=== PATIENT | female | born 1980 | race Caucasian/White ===

== ENCOUNTER 2019-07-14 19:46 | Emergency (ER) | payer OTHER, SELFPAY ==
--- NOTE | ~2019-07-14 | XR_ITS ---
EXAMINATION: XR forearm RT 2V EXAM DATE: 07/14/2019 20:36 INDICATION: Right arm swelling after working outside, poison lucero exposure. TECHNIQUE: Right forearm frontal and lateral projections obtained and reviewed. Comparison is made to prior examination from 03/25/2013. FINDINGS: There are no acute right forearm fractures or dislocations identified. There is no subcuta neous gas. There is soft tissue swelling over the posterior mid aspect of the forearm. There are no radiopaque foreign bodies. No elbow joint effusion. IMPRESSION: 1. XR forearm RT 2V exam without acute osseous findings. 2. Soft tissue swelling. Reviewed, dictated and finalized at location A.
[2019-07-14 19:52] VITALS: BP 153/74; PULSE 77; RESP 15; TEMP 36.8; O2SAT 100
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
[2019-07-14] MEDS: methylPREDNISolone SOD SUCC 125 MG VIAL IM (20:27)
--- NOTE | 2019-07-14 20:39 | PC.NURSE ---
At patient request-assistance give with application of Calamine lotion to right arm for rash
[2019-07-14] MEDS: KETOROLAC (*BKC) 60 MG/2 ML VIAL IM (21:28)
[2019-07-14 22:20] VITALS: BP 135/71; PULSE 71; RESP 18; TEMP 36.7; O2SAT 99
== END 2019-07-14 22:22 | disposition home or self-care (01) ==
PROVIDERS: Emergency Provider General Practice; PCP Obstetrics & Gynecology
DX: R21 Rash and other nonspecific skin eruption (principal); M79.631 Pain in right forearm; M79.89 Other specified soft tissue disorders; F41.9 Anxiety disorder, unspecified; I10 Essential (primary) hypertension
CPT/HCPCS: 73090; 96372; 99284; J1885; J2930

== ENCOUNTER 2019-07-17 17:32 | Emergency (ER) | payer OTHER, SELFPAY ==
[2019-07-17 17:44] VITALS: BP 152/88; PULSE 92; RESP 16; TEMP 37; O2SAT 99
--- NOTE | 2019-07-17 18:20 | ED.SKABFB ---
HPI - Skin/Abscess/Foreign Bdy General Chief complaint: Skin/Abscess/Foreign Body Stated complaint: rash Time Seen by Provider: 07/17/19 18:10 Source: patient and RN notes reviewed Mode of arrival: ambulatory Limitations: no limitations History of Present Illness HPI narrative: Patient presents today with a one-week history of severely pruritic rash to the right forearm and right axilla. Patient was seen in the ER in 07/14/2019 for unrelated swelling of her right forearm, as well as this rash. She was given topical hydrocortisone, which is not working. She is also been taking Benadryl without much relief. Reports the rash is continuing to spread down her forearm. Patient works in [employer] and believes that she came into contact with poison [place] prior to onset of symptoms. MD complaint: rash Related Data Home Medications Medication Instructions Recorded Confirmed alprazolam 07/17/19 buspirone mg 07/17/19 buspirone mg 07/17/19 citalopram mg 07/17/19 escitalopram oxalate mg 07/17/19 fluoxetine mg 07/17/19 gabapentin 07/17/19 Allergies Allergy/AdvReac Type Severity Reaction Status Date / Time latex Allergy Intermediate Itching Verified 07/14/19 19:55 morphine Allergy Intermediate Swelling Verified 07/14/19 19:55 amoxicillin [From Augmentin] AdvReac Mild Nausea and Verified 07/14/19 20:29 Vomiting clavulanic acid AdvReac Mild Nausea and Verified 07/14/19 20:29 [From Augmentin] Vomiting naproxen AdvReac Mild Other Verified 07/14/19 19:55 Review of Systems Review of Systems: Narrative: CONSTITUTIONAL: Denies body aches, fever, chills, or sweats. EYES: Denies visual changes, redness, or discharge. ENT: Denies rhinorrhea, congestion, sore throat, or otalgia. CARDIOVASCULAR: Denies chest pain, palpitations, or edema. RESPIRATORY: Denies cough or dyspnea. GASTROINTESTINAL: Denies abdominal pain, nausea, vomiting, or diarrhea. GENITOURINARY: Denies dysuria or hematuria. SKIN: Denies wounds.+ Pruritic rash to right forearm and right axilla. MUSCULOSKELETAL: Denies back pain, joint pain, or myalgia. NEUROLOGIC: Denies headache, numbness, tingling, or weakness. PSYCH: Denies depression or anxiety. PMFSH Past Medical History Medical History (Updated 07/17/19 @ 18:27 by Lamar Alicea, BIN FILLER, ) Anxiety Hypertension Surgical History Surgical History (Updated 07/14/19 @ 20:24 by Ksenia Estrada MD) History of facial surgery Comments At time of signature, I have reviewed and agree with nursing past medical, surgical, social and family history unless otherwise noted. Please see nursing chart for further information. There is no relevant family history pertinent to the presenting complaint Exam Narrative: Exam Narrative: GENERAL: Well-appearing, well-nourished, and in no acute distress. HEAD: Normocephalic, atraumatic. EYES: EOMI. No redness or drainage. Conjunctivae normal. ENT: Mucous membranes pink and moist. NECK: Normal AROM. Supple. No lymphadenopathy. CHEST: No respiratory distress. EXTREMITIES: Normal range of motion. No edema. SKIN: Warm, dry. Capillary refill normal. Normal skin turgor. Large patch of erythematous papules to the inner right upper arm. No vesicles, induration, fluctuance of signs of infection. Similar large patch to right axilla. NEURO: No focal deficits. Alert and oriented x3. Gait steady. PSYCH: Normal affect. No signs of depression or anxiety. Course Vital Signs Vital signs: Vital Signs Temperature 98.6 F 07/17/19 17:44 Pulse Rate 92 07/17/19 17:44 Respiratory Rate 16 07/17/19 17:44 Blood Pressure 152/88 H 07/17/19 17:44 Pulse Oximetry 99 07/17/19 17:44 Temperature 98.6 F 07/17/19 17:44 Pulse Rate 92 07/17/19 17:44 Respiratory Rate 16 07/17/19 17:44 Blood Pressure 152/88 H 07/17/19 17:44 Pulse Oximetry 99 07/17/19 17:44 Reviewed. Pt has been instructed to follow up with her PCP regarding her elevated blood pr
== END 2019-07-17 18:35 | disposition home or self-care (01) ==
PROVIDERS: Emergency Provider Nurse Practitioner; PCP Family Medicine
DX: L25.9 Unspecified contact dermatitis, unspecified cause (principal); F41.9 Anxiety disorder, unspecified; I10 Essential (primary) hypertension
CPT/HCPCS: 99213; G0463

== ENCOUNTER 2019-11-19 16:50 | Emergency (ER) | payer OTHER, SELFPAY ==
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
[2019-11-19 17:03] VITALS: BP 135/80; PULSE 92; RESP 16; TEMP 37.1; O2SAT 97
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
== END 2019-11-19 18:31 | disposition home or self-care (01) ==
PROVIDERS: Emergency Provider Registered Nurse; PCP Family Medicine
DX: M54.2 Cervicalgia (principal); M54.6 Pain in thoracic spine; V49.40XA Driver injured in collision with unspecified motor vehicles in traffic accident, initial encounter; F17.210 Nicotine dependence, cigarettes, uncomplicated; F41.9 Anxiety disorder, unspecified; F32.9 Major depressive disorder, single episode, unspecified; J45.909 Unspecified asthma, uncomplicated; K21.9 Gastro-esophageal reflux disease without esophagitis; I10 Essential (primary) hypertension; F43.10 Post-traumatic stress disorder, unspecified
CPT/HCPCS: 72050; 99213; G0463

== ENCOUNTER 2020-06-07 15:59 | Emergency (ER) | payer OTHER, SELFPAY ==
--- NOTE | 2020-06-07 16:30 | ED.GENADULT ---
HPI - General Adult General Chief complaint: Upper Respiratory Infection Stated complaint: cough/no taste /smell Time Seen by Provider: 06/07/20 16:30 Source: patient Mode of arrival: ambulatory Limitations: no limitations History of Present Illness HPI narrative: 39-year-old female patient presents to the [facility] with complaints of cold symptoms for the past 2 to 3 days. Patient states she has had a lot of fatigue, sneezing, bilateral ear pain, congestion cough. Patient also reports no smell no taste in a sore throat. Patient states she is been taking Tylenol and ibuprofen for symptoms. Patient states she did get a flu vaccine this season. Patient states she has been around somebody that has been positive for Covid within the last week. Patient denies any chest pain or shortness of breath. Related Data Home Medications Medication Instructions Recorded Confirmed gabapentin 07/17/19 alprazolam 11/19/19 cyclobenzaprine mg 11/19/19 metoprolol succinate PO 11/19/19 sertraline mg 11/19/19 pantoprazole 40 mg PO DAILY 06/07/20 06/07/20 Allergies Allergy/AdvReac Type Severity Reaction Status Date / Time latex Allergy Intermediate Itching Verified 07/14/19 19:55 morphine Allergy Intermediate Swelling Verified 07/14/19 19:55 amoxicillin [From Augmentin] AdvReac Mild Nausea and Verified 07/14/19 20:29 Vomiting clavulanic acid AdvReac Mild Nausea and Verified 07/14/19 20:29 [From Augmentin] Vomiting naproxen AdvReac Mild Other Verified 07/14/19 19:55 Review of Systems Review of Systems: Narrative: CONSTITUTIONAL: Denies fever, chills, or sweats. Positive fatigue EYES: Denies visual changes, redness, or discharge. ENT: Positive rhinorrhea, congestion, sore throat, and bilateral otalgia. Positive sneezing CARDIOVASCULAR: Denies chest pain, palpitations, or edema. RESPIRATORY: Positive cough denies dyspnea. GASTROINTESTINAL: Denies abdominal pain, nausea, vomiting, or diarrhea. GENITOURINARY: Denies dysuria or hematuria. SKIN: Denies rash or itching. MUSCULOSKELETAL: Denies back pain, joint pain, or myalgia. NEUROLOGIC: Positive denies headache, numbness, or weakness. PSYCHIATRIC: Denies anxiety or depression. [facility] Past Medical History Medical History Anxiety Asthma Depression GERD (gastroesophageal reflux disease) Gestational diabetes Headache History of dental problems Hypertension Pinched cervical nerve root PTSD (post-traumatic stress disorder) Sciatica Surgical History Surgical History History of facial surgery Previous section Family History Family History Mother Hypertension Father Hypertension Other Diabetes mellitus Social History Social History Smoking packs per day: 0.5 Smoking cigarettes per day: 10.0 Years smoked: 20 Smoking pack-years: 10.00 Smoking status: Current every day smoker Tobacco type: cigarettes Gender identity (if verbalized by the patient): Female Comments At the time of my signature I agree with nursing past medical history, surgical, social, and family history. There is no relevant family history pertinent to the presenting complaint. Exam Narrative: Exam Narrative: GENERAL: Well-appearing, well-nourished, and in no acute distress. HEAD: Normocephalic, atraumatic. EYES: PERRLA and EOMI. ENT: Nares with erythema and edema noted bilaterally, no rhinorrhea or epistaxis. Mucous membranes moist. Posterior pharynx with slight erythema but no tonsil enlargement, no exudates or lesions present. NECK: Supple. No lymphadenopathy CHEST: Clear to auscultation. No respiratory distress. Patient able talk in clear complete sentences. No tripoding noted. HEART: Regular rate and rhythm. No murmur heard. Normal peripheral pulses.
[2020-06-07 17:01] VITALS: BP 136/86; PULSE 76; RESP 18; TEMP 36.4; O2SAT 96
--- NOTE | 2020-06-08 11:05 | PC.NURSE ---
06/07/20 Juan Bryant from [facility] notified of pickup of COVID PCR swab.
[2020-06-08 17:33] LABS: SARS-CoV-2 RNA PCR Negative
== END 2020-06-07 18:15 | disposition home or self-care (01) ==
PROVIDERS: Emergency Provider Nurse Practitioner Family; PCP Family Medicine
DX: J06.9 Acute upper respiratory infection, unspecified (principal); Z20.822 Contact with and (suspected) exposure to COVID-19; F41.9 Anxiety disorder, unspecified; F32.9 Major depressive disorder, single episode, unspecified; J45.909 Unspecified asthma, uncomplicated; K21.9 Gastro-esophageal reflux disease without esophagitis; I10 Essential (primary) hypertension; F17.210 Nicotine dependence, cigarettes, uncomplicated
CPT/HCPCS: 87081; 87426; 87880; 99213; C9803; G0463; U0003; U0005

== ENCOUNTER 2020-08-14 08:55 | Outpatient (CLI) | payer OTHER, SELFPAY ==
--- NOTE | ~2020-08-14 | XR_ITS ---
XR knee LT min 4V 08/14/2020 09:29 Indication: Left knee pain Procedure: 4 views left knee Comparison: No prior studies for comparison. Findings: There is mild osteoarthritis of the left knee. There is a small bone island in the proximal tibia. No fracture or traumatic malalignment. No significant joint effusion. No foreign bodies. Impression: 1: Mild osteoarthritis of the left knee. Reviewed, dictated and finalized at location B. Impression: 1: Mild osteoarthritis of the left knee.
--- NOTE | ~2020-08-14 | XR_ITS ---
XR lumbar spine 2-3V 08/14/2020 09:29 Indication: Low back pain Procedure: 2 views lumbar spine Comparison: 10/19/2015 Findings: Vertebral body heights are maintained. There is a Schmorl's node superior endplate of T12. No fracture, subluxation or dislocation. Pedicles intact. Sacral foramen are symmetric. No evidence f or spondylolisthesis. No significant disc narrowing. Impression: 1: No significant abnormality of the lumbar spine. Reviewed, dictated and finalized at location B. Impression: 1: No significant abnormality of the lumbar spine.
--- NOTE | ~2020-08-14 | XR_ITS ---
XR knee RT min 4V 08/14/2020 09:29 Indication: Right knee pain Procedure: 4 views right knee Comparison: No prior studies for comparison. Findings: No fracture, subluxation or dislocation. No significant joint effusion. No radiopaque forei gn bodies. Impression: 1: No significant bone or joint abnormality. Reviewed, dictated and finalized at location B. Impression: 1: No significant bone or joint abnormality.
== END 2020-08-14 08:56 | disposition home or self-care (01) ==
LOC: ANHIMG 08:59
PROVIDERS: PCP Family Medicine; Visit Provider Family Medicine
DX: M23.8X1 Other internal derangements of right knee (principal); M79.89 Other specified soft tissue disorders; M54.5 Low back pain; M23.8X2 Other internal derangements of left knee; M17.12 Unilateral primary osteoarthritis, left knee
CPT/HCPCS: 72100; 73564

== ENCOUNTER 2020-11-08 15:43 | Emergency (ER) | payer OTHER, SELFPAY ==
[2020-11-08 16:18] VITALS: BP 143/84; PULSE 104; RESP 16; TEMP 36.4; O2SAT 99
--- NOTE | 2020-11-08 16:18 | ED.GENADULT ---
HPI - General Adult General Chief complaint: Unspecified Stated complaint: fever Time Seen by Provider: 11/08/20 16:18 Source: patient, family and RN notes reviewed Mode of arrival: ambulatory Limitations: no limitations History of Present Illness HPI narrative: 39-year-old female presents to the [facility] with no specific complaint. States that she has been feeling very rundown for the last 4 weeks. States that her primary care will not be returning until Nov. No chest pain or abdominal pain. Related Data Home Medications Medication Instructions Recorded Confirmed gabapentin 100 mg PO TID 07/17/19 11/08/20 alprazolam 1 mg PO TID 11/19/19 11/08/20 cyclobenzaprine 10 mg PO TID PRN 11/19/19 11/08/20 metoprolol succinate 50 mg PO DAILY 11/19/19 11/08/20 sertraline 150 mg PO DAILY 11/19/19 11/08/20 Allergies Allergy/AdvReac Type Severity Reaction Status Date / Time latex Allergy Intermediate Itching Verified 11/08/20 16:37 morphine Allergy Intermediate Swelling Verified 11/08/20 16:37 amoxicillin [From Augmentin] AdvReac Mild Nausea and Verified 11/08/20 16:37 Vomiting clavulanic acid AdvReac Mild Nausea and Verified 11/08/20 16:37 [From Augmentin] Vomiting naproxen AdvReac Mild Other Verified 11/08/20 16:37 Review of Systems Review of Systems: All systems reviewed & are unremarkable except as noted in HPI and below Constitutional: Constitutional: Reports no additional constitutional complaints, Denies body ache(s) and Denies chills Eyes: Eyes: Reports no additional eye complaints ENT: Reports system reviewed and no additional complaints, except as documented Cardiovascular: Cardiovascular: Reports no additional cardiovascular complaints and Denies chest pain Respiratory: Respiratory: Reports no additional respiratory complaints, Denies chest congestion and Denies cough Gastrointestinal: Gastrointestinal: Reports no additional gastrointestinal complaints and Denies abdominal pain Musculoskeletal: Musculoskeletal: Reports no additional musculoskeletal complaints Integumentary/Breasts: Skin/Breast: Reports system reviewed and no additional complaints, except as docu Neurologic: Reports system reviewed and no additional complaints, except as documented Psychiatric: Psychiatric: Reports no additional psychiatric complaints Allergic/Immunologic: Allergic/Immunologic: Reports no additional allergic/immunologic complaints PMFSH Past Medical History Medical History Anxiety Asthma Depression GERD (gastroesophageal reflux disease) Gestational diabetes Headache History of dental problems Hypertension Pinched cervical nerve root PTSD (post-traumatic stress disorder) Sciatica Surgical History Surgical History History of facial surgery Previous section Family History Family History Mother Hypertension Father Hypertension Other Diabetes mellitus Social History Social History Smoking packs per day: 0.5 Smoking cigarettes per day: 10.0 Years smoked: 20 Smoking pack-years: 10.00 Smoking status: Current every day smoker Tobacco type: cigarettes Gender identity (if verbalized by the patient): Female Comments At the time of my signature, I reviewed and agree with the nursing past medical, surgical, social, and family history. There is no relevant family history pertinent to the patient complaint. Exam Const: General: cooperative, comfortable, no acute distress, alert and anxious Nutritional Appearance: obese Orientation/consciousness: patient oriented x3 Limitations: no limitations HENMT: Head: normal to inspection Ears: hearing grossly normal bilaterally General nose exam: Normal external nose present Throat: posterior oropharynx normal Eyes: General: appearance normal,
== END 2020-11-08 16:53 | disposition home or self-care (01) ==
PROVIDERS: Emergency Provider Nurse Practitioner; PCP Family Medicine
DX: R53.83 Other fatigue (principal); F17.210 Nicotine dependence, cigarettes, uncomplicated; J45.909 Unspecified asthma, uncomplicated; K21.9 Gastro-esophageal reflux disease without esophagitis; I10 Essential (primary) hypertension; F41.9 Anxiety disorder, unspecified; F32.9 Major depressive disorder, single episode, unspecified; F43.10 Post-traumatic stress disorder, unspecified; X58.XXXA Exposure to other specified factors, initial encounter
CPT/HCPCS: 99211; G0463

== ENCOUNTER 2021-07-18 06:45 | Outpatient (RCR) | payer SELFPAY | END 2021-10-01 10:30 | disposition home or self-care (01) | LOC: ANHDMC 06:45 | PROVIDERS: PCP Nurse Practitioner; Visit Provider Clinical Nurse Specialist | DX: E11.9 Type 2 diabetes mellitus without complications (principal) | CPT/HCPCS: 99199 ==

== ENCOUNTER 2021-11-27 09:42 | Emergency (ER) | payer OTHER, SELFPAY ==
[2021-11-27 09:56] VITALS: BP 132/85; PULSE 101; RESP 16; TEMP 36.9; O2SAT 100
--- NOTE | 2021-11-27 10:32 | ED.URI ---
HPI - URI/Sore Throat General Chief Complaint: Upper Respiratory Infection Stated Complaint: sore throat Time Seen by Provider: 11/27/21 10:32 Source: patient, RN notes reviewed and old records reviewed Mode of arrival: ambulatory Limitations: no limitations History of Present Illness HPI Narrative: 40-year-old female presents to the [facility] with multiple complaints. Patient states she has had a sore throat, ear pain, lump under her left arm. Patient states she has had sinus pressure for 2-1/2 weeks. Has tried a couple [id number] products but states she needs to watch what she takes because she has a history of high blood pressure. Related Data Home Medications Medication Instructions Recorded Confirmed alprazolam 1 mg tablet 1 mg PO TID 11/19/19 11/27/21 duloxetine 20 mg capsule,delayed 80 mg PO DAILY 09/26/21 11/27/21 release gabapentin 300 mg capsule 300 mg PO TID 09/26/21 11/27/21 Allergies Allergy/AdvReac Type Severity Reaction Status Date / Time latex Allergy Intermediate Itching Verified 11/27/21 10:28 morphine Allergy Intermediate Swelling Verified 11/27/21 10:28 amoxicillin [From Augmentin] AdvReac Mild Nausea and Verified 11/27/21 10:28 Vomiting clavulanic acid AdvReac Mild Nausea and Verified 11/27/21 10:28 [From Augmentin] Vomiting naproxen AdvReac Mild Other Verified 11/27/21 10:28 Review of Systems Review of Systems: All systems reviewed & are unremarkable except as noted in HPI and below Constitutional: Constitutional: Reports no additional constitutional complaints, Denies chills and Denies fever(s) Eyes: Eyes: Reports no additional eye complaints ENT: Reports as per HPI Cardiovascular: Cardiovascular: Reports no additional cardiovascular complaints Respiratory: Respiratory: Reports no additional respiratory complaints Gastrointestinal: Gastrointestinal: Reports no additional gastrointestinal complaints Musculoskeletal: Musculoskeletal: Reports no additional musculoskeletal complaints Integumentary/Breasts: Skin/Breast: Reports as per HPI Neurologic: Reports system reviewed and no additional complaints, except as documented Psychiatric: Psychiatric: Reports no additional psychiatric complaints Allergic/Immunologic: Allergic/Immunologic: Reports no additional allergic/immunologic complaints PMFSH Past Medical History Medical History Allergies Anxiety Asthma Cervical radiculopathy due to degenerative joint disease of spine Degenerated intervertebral disc Depression GERD (gastroesophageal reflux disease) Gestational diabetes History of dental problems Hypertension Pinched cervical nerve root PTSD (post-traumatic stress disorder) Sciatica Surgical History Surgical History History of facial surgery Previous section Family History Family History Mother Hypertension Alcoholism Asthma Diabetes mellitus Depression Anxiety Heart problem Father Hypertension Alcoholism Thyroid disorder Sibling Alcoholism Asthma Anxiety Depression Thyroid disorder Grandparent Asthma Cancer Diabetes mellitus Hypertension Depression Anxiety Heart problem Cerebrovascular accident Social History Social History Social History: Caffeine-Coffee, daily and energy drinks Smoking packs per day: 0.5 Smoking cigarettes per day: 10.0 Years smoked: 20 Smoking pack-years: 10.00 Smoking status: Current every day smoker Tobacco type: cigarettes Second hand tobacco smoke exposure: Yes Alcohol intake: never Substance use: never Substance use type: does not use Additional living arrangements comments: Lives alone with 2 children Gender identity (if verbalized by the patient): Female Comments At the time o
== END 2021-11-27 11:23 | disposition home or self-care (01) ==
PROVIDERS: Emergency Provider Nurse Practitioner
DX: L73.2 Hidradenitis suppurativa (principal); J06.9 Acute upper respiratory infection, unspecified; F17.210 Nicotine dependence, cigarettes, uncomplicated; J45.909 Unspecified asthma, uncomplicated; K21.9 Gastro-esophageal reflux disease without esophagitis; I10 Essential (primary) hypertension; F41.9 Anxiety disorder, unspecified; M47.812 Spondylosis without myelopathy or radiculopathy, cervical region
CPT/HCPCS: 87081; 87880; 99213; G0463

== ENCOUNTER 2021-12-25 12:30 | Outpatient (RCR) | payer OTHER, SELFPAY ==
--- NOTE | 2021-12-05 13:22 | PTOPEVAL1 ---
Assessment and note entered by Misty Bates, PT Evaluation Information Assessment Status Evaluation Reported Pain Level Pain Score 8,8: Self Report Additional Pain Score Comments low back/sciatica also Significant back pain with bending forward. Only able to maintain bent for bathing her children 3 min at a time Assessment PT Clinical Summary Pt presents w/ c/o cervical pain and radiculopathy but also w/ c/o low back pain and sciatic issues. She reports when she modifies her activities for one, the other will increase in pain. Also reports is never a 0/10 for pain with lowest ratings for neck and back being 5/10 and 6/10. Verbalizes discouragement and frustration with the multiple aspects and co-morbidities she is dealing with as well as psychosocial issues effecting her health. Evaluation today shows decreased ROM of lumbar, thoracic, and cervical spine as well as poor core activation pattern and strength, soft tissue extensibility issues, abnormal postures, and likely pelvic alignment issue effecting spinal alignment up kinematic chain all effecting pt's pain. Pt was educated on findings, and encouraged in multiple aspects of improving daily function with dietary and habit changes, as well as stress reduction. Will benefit from therapy to address alignment, strength and stabilization of lumbopelvic area, address cervical ROM and postures, and reduce pain to improve daily function. Plan of Care Interventions Electrical Stimulation,Hot Pack/Cold Pack,Manual Therapy,Mechanical Traction,Neuro Re-education, Patient/Caregiver Educati,Therapeutic Activities, Therapeutic Exercise,Self-Care/Home Management Other Interventions Bracing/Taping (latex allergy) PT Services Indicated Yes Treatment Frequency and 2x per week x 4 weeks Duration These treatments will address the objective and functional deficits as defined above. The patient will be advanced safely and appropriately in order for the patient to progress towards his/her prior level of function. Additional exercises will be introduced and as well as a comprehensive home exercise program upon discharge, if needed, ?to ensure carryover of functional gains achieved in the clinic. This treatment plan has been reviewed and agreement upon by the patient.
--- NOTE | 2021-12-05 13:25 | PTOPEVAL1 ---
Assessment and note entered by Misty Bates, PT Evaluation Information Assessment Status Evaluation Reported Pain Level Pain Score 8,8: Self Report Additional Pain Score Comments cervicalgia w/ radiculopathy low back/sciatica Assessment PT Clinical Summary Pt presents w/ c/o cervical pain and radiculopathy but also w/ c/o low back pain and sciatic issues. She reports when she modifies her activities for one, the other will increase in pain. Also reports is never a 0/10 for pain with lowest ratings for neck and back being 5/10 and 6/10. Verbalizes discouragement and frustration with the multiple aspects and co-morbidities she is dealing with as well as psychosocial issues effecting her health. Evaluation today shows decreased ROM of lumbar, thoracic, and cervical spine as well as poor core activation pattern and strength, soft tissue extensibility issues, abnormal postures, and likely pelvic alignment issue effecting spinal alignment up kinematic chain all effecting pt's pain. Pt was educated on findings, and encouraged in multiple aspects of improving daily function with dietary and habit changes, as well as stress reduction. Will benefit from therapy to address alignment, strength and stabilization of lumbopelvic area, address cervical ROM and postures, and reduce pain to improve daily function. Plan of Care Interventions Electrical Stimulation,Hot Pack/Cold Pack,Manual Therapy,Mechanical Traction,Neuro Re-education, Patient/Caregiver Educati,Therapeutic Activities, Therapeutic Exercise,Self-Care/Home Management Other Interventions Bracing/Taping (latex allergy) PT Services Indicated Yes Treatment Frequency and 2x per week x 4 weeks Duration These treatments will address the objective and functional deficits as defined above. The patient will be advanced safely and appropriately in order for the patient to progress towards his/her prior level of function. Additional exercises will be introduced and as well as a comprehensive home exercise program upon discharge, if needed, ?to ensure carryover of functional gains achieved in the clinic. This treatment plan has been reviewed and agreement upon by the patient.
--- NOTE | 2021-12-26 11:42 | PCPTNOTE ---
Patient did not show up for scheduled appointment this date.
--- NOTE | 2021-12-27 13:07 | PCPTNOTE ---
Patient did not show up for scheduled appointment this date. Called and spoke with Pt, Pt had spoken with secretary to the vice president and was going to call back later when she can reschedule.
--- NOTE | 2021-12-28 11:31 | PCPTNOTE ---
Patient did not show up for scheduled appointment this date. Called and left a voicemail.
--- NOTE | 2022-01-02 13:19 | PTOPDC ---
Assessment and note entered by Misty Bates, PT Discharge Information Assessment Status Discharge - Pt Not Present Assessment PT Clinical Summary Pt attended evaluation and two therapy sessions. She has since ceased her therapy sessions without calling to cancel her last four sessions. Thus she is being discharged from her therapy POC at this time due to nonattendance.
== END 2022-01-03 10:03 | disposition home or self-care (01) ==
LOC: ANHPT 12:30
PROVIDERS: PCP Nurse Practitioner Family; Visit Provider Nurse Practitioner Family
DX: M54.2 Cervicalgia (principal); M54.12 Radiculopathy, cervical region
CPT/HCPCS: 97014; 97110; 97162; 97530; 99199; G0283

== ENCOUNTER 2021-12-26 12:11 | Outpatient (CLI) | payer OTHER, SELFPAY ==
[2021-12-26 18:35] LABS: Hemoglobin A1C 9.2 % (<5.7)
[2021-12-26 18:39] LABS: Alanine Aminotransferase 43 U/L (6-35); Albumin Level 4.1 g/dL (3.5-5.1); Alkaline Phosphatase 113 U/L (38-126); Anion Gap 14 mmol/L (8-16); Aspartate Amino Transferase 27 U/L (14-36); Bilirubin,Total 0.2 mg/dL (0.2-1.3); Blood Urea Nitrogen 11 mg/dL (7-17); Calcium 9.6 mg/dL (8.4-10.2); Carbon Dioxide 28 mmol/L (22-30); Chloride 96 mmol/L (98-107); Estimated Glomerular Filt Rate > 60; Glucose 336 mg/dL (65-110); Potassium 4.3 mmol/L (3.4-5.0); Sodium 138 mmol/L (137-145)
[2021-12-26 18:41] LABS: Basophils Absolute Auto 0.1 K/mm3 (0.0-0.1); Basophils Percent Auto 0.5 % (0.2-1.2); Eosinophils Absolute Auto 0.3 K/mm3 (0-0.3); Eosinophils Percent Auto 3.1 % (0-4.4); Hematocrit 36.6 % (37.0-47.0); Hemoglobin 11.6 g/dL (12.0-15.0); Immature Granulocyte Absolute 0.06 K/mm3 (0.00-0.031); Immature Granulocyte Percent A 0.6 % (0-0.5); Lymphocytes Absolute Auto 3.33 K/mm3 (0.9-3.2); Lymphocytes Percent Auto 30.8 % (18.3-44.2); Mean Corpuscular HGB Conc 31.7 g/dl (32-36); Mean Corpuscular Hemoglobin 27.5 pg (26-34); Mean Corpuscular Volume 86.7 fl (80-100); Mean Platelet Volume 9.6 fl (7.4-10.4); Monocytes Absolute Auto 0.9 K/mm3 (0.1-0.6); Neutrophils Absolute Auto 6.2 K/mm3 (1.3-6.7); Platelet Count Result 484 k/mm3 (150-375); Red Blood Count 4.22 M/mm3 (4.2-5.4); Red Cell Distribution Width 14.6 % (11.5-14.5); White Blood Count 10.8 K/mm3 (4.5-10.0)
[2021-12-26 18:49] LABS: Creatinine Urine 44.9 mg/dL
[2021-12-26 18:59] LABS: MALB Creatinine Ratio 211.4 mg/g (0-30); Microalbumin Urine Random 94.9 mg/L (0-16.7)
== END 2021-12-26 12:12 | disposition home or self-care (01) ==
LOC: ANHGOSHLAB 12:13
PROVIDERS: PCP Internal Medicine; Visit Provider Clinical Nurse Specialist
DX: E11.69 Type 2 diabetes mellitus with other specified complication (principal)
CPT/HCPCS: 36415; 80053; 82043; 83036; 85025

== ENCOUNTER 2022-03-12 13:23 | Emergency (ER) | payer OTHER, SELFPAY ==
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
--- NOTE | ~2022-03-12 | XR_ITS ---
[id number] DATE: 03/12/2022 15:07 INDICATION: Left anterior rib pain TECHNIQUE: PA chest. 3 views of the left ribs. COMPARISON: None FINDINGS: Normal heart size. No hilar or mediastinal enlargement. No pulmonary infiltrate or consolid ation, pleural effusion or pulmonary vascular congestion or pneumothorax. No left rib fracture or bone destruction is detected. IMPRESSION: No left rib fracture is detected No active cardiopulmonary disease Reviewed, dictated and finalized at [facility] Reviewed, dictated and finalized at [facility]. [employer] REPA[employer]
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
[2022-03-12 13:58] VITALS: BP 126/80; PULSE 110; RESP 20; TEMP 36.5; O2SAT 98
== END 2022-03-12 15:36 | disposition home or self-care (01) ==
PROVIDERS: Emergency Provider Nurse Practitioner Family; PCP Internal Medicine
DX: R07.81 Pleurodynia (principal); S16.1XXA Strain of muscle, fascia and tendon at neck level, initial encounter; V48.5XXA Car driver injured in noncollision transport accident in traffic accident, initial encounter; J45.909 Unspecified asthma, uncomplicated; K21.9 Gastro-esophageal reflux disease without esophagitis; I10 Essential (primary) hypertension; F41.9 Anxiety disorder, unspecified; F17.210 Nicotine dependence, cigarettes, uncomplicated
CPT/HCPCS: 71101; 72040; 99214; G0463

== ENCOUNTER 2022-03-25 08:00 | Outpatient (RCR) | payer OTHER, SELFPAY | END 2022-06-10 11:06 | disposition home or self-care (01) | LOC: ANHPT 08:00 | PROVIDERS: PCP Internal Medicine; Visit Provider Anesthesiology Pain Medicine | DX: M25.561 Pain in right knee (principal); M25.562 Pain in left knee | CPT/HCPCS: 99199 ==

== ENCOUNTER 2022-03-27 11:09 | Outpatient (CLI) | payer OTHER, SELFPAY ==
[2022-03-27 19:36] LABS: Add Urine Microscopic? YES; Appearance Urine Cloudy (Clear); Bilirubin Urine Negative (Negative); Blood Urine 3+ (Negative); Color Urine Red (Yellow); Glucose Urine UA Negative (Negative); Ketones Urine Negative (Negative); Leukocyte Esterase Ur Trace LEU/UL (NEGATIVE); Nitrate Urine Negative (Negative); Protein Urine 3+ mg/dL (Negative); Urobilinogen Urine 0.2 mg/dL (<2.0)
[2022-03-27 19:43] LABS: RBC Urine >75 /hpf (0-2)
[2022-03-27 19:45] LABS: Bacteria Urine Trace /hpf; Squamous Epithelial Cell Urine Few /hpf (Few)
[2022-03-27 19:54] LABS: Basophils Absolute Auto 0.1 K/mm3 (0.0-0.1); Basophils Percent Auto 0.9 % (0.2-1.2); Eosinophils Absolute Auto 0.4 K/mm3 (0-0.3); Hematocrit 39.1 % (37.0-47.0); Immature Granulocyte Absolute 0.03 K/mm3 (0.00-0.031); Immature Granulocyte Percent A 0.3 % (0-0.5); Lymphocytes Absolute Auto 3.09 K/mm3 (0.9-3.2); Lymphocytes Percent Auto 35.4 % (18.3-44.2); Mean Corpuscular HGB Conc 30.7 g/dl (32-36); Mean Corpuscular Hemoglobin 25.4 pg (26-34); Mean Corpuscular Volume 82.8 fl (80-100); Mean Platelet Volume 9.3 fl (7.4-10.4); Monocytes Absolute Auto 0.5 K/mm3 (0.1-0.6); Monocytes Percent Auto 5.7 % (2.6-8.5); Neutrophils Absolute Auto 4.7 K/mm3 (1.3-6.7); Neutrophils Percent Auto 53.7 % (45.5-73.1); Platelet Count Result 519 k/mm3 (150-375); Red Blood Count 4.72 M/mm3 (4.2-5.4); Red Cell Distribution Width 15.8 % (11.5-14.5); White Blood Count 8.7 K/mm3 (4.5-10.0)
[2022-03-27 20:28] LABS: Alanine Aminotransferase 44 U/L (6-35); Albumin Level 4.3 g/dL (3.5-5.1); Alkaline Phosphatase 112 U/L (38-126); Anion Gap 6 mmol/L (8-16); Aspartate Amino Transferase 32 U/L (14-36); Bilirubin,Total 0.3 mg/dL (0.2-1.3); Blood Urea Nitrogen 7 mg/dL (7-17); Calcium 9.1 mg/dL (8.4-10.2); Carbon Dioxide 30 mmol/L (22-30); Chloride 101 mmol/L (98-107); Cholesterol 304 mg/dL (0-200); Estimated Glomerular Filt Rate > 60; Glucose 160 mg/dL (65-110); HDL Direct 34 mg/dL; Potassium 4.4 mmol/L (3.4-5.0); Sodium 137 mmol/L (137-145); Triglycerides 510 mg/dL (<150)
[2022-03-27 20:42] LABS: Iron 63 ug/dL (37-170)
[2022-03-27 20:43] LABS: LDL Cholesterol Direct 161 mg/dL
[2022-03-27 20:53] LABS: Percent Iron Saturation 12 % (20-50)
[2022-03-27 21:25] LABS: Vitamin D 25 Hydroxy < 12.8 ng/mL
[2022-03-27 21:42] LABS: Creatinine Urine 21.2 mg/dL
[2022-03-27 22:10] LABS: Microalbumin Urine Random 263.5 mg/L (0-16.7)
[2022-03-28 12:03] LABS: Hemoglobin A1C 9.2 % (<5.7)
== END 2022-03-27 11:10 | disposition home or self-care (01) ==
LOC: ANHGOSHLAB 11:11
PROVIDERS: PCP Internal Medicine; Visit Provider Clinical Nurse Specialist
DX: E11.69 Type 2 diabetes mellitus with other specified complication (principal); F50.89 Other specified eating disorder; F41.9 Anxiety disorder, unspecified; I10 Essential (primary) hypertension; R74.8 Abnormal levels of other serum enzymes; E55.9 Vitamin D deficiency, unspecified; R35.0 Frequency of micturition
CPT/HCPCS: 36415; 80053; 80061; 81001; 82043; 82306; 82728; 83036; 83540; 83550; 84443; 85025; 87086

== ENCOUNTER 2022-06-18 09:20 | Emergency (ER) | payer OTHER, SELFPAY ==
[2022-06-18 09:33] VITALS: BP 126/64; PULSE 93; RESP 16; TEMP 36.6; O2SAT 98
--- NOTE | 2022-06-18 10:23 | ED.GENADULT ---
HPI - General Adult General Chief complaint: Upper Respiratory Infection Stated complaint: Sore Throat/ Ears/Headache Source: patient Mode of arrival: ambulatory Limitations: no limitations History of Present Illness HPI narrative: Patient presents for evaluation of sick symptoms for the past three days, worse in the past two days. She reports sore throat, sinus congestion, hot flashes, headache, nausea and fatigue. No vomiting, diarrhea, shortness of breath. One of her children has similar symptoms. She has been taking tylenol and ibuprofen for her symptoms. She does smoke about 1/4 ppd. She states she is diabetic. BS were previously not well controlled on trulicity. She changed to lantus a few month ago and states BS have been controlled in 120's since that time. Related Data Home Medications Medication Instructions Recorded Confirmed alprazolam 1 mg tablet 1 mg PO TID 11/19/19 01/09/22 duloxetine 20 mg capsule,delayed 80 mg PO DAILY 09/26/21 01/09/22 release gabapentin 300 mg capsule 300 mg PO TID 09/26/21 01/09/22 lamotrigine 25 mg tablet mg 03/12/22 cyclobenzaprine 10 mg tablet 10 mg PO Q8H 06/18/22 Allergies Allergy/AdvReac Type Severity Reaction Status Date / Time latex Allergy Intermediate Itching Verified 06/18/22 09:39 morphine Allergy Intermediate Swelling Verified 06/18/22 09:39 amoxicillin [From Augmentin] AdvReac Mild Nausea and Verified 06/18/22 09:39 Vomiting clavulanic acid AdvReac Mild Nausea and Verified 06/18/22 09:39 [From Augmentin] Vomiting naproxen AdvReac Mild Other Verified 06/18/22 09:39 Review of Systems Review of Systems: CONSTITUTIONAL: Reports hot flashes and fatigue. Denies objective fever, chills, or sweats. EYES: Denies visual changes, redness, or discharge. ENT: Reports sinus congestion, sore throat and bilateral ear pain. CARDIOVASCULAR: Denies chest pain, palpitations, or edema. RESPIRATORY: Denies cough or dyspnea. GASTROINTESTINAL: Reports nausea. Denies abdominal pain, vomiting, or diarrhea. GENITOURINARY: Denies dysuria or hematuria. SKIN: Denies rash or itching. MUSCULOSKELETAL: Denies back pain, joint pain, or myalgia. NEUROLOGIC: Reports headache. Denies numbness, dizziness, or weakness. PSYCHIATRIC: Denies anxiety or depression. [facility] Past Medical History Medical History Allergies Anxiety Asthma Cervical radiculopathy due to degenerative joint disease of spine Degenerated intervertebral disc Depression Elevated glucose level GERD (gastroesophageal reflux disease) Gestational diabetes Hidradenitis suppurativa History of dental problems Hypertension Otalgia of left ear Pain, dental Pinched cervical nerve root PTSD (post-traumatic stress disorder) Sciatica Suspected COVID-19 virus infection Urinary frequency Weight loss, unintentional Surgical History Surgical History History of facial surgery Previous section Family History Family History Mother Hypertension Alcoholism Asthma Diabetes mellitus Depression Anxiety Heart problem Father Hypertension Alcoholism Thyroid disorder Sibling Alcoholism Asthma Anxiety Depression Thyroid disorder Grandparent Asthma Cancer brain Diabetes mellitus Hypertension Depression Anxiety Heart problem Cerebrovascular accident Social History Social History (Updated 06/18/22 @ 11:02 by PEG Tavera, GIOVANNY) Social History: Caffeine-Coffee, daily Smoking packs per day: 0.25 Smoking cigarettes per day: 5.0 Years smoked: 20 Smoking pack-years: 5.00 Smoking status: Current every day smoker Tobacco type: cigarettes Second hand tobacco smoke exposure: Yes Alcohol intake: never Substance use: never Substance use type: does not use Lack of Transportat
== END 2022-06-18 10:44 | disposition home or self-care (01) ==
PROVIDERS: Emergency Provider Nurse Practitioner; PCP Clinical Nurse Specialist
DX: J02.0 Streptococcal pharyngitis (principal); Z20.822 Contact with and (suspected) exposure to COVID-19; F17.210 Nicotine dependence, cigarettes, uncomplicated; J44.9 Chronic obstructive pulmonary disease, unspecified; F41.9 Anxiety disorder, unspecified; F32.A Depression, unspecified; K21.9 Gastro-esophageal reflux disease without esophagitis; I10 Essential (primary) hypertension; E11.9 Type 2 diabetes mellitus without complications
CPT/HCPCS: 87426; 87804; 87880; 99213; C9803; G0463; J1100

== ENCOUNTER 2022-06-28 15:04 | Emergency (ER) | payer OTHER, SELFPAY ==
[2022-06-28 15:16] VITALS: BP 152/64; PULSE 100; RESP 16; TEMP 36.8; O2SAT 98
--- NOTE | 2022-06-28 15:25 | ED.URI ---
HPI - URI/Sore Throat General Chief Complaint: Upper Respiratory Infection Stated Complaint: Cough/Sinus Source: patient Mode of arrival: ambulatory Limitations: no limitations History of Present Illness HPI Narrative: Patient is a 41-year-old female who presents with sore throat and cough. Patient was seen 10 days ago and diagnosed with strep. Did not finish antibiotic course. Brought son and today he was strep positive. States symptoms have not improved at all. Has not taking any thing else for symptoms. Denies fever, chills, shortness of breath, congestion, fever and ear pain. Also reports menstrual cycle Is late and unsure if she is Related Data Home Medications Medication Instructions Recorded Confirmed alprazolam 1 mg tablet 1 mg PO TID 11/19/19 01/09/22 gabapentin 300 mg capsule 300 mg PO TID 09/26/21 01/09/22 lamotrigine 25 mg tablet mg 03/12/22 cyclobenzaprine 10 mg tablet 10 mg PO Q8H 06/18/22 Allergies Allergy/AdvReac Type Severity Reaction Status Date / Time latex Allergy Intermediate Itching Verified 06/28/22 15:46 morphine Allergy Intermediate Swelling Verified 06/28/22 15:46 amoxicillin [From Augmentin] AdvReac Mild Nausea and Verified 06/28/22 15:46 Vomiting clavulanic acid AdvReac Mild Nausea and Verified 06/28/22 15:46 [From Augmentin] Vomiting naproxen AdvReac Mild Other Verified 06/28/22 15:46 Review of Systems Review of Systems: All systems reviewed & are unremarkable except as noted in HPI and below Constitutional: Constitutional: Denies body ache(s), Denies fever(s), Denies headache(s), Denies malaise and Denies weakness Eyes: Eyes: Denies loss of vision ENT: Denies otalgia, Denies headache(s), Denies nasal congestion, Denies sinus pain and Reports sore throat Cardiovascular: Cardiovascular: Denies chest pain, Denies irregular heart rhythm and Denies dyspnea Respiratory: Respiratory: Reports cough and Denies dyspnea Gastrointestinal: Gastrointestinal: Denies abdominal pain, Denies melena, Denies hematochezia, Denies diarrhea, Denies nausea and Denies vomiting Musculoskeletal: Musculoskeletal: Denies back pain, Denies myalgias and Denies arthralgias Integumentary/Breasts: Skin/Breast: Denies pruritus and Denies rash Neurologic: Denies headache(s), Denies loss of vision and Denies weakness Psychiatric: Psychiatric: Reports no additional psychiatric complaints PMFSH Past Medical History Medical History Allergies Anxiety Asthma Cervical radiculopathy due to degenerative joint disease of spine Degenerated intervertebral disc Depression Elevated glucose level GERD (gastroesophageal reflux disease) Gestational diabetes Hidradenitis suppurativa History of dental problems Hypertension Otalgia of left ear Pain, dental Pinched cervical nerve root PTSD (post-traumatic stress disorder) Sciatica Suspected COVID-19 virus infection Urinary frequency Weight loss, unintentional Surgical History Surgical History History of facial surgery Previous section Family History Family History Mother Hypertension Alcoholism Asthma Diabetes mellitus Depression Anxiety Heart problem Father Hypertension Alcoholism Thyroid disorder Sibling Alcoholism Asthma Anxiety Depression Thyroid disorder Grandparent Asthma Cancer brain Diabetes mellitus Hypertension Depression Anxiety Heart problem Cerebrovascular accident Social History Social History (Updated 06/18/22 @ 11:02 by PEG Tavera, GIOVANNY) Social History: Caffeine-Coffee, daily Smoking packs per day: 0.25 Smoking cigarettes per day: 5.0 Years smoked: 20 Smoking pack-years: 5.00 Smoking status: Current every day smoker Tobacco type: cigarettes Second hand tobacco smoke
== END 2022-06-28 15:52 | disposition home or self-care (01) ==
PROVIDERS: Emergency Provider Nurse Practitioner Family; PCP Internal Medicine
DX: J02.0 Streptococcal pharyngitis (principal); F17.210 Nicotine dependence, cigarettes, uncomplicated; J45.909 Unspecified asthma, uncomplicated; M47.812 Spondylosis without myelopathy or radiculopathy, cervical region; K21.9 Gastro-esophageal reflux disease without esophagitis; I10 Essential (primary) hypertension; F41.9 Anxiety disorder, unspecified; F32.A Depression, unspecified
CPT/HCPCS: 81025; 99213; G0463

== ENCOUNTER 2022-09-03 14:37 | Emergency (ER) | payer OTHER, SELFPAY ==
[2022-09-03 14:54] VITALS: BP 137/79; PULSE 98; RESP 16; TEMP 36.8; O2SAT 98
--- NOTE | 2022-09-03 15:43 | ED.SKABFB ---
HPI - Skin/Abscess/Foreign Bdy General Chief complaint: Skin/Abscess/Foreign Body Stated complaint: Cat Scratch Both Legs Time Seen by Provider: 09/03/22 15:44 Source: patient, RN notes reviewed and old records reviewed Mode of arrival: ambulatory Limitations: no limitations History of Present Illness HPI narrative: 41 year old female who presents to [facility] care with complaints of being scratched by her mother's cat last week and also yesterday with several ayon noted to her left lower leg and one scratch area to right leg.Scabbing of several areas noted to left lower leg with some new scratches to left lower leg and right leg one scratch area. Patient reports that she has put some 'spray stuff' on areas and bandages. Reports that her tetanus shot is not up to date. MD complaint: other (Cat scratch ) Onset (ago): week(s) (last week and again yesterday) Tetanus up to date: no Location: LLE and RLE Severity scale (1-10): 5 Treatments prior to arrival: bandages and other ('some spray stuff') Related Data Home Medications Medication Instructions Recorded Confirmed alprazolam 1 mg tablet 1 mg PO TID 11/19/19 07/10/22 gabapentin 300 mg capsule 300 mg PO TID 09/26/21 07/10/22 lamotrigine 25 mg tablet mg 03/12/22 07/10/22 cyclobenzaprine 10 mg tablet 10 mg PO Q8H 06/18/22 07/10/22 quetiapine 25 mg tablet (Seroquel) 25 mg PO BID 07/10/22 07/10/22 Allergies Allergy/AdvReac Type Severity Reaction Status Date / Time latex Allergy Intermediate Itching Verified 09/03/22 15:04 morphine Allergy Intermediate Swelling Verified 09/03/22 15:04 amoxicillin [From Augmentin] AdvReac Mild Nausea and Verified 09/03/22 15:04 Vomiting clavulanic acid AdvReac Mild Nausea and Verified 09/03/22 15:04 [From Augmentin] Vomiting naproxen AdvReac Mild Other Verified 09/03/22 15:04 Review of Systems Review of Systems: CONSTITUTIONAL: Denies fever, chills, or sweats. EYES: Denies visual changes, redness, or discharge. ENT: Denies rhinorrhea, congestion, sore throat, or otalgia. CARDIOVASCULAR: Denies chest pain, palpitations, or edema. RESPIRATORY: Denies cough or dyspnea. GASTROINTESTINAL: Denies abdominal pain, nausea, vomiting, or diarrhea. GENITOURINARY: Denies dysuria or hematuria. SKIN: Denies rash or itching, positive for multiple cat scratch ayon to her left lower leg and one area on right lower leg MUSCULOSKELETAL: chronic back pain, joint pain, or myalgia. NEUROLOGIC: Denies headache, numbness, or weakness. PSYCHIATRIC: Positive history anxiety or depression. All systems reviewed & are unremarkable except as noted in HPI and below PMFSH Past Medical History Medical History Allergies Anxiety Asthma Cervical radiculopathy due to degenerative joint disease of spine Degenerated intervertebral disc Depression Elevated glucose level GERD (gastroesophageal reflux disease) Gestational diabetes Hidradenitis suppurativa History of dental problems Hypertension Otalgia of left ear Pain, dental Pinched cervical nerve root PTSD (post-traumatic stress disorder) Sciatica Suspected COVID-19 virus infection Urinary frequency Weight loss, unintentional Surgical History Surgical History History of facial surgery Previous section Family History Family History Mother Hypertension Alcoholism Asthma Diabetes mellitus Depression Anxiety Heart problem Father Hypertension Alcoholism Thyroid disorder Sibling Alcoholism Asthma Anxiety Depression Thyroid disorder Grandparent Asthma Cancer brain Diabetes mellitus Hypertension Depression Anxiety Heart problem Cerebrovascular accident Other Breast cancer Heart disease Malignant neoplasm of prostate Social History Social History (Reviewed 09/05/22 @ 08:29 by Yessy Flores Rid
[2022-09-03] MEDS: TETANUS,DIPHTHERIA,AC PERTUSSIS ADULT (0.5 ML) BOOSTRIX IM (16:13)
== END 2022-09-03 16:16 | disposition home or self-care (01) ==
PROVIDERS: Emergency Provider Registered Nurse; PCP Internal Medicine
DX: S80.812A Abrasion, left lower leg, initial encounter (principal); S80.811A Abrasion, right lower leg, initial encounter; W55.03XA Scratched by cat, initial encounter; Z23 Encounter for immunization; F17.210 Nicotine dependence, cigarettes, uncomplicated; J45.909 Unspecified asthma, uncomplicated; K21.9 Gastro-esophageal reflux disease without esophagitis; I10 Essential (primary) hypertension; F41.9 Anxiety disorder, unspecified; F32.A Depression, unspecified; M47.22 Other spondylosis with radiculopathy, cervical region
CPT/HCPCS: 90471; 90715; 99213; G0463

== ENCOUNTER 2022-11-08 15:55 | Emergency (ER) | payer OTHER, SELFPAY ==
[2022-11-08 16:09] VITALS: BP 147/89; PULSE 83; RESP 18; TEMP 36.6; O2SAT 99
[2022-11-08 16:11] VITALS: BP 147/89; PULSE 83; RESP 18; TEMP 36.6; O2SAT 99
--- NOTE | 2022-11-08 16:49 | ED.NAVMDI ---
HPI - Nausea/Vomiting/Diarrhea General Chief complaint: Nausea/Vomiting/Diarrhea Stated complaint: Nausea/Chills Time Seen by Provider: 11/08/22 16:36 Source: patient and RN notes reviewed Mode of arrival: ambulatory Limitations: no limitations History of Present Illness HPI Narrative: Patient presents today complaining of 4 day history of nausea, vomiting, subjective fever, sweats and chills. Her last vomiting episode was yesterday. She has been vomiting 3-4 times per day. She has been able to drink small amounts, but is afraid to drink larger amounts for fear of vomiting. Denies abdominal pain or diarrhea. She has tried Pepto, meclizine, and Dramamine without relief. Denies known sick contacts. Patient is diabetic and has been without her insulin and Jardiance all week. She also has not checked her blood sugar as the battery is malfunctioning in her glucometer. Related Data Home Medications Medication Instructions Recorded Confirmed alprazolam 1 mg tablet 1 mg PO TID 11/19/19 07/10/22 lamotrigine 25 mg tablet mg 03/12/22 07/10/22 quetiapine 25 mg tablet (Seroquel) 25 mg PO BID 07/10/22 07/10/22 Allergies Allergy/AdvReac Type Severity Reaction Status Date / Time latex Allergy Intermediate Itching Verified 11/08/22 16:09 morphine Allergy Intermediate Swelling Verified 11/08/22 16:09 amoxicillin [From Augmentin] AdvReac Mild Nausea and Verified 11/08/22 16:09 Vomiting clavulanic acid AdvReac Mild Nausea and Verified 11/08/22 16:09 [From Augmentin] Vomiting naproxen AdvReac Mild Other Verified 11/08/22 16:09 Review of Systems Review of Systems: CONSTITUTIONAL: Denies body aches. + subjective fever, chills, sweats EYES: Denies visual changes, redness, or discharge. ENT: Denies rhinorrhea, congestion, sore throat, or otalgia. CARDIOVASCULAR: Denies chest pain, palpitations, or edema. RESPIRATORY: Denies cough or dyspnea. GASTROINTESTINAL: Denies abdominal pain, or diarrhea.+ nausea, GENITOURINARY: Denies dysuria or hematuria. SKIN: Denies rash, itching, or wounds. MUSCULOSKELETAL: Denies back pain, joint pain, or myalgia. NEUROLOGIC: Denies headache, numbness, tingling, or weakness. PSYCH: Denies depression or anxiety. [facility] Past Medical History Medical History Allergies Anxiety Asthma Cervical radiculopathy due to degenerative joint disease of spine Degenerated intervertebral disc Depression Elevated glucose level GERD (gastroesophageal reflux disease) Gestational diabetes Hidradenitis suppurativa History of dental problems Hypertension Otalgia of left ear Pain, dental Pinched cervical nerve root PTSD (post-traumatic stress disorder) Sciatica Suspected COVID-19 virus infection Urinary frequency Weight loss, unintentional Surgical History Surgical History History of facial surgery Previous section Family History Family History Mother Hypertension Alcoholism Asthma Diabetes mellitus Depression Anxiety Heart problem Father Hypertension Alcoholism Thyroid disorder Sibling Alcoholism Asthma Anxiety Depression Thyroid disorder Grandparent Asthma Cancer brain Diabetes mellitus Hypertension Depression Anxiety Heart problem Cerebrovascular accident Other Breast cancer Heart disease Malignant neoplasm of prostate Social History Social History Social History: Caffeine-Coffee, daily Smoking packs per day: 0.25 Smoking cigarettes per day: 5.0 Years smoked: 20 Smoking pack-years: 5.00 Smoking status: Current every day smoker Tobacco type: cigarettes Second hand tobacco smoke exposure: Yes Alcohol intake: never Substance use: never Substance use type: does not use Lack of Tr
[2022-11-08 16:57] LABS: Glucose Point of Care 112 mg/dl (65-105)
== END 2022-11-08 17:01 | disposition home or self-care (01) ==
PROVIDERS: Emergency Provider Nurse Practitioner; PCP Internal Medicine
DX: R11.2 Nausea with vomiting, unspecified (principal); F41.8 Other specified anxiety disorders; K21.9 Gastro-esophageal reflux disease without esophagitis; I10 Essential (primary) hypertension; F17.210 Nicotine dependence, cigarettes, uncomplicated; Z20.822 Contact with and (suspected) exposure to COVID-19; E11.9 Type 2 diabetes mellitus without complications
CPT/HCPCS: 82948; 87426; 87804; 99213; C9803; G0463

== ENCOUNTER 2022-12-06 09:09 | Outpatient (CLI) | payer OTHER, SELFPAY ==
--- NOTE | ~2022-12-06 | US_ITS ---
US right upper quadrant INDICATION: Elevated liver enzymes PROCEDURE: Realtime right upper abdominal ultrasound. COMPARISON: No prior studies for comparison. FINDINGS: The pancreas is normal without focal mass or pancreatic ductal dilation. Liver echotexture is increased, consistent with fatty infiltration. There is normal directional flow in the portal ve in. The gallbladder is normal without stones, gallbladder wall thickening or pericholecystic fluid. Comm on bile duct measures 3 mm. No sonographic Diaz's sign. IMPRESSION: 1: Hepatic steatosis. Reviewed, dictated and finalized at location B. IMPRESSION: 1: Hepatic steatosis.
[2022-12-06 11:15] LABS: Alanine Aminotransferase 22 U/L (6-35); Albumin Level 4.3 g/dL (3.5-5.1); Alkaline Phosphatase 65 U/L (38-126); Anion Gap 5 mmol/L (8-16); Aspartate Amino Transferase 24 U/L (14-36); Bilirubin,Total 0.4 mg/dL (0.2-1.3); Blood Urea Nitrogen 12 mg/dL (7-17); Calcium 8.9 mg/dL (8.4-10.2); Carbon Dioxide 27 mmol/L (22-30); Chloride 104 mmol/L (98-107); Estimated Glomerular Filt Rate > 60; Glucose 101 mg/dL (65-110); Potassium 3.8 mmol/L (3.4-5.0); Sodium 136 mmol/L (137-145)
[2022-12-06 11:41] LABS: Thyroid Stimulating Hormone 0.985 uIU/mL (0.465-4.680)
[2022-12-06 11:51] LABS: HIV 1/2 Ab P24 Ag Result Negative (Negative)
[2022-12-06 12:07] LABS: Hepatitis C Virus Antibody Negative (Negative)
[2022-12-10 03:48] LABS: Hepatitis B Core Ab Total Nonreactive (Nonreactive)
== END 2022-12-06 09:10 | disposition home or self-care (01) ==
PROVIDERS: PCP Internal Medicine; Visit Provider Clinical Nurse Specialist
DX: R74.01 Elevation of levels of liver transaminase levels (principal); K76.0 Fatty (change of) liver, not elsewhere classified
CPT/HCPCS: 36415; 76705; 80053; 84443; 86703; 86704; 86803; G0432

== ENCOUNTER 2022-12-11 11:45 | Outpatient (CLI) | payer OTHER, SELFPAY ==
[2022-12-11 19:00] LABS: Appearance Urine Clear (Clear); Bilirubin Urine Negative (Negative); Blood Urine Negative (Negative); Color Urine Yellow (Yellow); Glucose Urine UA 2+ mg/dL (Negative); Ketones Urine Negative (Negative); Leukocyte Esterase Ur Negative LEU/UL (Negative); Nitrate Urine Negative (Negative); Protein Urine Negative (Negative); Specific Grav Ur 1.007 (1.001-1.035); Urobilinogen Urine 0.2 mg/dL (<2.0); pH Urine 6.5 (5.0-9.0)
[2022-12-11 19:35] LABS: Add Urine Microscopic? NO
[2022-12-11 20:11] LABS: Trichomonas Vag PCR NOT DETECTED (NOT DETECTE)
[2022-12-12 10:47] LABS: Chlamydia trachomatis NOT DETECTED (NOT DETECTE); Neisseria gonorrhoeae PCR NOT DETECTED (NOT DETECTE)
== END 2022-12-11 11:46 | disposition home or self-care (01) ==
LOC: ANHGOSHLAB 11:47
PROVIDERS: PCP Internal Medicine; Visit Provider Clinical Nurse Specialist
DX: R39.9 Unspecified symptoms and signs involving the genitourinary system (principal); E55.9 Vitamin D deficiency, unspecified; Z20.2 Contact with and (suspected) exposure to infections with a predominantly sexual mode of transmission
CPT/HCPCS: 81003; 87491; 87591; 87661

== ENCOUNTER 2023-03-27 10:13 | Emergency (ER) | payer OTHER, SELFPAY ==
--- NOTE | 2023-03-27 10:32 | ED.URI ---
HPI - URI/Sore Throat General Chief Complaint: Upper Respiratory Infection Stated Complaint: cough, fever,sore throat Time Seen by Provider: 03/27/23 10:34 Source: patient Mode of arrival: ambulatory Limitations: no limitations History of Present Illness HPI Narrative: Xiomara is a 42-year-old female patient presenting to clinic today to complaints of cough, fever, sore throat, nasal congestion, headache, sinus pain times 2 weeks. She reports no chest pain or shortness of breath. MD elicited complaint: cough, sore throat, nasal congestion and sinus pain Related Data Home Medications Medication Instructions Recorded Confirmed alprazolam 1 mg tablet 1 mg PO TID 11/19/19 03/27/23 quetiapine 25 mg tablet (Seroquel) 25 mg PO BID 07/10/22 03/27/23 azelastine 137 mcg (0.1 %) nasal 137 mcg intranasal Q12H PRN 11/14/22 03/27/23 spray aerosol Allergy Symptoms fluoxetine 20 mg capsule mg 03/27/23 Allergies Allergy/AdvReac Type Severity Reaction Status Date / Time latex Allergy Intermediate Itching Verified 12/11/22 11:01 morphine Allergy Intermediate Swelling Verified 12/11/22 11:01 amoxicillin [From Augmentin] AdvReac Mild Nausea and Verified 12/11/22 11:01 Vomiting clavulanic acid AdvReac Mild Nausea and Verified 12/11/22 11:01 [From Augmentin] Vomiting naproxen AdvReac Mild Other Verified 12/11/22 11:01 Review of Systems Review of Systems: Pertinent positives per HPI. Patient denies any rash, headache, visual changes, dizziness, shortness of breath, chest pain, palpitations, nausea, vomiting, diarrhea, constipation, abdominal pain, or any urinary issues. [facility] Past Medical History Medical History Allergies Anxiety Asthma Cervical radiculopathy due to degenerative joint disease of spine Degenerated intervertebral disc Depression Elevated glucose level GERD (gastroesophageal reflux disease) Gestational diabetes Hidradenitis suppurativa History of dental problems Hypertension Otalgia of left ear Pain, dental Pinched cervical nerve root PTSD (post-traumatic stress disorder) Sciatica Suspected COVID-19 virus infection Urinary frequency Weight loss, unintentional Surgical History Surgical History History of facial surgery Previous section Family History Family History Mother Hypertension Alcoholism Asthma Diabetes mellitus Depression Anxiety Heart problem Father Hypertension Alcoholism Thyroid disorder Sibling Alcoholism Asthma Anxiety Depression Thyroid disorder Grandparent Asthma Cancer brain Diabetes mellitus Hypertension Depression Anxiety Heart problem Cerebrovascular accident Other Breast cancer Heart disease Malignant neoplasm of prostate Social History Social History Social History: Caffeine-Coffee, daily Smoking packs per day: 0.25 Smoking cigarettes per day: 5.0 Years smoked: 20 Smoking pack-years: 5.00 Smoking status: Current every day smoker Tobacco type: cigarettes Second hand tobacco smoke exposure: Yes Alcohol intake: never Substance use: never Substance use type: does not use Lack of Transportation: YES Lack of Food: Never True Current Housing: I Have Housing Concerned About Future Housing: No Difficulty Paying Gas/Electric Bills: No Difficulty Paying for Meds: No Currently Unemployed: No Education: High School Diploma/GED Difficulty w/ Childcare or Family Care: No Living arrangements: with family Additional living arrangements comments: Lives alone with 2 children Occupation/Education: unemployed Gender identity (if verbalized by the patient): Female Comments At the time of my signature, I reviewed and agree with the nursing past medical
[2023-03-27 10:38] VITALS: BP 113/61; PULSE 87; RESP 16; TEMP 36.3; O2SAT 98
== END 2023-03-27 11:11 | disposition home or self-care (01) ==
PROVIDERS: Emergency Provider Nurse Practitioner Family; PCP Internal Medicine
DX: J01.90 Acute sinusitis, unspecified (principal); F17.210 Nicotine dependence, cigarettes, uncomplicated; K21.9 Gastro-esophageal reflux disease without esophagitis; I10 Essential (primary) hypertension; J45.909 Unspecified asthma, uncomplicated; F41.9 Anxiety disorder, unspecified
CPT/HCPCS: 99213; G0463

== ENCOUNTER 2023-07-25 06:40 | Inpatient (IN) | payer OTHER, SELFPAY ==
[2023-07-25] VITALS (63 sets, daily range): BP systolic 91–135; BP diastolic 66–101; PULSE 74–118; RESP 15–32; TEMP 36.5–38.5; O2SAT 96–100; BMI 27.9
--- NOTE | ~2023-07-25 | CT_ITS ---
Non-contrast Head CT History: Altered mental status Technique: Axial non-contrast imaging of the brain was performed. Dose reduction technique was used on this scan by utilizing automated exposure control and iterative reconstruction technique. The dose -length product (DLP) was 605.33 mGy-cm. Findings: There is no evidence of intracranial hemorrhage, mass lesion, or acute infarct. Brain par enchyma appears normal. The ventricles and subarachnoid spaces are normal in size. The calvarium ap pears normal. The visualized paranasal sinuses and mastoid air cells are clear. Impression: No significant abnormality seen. Reviewed, dictated and finalized at location . Impression: No significant abnormality seen.
--- NOTE | ~2023-07-25 | CT_ITS ---
EXAMINATION: CTA chest PE protocol DATE: 07/25/2023 09:51 INDICATION: Altered mental status and apnea TECHNIQUE: Computed tomography (CT) pulmonary angiogram of the chest was performed with 100 mL Omnipa que-350 intravenous contrast. Additional 3D reconstructions utilizing coronal maximum intensity proje ction (MIP) were performed. Automated exposure control and iterative reconstruction technique were em ployed. The dose-length product was 767.51 mGy-cm. COMPARISON: None FINDINGS: Endotracheal tube tip 2.5 cm above the jennifer. Nasogastric tube tip in proximal side port in the body of the stomach. No pulmonary embolism. There is consolidation without significant associated volume loss in the dependent aspect of the bilateral upper and lower lobes along with some additional scatte red patchy groundglass opacities consistent with multifocal pneumonia.No pleural effusion. Heart size is normal. No pericardial effusion. Thoracic aorta is normal in caliber with no dissection. Likely p hysiologic minimal anterior wedging at T12. IMPRESSION: 1. No pulmonary embolism. 2. Bilateral patchy groundglass opacities and more dense dependent consolidation in both lungs consis tent with pneumonia. Reviewed, dictated and finalized at location A. IMPRESSION: 1. No pulmonary embolism. 2. Bilateral patchy groundglass opacities and more dense dependent consolidatio n in both lungs consistent with pneumonia.
--- NOTE | ~2023-07-25 | XR_ITS ---
Portable chest x-ray Comparison: 07/27/2023 Clinical History: Pneumonia Findings: There is hazy bibasilar airspace disease lateral to central distribution. No pleural effus ion. Cardiomediastinal silhouette is stable. Bones and soft tissues are unremarkable. Impression: Central hazy airspace disease bilaterally suggests central pulmonary edema pattern, however pneumonia would be an alternative consideration. Correlate clinically. Reviewed, dictated and finalized at location . Impression: Central hazy airspace disease bilaterally suggests central pulmonary edema elma shahrzad, however pneumonia would be an alternative consideration. Correlate clinica lly.
--- NOTE | ~2023-07-25 | CT_ITS ---
Noncontrast CT scan of the cervical spine Technique: Multiple contiguous axial [address] images of the cervical spine were obtained and rec onstructed in 2D sagittal and coronal planes on the acquisition scanner. Dose reduction technique was used on this scan by utilizing automated exposure control, adjustment of the mA and/or kV according to patient size. The dose-length product (DLP) was 450.58 mGy-cm. Clinical History: Trauma Findings: No fractures or dislocations. There is mild reversal of the normal cervical lordosis. Ther e is moderate to advanced degenerative disc narrowing C4-C5 and C5-C6. There is mild disc ossify comp abelino at C4 and C5 with probable mild canal stenosis and mild possible cord compression. There is focal ossification the posterior longitudinal ligament at the C5 level with probable mild canal stenosis a nd possible mild cord compression. There is disc ossify complex at C5-C6, probable mild canal stenosi s and possible cord compression. No prevertebral soft tissue swelling. Probable partially imaged airs pace disease at the lung apices. Impression: No fracture or subluxation of the cervical spine. 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 Partially imaged airspace disease the lung apices, nonspecific on this limited evaluation. Reviewed, dictated and finalized at [facility]. Impression: No fracture or subluxation of the cervical spine. Probable mild canal stenosis and possible cord compression at C4-C6 levels rela maxi to disc osteophyte complexes and probable focal ossification the posterior longitudinal ligament. Partially imaged airspace disease the lung apices, nonspecific on this limited evaluation.
--- NOTE | ~2023-07-25 | XR_ITS ---
Portable chest x-ray Comparison: 07/28/2023 Clinical History: Pneumonia Findings: Possible minimal groundglass opacity bilaterally with central distribution. No pleural eff usion or pneumothorax. Cardiomediastinal silhouette is stable. Bones and soft tissues are unremarkab le. Impression: Possible minimal residual pulmonary edema. Reviewed, dictated and finalized at [facility]. Impression: Possible minimal residual pulmonary edema.
--- NOTE | ~2023-07-25 | XR_ITS ---
EXAMINATION: XR chest 1V portable DATE: 07/26/2023 05:44 INDICATION: Intubation. TECHNIQUE: A single frontal view of the chest was obtained. COMPARISON: Chest single view 07/25/2023, chest CT 07/25/2023 FINDINGS: There is mild atelectasis at right lung base. No pleural effusion or pneumothorax. The hear t size is normal. The endotracheal tube tip is 2.5 cm above the jennifer. The nasogastric tube tip is i n the stomach. IMPRESSION: 1. Mild atelectasis at right lung base. Reviewed, dictated and finalized at location A.
--- NOTE | ~2023-07-25 | XR_ITS ---
EXAMINATION: XR chest 1V portable DATE: 07/27/2023 05:54 INDICATION: Intubated on mechanical ventilation. Pneumonia TECHNIQUE: A single frontal view of the chest was obtained. COMPARISON: Chest single view 07/26/23, chest CT 07/25/23 FINDINGS: There are airspace opacities in right mid and lower lung zones and left lower lung zone. No pleural effusion or pneumothorax. The heart size is normal. The endotracheal tube tip is 1.2 cm abov e the jennifer. The nasogastric tube tip is in the stomach. IMPRESSION: 1. Worsening airspace opacities in right mid and lower lung zones and left lower lung zone, consisten t with atelectasis versus pneumonia. Reviewed, dictated and finalized at location A. IMPRESSION: 1. Worsening airspace opacities in right mid and lower lung zones and left lowe r lung zone, consistent with atelectasis versus pneumonia.
--- NOTE | ~2023-07-25 | XR_ITS ---
Portable chest x-ray Comparison: None Clinical History: Tube placement Findings: Endotracheal tube and NG tube are in satisfactory positions. There is hazy bibasilar airsp herminio disease, suggestive of mild pulmonary edema. Cardiomediastinal silhouette is stable. Bones and s oft tissues are unremarkable. Impression: Suspected mild pulmonary edema pattern. Correlate clinically for atypical infection. Support tubes in place, as above. Reviewed, dictated and finalized at location . Impression: Suspected mild pulmonary edema pattern. Correlate clinically for atypical infec tion. Support tubes in place, as above.
--- NOTE | ~2023-07-25 | XR_ITS ---
Portable chest x-ray Comparison: 07/29/2023 Clinical History: Pneumonia Findings: Lungs are clear, without focal consolidation or pleural effusion. Cardiomediastinal silho uette is stable. Bones and soft tissues are unremarkable. Impression: Clear lungs. Reviewed, dictated and finalized at location . Impression: Clear lungs.
--- NOTE | 2023-07-25 06:45 | ECG_ITS ---
SEE SCANNED COPY FOR CONFIRMED REPORT MTDD
--- NOTE | 2023-07-25 06:48 | ED_ITS ---
HPI - General Adult General Chief complaint: Shortness of Breath/Dyspnea <James Driscoll MD - Last Filed: 07/25/23 07:01> Stated complaint: Resp arrest, unresponsive <James Driscoll MD - Last Filed: 07/25/23 07:01> Time Seen by Provider: 07/25/23 06:44 <James Driscoll MD - Last Filed: 07/25/23 07:01> History of Present Illness HPI narrative: Patient 40-year-old female who presents emergency department with chief complaint of altered mental status. The patient was last seen around 1:00 a.m. and family found her lying on the bed unresponsive. Per EMS report the patient has history of diabetes. Per report the patient has not been feeling the last several days the patient was intubated pre-hospital by EMS and is unable to provide history at this time and patient's family has not arrived to the emergency department <James Driscoll MD - Last Filed: 07/25/23 07:01> Related Data Home medications: Home Medications Medication Instructions Recorded Confirmed alprazolam 1 mg tablet 1 mg PO TID 11/19/19 07/23/23 azelastine 137 mcg (0.1 %) nasal 137 mcg intranasal Q12H PRN 11/14/22 07/23/23 spray aerosol Allergy Symptoms aripiprazole 5 mg tablet mg PO 07/23/23 07/23/23 fluoxetine 20 mg capsule 40 mg PO 07/23/23 07/23/23 trazodone 100 mg tablet mg PO 07/23/23 07/23/23 <James Driscoll MD - Last Filed: 07/25/23 07:01> Allergies/adverse reactions: Allergies Allergy/AdvReac Type Severity Reaction Status Date / Time latex Allergy Intermediate Itching Verified 07/23/23 11:28 morphine Allergy Intermediate Swelling Verified 07/23/23 11:28 amoxicillin [From Augmentin] AdvReac Mild Nausea and Verified 07/23/23 11:28 Vomiting clavulanic acid AdvReac Mild Nausea and Verified 07/23/23 11:28 [From Augmentin] Vomiting naproxen AdvReac Mild Other Verified 07/23/23 11:28 <James Driscoll MD - Last Filed: 07/25/23 07:01> Review of Systems Review of Systems: ROS unobtainable: Yes unobtainable due to endotracheal tube <James Driscoll MD - Last Filed: 07/25/23 07:01> [facility] Past Medical History Medical History: Medical History Allergies Anxiety Asthma Cervical radiculopathy due to degenerative joint disease of spine Degenerated intervertebral disc Depression Elevated glucose level Fever GERD (gastroesophageal reflux disease) Gestational diabetes Hidradenitis suppurativa History of dental problems Hypertension Otalgia of left ear Pain, dental Pelvic cramping Pica in adults Pinched cervical nerve root PTSD (post-traumatic stress disorder) Sciatica STD exposure Suspected COVID-19 virus infection Tobacco abuse Urinary frequency UTI symptoms Weight loss, unintentional <James Driscoll MD - Last Filed: 07/25/23 07:01> Surgical History Surgical History: Surgical History History of facial surgery Previous section <James Driscoll MD - Last Filed: 07/25/23 07:01> Family History Family History: Family History Mother Hypertension Alcoholism Asthma Diabetes mellitus Depression Anxiety Heart problem Father Hypertension Alcoholism Thyroid disorder Sibling Alcoholism Asthma Anxiety Depression Thyroid disorder Grandparent Asthma Cancer brain Diabetes mellitus Hypertension Depression Anxiety Heart problem Cerebrovascular accident Other Breast cancer Heart disease Malignant neoplasm of prostate <James Driscoll MD - Last Filed: 07/25/23 07:01> Social History Social History: Social History Social History: Caffeine-Coffee, daily Smoking packs per day: 0.25 Smoking cigarettes per day: 5.0 Years smoked: 20 Smoking pack-years: 5.00 Smoking status: Current every day smoker Tobacco type: cigarettes Second hand tobacco smoke exposure: Yes Alcohol intake: never Substance use: never Substance use type: unknown Lack of Transportation: YES Lack of Food: Never True Current Housing: I Have Housing Concerned About Future Housing: No Difficulty Paying Gas/Electric Bills: No Difficulty Paying for Meds: No Currently Unemployed: No Education: High School Diploma/GED Difficulty w/ Childcare or Family Care: No Living arrangements: with family Additional living arrangements comments: Lives alone with 2 children Occupation/Education: unemployed Gender identity (if verbalized by the patient): Female <James Driscoll MD - Last Filed: 07/25/23 07:01> Exam Narrative: GENERAL: Unresponsive intubated HEAD: Normocephalic, atraumatic. EYES: PERRLA. ENT: Nares clear, no rhinorrhea or epistaxis. Mucous membranes moist. NECK: Supple. CHEST: Clear to auscultation. No respiratory distress. HEART: Regular rate and rhythm. No murmur heard. Normal peripheral pulses. ABDOMEN: Soft, nontender, nondistended, normal active bowel sounds. EXTREMITIES: No signs of trauma. No edema. SKIN: Warm, dry, no rash. NEURO: Intubated sedated PSYCH: Unable to obtain <James Driscoll MD - Last Filed: 07/25/23 07:01> Course Reevaluation(s) Reevaluation #1: Patient presents with AMS; family arrived at bedside now, I did speak with her mom who reports she had not been feeling very well with some GI symptoms recently, then her young daughter this morning tried to wake her up to go to school and the patient wouldn't wake up. She called her grandmother to help who also tried waking patient up but she wouldn't wake up and also wasn't breathing well on her own; so EMS called, intubated pt, presented here. Per pt's mom, h/o psych issues but has never attempted OD in the past; h/o DM only uses insulin PRN. ABG with pH 7.19, pCO2 62; c/w retention likely from apnea. I did ask RT to increase RR on vent. Trop minimally elevated and initial EKG showing sinus tachycardia at rate of 114, OH interval 200, QRS 154, QTC 427, left axis, right bundle-branch block, my own independent interpretation. Significant for slightly prolonged QRS. Thankfully after supportive treatment / IVF, her QRS did narrow on telemetry. Chest x-ray confirms tube placement, does show bilateral patchy opacities on my independent interpretation consistent with possible pulmonary edema. 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 Fruit Receiver would like to have a CT PE which is ordered. Plan discussed with patient's family member. Given my concern for possible overdose I did and suicide precautions. Patient admitted to ICU. <Snow Fuentes MD - Last Filed: 07/25/23 10:40> Vital Signs Vital signs: Vital Signs Pulse Rate 118 H 07/25/23 06:41 Respiratory Rate 25 H 07/25/23 06:41 Blood Pressure 127/77 07/25/23 06:41 Pulse Oximetry 99 07/25/23 06:41 Oxygen Delivery Mechanical Ventilation 07/25/23 06:41 Temperature 99.6 F 07/25/23 10:17 Pulse Rate 82 07/25/23 10:27 Respiratory Rate 22 H 07/25/23 10:27 Blood Pressure 112/81 07/25/23 10:17 Pulse Oximetry 98 07/25/23 10:17 Oxygen Delivery Mechanical Ventilation 07/25/23 10:15 Fraction of Inspired Oxygen 50 07/25/23 10:15 <James Driscoll MD - Last Filed: 07/25/23 07:01> Vital Signs Pulse Rate 118 H 07/25/23 06:41 Respiratory Rate 25 H 07/25/23 06:41 Blood Pressure 127/77 07/25/23 06:41 Pulse Oximetry 99 07/25/23 06:41 Oxygen Delivery Mechanical Ventilation 07/25/23 06:41 Temperature 99.6 F 07/25/23 10:17 Pulse Rate 82 07/25/23 10:27 Respiratory Rate 22 H 07/25/23 10:27 Blood Pressure 112/81 07/25/23 10:17 Pulse Oximetry 98 07/25/23 10:17 Oxygen Delivery Mechanical Ventilation 07/25/23 10:15 Fraction of Inspired Oxygen 50 07/25/23 10:15 <Snow Fuentes MD - Last Filed: 07/25/23 10:40> Medical Decision Making MDM Narrative Medical decision making narrative: Differential diagnosis includes accidental overdose, intentional overdose, metabolic disorder, Laboratory test and imaging has been ordered on the patient and the patient will be signed out to the day provider <James Driscoll MD - Last Filed: 07/25/23 07:01> Vital Signs Vital Signs: Vital Signs Pulse Rate 118 H 07/25/23 06:41 Respiratory Rate 25 H 07/25/23 06:41 Blood Pressure 127/77 07/25/23 06:41 Pulse Oximetry 99 07/25/23 06:41 Oxygen Delivery Mechanical Ventilation 07/25/23 06:41 Temperature 99.6 F 07/25/23 10:17 Pulse Rate 82 07/25/23 10:27 Respiratory Rate 22 H 07/25/23 10:27 Blood Pressure 112/81 07/25/23 10:17 Pulse Oximetry 98 07/25/23 10:17 Oxygen Delivery Mechanical Ventilation 07/25/23 10:15 Fraction of Inspired Oxygen 50 07/25/23 10:15 <James Driscoll MD - Last Filed: 07/25/23 07:01> Vital Signs Pulse Rate 118 H 07/25/23 06:41 Respiratory Rate 25 H 07/25/23 06:41 Blood Pressure 127/77 07/25/23 06:41 Pulse Oximetry 99 07/25/23 06:41 Oxygen Delivery Mechanical Ventilation 07/25/23 06:41 Temperature 99.6 F 07/25/23 10:17 Pulse Rate 82 07/25/23 10:27 Respiratory Rate 22 H 07/25/23 10:27 Blood Pressure 112/81 07/25/23 10:17 Pulse Oximetry 98 07/25/23 10:17 Oxygen Delivery Mechanical Ventilation 07/25/23 10:15 Fraction of Inspired Oxygen 50 07/25/23 10:15 <Snow Fuentes MD - Last Filed: 07/25/23 10:40> Lab Data Result diagrams: 07/25/23 06:50 07/25/23 06:50 <James Driscoll MD - Last Filed: 07/25/23 07:01> Labs: Lab Results 07/25/23 07/25/23 07/25/23 Range/Units 06:50 06:54 07:10 WBC 11.9 H (4.5-10.0) K/mm3 RBC 4.11 L (4.2-5.4) M/mm3 Hgb 11.0 L (12.0-15.0) g/dL Hct 37.1 (37.0-47.0) % MCV 90.3 (80-100) fl MCH 26.8 (26-34) pg MCHC 29.6 L (32-36) g/dl RDW 15.8 H (11.5-14.5) % Plt Count 503 H (150-375) k/mm3 MPV 9.2 (7.4-10.4) fl Immature Gran % (Auto) 0.7 H (0-0.5) % Neut % (Auto) 48.9 (45.5-73.1) % Lymph % (Auto) 44.3 H (18.3-44.2) % [place] % (Auto) 3.9 (2.6-8.5) % Eos % (Auto) 1.8 (0-4.4) % Baso % (Auto) 0.4 (0.2-1.2) % Lymph # (Auto) 5.27 H (0.9-3.2) K/mm3 [place] # (Auto) 0.5 (0.1-0.6) K/mm3 Eos # (Auto) 0.2 (0-0.3) K/mm3 Baso # (Auto) 0.1 (0.0-0.1) K/mm3 Abs Immat Gran (auto) 0.08 H (0.00-0.031) K/mm3 Absolute Neuts (auto) 5.8 (1.3-6.7) K/mm3 Absolute Nucleated RBC 0.000 (0.0-0.012) K/mm3 Nucleated RBC % 0.0 (0.0-0.2) % Platelet Estimate Increased (Adequate) Hypochromasia 1+ Schistocytes None seen PT 13.7 (11.1-14.7) Seconds INR 1.0 APTT 27.2 (22.3-36.8) Seconds Minute Volume Not Reportable Vent Mode Cmv Tidal Volume 400 ml PEEP 5 cmH2O Peak Inspir Pressure Not Reportable Pressure Support Not Reportable Sodium 134 L (137-145) mmol/L Potassium 4.1 (3.4-5.0) mmol/L Chloride 103 (98-107) mmol/L Carbon Dioxide 23 (22-30) mmol/L Anion Gap 8 (4-12) mmol/L BUN 8 (7-17) mg/dL Creatinine 0.70 (0.7-1.0) mg/dL Estim Creat Clear Calc 99 ml/min Estimated GFR > 60 (59 - ) Glucose 419 H (65-110) mg/dL Lactic Acid 3.6 H (0.7-2.0) mmol/L Calcium 7.8 L (8.4-10.2) mg/dL Magnesium 1.9 (1.6-2.3) mg/dL Total Bilirubin 0.2 (0.2-1.3) mg/dL AST 19 (14-36) U/L ALT 16 (6-35) U/L Alkaline Phosphatase 71 (38-126) U/L Troponin I 0.047 H* (0.000-0.034) ng/mL Total Protein 7.0 (6.3-8.2) g/dL Albumin 3.6 (3.5-5.1) g/dL Triglycerides 885 H (<150) mg/dL Beta-Hydroxybutyrate/Acetoacetate 0.13 (0.02-0.27) mmol/L TSH 1.370 (0.465-4.680) uIU/mL Urine Color Yellow (Yellow) Urine Appearance Clear (Clear) Urine pH 6.0 (5.0-9.0) Ur Specific [place] 1.012 (1.001-1.035) Urine Protein Negative (Negative) mg/dL Urine Glucose (UA) 3+ H (Negative) mg/dL Urine Ketones Negative (Negative) mg/dL Ur Blood (Man) Negative (Negative) Urine Nitrate Negative (Negative) Urine Bilirubin Negative (Negative) Urine Urobilinogen 0.2 (<2.0) mg/dL Leukocyte Esterase Rfl Negative (Negative) ANILA/UL Salicylates < 1.0 L (2-20) mg/dL Urine Opiates Screen Negative (Negative) Urine Methadone Screen Negative (Negative) Acetaminophen < 10 L (10-30) ug/mL Ur Barbiturates Screen Negative (Negative) Ur Phencyclidine Scrn Negative (Negative) Ur Amphetamine Screen Negative (Negative) U Benzodiazepines Scrn Positive A (Negative) Urine Cocaine Screen Negative (Negative) U Cannabinoids Screen Negative (Negative) Ethyl Alcohol < 10 (<10) mg/dL Influenza A (RT-PCR) (Negative) Influenza B (RT-PCR) (Negative) RSV (RT-PCR) (Negative) SARS-CoV-2 RNA (RT-PCR) (Negative) 07/25/23 Range/Units 07:25 WBC (4.5-10.0) K/mm3 RBC (4.2-5.4) M/mm3 Hgb (12.0-15.0) g/dL Hct (37.0-47.0) % MCV (80-100) fl MCH (26-34) pg MCHC (32-36) g/dl RDW (11.5-14.5) % Plt Count (150-375) k/mm3 MPV (7.4-10.4) fl Immature Gran % (Auto) (0-0.5) % Neut % (Auto) (45.5-73.1) % Lymph % (Auto) (18.3-44.2) % [place] % (Auto) (2.6-8.5) % Eos % (Auto) (0-4.4) % Baso % (Auto) (0.2-1.2) % Lymph # (Auto) (0.9-3.2) K/mm3 [place] # (Auto) (0.1-0.6) K/mm3 Eos # (Auto) (0-0.3) K/mm3 Baso # (Auto) (0.0-0.1) K/mm3 Abs Immat Gran (auto) (0.00-0.031) K/mm3 Absolute Neuts (auto) (1.3-6.7) K/mm3 Absolute Nucleated RBC (0.0-0.012) K/mm3 Nucleated RBC % (0.0-0.2) % Platelet Estimate (Adequate) Hypochromasia Schistocytes PT (11.1-14.7) Seconds INR APTT (22.3-36.8) Seconds Minute Volume Vent Mode Tidal Volume ml PEEP cmH2O Peak Inspir Pressure Pressure Support Sodium (137-145) mmol/L Potassium (3.4-5.0) mmol/L Chloride (98-107) mmol/L Carbon Dioxide (22-30) mmol/L Anion Gap (4-12) mmol/L BUN (7-17) mg/dL Creatinine (0.7-1.0) mg/dL Estim Creat Clear Calc ml/min Estimated GFR (59 - ) Glucose (65-110) mg/dL Lactic Acid (0.7-2.0) mmol/L Calcium (8.4-10.2) mg/dL Magnesium (1.6-2.3) mg/dL Total Bilirubin (0.2-1.3) mg/dL AST (14-36) U/L ALT (6-35) U/L Alkaline Phosphatase (38-126) U/L Troponin I (0.000-0.034) ng/mL Total Protein (6.3-8.2) g/dL Albumin (3.5-5.1) g/dL Triglycerides (<150) mg/dL Beta-Hydroxybutyrate/Acetoacetate (0.02-0.27) mmol/L TSH (0.465-4.680) uIU/mL Urine Color (Yellow) Urine Appearance (Clear) Urine pH (5.0-9.0) Ur Specific [place] (1.001-1.035) Urine Protein (Negative) mg/dL Urine Glucose (UA) (Negative) mg/dL Urine Ketones (Negative) mg/dL Ur Blood (Man) (Negative) Urine Nitrate (Negative) Urine Bilirubin (Negative) Urine Urobilinogen (<2.0) mg/dL Leukocyte Esterase Rfl (Negative) ANILA/UL Salicylates (2-20) mg/dL Urine Opiates Screen (Negative) Urine Methadone Screen (Negative) Acetaminophen (10-30) ug/mL Ur Barbiturates Screen (Negative) Ur Phencyclidine Scrn (Negative) Ur Amphetamine Screen (Negative) U Benzodiazepines Scrn (Negative) Urine Cocaine Screen (Negative) U Cannabinoids Screen (Negative) Ethyl Alcohol (<10) mg/dL Influenza A (RT-PCR) Negative (Negative) Influenza B (RT-PCR) Negative (Negative) RSV (RT-PCR) Negative (Negative) SARS-CoV-2 RNA (RT-PCR) Negative (Negative) UCG Bedside Result Negative Reference Range: Negative Urine Characteristics Clear <James Driscoll MD - Last Filed: 07/25/23 07:01> Lab Results 07/25/23 07/25/23 07/25/23 Range/Units 06:50 06:54 07:10 WBC 11.9 H (4.5-10.0) K/mm3 RBC 4.11 L (4.2-5.4) M/mm3 Hgb 11.0 L (12.0-15.0) g/dL Hct 37.1 (37.0-47.0) % MCV 90.3 (80-100) fl MCH 26.8 (26-34) pg MCHC 29.6 L (32-36) g/dl RDW 15.8 H (11.5-14.5) % Plt Count 503 H (150-375) k/mm3 MPV 9.2 (7.4-10.4) fl Immature Gran % (Auto) 0.7 H (0-0.5) % Neut % (Auto) 48.9 (45.5-73.1) % Lymph % (Auto) 44.3 H (18.3-44.2) % [place] % (Auto) 3.9 (2.6-8.5) % Eos % (Auto) 1.8 (0-4.4) % Baso % (Auto) 0.4 (0.2-1.2) % Lymph # (Auto) 5.27 H (0.9-3.2) K/mm3 [place] # (Auto) 0.5 (0.1-0.6) K/mm3 Eos # (Auto) 0.2 (0-0.3) K/mm3 Baso # (Auto) 0.1 (0.0-0.1) K/mm3 Abs Immat Gran (auto) 0.08 H (0.00-0.031) K/mm3 Absolute Neuts (auto) 5.8 (1.3-6.7) K/mm3 Absolute Nucleated RBC 0.000 (0.0-0.012) K/mm3 Nucleated RBC % 0.0 (0.0-0.2) % Platelet Estimate Increased (Adequate) Hypochromasia 1+ Schistocytes None seen PT 13.7 (11.1-14.7) Seconds INR 1.0 APTT 27.2 (22.3-36.8) Seconds Minute Volume Not Reportable Vent Mode Cmv Tidal Volume 400 ml PEEP 5 cmH2O Peak Inspir Pressure Not Reportable Pressure Support Not Reportable Sodium 134 L (137-145) mmol/L Potassium 4.1 (3.4-5.0) mmol/L Chloride 103 (98-107) mmol/L Carbon Dioxide 23 (22-30) mmol/L Anion Gap 8 (4-12) mmol/L BUN 8 (7-17) mg/dL Creatinine 0.70 (0.7-1.0) mg/dL Estim Creat Clear Calc 99 ml/min Estimated GFR > 60 (59 - ) Glucose 419 H (65-110) mg/dL Lactic Acid 3.6 H (0.7-2.0) mmol/L Calcium 7.8 L (8.4-10.2) mg/dL Magnesium 1.9 (1.6-2.3) mg/dL Total Bilirubin 0.2 (0.2-1.3) mg/dL AST 19 (14-36) U/L ALT 16 (6-35) U/L Alkaline Phosphatase 71 (38-126) U/L Troponin I 0.047 H* (0.000-0.034) ng/mL Total Protein 7.0 (6.3-8.2) g/dL Albumin 3.6 (3.5-5.1) g/dL Triglycerides 885 H (<150) mg/dL Beta-Hydroxybutyrate/Acetoacetate 0.13 (0.02-0.27) mmol/L TSH 1.370 (0.465-4.680) uIU/mL Urine Color Yellow (Yellow) Urine Appearance Clear (Clear) Urine pH 6.0 (5.0-9.0) Ur Specific [place] 1.012 (1.001-1.035) Urine Protein Negative (Negative) mg/dL Urine Glucose (UA) 3+ H (Negative) mg/dL Urine Ketones Negative (Negative) mg/dL Ur Blood (Man) Negative (Negative) Urine Nitrate Negative (Negative) Urine Bilirubin Negative (Negative) Urine Urobilinogen 0.2 (<2.0) mg/dL Leukocyte Esterase Rfl Negative (Negative) ANILA/UL Salicylates < 1.0 L (2-20) mg/dL Urine Opiates Screen Negative (Negative) Urine Methadone Screen Negative (Negative) Acetaminophen < 10 L (10-30) ug/mL Ur Barbiturates Screen Negative (Negative) Ur Phencyclidine Scrn Negative (Negative) Ur Amphetamine Screen Negative (Negative) U Benzodiazepines Scrn Positive A (Negative) Urine Cocaine Screen Negative (Negative) U Cannabinoids Screen Negative (Negative) Ethyl Alcohol < 10 (<10) mg/dL Influenza A (RT-PCR) (Negative) Influenza B (RT-PCR) (Negative) RSV (RT-PCR) (Negative) SARS-CoV-2 RNA (RT-PCR) (Negative) 07/25/23 Range/Units 07:25 WBC (4.5-10.0) K/mm3 RBC (4.2-5.4) M/mm3 Hgb (12.0-15.0) g/dL Hct (37.0-47.0) % MCV (80-100) fl MCH (26-34) pg MCHC (32-36) g/dl RDW (11.5-14.5) % Plt Count (150-375) k/mm3 MPV (7.4-10.4) fl Immature Gran % (Auto) (0-0.5) % Neut % (Auto) (45.5-73.1) % Lymph % (Auto) (18.3-44.2) % [place] % (Auto) (2.6-8.5) % Eos % (Auto) (0-4.4) % Baso % (Auto) (0.2-1.2) % Lymph # (Auto) (0.9-3.2) K/mm3 [place] # (Auto) (0.1-0.6) K/mm3 Eos # (Auto) (0-0.3) K/mm3 Baso # (Auto) (0.0-0.1) K/mm3 Abs Immat Gran (auto) (0.00-0.031) K/mm3 Absolute Neuts (auto) (1.3-6.7) K/mm3 Absolute Nucleated RBC (0.0-0.012) K/mm3 Nucleated RBC % (0.0-0.2) % Platelet Estimate (Adequate) Hypochromasia Schistocytes PT (11.1-14.7) Seconds INR APTT (22.3-36.8) Seconds Minute Volume Vent Mode Tidal Volume ml PEEP cmH2O Peak Inspir Pressure Pressure Support Sodium (137-145) mmol/L Potassium (3.4-5.0) mmol/L Chloride (98-107) mmol/L Carbon Dioxide (22-30) mmol/L Anion Gap (4-12) mmol/L BUN (7-17) mg/dL Creatinine (0.7-1.0) mg/dL Estim Creat Clear Calc ml/min Estimated GFR (59 - ) Glucose (65-110) mg/dL Lactic Acid (0.7-2.0) mmol/L Calcium (8.4-10.2) mg/dL Magnesium (1.6-2.3) mg/dL Total Bilirubin (0.2-1.3) mg/dL AST (14-36) U/L ALT (6-35) U/L Alkaline Phosphatase (38-126) U/L Troponin I (0.000-0.034) ng/mL Total Protein (6.3-8.2) g/dL Albumin (3.5-5.1) g/dL Triglycerides (<150) mg/dL Beta-Hydroxybutyrate/Acetoacetate (0.02-0.27) mmol/L TSH (0.465-4.680) uIU/mL Urine Color (Yellow) Urine Appearance (Clear) Urine pH (5.0-9.0) Ur Specific [place] (1.001-1.035) Urine Protein (Negative) mg/dL Urine Glucose (UA) (Negative) mg/dL Urine Ketones (Negative) mg/dL Ur Blood (Man) (Negative) Urine Nitrate (Negative) Urine Bilirubin (Negative) Urine Urobilinogen (<2.0) mg/dL Leukocyte Esterase Rfl (Negative) ANILA/UL Salicylates (2-20) mg/dL Urine Opiates Screen (Negative) Urine Methadone Screen (Negative) Acetaminophen (10-30) ug/mL Ur Barbiturates Screen (Negative) Ur Phencyclidine Scrn (Negative) Ur Amphetamine Screen (Negative) U Benzodiazepines Scrn (Negative) Urine Cocaine Screen (Negative) U Cannabinoids Screen (Negative) Ethyl Alcohol (<10) mg/dL Influenza A (RT-PCR) Negative (Negative) Influenza B (RT-PCR) Negative (Negative) RSV (RT-PCR) Negative (Negative) SARS-CoV-2 RNA (RT-PCR) Negative (Negative) UCG Bedside Result Negative Reference Range: Negative Urine Characteristics Clear <Snow Fuentes MD - Last Filed: 07/25/23 10:40> ABG Data ABG results: 07/25/23 07:10 Puncture Site Right radial ABG pH 7.189 L* ABG pCO2 61.9 H* ABG pO2 249.5 H ABG PO2/FiO2 Ratio 2.49 ABG HCO3 23.1 ABG O2 Saturation 99.4 ABG O2 Content 16.5 ABG Base Excess -5.8 A-a Gradient 401.6 Oxyhemoglobin 95.0 Total Hemoglobin 11.9 L O2 Delivery Device Ventilator O2 Liters/Min Not Reportable Vent Rate 20 FiO2 100 <James Drisclol MD - Last Filed: 07/25/23 07:01> 07/25/23 07:10 Puncture Site Right radial ABG pH 7.189 L* ABG pCO2 61.9 H* ABG pO2 249.5 H ABG PO2/FiO2 Ratio 2.49 ABG HCO3 23.1 ABG O2 Saturation 99.4 ABG O2 Content 16.5 ABG Base Excess -5.8 A-a Gradient 401.6 Oxyhemoglobin 95.0 Total Hemoglobin 11.9 L O2 Delivery Device Ventilator O2 Liters/Min Not Reportable Vent Rate 20 FiO2 100 <Snow Fuentes MD - Last Filed: 07/25/23 10:40> Critical Care Time Critical Care Time Critical Care Time: Yes <Snow Fuentes MD - Last Filed: 07/25/23 10:40> Total Critical Care Time: 61 <Snow Fuentes MD - Last Filed: 07/25/23 10:40> Discharge Plan Discharge Clinical Impression: Acute respiratory failure with hypercapnia <James Driscoll MD - Last Filed: 07/25/23 07:01> Patient Disposition: Still a Patient <James Driscoll MD - Last Filed: 07/25/23 07:01> Condition: Critical <James Driscoll MD - Last Filed: 07/25/23 07:01>
[2023-07-25] MEDS: PROPOFOL IV EMULSION 100 ML 2.43 MG IV CONT (06:51)
[2023-07-25] MEDS: SODIUM CHLORIDE 0.9% IV 1,000 ML 999 ML IV CONT ×2 (06:51→10:31)
[2023-07-25 07:10] LABS: Appearance Urine Clear (Clear); Bilirubin Urine Negative (Negative); Blood Urine Negative (Negative); Color Urine Yellow (Yellow); Glucose Urine UA 3+ mg/dL (Negative); Ketones Urine Negative (Negative); Leukocyte Esterase Ur Negative LEU/UL (Negative); Nitrate Urine Negative (Negative); Protein Urine Negative (Negative); Specific Grav Ur 1.012 (1.001-1.035); Urobilinogen Urine 0.2 mg/dL (<2.0)
[2023-07-25 07:13] LABS: Alveolar/Arterial O2 Gradient 401.6 mmHg; Base Excess ABG -5.8 mEq/l (+/-2.0); Fractional Inspired Oxygen 100 %; HCO3 ABG 23.1 mEq/l (22.0-26.0); Oxygen Content ABG 16.5 %vol (16.0-22.0); Oxygen Saturation ABG 99.4 % (95.0-100.0); PO2 ABG 249.5 mmHg (80.0-100.0); PO2 FiO2 Ratio Arterial Blood 2.49 %; Total Hemoglobin 11.9 g/dL (12.0-18.0)
[2023-07-25 07:13] LABS: Basophils Absolute Auto 0.1 K/mm3 (0.0-0.1); Basophils Percent Auto 0.4 % (0.2-1.2); Eosinophils Absolute Auto 0.2 K/mm3 (0-0.3); Eosinophils Percent Auto 1.8 % (0-4.4); Hematocrit 37.1 % (37.0-47.0); Immature Granulocyte Absolute 0.08 K/mm3 (0.00-0.031); Immature Granulocyte Percent A 0.7 % (0-0.5); Lymphocytes Absolute Auto 5.27 K/mm3 (0.9-3.2); Lymphocytes Percent Auto 44.3 % (18.3-44.2); Mean Corpuscular HGB Conc 29.6 g/dl (32-36); Mean Corpuscular Hemoglobin 26.8 pg (26-34); Mean Corpuscular Volume 90.3 fl (80-100); Mean Platelet Volume 9.2 fl (7.4-10.4); Monocytes Absolute Auto 0.5 K/mm3 (0.1-0.6); Monocytes Percent Auto 3.9 % (2.6-8.5); Neutrophils Absolute Auto 5.8 K/mm3 (1.3-6.7); Neutrophils Percent Auto 48.9 % (45.5-73.1); Platelet Count Result 503 k/mm3 (150-375); Red Blood Count 4.11 M/mm3 (4.2-5.4); Red Cell Distribution Width 15.8 % (11.5-14.5); White Blood Count 11.9 K/mm3 (4.5-10.0)
[2023-07-25] MEDS: MIDAZOLAM HCL (*CRX) 2 MG/2 ML VIAL IV PUSH (07:16)
[2023-07-25 07:17] LABS: Ethanol < 10 mg/dL (<10); Lactic Acid Reflex 3.6 mmol/L (0.7-2.0)
[2023-07-25 07:17] LABS: pH ABG 7.189 (7.350-7.450)
[2023-07-25 07:18] LABS: Device VENTILATOR; PCO2 ABG 61.9 mmHg (35.0-45.0); Site Drawn RIGHT RADIAL
[2023-07-25 07:20] LABS: Arterial Blood Gas PEEP 5 cmH2O; Arterial Blood Gas Tidal Volume 400 ml; Arterial Blood Gas Vent Mode CMV; Arterial Blood Gas Ventilator rate 20 /MIN
[2023-07-25 07:23] LABS: Acetaminophen < 10 ug/mL (10-30); Prothrombin Time 13.7 Seconds (11.1-14.7); Salicylate < 1.0 mg/dL (2-20)
[2023-07-25 07:24] LABS: Partial Thromboplastin Time 27.2 Seconds (22.3-36.8)
[2023-07-25 07:24] LABS: Amphetamine Screen Urine Negative (Negative); Barbiturate Screen Urine Negative (Negative); Benzodiazepines Screen Urine Positive (Negative); Cannabinoid Screen Urine Negative (Negative); Cocaine Screen Urine Negative (Negative); Methadone Screen Urine Negative (Negative); Opiate Screen Urine Negative (Negative); Phencyclidine Screen Urine Negative (Negative)
[2023-07-25 07:26] LABS: Alanine Aminotransferase 16 U/L (6-35); Albumin Level 3.6 g/dL (3.5-5.1); Alkaline Phosphatase 71 U/L (38-126); Anion Gap 8 mmol/L (4-12); Aspartate Amino Transferase 19 U/L (14-36); Bilirubin,Total 0.2 mg/dL (0.2-1.3); Blood Urea Nitrogen 8 mg/dL (7-17); Calcium 7.8 mg/dL (8.4-10.2); Carbon Dioxide 23 mmol/L (22-30); Chloride 103 mmol/L (98-107); Estimated CRCL calculation 99 ml/min; Estimated Glomerular Filt Rate > 60; Glucose 419 mg/dL (65-110); Magnesium 1.9 mg/dL (1.6-2.3); Potassium 4.1 mmol/L (3.4-5.0); Sodium 134 mmol/L (137-145)
[2023-07-25 07:29] LABS: Beta-Hydroxybutyrate/Acetoacetate 0.13 mmol/L (0.02-0.27)
[2023-07-25 07:34] LABS: Troponin I 0.047 ng/mL (0.000-0.034)
[2023-07-25] MEDS: MIDAZOLAM 100MG/NS 100ML(*CRX) 100 MG/100 ML BAG IV CONT (07:34)
[2023-07-25 07:35] LABS: Add Urine Microscopic? NO
[2023-07-25 07:40] LABS: Hypochromasia 1+; Platelet Estimate Increased (Adequate)
[2023-07-25 07:41] LABS: Schistocytes None Seen
[2023-07-25 07:42] LABS: Triglycerides 885 mg/dL (<150)
[2023-07-25 08:05] LABS: Influenza A QL RT-PCR Negative (Negative); Influenza B QL RT-PCR Negative (Negative); RSV RNA, RT-PCR Negative (Negative); SARS-CoV-2 RNA PCR Negative (Negative)
[2023-07-25 10:05] LABS: Reflex Lactic Acid Yes or No Add Lactic
[2023-07-25] MEDS: PROPOFOL IV EMULSION 100 ML 24.27 MG IV CONT (10:27)
--- NOTE | 2023-07-25 11:26 | ADMGEN ---
This patient, Xiomara Olson, was admitted to Intensive Care Unit-7. Patient/family oriented to hospital policies and general routines including ID bracelet, bed and alarms, visiting hours, pain management, procedures, bathroom and other care routines, personal items, smoking policy, room service/diet, and visiting hours. Information on how to activate the Rapid Response Team has been discussed. Patient/Family are encouraged to report perceived risks to care and to ask questions if they do not understand what they are told or what they should do.
[2023-07-25] MEDS: SODIUM CHLORIDE 0.9% IV 1,000 ML 75 ML IV CONT ×2 (11:29→20:16)
[2023-07-25] MEDS: cefTRIAXone 2 GM/NS 100 ML 2 GM/100 ML BAG IVPB ×2 (11:30→20:20)
[2023-07-25 11:35] LABS: Glucose Point of Care 149 mg/dl (65-105)
[2023-07-25] MEDS: FENTANYL 2,500MCG/NS250ML(*CRX 2,500 MCG/250 ML BAG IV CONT (11:49)
[2023-07-25 12:02] LABS: Alveolar/Arterial O2 Gradient 142.6 mmHg; Base Excess ABG -1.1 mEq/l (+/-2.0); Fractional Inspired Oxygen 50 %; HCO3 ABG 24.7 mEq/l (22.0-26.0); Oxygen Content ABG 15.9 %vol (16.0-22.0); Oxyhemoglobin 97.7 % THb (90.0-100.0); PCO2 ABG 45.8 mmHg (35.0-45.0); PO2 ABG 162.4 mmHg (80.0-100.0); PO2 FiO2 Ratio Arterial Blood 3.25 %; Total Hemoglobin 11.3 g/dL (12.0-18.0)
[2023-07-25 12:04] LABS: Arterial Blood Gas Vent Mode CMV; Arterial Blood Gas Ventilator rate 24 /MIN; Device VENTILATOR; Modified Allen's Test Pass; Site Drawn RIGHT RADIAL
[2023-07-25 12:05] LABS: Arterial Blood Gas PEEP 5 cmH2O; Arterial Blood Gas Tidal Volume 400 ml
[2023-07-25] MEDS: DOXYCYCLINE 100 MG/NS 100 ML 100 MG/100 ML BAG IVPB ×2 (12:11→21:58)
[2023-07-25] MEDS: VANCOMYCIN 2,000 MG/NS 500 ML 2,000 MG/500 ML BAG 250 MG IVPB (13:07)
[2023-07-25 13:13] LABS: Glucose Point of Care 88 mg/dl (65-105)
--- NOTE | 2023-07-25 13:22 | PCDIET ---
Tube feeding recommendations: Glucerna 1.2 goal rate at 65 ml/hr. Tube feedings at goal rate providing 1716 kcals/82 gm protein/1240 ml water. Flush 30 ml q 4hours. Recommend adding 1 additional Prosource for an additional 80 kcals and 20 gm protein. Will continue to follow.
--- NOTE | 2023-07-25 13:37 | P.CONIN_ITS ---
Assessment and Plan Assessment and plan (1) Acute respiratory failure with hypercapnia: Code(s): J96.02 - Acute respiratory failure with hypercapnia Status: Acute Assessment and Plan: Patient was found unresponsive at home, intubated upon EMS arrival to the house. Unknown etiology -currently on CMV mode of ventilation, peep of 5, 50% FiO2 -patient has pneumonia on CT chest -started patient on vancomycin, ceftriaxone and doxycycline (07/24) -will start bronchodilators -sedated with fentanyl and Versed, will maintain RASS of 0 to -2. Daily sedation vacation and SBT -07/24: CTA chest - 1. No pulmonary embolism. 2. Bilateral patchy groundglass opacities and more dense dependent consolidation in both lungs consistent with pneumonia (2) Pneumonia: Code(s): J18.9 - Pneumonia, unspecified organism Status: Acute Assessment and Plan: Chest CTA as above showing bilateral consolidation likely consistent with pneumonia -07/24: Blood, urine, sputum cultures have been ordered -antibiotics as above (3) Altered mental status: Qualifiers: Altered mental status type: unspecified Qualified Code(s): R41.82 - Altered mental status, unspecified Code(s): R41.82 - Altered mental status, unspecified Status: Acute Assessment and Plan: Unknown etiology for her altered mental status/unresponsiveness at home. -patient has been recently stressed out as per the mother and a friend, has some difficulties with the rent payment and other financial issues -the could be a drug overdose issue with benzodiazepines being positive in her urine tox screen. (caveats that patient does take Xanax at home for anxiety) -will monitor mental status (4) Elevated troponin: Code(s): R79.89 - Other specified abnormal findings of blood chemistry Status: Acute Assessment and Plan: Elevated troponins -will obtain 6 hour troponin level -patient has a history of hyperglycemia/diabetes, hyperlipidemia/hypertriglyceridemia, tobacco abuse, obesity -patient does have risk factors for CAD -have consulted Cardiology -will start therapeutic Lovenox for NSTEMI (5) Anxiety: Code(s): F41.9 - Anxiety disorder, unspecified Status: Acute Assessment and Plan: History of anxiety, patient currently on Versed and fentanyl infusion (6) GERD (gastroesophageal reflux disease): Qualifiers: Esophagitis presence: esophagitis presence not specified Qualified Code(s): K21.9 - Gastro-esophageal reflux disease without esophagitis Code(s): K21.9 - Gastro-esophageal reflux disease without esophagitis Status: Acute Assessment and Plan: Protonix (7) Hypertension: Qualifiers: Hypertension type: primary hypertension Qualified Code(s): I10 - Essential (primary) hypertension Code(s): I10 - Essential (primary) hypertension Status: Acute Assessment and Plan: Currently blood pressures are stable, as patient is intubated and on sedation. Will continue to monitor (8) Non compliance with medical treatment: Code(s): Z91.199 - Patient's noncompliance with other medical treatment and regimen due to unspecified reason Status: Acute Assessment and Plan: According the mother patient is noncompliant with her medical treatment (9) Tobacco abuse: Code(s): Z72.0 - Tobacco use Status: Acute Assessment and Plan: Tobacco use, patient smokes 1/2 packet per day for over 25 years -will consult patient once she is extubated (10) Hyperglycemia: Code(s): R73.9 - Hyperglycemia, unspecified Status: Acute Assessment and Plan: Patient initially had a blood sugar level of 419 on admission, it has improved since then -continue Accu-Cheks and sliding scale insulin -patient's mother does state that she has elevated blood sugars but she has been following with any doctors -will obtain hemoglobin A1c Plan DVT prophylaxis: Therapeutic Lovenox Stress ulcer prophylaxis: Protonix Nutrition: Will start tube feeds, Glucerna Code Status: Full code Critical Care Time Spent: 49 minutes Discussed with patient's mother at bedside updated with patient's condition and plan of care. I also got some history from the mother. She is on aware that patient to get any overdose of what caused her unresponsiveness. I did tell her that be treating her for pneumonia, I updated her with the radiology and lab results. I answered all her questions s Due to a high probability of clinically significant, life threatening deterioration, the patient required my highest level of preparedness to int ervene emergently and I personally spent this critical care time directly and personally managing the patient. This critical care time included obtaining a history; examining the patient; pulse oximetry; ordering and review of studies; arranging urgent treatment with development of a management plan; evaluation of patient's response to treatment; frequent reassessment; and discussions with other providers. It was exclusive of separately billable procedures and treating other patients and teaching time. Please see Assessment and Plan section and the rest of the note for further information on patient assessment and treatment This dictation may have been done utilizing a voice recognition system. Attempts have been made to correct errors. However, there may be uncorrected grammatical, spelling, and recognitions errors present. [employer] Dispatcher Consult Note Consult date: 07/25/23 Reason for consult: Altered mental status/unresponsive, acute respiratory failure HPI: Xiomara Olson is a 42 year old female with past medical history of anxiety, asthma, cervical radiculopathy secondary to DJD depression, hyperglycemia, GERD, essential hypertension, PTSD, tobacco abuse, UTI, history of liver dysfunction, renal dysfunction according the mother. Patient presented the ED on 07/25/2023 with chief complaints of altered mental status. She was found by family in bed unresponsive, upon EMS arrival she was intubated. Brought to the ER, was sta rted on sedation with propofol. According the mother patient has been having longstanding constipation and diarrhea, she has not seen any doctors and does not like to visit doctors. She has a significant psych history according the mother and she has been stressed out lately due to rent issues and other financial problems. In the ED CT of the brain did not show any significant abnormalities. CT of the cervical spine showed no fracture or subluxation of the cervical spine. Mild canal stenosis and possible cord compression at C4-6 E levels related to disc osteophyte complexes and probable focal ossification of the posterior longitudinal ligament. CTA chest showed no pulmonary embolism, bilateral patchy ground glass opacities and more dense dependent consolidation in both lungs consistent with pneumonia. ABGs in the ER showed a pH of 7.189, pCO2 of 62, PO2 of 249. WBC count of 11.9, hemoglobin 11, platelet counts were 503. PT/INR/PTT within normal limits. Sodium 136, potassium 3.8, CO2 27, BUN 12, creatinine 0.6, initial blood sugars 419, they have since come down to 149 and 88. Initial lactic acid was 3.6, repeat lactic acid is pending, troponins are 0.047 and 0.103. Triglycerides were 885. LFTs within normal limits with TSH with normal limits. Beta hydroxybutyrate was normal, anion gap was normal. UA was negative. Urine tox screen was positive for benzodiazepine. Influenza, RSV and COVID were negative. Patient was started on propofol and transfer the ICU for further management Patient seen and examined the ICU, remains intubated, sedated on propofol, given her hypertriglyceridemia, height the bedside RN to discontinue propofol and started patient on fentanyl and Versed infusion. Patient remains intubated on CMV mode of ventilation, peep of 5, 50% FiO2. Patient does not open her eyes or follow simple commands. Patient is mother at bedside and tried history as above. Review of Systems Review of Systems: ROS unobtainable: Yes unobtainable due to endotracheal tube, unobtainable due to medical condition and unobtainable due to mental status PMFSH Past Medical History Medical History Allergies Anxiety Asthma Cervical radiculopathy due to degenerative joint disease of spine Degenerated intervertebral disc Depression Elevated glucose level Fever GERD (gastroesophageal reflux disease) Gestational diabetes Hidradenitis suppurativa History of dental problems Hypertension Otalgia of left ear Pain, dental Pelvic cramping Pica in adults Pinched cervical nerve root PTSD (post-traumatic stress disorder) Sciatica STD exposure Suspected COVID-19 virus infection Tobacco abuse Urinary frequency UTI symptoms Weight loss, unintentional Surgical History Surgical History History of facial surgery Previous section Family History Family History Mother Hypertension Alcoholism Asthma Diabetes mellitus Depression Anxiety Heart problem Father Hypertension Alcoholism Thyroid disorder Sibling Alcoholism Asthma Anxiety Depression Thyroid disorder Grandparent Asthma Cancer brain Diabetes mellitus Hypertension Depression Anxiety Heart problem Cerebrovascular accident Other Breast cancer Heart disease Malignant neoplasm of prostate Social History Social History Social History: Caffeine-Coffee, daily Smoking packs per day: 0.25 Smoking cigarettes per day: 5.0 Years smoked: 20 Smoking pack-years: 5.00 Smoking status: Unknown if ever smoked Tobacco type: cigarettes Second hand tobacco smoke exposure: Yes Alcohol intake: unknown Substance use: unknown Substance use type: unknown Lack of Transportation: YES Lack of Food: Never True Current Housing: I Have Housing Concerned About Future Housing: No Difficulty Paying Gas/Electric Bills: No Difficulty Paying for Meds: No Currently Unemployed: No Education: High School Diploma/GED Difficulty w/ Childcare or Family Care: No Living arrangements: with family Additional living arrangements comments: Lives alone with 2 children Occupation/Education: unemployed Gender identity (if verbalized by the patient): Female Spiritual care concerns: No Meds Home Medications and Allergies Home Medications Medication Instructions Recorded Confirmed Type alprazolam 1 mg tablet 1 mg PO TID 11/19/19 07/25/23 History albuterol sulfate 90 mcg/actuation 1 puff inhalation Q4H PRN 01/09/22 07/25/23 Rx aerosol inhaler shortness of breath or wheezing #8.5 grams pen needle, diabetic 31 gauge x #1,200 ea 05/31/22 07/25/23 Rx 5/16 (True Comfort Pen Needle) fluticasone propionate 50 2 spray intranasal DAILY #16 grams 07/10/22 07/25/23 Rx mcg/actuation nasal spray,suspension (Flonase Allergy Relief) azelastine 137 mcg (0.1 %) nasal 137 mcg intranasal Q12H PRN 11/14/22 07/25/23 History spray aerosol Allergy Symptoms atorvastatin 20 mg tablet 20 mg PO QHS #90 tabs 11/26/22 07/25/23 Rx ondansetron HCl 4 mg tablet 8 mg PO Q6H PRN nausea and 02/04/23 07/25/23 Rx vomiting #60 tabs aripiprazole 5 mg tablet 5 mg PO DAILY 07/23/23 07/25/23 History blood-glucose meter (OneTouch #1 ea 07/23/23 07/25/23 Rx Verio Flex Meter) cyclobenzaprine 5 mg tablet 5 mg PO TID PRN muscle spasm #30 07/23/23 07/25/23 Rx tabs fluoxetine 20 mg capsule 40 mg PO BID 07/23/23 07/25/23 History gabapentin 300 mg capsule 300 mg PO TID #90 caps 07/23/23 07/25/23 Rx insulin glargine 100 unit/mL (3 15 unit (0.15 mL) subcut QPM #15 mL 07/23/23 07/25/23 Rx mL) subcutaneous pen (Lantus Solostar U-100 Insulin) lancets 31 gauge #100 ea 07/23/23 07/25/23 Rx lisinopril 10 mg tablet 10 mg PO DAILY #30 tabs 07/23/23 07/25/23 Rx trazodone 100 mg tablet 100 mg PO DAILY 07/23/23 07/25/23 History Allergies Allergy/AdvReac Type Severity Reaction Status Date / Time latex Allergy Intermediate Itching Verified 07/23/23 11:28 morphine Allergy Intermediate Swelling Verified 07/23/23 11:28 amoxicillin [From Augmentin] AdvReac Mild Nausea and Verified 07/23/23 11:28 Vomiting clavulanic acid AdvReac Mild Nausea and Verified 07/23/23 11:28 [From Augmentin] Vomiting naproxen AdvReac Mild Other Verified 07/23/23 11:28 Vital Signs Vital Signs - 24 hr 07/25/23 06:41 07/25/23 06:45 07/25/23 06:46 Temperature Pulse Rate 118 H 115 H Respiratory Rate 25 H Blood Pressure 127/77 Pulse Oximetry 99 100 Oxygen Delivery Mechanical Ventilation Mechanical Ventilation Fraction of Inspired Oxygen 07/25/23 06:51 07/25/23 06:58 07/25/23 07:05 Temperature Pulse Rate 108 H 112 H Respiratory Rate 20 19 Blood Pressure Pulse Oximetry 100 Oxygen Delivery Mechanical Ventilation Fraction of Inspired Oxygen 07/25/23 07:07 07/25/23 07:09 07/25/23 07:14 Temperature Pulse Rate 107 H 118 H 112 H Respiratory Rate 20 26 H 20 Blood Pressure 131/78 Pulse Oximetry 100 Oxygen Delivery Fraction of Inspired Oxygen 07/25/23 07:24 07/25/23 07:34 07/25/23 07:36 Temperature Pulse Rate 111 H 111 H 109 H Respiratory Rate 22 H 32 H 32 H Blood Pressure Pulse Oximetry Oxygen Delivery Fraction of Inspired Oxygen 07/25/23 07:26 07/25/23 06:44 07/25/23 07:42 Temperature Pulse Rate 109 H 113 H 111 H Respiratory Rate 22 H Blood Pressure Pulse Oximetry 100 99 Oxygen Delivery Mechanical Ventilation Mechanical Ventilation Fraction of Inspired Oxygen 60 100 07/25/23 08:16 07/25/23 07:50 07/25/23 08:30 Temperature Pulse Rate 109 H 110 H 99 Respiratory Rate 22 H 22 H 22 H Blood Pressure Pulse Oximetry Oxygen Delivery Fraction of Inspired Oxygen 07/25/23 08:38 07/25/23 08:20 07/25/23 08:42 Temperature 97.7 F Pulse Rate 99 93 90 Respiratory Rate 22 H 22 H 22 H Blood Pressure 135/95 H Pulse Oximetry 100 Oxygen Delivery Fraction of Inspired Oxygen 07/25/23 08:31 07/25/23 08:33 07/25/23 08:46 Temperature 97.9 F 97.9 F 98.1 F Pulse Rate 91 92 90 Respiratory Rate 22 H 22 H 22 H Blood Pressure 131/101 H 122/99 H 133/83 Pulse Oximetry 100 100 100 Oxygen Delivery Fraction of Inspired Oxygen 07/25/23 09:01 07/25/23 09:03 07/25/23 09:16 Temperature 98.3 F 98.3 F 98.5 F Pulse Rate 87 87 87 Respiratory Rate 22 H 18 15 Blood Pressure 129/83 123/85 123/85 Pulse Oximetry 100 100 100 Oxygen Delivery Fraction of Inspired Oxygen 07/25/23 09:30 07/25/23 10:17 07/25/23 10:15 Temperature 98.7 F 99.6 F Pulse Rate 85 83 84 Respiratory Rate 22 H 22 H Blood Pressure 116/91 H 112/81 Pulse Oximetry 100 98 99 Oxygen Delivery Mechanical Ventilation Fraction of Inspired Oxygen 50 07/25/23 10:27 07/25/23 10:40 07/25/23 11:49 Temperature Pulse Rate 82 78 Respiratory Rate 22 H 24 H Blood Pressure Pulse Oximetry Oxygen Delivery Mechanical Ventilation Fraction of Inspired Oxygen 50 07/25/23 12:28 07/25/23 12:35 07/25/23 12:05 Temperature 99.9 F H Pulse Rate 78 78 Respiratory Rate 22 H Blood Pressure 111/76 Pulse Oximetry 100 Oxygen Delivery Mechanical Ventilation Fraction of Inspired Oxygen 40 07/25/23 11:15 07/25/23 11:20 07/25/23 11:45 Temperature Pulse Rate 78 78 78 Respiratory Rate 24 H 22 H 22 H Blood Pressure Pulse Oximetry Oxygen Delivery Fraction of Inspired Oxygen 07/25/23 11:50 07/25/23 12:20 07/25/23 12:30 Temperature Pulse Rate 77 78 78 Respiratory Rate 24 H 22 H 22 H Blood Pressure Pulse Oximetry Oxygen Delivery Fraction of Inspired Oxygen 07/25/23 12:35 07/25/23 10:00 07/25/23 12:00 Temperature Pulse Rate 78 78 78 Respiratory Rate 22 H 22 H 22 H Blood Pressure Pulse Oximetry Oxygen Delivery Fraction of Inspired Oxygen 07/25/23 12:00 07/25/23 12:15 07/25/23 12:30 Temperature Pulse Rate 78 78 78 Respiratory Rate 22 H 22 H 22 H Blood Pressure Pulse Oximetry Oxygen Delivery Fraction of Inspired Oxygen 07/25/23 13:32 07/25/23 13:00 07/25/23 13:15 Temperature Pulse Rate 78 78 85 Respiratory Rate 22 H 22 H 22 H Blood Pressure Pulse Oximetry Oxygen Delivery Fraction of Inspired Oxygen 07/25/23 13:22 Temperature Pulse Rate 85 Respiratory Rate Blood Pressure Pulse Oximetry 100 Oxygen Delivery Mechanical Ventilation Fraction of Inspired Oxygen 40 Exam Narrative: General: Intubated and sedated in no acute distress HEENT:? Pupils equal and reactive sclera is clear, ETT in place Neck:? Supple Respiratory:? Bilateral coarse breath sounds and rhonchi, adequate air entry, no wheezing Cardiac:? S1-S2 is normal, regular rate and rhythm Abdomen:? Soft, nontender, nondistended, obese, hypoactive bowel sounds Extremities:? Trace edema, palpable pedal pulses Neuro:? Patient is intubated sedated, does not open eyes to name of follows simple commands, withdraws to pain in all extremities Skin:? Warm and dry Psych:? Unable to assess Results Labs 07/25/23 06:50 07/25/23 06:50 Labs: Short CBC 07/25/23 Range/Units 06:50 WBC 11.9 H (4.5-10.0) K/mm3 Hgb 11.0 L (12.0-15.0) g/dL Hct 37.1 (37.0-47.0) % Plt Count 503 H (150-375) k/mm3 BMP 07/25/23 06:50 Sodium 134 L Potassium 4.1 Chloride 103 Carbon Dioxide 23 BUN 8 Creatinine 0.70 Glucose 419 H Calcium 7.8 L Cardiac Enzymes 07/25/23 Range/Units 06:50 Troponin I 0.047 H* (0.000-0.034) ng/mL Liver Function 07/25/23 Range/Units 06:50 Total Bilirubin 0.2 (0.2-1.3) mg/dL AST 19 (14-36) U/L ALT 16 (6-35) U/L Alkaline Phosphatase 71 (38-126) U/L Albumin 3.6 (3.5-5.1) g/dL Urine 07/25/23 Range/Units 06:54 Urine Color Yellow (Yellow) Urine Appearance Clear (Clear) Urine pH 6.0 (5.0-9.0) Ur Specific [place] 1.012 (1.001-1.035) Urine Protein Negative (Negative) mg/dL Urine Glucose (UA) 3+ H (Negative) mg/dL
[2023-07-25 13:47] LABS: Troponin I 0.103 ng/mL (0.000-0.034)
[2023-07-25] MEDS: IPRATROPIUM 0.5 MG/ALBUTEROL SULFATE 2.5 MG AMPUL.NEB 3 ML INHALATION ×2 (14:24→19:56)
[2023-07-25 14:31] LABS: MRSA (PCR) DETECTED (NOT DETECTE)
--- NOTE | 2023-07-25 14:31 | PM.IMHP ---
H&P: HPI History of Present Illness Date/Time: 07/25/23 14:31 Chief Complaint: Altered mental status Narrative: This is a 40-year-old female presents to the ER with altered mental status. Patient was last seen well at 1:00 a.m. and earlier this morning patient was found to be lying on the bed unresponsive. Patient has history of diabetes. She has not been feeling well for the past few days. EMS was called and was intubated in route. Upon arrival to the ER patient was noted to have mild tachycardia blood pressure adequate. Oxygen saturation was adequate. Suspected accidental or intentional overdose. Laboratory evaluation showed WBC of 11.9 hemoglobin of 11 no metabolic abnormality noted hyperglycemia 419. Lactate was mildly elevated at 3.6. Troponin was mildly elevated at 0.047 UDS positive for benzodiazepines otherwise negative. Alcohol was less than 10 acetaminophen less than 10 salicylate less than 1 influenza RSV COVID was negative. UA was negative. ABG with 7.18/61/249/23. She is admitted to the ICU in the setting. Review of Systems Review of Systems: ROS unobtainable: Yes unobtainable due to endotracheal tube and unobtainable due to mental status PMFSH Past Medical History Medical History Allergies Anxiety Asthma Cervical radiculopathy due to degenerative joint disease of spine Degenerated intervertebral disc Depression Elevated glucose level Fever GERD (gastroesophageal reflux disease) Gestational diabetes Hidradenitis suppurativa History of dental problems Hypertension Otalgia of left ear Pain, dental Pelvic cramping Pica in adults Pinched cervical nerve root PTSD (post-traumatic stress disorder) Sciatica STD exposure Suspected COVID-19 virus infection Tobacco abuse Urinary frequency UTI symptoms Weight loss, unintentional Surgical History Surgical History History of facial surgery Previous section Family History Family History Mother Hypertension Alcoholism Asthma Diabetes mellitus Depression Anxiety Heart problem Father Hypertension Alcoholism Thyroid disorder Sibling Alcoholism Asthma Anxiety Depression Thyroid disorder Grandparent Asthma Cancer brain Diabetes mellitus Hypertension Depression Anxiety Heart problem Cerebrovascular accident Other Breast cancer Heart disease Malignant neoplasm of prostate Social History Social History Social History: Caffeine-Coffee, daily Smoking packs per day: 0.25 Smoking cigarettes per day: 5.0 Years smoked: 20 Smoking pack-years: 5.00 Smoking status: Unknown if ever smoked Tobacco type: cigarettes Second hand tobacco smoke exposure: Yes Alcohol intake: unknown Substance use: unknown Substance use type: unknown Lack of Transportation: YES Lack of Food: Never True Current Housing: I Have Housing Concerned About Future Housing: No Difficulty Paying Gas/Electric Bills: No Difficulty Paying for Meds: No Currently Unemployed: No Education: High School Diploma/GED Difficulty w/ Childcare or Family Care: No Living arrangements: with family Additional living arrangements comments: Lives alone with 2 children Occupation/Education: unemployed Gender identity (if verbalized by the patient): Female Spiritual care concerns: No Meds Home Medications and Allergies Home Medications Medication Instructions Recorded Confirmed Type alprazolam 1 mg tablet 1 mg PO TID 11/19/19 07/25/23 History albuterol sulfate 90 mcg/actuation 1 puff inhalation Q4H PRN 01/09/22 07/25/23 Rx aerosol inhaler shortness of breath or wheezing #8.5 grams pen needle, diabetic 31 gauge x #1,200 ea 05/31/22 07/25/23 Rx 5/16 (True Comfort Pen Needle) fluticasone propionate 50 2 spray intranasal DAILY #16 grams 07/10/22 07/25/23 Rx mcg/actuation nasal spray,suspension (Flonase Allergy Relief) azelastine 137 mcg (0.1 %) nasal 137 mcg intranasal Q12H PRN 11/14/22 07/25/23 History spray aerosol Allergy Symptoms atorvastatin 20 mg tablet 20 mg PO QHS #90 tabs 11/26/22 07/25/23 Rx ondansetron HCl 4 mg tablet 8 mg PO Q6H PRN nausea and 02/04/23 07/25/23 Rx vomiting #60 tabs aripiprazole 5 mg tablet 5 mg PO DAILY 07/23/23 07/25/23 History blood-glucose meter (OneTouch #1 ea 07/23/23 07/25/23 Rx Verio Flex Meter) cyclobenzaprine 5 mg tablet 5 mg PO TID PRN muscle spasm #30 07/23/23 07/25/23 Rx tabs fluoxetine 20 mg capsule 40 mg PO BID 07/23/23 07/25/23 History gabapentin 300 mg capsule 300 mg PO TID #90 caps 07/23/23 07/25/23 Rx insulin glargine 100 unit/mL (3 15 unit (0.15 mL) subcut QPM #15 mL 07/23/23 07/25/23 Rx mL) subcutaneous pen (Lantus Solostar U-100 Insulin) lancets 31 gauge #100 ea 07/23/23 07/25/23 Rx lisinopril 10 mg tablet 10 mg PO DAILY #30 tabs 07/23/23 07/25/23 Rx trazodone 100 mg tablet 100 mg PO DAILY 07/23/23 07/25/23 History Allergies Allergy/AdvReac Type Severity Reaction Status Date / Time latex Allergy Intermediate Itching Verified 07/23/23 11:28 morphine Allergy Intermediate Swelling Verified 07/23/23 11:28 amoxicillin [From Augmentin] AdvReac Mild Nausea and Verified 07/23/23 11:28 Vomiting clavulanic acid AdvReac Mild Nausea and Verified 07/23/23 11:28 [From Augmentin] Vomiting naproxen AdvReac Mild Other Verified 07/23/23 11:28 Vital Signs Vital Signs - 24 hr 07/25/23 06:41 07/25/23 06:45 07/25/23 06:46 Temperature Pulse Rate 118 H 115 H Respiratory Rate 25 H Blood Pressure 127/77 Pulse Oximetry 99 100 Oxygen Delivery Mechanical Ventilation Mechanical Ventilation Fraction of Inspired Oxygen 07/25/23 06:51 07/25/23 06:58 07/25/23 07:05 Temperature Pulse Rate 108 H 112 H Respiratory Rate 20 19 Blood Pressure Pulse Oximetry 100 Oxygen Delivery Mechanical Ventilation Fraction of Inspired Oxygen 07/25/23 07:07 07/25/23 07:09 07/25/23 07:14 Temperature Pulse Rate 107 H 118 H 112 H Respiratory Rate 20 26 H 20 Blood Pressure 131/78 Pulse Oximetry 100 Oxygen Delivery Fraction of Inspired Oxygen 07/25/23 07:24 07/25/23 07:34 07/25/23 07:36 Temperature Pulse Rate 111 H 111 H 109 H Respiratory Rate 22 H 32 H 32 H Blood Pressure Pulse Oximetry Oxygen Delivery Fraction of Inspired Oxygen 07/25/23 07:26 07/25/23 06:44 07/25/23 07:42 Temperature Pulse Rate 109 H 113 H 111 H Respiratory Rate 22 H Blood Pressure Pulse Oximetry 100 99 Oxygen Delivery Mechanical Ventilation Mechanical Ventilation Fraction of Inspired Oxygen 60 100 07/25/23 08:16 07/25/23 07:50 07/25/23 08:30 Temperature Pulse Rate 109 H 110 H 99 Respiratory Rate 22 H 22 H 22 H Blood Pressure Pulse Oximetry Oxygen Delivery Fraction of Inspired Oxygen 07/25/23 08:38 07/25/23 08:20 07/25/23 08:42 Temperature 97.7 F Pulse Rate 99 93 90 Respiratory Rate 22 H 22 H 22 H Blood Pressure 135/95 H Pulse Oximetry 100 Oxygen Delivery Fraction of Inspired Oxygen 07/25/23 08:31 07/25/23 08:33 07/25/23 08:46 Temperature 97.9 F 97.9 F 98.1 F Pulse Rate 91 92 90 Respiratory Rate 22 H 22 H 22 H Blood Pressure 131/101 H 122/99 H 133/83 Pulse Oximetry 100 100 100 Oxygen Delivery Fraction of Inspired Oxygen 07/25/23 09:01 07/25/23 09:03 07/25/23 09:16 Temperature 98.3 F 98.3 F 98.5 F Pulse Rate 87 87 87 Respiratory Rate 22 H 18 15 Blood Pressure 129/83 123/85 123/85 Pulse Oximetry 100 100 100 Oxygen Delivery Fraction of Inspired Oxygen 07/25/23 09:30 07/25/23 10:17 07/25/23 10:15 Temperature 98.7 F 99.6 F Pulse Rate 85 83 84 Respiratory Rate 22 H 22 H Blood Pressure 116/91 H 112/81 Pulse Oximetry 100 98 99 Oxygen Delivery Mechanical Ventilation Fraction of Inspired Oxygen 50 07/25/23 10:27 07/25/23 10:40 07/25/23 11:49 Temperature Pulse Rate 82 78 Respiratory Rate 22 H 24 H Blood Pressure Pulse Oximetry Oxygen Delivery Mechanical Ventilation Fraction of Inspired Oxygen 50 07/25/23 12:28 07/25/23 12:35 07/25/23 12:05 Temperature 99.9 F H Pulse Rate 78 78 Respiratory Rate 22 H Blood Pressure 111/76 Pulse Oximetry 100 Oxygen Delivery Mechanical Ventilation Fraction of Inspired Oxygen 40 07/25/23 11:15 07/25/23 11:20 07/25/23 11:45 Temperature Pulse Rate 78 78 78 Respiratory Rate 24 H 22 H 22 H Blood Pressure Pulse Oximetry Oxygen Delivery Fraction of Inspired Oxygen 07/25/23 11:50 07/25/23 12:20 07/25/23 12:30 Temperature Pulse Rate 77 78 78 Respiratory Rate 24 H 22 H 22 H Blood Pressure Pulse Oximetry Oxygen Delivery Fraction of Inspired Oxygen 07/25/23 12:35 07/25/23 10:00 07/25/23 12:00 Temperature Pulse Rate 78 78 78 Respiratory Rate 22 H 22 H 22 H Blood Pressure Pulse Oximetry Oxygen Delivery Fraction of Inspired Oxygen 07/25/23 12:00 07/25/23 12:15 07/25/23 12:30 Temperature Pulse Rate 78 78 78 Respiratory Rate 22 H 22 H 22 H Blood Pressure Pulse Oximetry Oxygen Delivery Fraction of Inspired Oxygen 07/25/23 13:32 07/25/23 13:00 07/25/23 13:15 Temperature Pulse Rate 78 78 85 Respiratory Rate 22 H 22 H 22 H Blood Pressure Pulse Oximetry Oxygen Delivery Fraction of Inspired Oxygen 07/25/23 13:22 07/25/23 14:00 07/25/23 14:00 Temperature Pulse Rate 85 84 84 Respiratory Rate 22 H Blood Pressure 130/89 Pulse Oximetry 100 100 Oxygen Delivery Mechanical Ventilation Fraction of Inspired Oxygen 40 Exam Narrative: General: Intubated and sedated in no acute distress HEENT:? Pupils equal and reactive sclera is clear, ETT in place Neck:? Supple Respiratory:? Bilateral coarse breath sounds and rhonchi, adequate air entry, no wheezing Cardiac:? S1-S2 is normal, regular rate and rhythm Abdomen:? Soft, nontender, nondistended, obese, hypoactive bowel sounds Extremities:? Trace edema, palpable pedal pulses Neuro:? Patient is intubated sedated, does not open eyes to name of follows simple commands, withdraws to pain in all extremities Skin:? Warm and dry Psych:? Unable to assess H&P: Results Labs Labs: Short CBC 07/25/23 Range/Units 06:50 WBC 11.9 H (4.5-10.0) K/mm3 Hgb 11.0 L (12.0-15.0) g/dL Hct 37.1 (37.0-47.0) % Plt Count 503 H (150-375) k/mm3 BMP 07/25/23 06:50 Sodium 134 L Potassium 4.1 Chloride 103 Carbon Dioxide 23 BUN 8 Creatinine 0.70 Glucose 419 H Calcium 7.8 L Cardiac Enzymes 07/25/23 07/25/23 Range/Units 06:50 12:50 Troponin I 0.047 H* 0.103 H* D (0.000-0.034) ng/mL Liver Function 07/25/23 Range/Units 06:50 Total Bilirubin 0.2 (0.2-1.3) mg/dL AST 19 (14-36) U/L ALT 16 (6-35) U/L Alkaline Phosphatase 71 (38-126) U/L Albumin 3.6 (3.5-5.1) g/dL Urine 07/25/23 Range/Units 06:54 Urine Color Yellow (Yellow) Urine Appearance Clear (Clear) Urine pH 6.0 (5.0-9.0) Ur Specific [place] 1.012 (1.001-1.035) Urine Protein Negative (Negative) mg/dL Urine Glucose (UA) 3+ H (Negative) mg/dL Assessment and Plan Assessment and plan (1) Acute respiratory failure with hypercapnia: Code(s): J96.02 - Acute respiratory failure with hypercapnia Status: Acute (2) Pneumonia: Code(s): J18.9 - Pneumonia, unspecified organism Status: Acute (3) Altered mental status: Qualifiers: Altered mental status type: unspecified Qualified Code(s): R41.82 - Altered mental status, unspecified Code(s): R41.82 - Altered mental status, unspecified Status: Acute (4) Elevated troponin: Code(s): R79.89 - Other specified abnormal findings of blood chemistry Status: Acute (5) Anxiety: Code(s): F41.9 - Anxiety disorder, unspecified Status: Acute (6) GERD (gastroesophageal reflux disease): Qualifiers: Esophagitis presence: esophagitis presence not specified Qualified Code(s): K21.9 - Gastro-esophageal reflux disease without esophagitis Code(s): K21.9 - Gastro-esophageal reflux disease without esophagitis Status: Acute (7) Hypertension: Qualifiers: Hypertension type: primary hypertension Qualified Code(s): I10 - Essential (primary) hypertension Code(s): I10 - Essential (primary) hypertension Status: Acute (8) Non compliance with medical treatment: Code(s): Z91.199 - Patient's noncompliance with other medical treatment and regimen due to unspecified reason Status: Acute (9) Tobacco abuse: Code(s): Z72.0 - Tobacco use Status: Acute (10) Hyperglycemia: Code(s): R73.9 - Hyperglycemia, unspecified Status: Acute Plan This is a 40-year-old female presents to the ER with altered mental status. Patient was last seen well at 1:00 a.m. and earlier this morning patient was found to be lying on the bed unresponsive. Patient has history of diabetes. She has not been feeling well for the past few days. EMS was called and was intubated in route. Upon arrival to the ER patient was noted to have mild tachycardia blood pressure adequate. Oxygen saturation was adequate. Suspected accidental or intentional overdose. Laboratory evaluation showed WBC of 11.9 hemoglobin of 11 no metabolic abnormality noted hyperglycemia 419. Lactate was mildly elevated at 3.6. Troponin was mildly elevated at 0.047 UDS positive for benzodiazepines otherwise negative. Alcohol was less than 10 acetaminophen less than 10 salicylate less than 1 influenza RSV COVID was negative. UA was negative. ABG with 7.18/61/249/23. Chest x-ray negative. CT brain was negative. CT cervical spine negative for any fracture. CT chest was done which showed bilateral ground are patchy ground-glass opacities and more dense dependent consultation both lungs consistent with pneumonia. Started with IV antibiotics for treatment for pneumonia panculture Possible drug overdose does take Xanax at home. Unclear/on proven Mild troponin elevation Type 2 diabetes Anxiety disorder GERD Hypertension DVT prophylaxis Lovenox Code status full code
[2023-07-25] MEDS: ENOXAPARIN 80 MG/0.8 ML SYRINGE SUB-Q (14:49)
--- NOTE | 2023-07-25 15:21 | P.CONCA_ITS ---
Assessment and Plan Assessment and plan (1) Acute respiratory failure with hypercapnia: Code(s): J96.02 - Acute respiratory failure with hypercapnia Status: Acute Assessment and Plan: Intubated. Management as per ICU team. (2) Altered mental status: Qualifiers: Altered mental status type: unspecified Qualified Code(s): R41.82 - Altered mental status, unspecified Code(s): R41.82 - Altered mental status, unspecified Status: Acute Assessment and Plan: Unknown etiology, but suspected to be drug overdose (3) Elevated troponin: Code(s): R79.89 - Other specified abnormal findings of blood chemistry Status: Acute Assessment and Plan: Mildly elevated. Suspect due to demand ischemia due to acute respiratory failure, altered mental status, pneumonia, however, cannot rule out underlying acute coronary syndrome at this point. Does have multiple risk factors for coronary disease. Recommend to trend troponins until peak. Agree with therapeutic Lovenox for now. Will start ASA 81mg once daily. On Atorvastatin 20mg at home -- will increase to high intensity dose. Echocardiogram ordered and pending. Further recommendations pending results of echo and trend of troponins. (4) Pneumonia: Code(s): J18.9 - Pneumonia, unspecified organism Status: Acute Assessment and Plan: On antibiotics as per ICU team. (5) Hypertension: Qualifiers: Hypertension type: primary hypertension Qualified Code(s): I10 - Essential (primary) hypertension Code(s): I10 - Essential (primary) hypertension Status: Acute Assessment and Plan: Stable, currently normotensive. If blood pressures become elevated, would resume home Lisinopril. (6) Type 2 diabetes mellitus: Qualifiers: Diabetes mellitus ad terminal makeup operator insulin use: without senior living use Diabetes mellitus complication status: with hyperglycemia Qualified Code(s): E11.65 - Type 2 diabetes mellitus with hyperglycemia Code(s): E11.9 - Type 2 diabetes mellitus without complications Status: Acute Assessment and Plan: Management as per primary team. (7) Hyperlipidemia: Code(s): E78.5 - Hyperlipidemia, unspecified Status: Acute Assessment and Plan: On Atorvastatin 20mg at home -- will increase to high intensity dose. Plan Recommendations and plan discussed with Associate Agent [employer]. History of Present Illness History of Present Illness Consult date/time: 07/25/23 15:21 Requesting physician: Bradley Grover MD Consult reason: Other (Elevated troponins) Reason For Visit: AMS/Apneic Narrative: We are consulted for elevated troponins. This is a 42 year old female with hypertension, tobacco abuse, anxiety, asthma, cervical radiculopathy secondary to DJD, GERD who presented to [facility] 07/24 with altered mental status. Patient is currently intubated, therefore, unable to obtain any history from the patient. History obtained from the chart and her medical team. Patient was found by her family unresponsive in bed. Intubated by EMS. Patient has been stressed out recently per the mother. Workup shows: Lactate of 3.6. Troponins are 0.047, 0.103. UDS positive for benzos. CXR with possible mild pulmonary edema. Head CT negative. Cervical Spine CT negative for acute findings. Chest CTA negative for PE, bilateral patchy groundglass opacities and more dense dependent consolidation in both lungs consistent with pneumonia. EKGs with sinus tachycardia, RBBB. No prior EKGs available for comparison. Review of Systems Review of Systems: ROS unobtainable: Yes unobtainable due to endotracheal tube PMFSH Past Medical History Medical History Allergies Anxiety Asthma Cervical radiculopathy due to degenerative joint disease of spine Degenerated intervertebral disc Depression Elevated glucose level Fever GERD (gastroesophageal reflux disease) Gestational diabetes Hidradenitis suppurativa History of dental problems Hypertension Otalgia of left ear Pain, dental Pelvic cramping Pica in adults Pinched cervical nerve root PTSD (post-traumatic stress disorder) Sciatica STD exposure Suspected COVID-19 virus infection Tobacco abuse Urinary frequency UTI symptoms Weight loss, unintentional Surgical History Surgical History History of facial surgery Previous section Family History Family History Mother Hypertension Alcoholism Asthma Diabetes mellitus Depression Anxiety Heart problem Father Hypertension Alcoholism Thyroid disorder Sibling Alcoholism Asthma Anxiety Depression Thyroid disorder Grandparent Asthma Cancer brain Diabetes mellitus Hypertension Depression Anxiety Heart problem Cerebrovascular accident Other Breast cancer Heart disease Malignant neoplasm of prostate Social History Social History Social History: Caffeine-Coffee, daily Smoking packs per day: 0.25 Smoking cigarettes per day: 5.0 Years smoked: 20 Smoking pack-years: 5.00 Smoking status: Unknown if ever smoked Tobacco type: cigarettes Second hand tobacco smoke exposure: Yes Alcohol intake: unknown Substance use: unknown Substance use type: unknown Lack of Transportation: YES Lack of Food: Never True Current Housing: I Have Housing Concerned About Future Housing: No Difficulty Paying Gas/Electric Bills: No Difficulty Paying for Meds: No Currently Unemployed: No Education: High School Diploma/GED Difficulty w/ Childcare or Family Care: No Living arrangements: with family Additional living arrangements comments: Lives alone with 2 children Occupation/Education: unemployed Gender identity (if verbalized by the patient): Female Spiritual care concerns: No Meds Home Medications and Allergies Home Medications Medication Instructions Recorded Confirmed Type alprazolam 1 mg tablet 1 mg PO TID 11/19/19 07/25/23 History albuterol sulfate 90 mcg/actuation 1 puff inhalation Q4H PRN 01/09/22 07/25/23 Rx aerosol inhaler shortness of breath or wheezing #8.5 grams pen needle, diabetic 31 gauge x #1,200 05/31/22 07/25/23 Rx 5/16 (True Comfort Pen Needle) fluticasone propionate 50 2 spray intranasal DAILY #16 grams 07/10/22 07/25/23 Rx mcg/actuation nasal spray,suspension (Flonase Allergy Relief) azelastine 137 mcg (0.1 %) nasal 137 mcg intranasal Q12H PRN 11/14/22 07/25/23 History spray aerosol Allergy Symptoms atorvastatin 20 mg tablet 20 mg PO QHS #90 tabs 11/26/22 07/25/23 Rx ondansetron HCl 4 mg tablet 8 mg PO Q6H PRN nausea and 02/04/23 07/25/23 Rx vomiting #60 tabs aripiprazole 5 mg tablet 5 mg PO DAILY 07/23/23 07/25/23 History blood-glucose meter (OneTouch #1 ea 07/23/23 07/25/23 Rx Verio Flex Meter) cyclobenzaprine 5 mg tablet 5 mg PO TID PRN muscle spasm #30 07/23/23 07/25/23 Rx tabs fluoxetine 20 mg capsule 40 mg PO BID 07/23/23 07/25/23 History gabapentin 300 mg capsule 300 mg PO TID #90 caps 07/23/23 07/25/23 Rx insulin glargine 100 unit/mL (3 15 unit (0.15 mL) subcut QPM #15 mL 07/23/23 07/25/23 Rx mL) subcutaneous pen (Lantus Solostar U-100 Insulin) lancets 31 gauge #100 ea 07/23/23 07/25/23 Rx lisinopril 10 mg tablet 10 mg PO DAILY #30 tabs 07/23/23 07/25/23 Rx trazodone 100 mg tablet 100 mg PO DAILY 07/23/23 07/25/23 History Allergies Allergy/AdvReac Type Severity Reaction Status Date / Time latex Allergy Intermediate Itching Verified 07/23/23 11:28 morphine Allergy Intermediate Swelling Verified 07/23/23 11:28 amoxicillin [From Augmentin] AdvReac Mild Nausea and Verified 07/23/23 11:28 Vomiting clavulanic acid AdvReac Mild Nausea and Verified 07/23/23 11:28 [From Augmentin] Vomiting naproxen AdvReac Mild Other Verified 07/23/23 11:28 Vital Signs Vital Signs - 24 hr 07/25/23 06:41 07/25/23 06:45 07/25/23 06:46 Temperature Pulse Rate 118 H 115 H Respiratory Rate 25 H Blood Pressure 127/77 Pulse Oximetry 99 100 Oxygen Delivery Mechanical Ventilation Mechanical Ventilation Fraction of Inspired Oxygen 07/25/23 06:51 07/25/23 06:58 07/25/23 07:05 Temperature Pulse Rate 108 H 112 H Respiratory Rate 20 19 Blood Pressure Pulse Oximetry 100 Oxygen Delivery Mechanical Ventilation Fraction of Inspired Oxygen 07/25/23 07:07 07/25/23 07:09 07/25/23 07:14 Temperature Pulse Rate 107 H 118 H 112 H Respiratory Rate 20 26 H 20 Blood Pressure 131/78 Pulse Oximetry 100 Oxygen Delivery Fraction of Inspired Oxygen 07/25/23 07:24 07/25/23 07:34 07/25/23 07:36 Temperature Pulse Rate 111 H 111 H 109 H Respiratory Rate 22 H 32 H 32 H Blood Pressure Pulse Oximetry Oxygen Delivery Fraction of Inspired Oxygen 07/25/23 07:26 07/25/23 06:44 07/25/23 07:42 Temperature Pulse Rate 109 H 113 H 111 H Respiratory Rate 22 H Blood Pressure Pulse Oximetry 100 99 Oxygen Delivery Mechanical Ventilation Mechanical Ventilation Fraction of Inspired Oxygen 60 100 07/25/23 08:16 07/25/23 07:50 07/25/23 08:30 Temperature Pulse Rate 109 H 110 H 99 Respiratory Rate 22 H 22 H 22 H Blood Pressure Pulse Oximetry Oxygen Delivery Fraction of Inspired Oxygen 07/25/23 08:38 07/25/23 08:20 07/25/23 08:42 Temperature 36.5 C Pulse Rate 99 93 90 Respiratory Rate 22 H 22 H 22 H Blood Pressure 135/95 H Pulse Oximetry 100 Oxygen Delivery Fraction of Inspired Oxygen 07/25/23 08:31 07/25/23 08:33 07/25/23 08:46 Temperature 36.6 C 36.6 C 36.7 C Pulse Rate 91 92 90 Respiratory Rate 22 H 22 H 22 H Blood Pressure 131/101 H 122/99 H 133/83 Pulse Oximetry 100 100 100 Oxygen Delivery Fraction of Inspired Oxygen 07/25/23 09:01 07/25/23 09:03 07/25/23 09:16 Temperature 36.8 C 36.8 C 36.9 C Pulse Rate 87 87 87 Respiratory Rate 22 H 18 15 Blood Pressure 129/83 123/85 123/85 Pulse Oximetry 100 100 100 Oxygen Delivery Fraction of Inspired Oxygen 07/25/23 09:30 07/25/23 10:17 07/25/23 10:15 Temperature 37.1 C 37.6 C Pulse Rate 85 83 84 Respiratory Rate 22 H 22 H Blood Pressure 116/91 H 112/81 Pulse Oximetry 100 98 99 Oxygen Delivery Mechanical Ventilation Fraction of Inspired Oxygen 50 07/25/23 10:27 07/25/23 10:40 07/25/23 11:49 Temperature Pulse Rate 82 78 Respiratory Rate 22 H 24 H Blood Pressure Pulse Oximetry Oxygen Delivery Mechanical Ventilation Fraction of Inspired Oxygen 50 07/25/23 12:28 07/25/23 12:35 07/25/23 12:05 Temperature 37.7 C H Pulse Rate 78 78 Respiratory Rate 22 H Blood Pressure 111/76 Pulse Oximetry 100 Oxygen Delivery Mechanical Ventilation Fraction of Inspired Oxygen 40 07/25/23 11:15 07/25/23 11:20 07/25/23 11:45 Temperature Pulse Rate 78 78 78 Respiratory Rate 24 H 22 H 22 H Blood Pressure Pulse Oximetry Oxygen Delivery Fraction of Inspired Oxygen 07/25/23 11:50 07/25/23 12:20 07/25/23 12:30 Temperature Pulse Rate 77 78 78 Respiratory Rate 24 H 22 H 22 H Blood Pressure Pulse Oximetry Oxygen Delivery Fraction of Inspired Oxygen 07/25/23 12:35 07/25/23 10:00 07/25/23 12:00 Temperature Pulse Rate 78 78 78 Respiratory Rate 22 H 22 H 22 H Blood Pressure Pulse Oximetry Oxygen Delivery Fraction of Inspired Oxygen 07/25/23 12:00 07/25/23 12:15 07/25/23 12:30 Temperature Pulse Rate 78 78 78 Respiratory Rate 22 H 22 H 22 H Blood Pressure Pulse Oximetry Oxygen Delivery Fraction of Inspired Oxygen 07/25/23 13:32 07/25/23 13:00 07/25/23 13:15 Temperature Pulse Rate 78 78 85 Respiratory Rate 22 H 22 H 22 H Blood Pressure Pulse Oximetry Oxygen Delivery Fraction of Inspired Oxygen 07/25/23 13:22 07/25/23 14:00 07/25/23 14:00 Temperature Pulse Rate 85 84 84 Respiratory Rate 22 H Blood Pressure 130/89 Pulse Oximetry 100 100 Oxygen Delivery Mechanical Ventilation Fraction of Inspired Oxygen 40 07/25/23 13:30 07/25/23 13:45 07/25/23 14:00 Temperature Pulse Rate 84 84 84 Respiratory Rate 22 H 22 H 22 H Blood Pressure Pulse Oximetry Oxygen Delivery Fraction of Inspired Oxygen 07/25/23 14:00 07/25/23 14:00 Temperature Pulse Rate 84 84 Respiratory Rate 22 H 22 H Blood Pressure Pulse Oximetry Oxygen Delivery Fraction of Inspired Oxygen Exam Const: General: no acute distress Other: Intubated, on mechanical ventilation HENMT: Other: OETT in place Resp: Other: Intubated, on mechanical ventilation Cardio: Rate: regular rate Rhythm: regular rhythm Heart sounds: no murmurs Skin: General skin exam: normal color Neuro: Other: Sedated Psych: Other: Sedated Results Labs and Meds 07/25/23 06:50 07/25/23 06:50 Lab results: Cardiac Enzymes 07/25/23 07/25/23 Range/Units 06:50 12:50 AST 19 (14-36) U/L Troponin I 0.047 H* 0.103 H* D (0.000-0.034) ng/mL Coagulation 07/25/23 Range/Units 06:50 PT 13.7 (11.1-14.7) Seconds APTT 27.2 (22.3-36.8) Seconds Lipids 07/25/23 Range/Units 06:50 Triglycerides 885 H (<150) mg/dL CBC 07/25/23 Range/Units 06:50 WBC 11.9 H (4.5-10.0) K/mm3 RBC 4.11 L (4.2-5.4) M/mm3 Hgb 11.0 L (12.0-15.0) g/dL Hct 37.1 (37.0-47.0) % Plt Count 503 H (150-375) k/mm3 Lymph # (Auto) 5.27 H (0.9-3.2) K/mm3 [place] # (Auto) 0.5 (0.1-0.6) K/mm3 Eos # (Auto) 0.2 (0-0.3) K/mm3 Baso # (Auto) 0.1 (0.0-0.1) K/mm3 Comprehensive Metabolic Panel 07/25/23 Range/Units 06:50 Sodium 134 L (137-145) mmol/L Potassium 4.1 (3.4-5.0) mmol/L Chloride 103 (98-107) mmol/L Carbon Dioxide 23 (22-30) mmol/L BUN 8 (7-17) mg/dL Creatinine 0.70 (0.7-1.0) mg/dL Glucose 419 H (65-110) mg/dL Calcium 7.8 L (8.4-10.2) mg/dL AST 19 (14-36) U/L ALT 16 (6-35) U/L Alkaline Phosphatase 71 (38-126) U/L Total Protein 7.0 (6.3-8.2) g/dL Albumin 3.6 (3.5-5.1) g/dL Intake and Output 07/24/23 07/25/23 07/25/23 23:59 07:59 15:59 Intake Total 1009.6 98.7 Output Total 1200 Balance 1009.6 -1101.3 Intake: IV 1009.6 98.7 Fentanyl 2,500Mcg/Ma731ev(*Crx 20.6 2,500 mcg In 250 ml @ 25 MCG/HR 2.5 mls/hr IV CONT .Q72H [facility] Rx#:[id number] Midazolam 100Mg/Ns 100Ml(*Crx) 18.0 100 mg In 100 ml @ 3 MG/HR 3 mls/hr IV CONT .D39H19O [facility] Rx# :[id number] Propofol IV Emulsion 100 ml @ 9.6 60.1 50 MCG/KG/MIN 24.27 mls/hr IV CONT .Q4H8M [facility] Rx#:[id number] Sodium Chloride 0.9% IV 1,000 1000 ml @ 999 mls/hr IV CONT .Q1H1M [facility] Rx#:[id number] Output: Catheter Urine 1200 Urethral Catheter 1200 Patient Weight 07/25/23 23:59 Weight 80.9 kg
[2023-07-25 16:40] LABS: Glucose Point of Care 99 mg/dl (65-105)
[2023-07-25 20:02] LABS: Hemoglobin A1C 6.4 % (<5.7)
[2023-07-25 20:16] LABS: Lactic Acid 2.8 mmol/L (0.7-2.0)
[2023-07-25] MEDS: MINERAL OIL/WHITE PETROLATUM OINTMENT 1 APPLIC EACH EYE (20:23)
[2023-07-25 20:30] LABS: Troponin I 0.043 ng/mL (0.000-0.034)
[2023-07-25 20:48] LABS: LDL Cholesterol Direct 104 mg/dL
[2023-07-25 21:03] LABS: Cholesterol 231 mg/dL (0-200)
[2023-07-25 21:04] LABS: Triglycerides 654 mg/dL (<150)
[2023-07-25 22:13] LABS: Glucose Point of Care 112 mg/dl (65-105)
[2023-07-25] MEDS: VANCOMYCIN 1,500 MG/NS 500 ML 1,500 MG/500 ML BAG 250 MG IVPB (23:06)
[2023-07-25 23:35] LABS: Glucose Point of Care 127 mg/dl (65-105)
[2023-07-26] VITALS (47 sets, daily range): BP systolic 87–122; BP diastolic 48–61; PULSE 69–119; RESP 17–29; TEMP 37.2–38.4; O2SAT 95–100
--- NOTE | 2023-07-26 | ECHO_ITS ---
Patient Info Name: Xiomara Olson Age: 42 years : 1980 Gender: Female Ht: 67 in Wt: 178 lbs BSA: 1.97 m2 HR: 73 bpm BP: 99 / 53 mmHg Technical Quality: Good Exam Date: 07/26/2023 8:16 AM Exam Location: Echo Lab Patient Status: Inpatient Admit Date: 07/25/2023 Staff Ordering Physician: Braldey Grover MD Auto Tech: Evans Donato RDCS Attending Provider: Higinio Murdock MD Referring Physician: Reilly MCQUEEN; Exam Type: CA echo doppler color flow Study Info Indications - Elevated Troponin Complete two-dimensional, color flow and Doppler transthoracic echocardiogram is performed. Summary 1. Complete two-dimensional, color flow and Doppler transthoracic echocardiogram is performed. 2. Left ventricular chamber dimension is normal. 3. Left ventricular systolic function is normal, estimated at 65-70%. 4. Right ventricular chamber dimension is normal. 5. Right ventricular systolic function is normal. 6. No significant valvular abnormalities. Left Ventricle Left ventricular chamber dimension is normal. Left ventricular systolic function is normal, estimated at 65-70%. There is no increased left ventricular wall thickness. Left ventricular septal wall motion is normal. The left ventricular diastolic function is normal. Right Ventricle Right ventricular chamber dimension is normal. Right ventricular systolic function is normal. Left Atria Left atrial chamber dimension is normal. Right Atria Right atrial chamber dimension is normal. Aortic Valve The aortic valve is trileaflet. There is no aortic valve sclerosis. There is no aortic valve stenosis. There is no aortic valve regurgitation. Pulmonic Valve The pulmonic valve is normal. There is no pulmonic valve stenosis. There is no pulmonic regurgitation. Mitral Valve The mitral valve has normal leaflets. There is no mitral valve stenosis. There is trace mitral valve regurgitation. Tricuspid Valve The tricuspid valve leaflets are normal. There is no significant tricuspid valve stenosis. There is trace tricuspid valve regurgitation. Pericardium/Pleural The pericardium appears normal. There is no pericardial effusion. Inferior Vena Cava Dilated inferior vena cava with <50% collapse upon inspiration consistent with elevated right atrial pressure, Empty. Aorta The aortic root size at the sinus of Valsalva is normal. The prox ascending aorta size is normal. Left Ventricular Outflow Tract Name Value Normal LVOT 2D LVOT Diameter 2.1 cm LVOT Doppler LVOT Peak Gradient 8 mmHg LVOT Mean Gradient 4 mmHg LVOT VTI 28 cm LVOT VTI/AV VTI Ratio 0.7 LVOT Stroke Volume 97 ml LVOT CO 7.5 l/min LVOT CI 3.8 l/min/m2 Pulmonic Valve Name Value Normal PV Doppler PV Peak Gradient 8 mmHg Mitral Valve Name Value Normal MV Doppler MV Peak Gradient 9 mmHg MV Mean Gradient 4 mmHg MV Decel Winkler 686 cm/s2 MV PHT 47 ms MV Area (PHT) 4.7 cm2 4.0-5.0 MV Area (Cont Eq VTI) 3.1 cm2 MV Diastolic Function MV E Peak Velocity 112 cm/s MV A Peak Velocity 90 cm/s MV E/A 1.2 MV Decel Time 163 ms MV Annular TDI MV E/e' (Septal) 9.6 <=8.0 MV E/e' (Lateral) 6.4 <=8.0 MV E/e' (Average) 8.0 Tricuspid Valve Name Value Normal TV Regurgitation Doppler TR Peak Velocity 269 cm/s TR Peak Gradient 29 mmHg Estimated PAP/RSVP PA Systolic Pressure 35 mmHg <36 Pulmonary Vessels Name Value Normal Pulmonary Veins Pulm Vein Peak Systolic Velocity 62 cm/s Pulm Vein Peak Diastolic Velocity 59 cm/s Pulm Vein S/D Velocity Ratio 1.04 Pulm Vein Ar Velocity 36 cm/s Aortic Valve Name Value Normal AV Doppler AV Peak Velocity 206 cm/s AV Peak Gradient 17 mmHg AV Mean Gradient 10 mmHg AV VTI 39 cm AV Area (Cont Eq VTI) 2.5 cm2 >=3.0 AV Area (Cont Eq Valeriano) 2.3 cm2 AV Regurgitation 2D LVOT Area 3.4 cm2 Ventricles Name Value Normal LV Dimensions 2D/MM IVS Diastolic Thickness (2D) 1.0 cm 0.6-1.0 LVID Diastole (2D) 4.0 cm 3.8-5.2 LVIW Diastolic Thickness (2D) 1.3 cm 0.6-0.9 LVID Systole (2D) 2.7 cm 2.2-3.5 LVOT Diameter 2.1 cm LV Mass (2D Cubed) 154.91 g 67.00-162.00 LV Mass Index (2D Cubed) 79 g/m2 43-95 Relative Wall Thickness (2D) 0.63 LV Fractional Shortening/Ejection Fraction 2D/MM LV Fractional Shortening (2D) 32 % 27-45 LV EF (2D Teicholz) 60 % 54-74 LV Diastolic Volume (4C MOD) 103 ml LV EF (4C MOD) 68 % LV Diastolic Volume (2C MOD) 93 ml LV EF (2C MOD) 55 % LV Diastolic Volume (BP MOD) 98 ml 46-106 LV Diastolic Volume Index (BP MOD) 50 ml/m2 29-61 LV Systolic Volume (BP MOD) 37 ml 14-42 LV Systolic Volume Index (BP MOD) 19 ml/m2 8-24 LV EF (BP MOD) 62 % 54-74 LV Diastolic Length (4C) 8.3 cm LV Systolic Length (4C) 6.5 cm LV Stroke Volume (4C MOD) 70 ml Atria Name Value Normal LA Dimensions LA Volume (4C A-L) 51 ml LA Volume (BP A-L) 58 ml RA Dimensions RA Area (4C) 12.6 cm2 <=18.0 Report Signatures
[2023-07-26] MEDS: ACETAMINOPHEN ELIXIR 325 MG/10.15 ML UDC 650 MG PO ×2 (00:14→14:01)
[2023-07-26] MEDS: MIDAZOLAM 100MG/NS 100ML(*CRX) 100 MG/100 ML BAG IV CONT (00:52)
[2023-07-26] MEDS: ENOXAPARIN 80 MG/0.8 ML SYRINGE SUB-Q ×2 (01:35→14:01)
[2023-07-26] MEDS: IPRATROPIUM 0.5 MG/ALBUTEROL SULFATE 2.5 MG AMPUL.NEB 3 ML INHALATION ×4 (02:18→20:41)
[2023-07-26 03:50] LABS: Glucose Point of Care 156 mg/dl (65-105)
[2023-07-26 04:20] LABS: Basophils Percent Auto 0.2 % (0.2-1.2); Eosinophils Absolute Auto 0.1 K/mm3 (0-0.3); Eosinophils Percent Auto 0.7 % (0-4.4); Hematocrit 30.5 % (37.0-47.0); Hemoglobin 9.3 g/dL (12.0-15.0); Immature Granulocyte Absolute 0.04 K/mm3 (0.00-0.031); Immature Granulocyte Percent A 0.3 % (0-0.5); Lymphocytes Absolute Auto 2.76 K/mm3 (0.9-3.2); Lymphocytes Percent Auto 20.3 % (18.3-44.2); Mean Corpuscular HGB Conc 30.5 g/dl (32-36); Mean Corpuscular Volume 88.7 fl (80-100); Mean Platelet Volume 9.6 fl (7.4-10.4); Monocytes Absolute Auto 1.2 K/mm3 (0.1-0.6); Monocytes Percent Auto 8.5 % (2.6-8.5); Neutrophils Absolute Auto 9.5 K/mm3 (1.3-6.7); Platelet Count Result 325 k/mm3 (150-375); Red Blood Count 3.44 M/mm3 (4.2-5.4); Red Cell Distribution Width 16.2 % (11.5-14.5); White Blood Count 13.6 K/mm3 (4.5-10.0)
[2023-07-26] MEDS: FENTANYL 2,500MCG/NS250ML(*CRX 2,500 MCG/250 ML BAG 15 MCG IV CONT (04:25)
[2023-07-26 04:29] LABS: Hemoglobin A1C 6.4 % (<5.7)
[2023-07-26 04:36] LABS: Alanine Aminotransferase 14 U/L (6-35); Albumin Level 3.1 g/dL (3.5-5.1); Alkaline Phosphatase 73 U/L (38-126); Anion Gap 4 mmol/L (4-12); Aspartate Amino Transferase 21 U/L (14-36); Bilirubin,Total 0.3 mg/dL (0.2-1.3); Blood Urea Nitrogen 9 mg/dL (7-17); CRP 3.4 mg/dL (<1.0); Calcium 7.7 mg/dL (8.4-10.2); Carbon Dioxide 20 mmol/L (22-30); Chloride 109 mmol/L (98-107); Creatine Kinase 206 U/L (30-135); Estimated CRCL calculation 134 ml/min; Estimated Glomerular Filt Rate > 60; Glucose 141 mg/dL (65-110); Lipase 83 U/L (23-300); Magnesium 1.8 mg/dL (1.6-2.3); Phosphorus 2.6 mg/dL (2.5-4.5); Potassium 3.8 mmol/L (3.4-5.0); Sodium 133 mmol/L (137-145)
[2023-07-26 04:39] LABS: Lactic Acid Reflex 1.7 mmol/L (0.7-2.0)
[2023-07-26 05:24] LABS: Alveolar/Arterial O2 Gradient 121.5 mmHg; Base Excess ABG -2.8 mEq/l (+/-2.0); Carboxyhemoglobin 0.7 % THb (0-2.0); Fractional Inspired Oxygen 40 %; HCO3 ABG 22.8 mEq/l (22.0-26.0); Methemoglobin ABG 0.3 %THb (0-1.5); Oxygen Content ABG 13.9 %vol (16.0-22.0); Oxyhemoglobin 97.4 % THb (90.0-100.0); PO2 ABG 114.3 mmHg (80.0-100.0); PO2 FiO2 Ratio Arterial Blood 2.86 %; Reduced Hemoglobin 1.6 %THb (0-5.0); pH ABG 7.343 (7.350-7.450)
[2023-07-26 05:25] LABS: Arterial Blood Gas PEEP 5 cmH2O; Arterial Blood Gas Tidal Volume 400 ml; Arterial Blood Gas Vent Mode CMV; Arterial Blood Gas Ventilator rate 22 /MIN; Device VENTILATOR; Modified Allen's Test Pass; Site Drawn RIGHT RADIAL
[2023-07-26 08:52] LABS: Glucose Point of Care 116 mg/dl (65-105)
[2023-07-26] MEDS: FENOFIBRATE 160 MG TABLET PO (08:52)
[2023-07-26] MEDS: MINERAL OIL/WHITE PETROLATUM OINTMENT 1 APPLIC EACH EYE ×2 (08:52→21:07)
[2023-07-26] MEDS: cefTRIAXone 2 GM/NS 100 ML 2 GM/100 ML BAG IVPB ×2 (08:52→20:17)
[2023-07-26] MEDS: ASPIRIN 81 MG ENTERIC TABLET PO (08:52)
[2023-07-26] MEDS: ATORVASTATIN 40 MG TABLET 80 MG PO (08:52)
[2023-07-26] MEDS: PANTOPRAZOLE SODIUM IV 40 MG VIAL IV PUSH (08:52)
[2023-07-26] MEDS: DOXYCYCLINE 100 MG/NS 100 ML 100 MG/100 ML BAG IVPB ×2 (09:26→20:48)
--- NOTE | 2023-07-26 09:31 | P.PNINT_ITS ---
Progress Note: A&P Assessment and Plan (1) Acute respiratory failure with hypercapnia: Code(s): J96.02 - Acute respiratory failure with hypercapnia Status: Acute Assessment and Plan: Patient was found unresponsive at home, intubated upon EMS arrival to the house. Unknown etiology -currently on CMV mode of ventilation, peep of 5, 50% FiO2 -patient has pneumonia on CT chest -continue vancomycin, ceftriaxone and doxycycline (07/24) -continue bronchodilators -chest x-ray and ABGs reviewed 07/25: Will add Flagyl for anaerobic coverage, since the could be a possibility for aspiration pneumonia -sedated with fentanyl and Versed, will maintain RASS of 0 to -2. Daily sedation vacation and SBT -07/24: CTA chest - 1. No pulmonary embolism. 2. Bilateral patchy groundglass opacities and more dense dependent consolidation in both lungs consistent with pneumonia (2) Pneumonia: Qualifiers: Pneumonia type: due to unspecified organism Laterality: bilateral Lung location: unspecified part of lung Qualified Code(s): J18.9 - Pneumonia, unspecified organism Code(s): J18.9 - Pneumonia, unspecified organism Status: Acute Assessment and Plan: Chest CTA as above showing bilateral consolidation likely consistent with pneumonia -likely community acquired versus aspiration since she was found unresponsive -07/24: Blood, urine, sputum cultures are pending -antibiotics as above (3) Altered mental status: Qualifiers: Altered mental status type: unspecified Qualified Code(s): R41.82 - Altered mental status, unspecified Code(s): R41.82 - Altered mental status, unspecified Status: Acute Assessment and Plan: Unknown etiology for her altered mental status/unresponsiveness at home. -patient has been recently stressed out as per the mother and a friend, has some difficulties with the rent payment and other financial issues -the could be a drug overdose issue with benzodiazepines being positive in her urine tox screen. (caveats that patient does take Xanax at home for anxiety) -07/25: patient intubated and sedated, opens her eyes, follows simple commands in all extremities and nods to questions (4) Elevated troponin: Code(s): R79.89 - Other specified abnormal findings of blood chemistry Status: Acute Assessment and Plan: Elevated troponins -will obtain 6 hour troponin level -patient has a history of hyperglycemia/diabetes, hyperlipidemia/hypertriglyceridemia, tobacco abuse, obesity -patient does have risk factors for CAD -appreciate cardiology evaluation and recommendations, -continue therapeutic Lovenox for NSTEMI -continue aspirin and atorvastatin (5) Anxiety: Code(s): F41.9 - Anxiety disorder, unspecified Status: Acute Assessment and Plan: History of anxiety, patient currently on Versed and fentanyl infusion (6) GERD (gastroesophageal reflux disease): Qualifiers: Esophagitis presence: esophagitis presence not specified Qualified Code(s): K21.9 - Gastro-esophageal reflux disease without esophagitis Code(s): K21.9 - Gastro-esophageal reflux disease without esophagitis Status: Acute Assessment and Plan: Protonix (7) Hypertension: Qualifiers: Hypertension type: primary hypertension Qualified Code(s): I10 - Essential (primary) hypertension Code(s): I10 - Essential (primary) hypertension Status: Acute Assessment and Plan: Currently blood pressures are stable, as patient is intubated and on sedation. Will continue to monitor (8) Non compliance with medical treatment: Code(s): Z91.199 - Patient's noncompliance with other medical treatment and regimen due to unspecified reason Status: Acute Assessment and Plan: According the mother patient is noncompliant with her medical treatment (9) Tobacco abuse: Code(s): Z72.0 - Tobacco use Status: Acute Assessment and Plan: Tobacco use, patient smokes 1/2 packet per day for over 25 years -will drug and alcohol counselor patient on tobacco cessation when she is extubated (10) Hyperglycemia: Code(s): R73.9 - Hyperglycemia, unspecified Status: Acute Assessment and Plan: Patient initially had a blood sugar level of 419 on admission, it has improved since then -continue Accu-Cheks and sliding scale insulin -patient's mother does state that she has elevated blood sugars but she has been following with any doctors -hemoglobin A1c is 6.4 -blood sugars have been stable, not requiring any sliding scale Plan DVT prophylaxis: Therapeutic Lovenox Stress ulcer prophylaxis: Protonix Nutrition: Continue Glucerna Code Status: Full code Critical Care Time Spent: 34 minutes Discussed with patient's mother at bedside updated with patient's condition and plan of care. I answered all questions Due to a high probability of clinically significant, life threatening deterioration, the patient required my highest level of preparedness to intervene emergently and I personally spent this critical care time directly and personally managing the patient. This critical care time included obtaining a history; examining the patient; pulse oximetry; ordering and review of studies; arranging urgent treatment with development of a management plan; evaluation of patient's response to treatment; frequent reassessment; and discussions with other providers. It was exclusive of separately billable procedures and treating other patients and teaching time. Please see Assessment and Plan section and the rest of the note for further information on patient assessment and treatment This dictation may have been done utilizing a voice recognition system. Attempts have been made to correct errors. However, there may be uncorrected grammatical, spelling, and recognitions errors present. Subjective Date/time seen: 07/26/23 09:31 Interval history: Reason for consult: Altered mental status/unresponsive that is acute respiratory failure, pneumonia, possible overdose 07/26/2023: Patient seen examined this morning, remains intubated on CMV mode of ventilation, peep of 5, 40% FiO2. Sedated with fentanyl and Versed infusion, patient is awake, nods to questions, follows simple commands. T-max of 101.3?, hemodynamically stable, urine output has been good. Review of Systems Review of Systems: ROS unobtainable: Yes unobtainable due to endotracheal tube, unobtainable due to medical condition and unobtainable due to mental status Exam Narrative: General: Intubated and sedated in no acute distress HEENT:? Pupils equal and reactive sclera is clear, ETT in place Neck:? Supple Respiratory:? Bilateral coarse breath sounds and rhonchi, adequate air entry, no wheezing Cardiac:? S1-S2 is normal, regular rate and rhythm Abdomen:? Soft, nontender, nondistended, obese, hypoactive bowel sounds Extremities:? Trace edema, palpable pedal pulses Neuro:? Patient is intubated sedated, opens her eyes, follows simple commands in all extremity, nods to questions Skin:? Warm and dry Psych:? Unable to assess Objective Data Vital Signs Vital Signs: Vital Signs - 24 hr 07/25/23 10:17 07/25/23 10:15 07/25/23 10:27 Temperature 99.6 F Pulse Rate 83 84 82 Respiratory Rate 22 H 22 H Blood Pressure 112/81 Pulse Oximetry 98 99 Oxygen Delivery Mechanical Ventilation Fraction of Inspired Oxygen 50 07/25/23 10:40 07/25/23 11:49 07/25/23 12:28 Temperature Pulse Rate 78 78 Respiratory Rate 24 H Blood Pressure Pulse Oximetry Oxygen Delivery Mechanical Ventilation Fraction of Inspired Oxygen 50 07/25/23 12:35 07/25/23 12:05 07/25/23 11:15 Temperature 99.9 F H Pulse Rate 78 78 Respiratory Rate 22 H 24 H Blood Pressure 111/76 Pulse Oximetry 100 Oxygen Delivery Mechanical Ventilation Fraction of Inspired Oxygen 40 07/25/23 11:20 07/25/23 11:45 07/25/23 11:50 Temperature Pulse Rate 78 78 77 Respiratory Rate 22 H 22 H 24 H Blood Pressure Pulse Oximetry Oxygen Delivery Fraction of Inspired Oxygen 07/25/23 12:20 07/25/23 12:30 07/25/23 12:35 Temperature Pulse Rate 78 78 78 Respiratory Rate 22 H 22 H 22 H Blood Pressure Pulse Oximetry Oxygen Delivery Fraction of Inspired Oxygen 07/25/23 10:00 07/25/23 12:00 07/25/23 12:00 Temperature Pulse Rate 78 78 78 Respiratory Rate 22 H 22 H 22 H Blood Pressure Pulse Oximetry Oxygen Delivery Fraction of Inspired Oxygen 07/25/23 12:15 07/25/23 12:30 07/25/23 13:32 Temperature Pulse Rate 78 78 78 Respiratory Rate 22 H 22 H 22 H Blood Pressure Pulse Oximetry Oxygen Delivery Fraction of Inspired Oxygen 07/25/23 13:00 07/25/23 13:15 07/25/23 13:22 Temperature Pulse Rate 78 85 85 Respiratory Rate 22 H 22 H Blood Pressure Pulse Oximetry 100 Oxygen Delivery Mechanical Ventilation Fraction of Inspired Oxygen 40 07/25/23 14:00 07/25/23 14:00 07/25/23 13:30 Temperature Pulse Rate 84 84 84 Respiratory Rate 22 H 22 H Blood Pressure 130/89 Pulse Oximetry 100 Oxygen Delivery Fraction of Inspired Oxygen 07/25/23 13:45 07/25/23 14:00 07/25/23 14:00 Temperature Pulse Rate 84 84 84 Respiratory Rate 22 H 22 H 22 H Blood Pressure Pulse Oximetry Oxygen Delivery Fraction of Inspired Oxygen 07/25/23 14:00 07/25/23 16:05 07/25/23 16:00 Temperature Pulse Rate 84 80 82 Respiratory Rate 22 H Blood Pressure Pulse Oximetry 100 Oxygen Delivery Mechanical Ventilation Fraction of Inspired Oxygen 40 07/25/23 16:00 07/25/23 16:00 07/25/23 16:00 Temperature 101.3 F H Pulse Rate 82 80 80 Respiratory Rate 22 H 22 H 22 H Blood Pressure 108/73 Pulse Oximetry 100 100 Oxygen Delivery Mechanical Ventilation Fraction of Inspired Oxygen 40 07/25/23 17:59 07/25/23 16:00 07/25/23 18:00 Temperature Pulse Rate 80 80 80 Respiratory Rate 22 H 22 H 22 H Blood Pressure Pulse Oximetry Oxygen Delivery Fraction of Inspired Oxygen 07/25/23 16:00 07/25/23 18:01 07/25/23 18:00 Temperature Pulse Rate 80 80 82 Respiratory Rate 22 H 22 H Blood Pressure Pulse Oximetry Oxygen Delivery Fraction of Inspired Oxygen 07/25/23 18:00 07/25/23 19:57 07/25/23 19:57 Temperature Pulse Rate 82 81 81 Respiratory Rate 22 H 22 H Blood Pressure 117/80 Pulse Oximetry 100 100 Oxygen Delivery Mechanical Ventilation Fraction of Inspired Oxygen 40 07/25/23 20:06 07/25/23 20:00 07/25/23 20:22 Temperature 101.2 F H Pulse Rate 82 81 79 Respiratory Rate 21 H 22 H 22 H Blood Pressure 102/70 Pulse Oximetry 100 Oxygen Delivery Fraction of Inspired Oxygen 07/25/23 20:22 07/25/23 20:00 07/25/23 20:00 Temperature Pulse Rate 79 Respiratory Rate 22 H Blood Pressure Pulse Oximetry Oxygen Delivery Mechanical Ventilation Fraction of Inspired Oxygen 40 40 07/25/23 21:57 07/25/23 20:00 07/25/23 22:00 Temperature Pulse Rate 76 82 74 Respiratory Rate 22 H Blood Pressure Pulse Oximetry Oxygen Delivery Fraction of Inspired Oxygen 07/25/23 22:00 07/25/23 20:00 07/25/23 22:00 Temperature Pulse Rate 74 81 74 Respiratory Rate 22 H 22 H 22 H Blood Pressure Pulse Oximetry Oxygen Delivery Fraction of Inspired Oxygen 07/25/23 22:00 07/25/23 23:22 07/26/23 00:14 Temperature 101.0 F H 101.2 F H Pulse Rate 74 79 Respiratory Rate 22 H Blood Pressure 91/66 L Pulse Oximetry 100 96 Oxygen Delivery Mechanical Ventilation Fraction of Inspired Oxygen 40 07/26/23 00:52 07/26/23 00:00 07/26/23 00:00 Temperature 101.1 F H Pulse Rate 75 79 79 Respiratory Rate 22 H 22 H Blood Pressure 97/58 L Pulse Oximetry 95 Oxygen Delivery Fraction of Inspired Oxygen 07/26/23 00:00 07/26/23 00:00 07/26/23 00:00 Temperature Pulse Rate 79 Respiratory Rate 22 H Blood Pressure Pulse Oximetry Oxygen Delivery Mechanical Ventilation Fraction of Inspired Oxygen 40 40 07/26/23 02:24 07/26/23 02:24 07/26/23 02:29 Temperature Pulse Rate 111 H 111 H 102 H Respiratory Rate 28 H 24 H Blood Pressure Pulse Oximetry 100 Oxygen Delivery Mechanical Ventilation Fraction of Inspired Oxygen 40 07/26/23 01:14 07/26/23 04:25 07/26/23 04:25 Temperature 100.7 F H Pulse Rate 75 75 Respiratory Rate 22 H 22 H Blood Pressure Pulse Oximetry Oxygen Delivery Fraction of Inspired Oxygen 07/26/23 02:00 07/26/23 02:00 07/26/23 02:00 Temperature 100.3 F H Pulse Rate 78 69 69 Respiratory Rate 22 H 22 H Blood Pressure 122/61 Pulse Oximetry 98 Oxygen Delivery Fraction of Inspired Oxygen 07/26/23 04:00 07/26/23 04:00 07/26/23 04:00 Temperature 99.4 F Pulse Rate 72 74 Respiratory Rate 22 H Blood Pressure 98/50 L Pulse Oximetry 99 Oxygen Delivery Mechanical Ventilation Fraction of Inspired Oxygen 40 07/26/23 04:00 07/26/23 05:14 07/26/23 06:00 Temperature Pulse Rate 93 73 Respiratory Rate Blood Pressure Pulse Oximetry 100 Oxygen Delivery Mechanical Ventilation Fraction of Inspired Oxygen 40 40 07/26/23 06:00 07/26/23 06:00 07/26/23 06:00 Temperature 98.9 F Pulse Rate 93 73 73 Respiratory Rate 22 H 22 H 22 H Blood Pressure 99/53 L Pulse Oximetry 100 Oxygen Delivery Fraction of Inspired Oxygen 07/26/23 08:16 07/26/23 08:16 07/26/23 08:00 Temperature Pulse Rate 77 77 71 Respiratory Rate 26 H Blood Pressure Pulse Oximetry 100 Oxygen Delivery Mechanical Ventilation Fraction of Inspired Oxygen 40 07/26/23 08:00 07/26/23 08:00 07/26/23 08:00 Temperature Pulse Rate 77 77 Respiratory Rate 26 H 26 H Blood Pressure Pulse Oximetry Oxygen Delivery Fraction of Inspired Oxygen 40 07/26/23 08:00 07/26/23 08:00 Temperature 98.9 F Pulse Rate 71 77 Respiratory Rate 22 H 26 H Blood Pressure 104/48 L Pulse Oximetry 100 100 Oxygen Delivery Mechanical Ventilation Fraction of Inspired Oxygen 40 Intake/Output Intake/Output: Intake & Output 07/23/23 07/24/23 07/25/23 07/26/23 23:59 23:59 23:59 23:59 Intake Total 2436.1 1784.2 Output Total 3300 525 Balance -863.9 1259.2 Meds/Results Medications: Active Medications Generic Name Dose Route Start Last Admin Trade Name Freq PRN Reason Stop Dose Admin Acetaminophen 650 mg 07/25/23 22:02 07/26/23 00:14 Acetaminophen Elixir 325 Mg/10.15 Ml Udc PO 650 mg Q4H PRN Administration Mild Pain (1-3) or Fever Albuterol/Ipratropium 3 ml 07/25/23 14:20 07/26/23 08:12 Ipratropium 0.5 Mg/Albuterol Sulfate 2.5 Mg Ampul.Neb 3 Ml INHALATION 3 ml Q6HRT BRENDEN Administration Aspirin 81 mg 07/26/23 09:00 07/26/23 08:52 Aspirin 81 Mg Enteric Tablet PO 81 mg QAM BRENDEN Administration Atorvastatin Calcium 80 mg 07/26/23 09:00 07/26/23 08:52 Atorvastatin 40 Mg Tablet PO 80 mg DAILY BRENDEN Administration Dextrose 12.5 gm 07/25/23 10:19 Dextrose 50% 25 Gm/50 Ml Syringe IV PUSH PRN PRN Hypoglycemia Protocol Enoxaparin Sodium 80 mg 07/25/23 14:00 07/26/23 01:35 Enoxaparin 80 Mg/0.8 Ml Syringe SUB-Q 80 mg Q12H BRENDEN Administration Fenofibrate 160 mg 07/25/23 10:30 07/26/23 08:52 Fenofibrate 160 Mg Tablet PO 160 mg DAILY BRENDEN Administration Glucagon 1 mg 07/25/23 10:19 Glucagon For Inj 1 Mg Vial IM PRN PRN Hypoglycemia Protocol Glucose 15 gm 07/25/23 10:19 Glucose Oral Gel 15 Gm Of Glucse In 37.5 Gm Tube PO PRN PRN Hypoglycemia Protocol Sodium Chloride 1,000 mls @ 75 mls/hr 07/25/23 10:20 07/26/23 06:08 Normal Saline Iv IV CONT 75 mls/hr .[id number] BRENDEN Infusion Ceftriaxone Sodium 2 gm in 100 mls @ 200 mls/hr 07/25/23 10:30 07/26/23 08:52 Rocephin 2 Gm/Ns 100 Ml IVPB 200 mls/hr Q12HR BRENDEN Administration Doxycycline Hyclate 100 mg in 100 mls @ 100 mls/hr 07/25/23 11:00 07/26/23 09:26 Vibramycin 100 Mg/Ns 100 Ml IVPB 100 mls/hr Q12HR BRENDEN Administration Dextrose 1,000 mls @ 100 mls/hr 07/25/23 10:19 Dextrose 5% 1,000 Ml IVPB PRN PRN Hypoglycemia Protocol Fentanyl Citrate 2,500 mcg in 250 mls @ 15 mls/hr 07/25/23 10:45 07/26/23 08:00 Fentanyl 2,500 Mcg/Ns 250 Ml IV CONT 150 mcg/hr .[id number] BRENDEN 15 mls/hr Titration Protocol 150 MCG/HR Vancomycin HCl 1,500 mg in 500 mls @ 250 mls/hr 07/26/23 00:00 07/26/23 01:06 Vancomycin 1,500 Mg/Ns 500 Ml IVPB Infused Q12H BRENDEN Infusion Midazolam HCl 100 mg in 100 mls @ 1 mls/hr 07/26/23 00:30 07/26/23 08:00 Versed 100 Mg/Ns 100 Ml IV CONT 5 mg/hr .Q72H BRENDEN 5 mls/hr Titration Protocol 1 MG/HR Insulin Aspart 4 - 8 units 07/25/23 10:25 07/26/23 08:56 Insulin Aspart (*Bkc) 100 Units/Ml SUB-Q Not Given Q4HR BRENDEN Protocol Multi-Ingred Cream/Lotion/Oil/Oint 1 applic 07/25/23 21:00 07/26/23 08:52 Mineral Oil/White Petrolatum Ointment EACH EYE 1 applic Q12HR BRENDEN Administration Pantoprazole Sodium 40 mg 07/26/23 09:00 07/26/23 08:52 Pantoprazole Sodium Iv 40 Mg Vial IV PUSH 40 mg QAM BRENDEN Administration Perflutren Lipid Microsphere 0 ml 07/25/23 13:57 Perflutren Lipid Microspheres 1.5 Ml Vial Diluted To 10 Ml Total Volume IV PUSH 07/28/23 13:58 ONCE PRN adequate visualization Protocol Radiology Results: ITS Impressions Head CT 07/25/23 09:12 Impression: No significant abnormality seen. Cervical Spine CT 07/25/23 09:13 Impression: No fracture or subluxation of the cervical spine. 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 Partially imaged airspace disease the lung apices, nonspecific on this limited evaluation. Chest CTA 07/25/23 10:03 IMPRESSION: 1. No pulmonary embolism. 2. Bilateral patchy groundglass opacities and more dense dependent consolidation in both lungs consistent with pneumonia. Chest X-Ray 07/26/23 06:04 IMPRESSION: 1. Mild atelectasis at right lung base. Labs Labs: Laboratory Results - last 24 hr 07/25/23 07/25/23 07/25/23 06:50 10:37 11:55 WBC RBC Hgb Hct MCV MCH MCHC RDW Plt Count MPV Immature Gran % (Auto) Neut % (Auto) Lymph % (Auto) [place] % (Auto) Eos % (Auto) Baso % (Auto) Lymph # (Auto) [place] # (Auto) Eos # (Auto) Baso # (Auto) Abs Immat Gran (auto) Absolute Neuts (auto) Absolute Nucleated RBC Nucleated RBC % Puncture Site Right radial ABG pH 7.350 ABG pCO2 45.8 H ABG pO2 162.4 H ABG PO2/FiO2 Ratio 3.25 ABG HCO3 24.7 ABG O2 Saturation 99.0 ABG O2 Content 15.9 L ABG Base Excess -1.1 A-a Gradient 142.6 Oxyhemoglobin 97.7 Carboxyhemoglobin Methemoglobin Reduced Hemoglobin Total Hemoglobin 11.3 L O2 Delivery Device Ventilator O2 Liters/Min Not Reportable Minute Volume Not Reportable Vent Rate 24 Vent Mode Cmv FiO2 50 Tidal Volume 400 PEEP 5 Peak Inspir Pressure Not Reportable Pressure Support Not Reportable Sodium Potassium Chloride Carbon Dioxide Anion Gap BUN Creatinine Estim Creat Clear Calc Estimated GFR Glucose POC Capillary Glucose 149 H Hemoglobin A1c 6.4 H Lactic Acid Calcium Phosphorus Magnesium Total Bilirubin AST ALT Alkaline Phosphatase Total Creatine Kinase Troponin I C-Reactive Protein Total Protein Albumin Triglycerides Cholesterol LDL Cholesterol Direct HDL Direct Lipase Nasal MRSA (PCR) 07/25/23 07/25/23 07/25/23 12:50 13:00 13:10 WBC RBC Hgb Hct MCV MCH MCHC RDW Plt Count MPV Immature Gran % (Auto) Neut % (Auto) Lymph % (Auto) [place] % (Auto) Eos % (Auto) Baso % (Auto) Lymph # (Auto) [place] # (Auto) Eos # (Auto) Baso # (Auto) Abs Immat Gran (auto) Absolute Neuts (auto) Absolute Nucleated RBC Nucleated RBC % Puncture Site ABG pH ABG pCO2 ABG pO2 ABG PO2/FiO2 Ratio ABG HCO3 ABG O2 Saturation ABG O2 Content ABG Base Excess A-a Gradient Oxyhemoglobin Carboxyhemoglobin Methemoglobin Reduced Hemoglobin Total Hemoglobin O2 Delivery Device O2 Liters/Min Minute Volume Vent Rate Vent Mode FiO2 Tidal Volume PEEP Peak Inspir Pressure Pressure Support Sodium Potassium Chloride Carbon Dioxide Anion Gap BUN Creatinine Estim Creat Clear Calc Estimated GFR Glucose POC Capillary Glucose 88 Hemoglobin A1c Lactic Acid Calcium Phosphorus Magnesium Total Bilirubin AST ALT Alkaline Phosphatase Total Creatine Kinase Troponin I 0.103 H* D C-Reactive Protein Total Protein Albumin Triglycerides Cholesterol LDL Cholesterol Direct HDL Direct Lipase Nasal MRSA (PCR) Detected A* 07/25/23 07/25/23 07/25/23 16:36 20:00 20:00 WBC RBC Hgb Hct MCV MCH MCHC RDW Plt Count MPV Immature Gran % (Auto) Neut % (Auto) Lymph % (Auto) [place] % (Auto) Eos % (Auto) Baso % (Auto) Lymph # (Auto) [place] # (Auto) Eos # (Auto) Baso # (Auto) Abs Immat Gran (auto) Absolute Neuts (auto) Absolute Nucleated RBC Nucleated RBC % Puncture Site ABG pH ABG pCO2 ABG pO2 ABG PO2/FiO2 Ratio ABG HCO3 ABG O2 Saturation ABG O2 Content ABG Base Excess A-a Gradient Oxyhemoglobin Carboxyhemoglobin Methemoglobin Reduced Hemoglobin Total Hemoglobin O2 Delivery Device O2 Liters/Min Minute Volume Vent Rate Vent Mode FiO2 Tidal Volume PEEP Peak Inspir Pressure Pressure Support Sodium Potassium Chloride Carbon Dioxide Anion Gap BUN Creatinine Estim Creat Clear Calc Estimated GFR Glucose POC Capillary Glucose 99 Hemoglobin A1c Lactic Acid Calcium Phosphorus Magnesium Total Bilirubin AST ALT Alkaline Phosphatase Total Creatine Kinase Troponin I 0.043 H* D C-Reactive Protein Total Protein Albumin Triglycerides Cancelled 654 H Cholesterol 231 H LDL Cholesterol Direct 104 HDL Direct TNP Lipase Nasal MRSA (PCR) 07/25/23 07/25/23 07/25/23 20:01 20:44 23:11 WBC RBC Hgb Hct MCV MCH MCHC RDW Plt Count MPV Immature Gran % (Auto) Neut % (Auto) Lymph % (Auto) [place] % (Auto) Eos % (Auto) Baso % (Auto) Lymph # (Auto) [place] # (Auto) Eos # (Auto) Baso # (Auto) Abs Immat Gran (auto) Absolute Neuts (auto) Absolute Nucleated RBC Nucleated RBC % Puncture Site ABG pH ABG pCO2 ABG pO2 ABG PO2/FiO2 Ratio ABG HCO3 ABG O2 Saturation ABG O2 Content ABG Base Excess A-a Gradient Oxyhemoglobin Carboxyhemoglobin Methemoglobin Reduced Hemoglobin Total Hemoglobin O2 Delivery Device O2 Liters/Min Minute Volume Vent Rate Vent Mode FiO2 Tidal Volume PEEP Peak Inspir Pressure Pressure Support Sodium Potassium Chloride Carbon Dioxide Anion Gap BUN Creatinine Estim Creat Clear Calc Estimated GFR Glucose POC Capillary Glucose 112 H 127 H Hemoglobin A1c Lactic Acid 2.8 H Calcium Phosphorus Magnesium Total Bilirubin AST ALT Alkaline Phosphatase Total Creatine Kinase Troponin I C-Reactive Protein Total Protein Albumin Triglycerides Cholesterol LDL Cholesterol Direct HDL Direct Lipase Nasal MRSA (PCR) 07/26/23 07/26/23 07/26/23 03:46 03:52 05:12 WBC 13.6 H RBC 3.44 L Hgb 9.3 L Hct 30.5 L MCV 88.7 MCH 27.0 MCHC 30.5 L RDW 16.2 H Plt Count 325 MPV 9.6 Immature Gran % (Auto) 0.3 Neut % (Auto) 70.0 Lymph % (Auto) 20.3 [place] % (Auto) 8.5 Eos % (Auto) 0.7 Baso % (Auto) 0.2 Lymph # (Auto) 2.76 [place] # (Auto) 1.2 H Eos # (Auto) 0.1 Baso # (Auto) 0.0 Abs Immat Gran (auto) 0.04 H Absolute Neuts (auto) 9.5 H Absolute Nucleated RBC 0.000 Nucleated RBC % 0.0 Puncture Site Right radial ABG pH 7.343 L ABG pCO2 43.0 ABG pO2 114.3 H ABG PO2/FiO2 Ratio 2.86 ABG HCO3 22.8 ABG O2 Saturation 98.0 ABG O2 Content 13.9 L ABG Base Excess -2.8 A-a Gradient 121.5 Oxyhemoglobin 97.4 Carboxyhemoglobin 0.7 Methemoglobin 0.3 Reduced Hemoglobin 1.6 Total Hemoglobin 10.0 L O2 Delivery Device Ventilator O2 Liters/Min Not Reportable Minute Volume Not Reportable Vent Rate 22 Vent Mode Cmv FiO2 40 Tidal Volume 400 PEEP 5 Peak Inspir Pressure Not Reportable Pressure Support Not Reportable Sodium 133 L Potassium 3.8 Chloride 109 H Carbon Dioxide 20 L Anion Gap 4 BUN 9 Creatinine 0.50 L Estim Creat Clear Calc 134 Estimated GFR > 60 Glucose 141 H POC Capillary Glucose 156 H Hemoglobin A1c 6.4 H Lactic Acid 1.7 Calcium 7.7 L Phosphorus 2.6 Magnesium 1.8 Total Bilirubin 0.3 AST 21 ALT 14 Alkaline Phosphatase 73 Total Creatine Kinase 206 H Troponin I C-Reactive Protein 3.4 H Total Protein 6.0 L Albumin 3.1 L Triglycerides Cholesterol LDL Cholesterol Direct HDL Direct Lipase 83 Nasal MRSA (PCR) 07/26/23 08:50 WBC RBC Hgb Hct MCV MCH MCHC RDW Plt Count MPV Immature Gran % (Auto) Neut % (Auto) Lymph % (Auto) [place] % (Auto) Eos % (Auto) Baso % (Auto) Lymph # (Auto) [place] # (Auto) Eos # (Auto) Baso # (Auto) Abs Immat Gran (auto) Absolute Neuts (auto) Absolute Nucleated RBC Nucleated RBC % Puncture Site ABG pH ABG pCO2 ABG pO2 ABG PO2/FiO2 Ratio ABG HCO3 ABG O2 Saturation ABG O2 Content ABG Base Excess A-a Gradient Oxyhemoglobin Carboxyhemoglobin Methemoglobin Reduced Hemoglobin Total Hemoglobin O2 Delivery Device O2 Liters/Min Minute Volume Vent Rate Vent Mode FiO2 Tidal Volume PEEP Peak Inspir Pressure Pressure Support Sodium Potassium Chloride Carbon Dioxide Anion Gap BUN Creatinine Estim Creat Clear Calc Estimated GFR Glucose POC Capillary Glucose 116 H Hemoglobin A1c Lactic Acid Calcium Phosphorus Magnesium Total Bilirubin AST ALT Alkaline Phosphatase Total Creatine Kinase Troponin I C-Reactive Protein Total Protein Albumin Triglycerides Cholesterol LDL Cholesterol Direct HDL Direct Lipase Nasal MRSA (PCR)
[2023-07-26] MEDS: metroNIDAZOLE 500 MG/ISO 100ML 500 MG/100 ML BAG 100 MG IVPB ×2 (10:34→17:03)
[2023-07-26 11:57] LABS: Glucose Point of Care 135 mg/dl (65-105)
--- NOTE | 2023-07-26 11:59 | PM.IMPN ---
Progress Note: A&P Assessment and Plan (1) Acute respiratory failure with hypercapnia: Code(s): J96.02 - Acute respiratory failure with hypercapnia Status: Acute (2) Pneumonia: Qualifiers: Pneumonia type: due to unspecified organism Laterality: bilateral Lung location: unspecified part of lung Qualified Code(s): J18.9 - Pneumonia, unspecified organism Code(s): J18.9 - Pneumonia, unspecified organism Status: Acute (3) Altered mental status: Qualifiers: Altered mental status type: unspecified Qualified Code(s): R41.82 - Altered mental status, unspecified Code(s): R41.82 - Altered mental status, unspecified Status: Acute (4) Elevated troponin: Code(s): R79.89 - Other specified abnormal findings of blood chemistry Status: Acute (5) Anxiety: Code(s): F41.9 - Anxiety disorder, unspecified Status: Acute (6) GERD (gastroesophageal reflux disease): Qualifiers: Esophagitis presence: esophagitis presence not specified Qualified Code(s): K21.9 - Gastro-esophageal reflux disease without esophagitis Code(s): K21.9 - Gastro-esophageal reflux disease without esophagitis Status: Acute (7) Hypertension: Qualifiers: Hypertension type: primary hypertension Qualified Code(s): I10 - Essential (primary) hypertension Code(s): I10 - Essential (primary) hypertension Status: Acute (8) Non compliance with medical treatment: Code(s): Z91.199 - Patient's noncompliance with other medical treatment and regimen due to unspecified reason Status: Acute (9) Tobacco abuse: Code(s): Z72.0 - Tobacco use Status: Acute (10) Hyperglycemia: Code(s): R73.9 - Hyperglycemia, unspecified Status: Acute Plan This is a 40-year-old female presents to the ER with altered mental status. Patient was last seen well at 1:00 a.m. and earlier this morning patient was found to be lying on the bed unresponsive. Patient has history of diabetes. She has not been feeling well for the past few days. EMS was called and was intubated in route. Upon arrival to the ER patient was noted to have mild tachycardia blood pressure adequate. Oxygen saturation was adequate. Suspected accidental or intentional overdose. Laboratory evaluation showed WBC of 11.9 hemoglobin of 11 no metabolic abnormality noted hyperglycemia 419. Lactate was mildly elevated at 3.6. Troponin was mildly elevated at 0.047 UDS positive for benzodiazepines otherwise negative. Alcohol was less than 10 acetaminophen less than 10 salicylate less than 1 influenza RSV COVID was negative. UA was negative. ABG with 7.18/61/249/23. Chest x-ray negative. CT brain was negative. CT cervical spine negative for any fracture. CT chest was done which showed bilateral ground are patchy ground-glass opacities and more dense dependent consultation both lungs consistent with pneumonia. Started with IV antibiotics for treatment for pneumonia panculture Possible drug overdose does take Xanax at home. Unclear/unproven Hypoxic respiratory failure ventilator. Vent management per ICU team Mild troponin elevation Type 2 diabetes Anxiety disorder GERD Hypertension DVT prophylaxis Lovenox Code status full code Subjective Date/time seen: 07/26/23 11:59 Interval history: Remains intubated. Awake on vent. Follows commands. Mild fever this a.m.. Labs reviewed. Review of Systems Review of Systems: ROS unobtainable: Yes unobtainable due to endotracheal tube Exam Narrative: General: Intubated and sedated in no acute distress HEENT:? Pupils equal and reactive sclera is clear, ETT in place Neck:? Supple Respiratory:? Bilateral coarse breath sounds and rhonchi, adequate air entry, no wheezing Cardiac:? S1-S2 is normal, regular rate and rhythm Abdomen:? Soft, nontender, nondistended, obese, hypoactive bowel sounds Extremities:? Trace edema, palpable pedal pulses Neuro:? Patient is intubated sedated, opens her eyes, follows simple commands in all extremity, nods to questions Skin:? Warm and dry Psych:? Unable to assess Objective Data Vital Signs Vital Signs: Vital Signs - 24 hr 07/25/23 12:28 07/25/23 12:35 07/25/23 12:05 Temperature 99.9 F H Pulse Rate 78 78 Respiratory Rate 22 H Blood Pressure 111/76 Pulse Oximetry 100 Oxygen Delivery Mechanical Ventilation Fraction of Inspired Oxygen 40 07/25/23 12:20 07/25/23 12:30 07/25/23 12:35 Temperature Pulse Rate 78 78 78 Respiratory Rate 22 H 22 H 22 H Blood Pressure Pulse Oximetry Oxygen Delivery Fraction of Inspired Oxygen 07/25/23 12:00 07/25/23 12:00 07/25/23 12:15 Temperature Pulse Rate 78 78 78 Respiratory Rate 22 H 22 H 22 H Blood Pressure Pulse Oximetry Oxygen Delivery Fraction of Inspired Oxygen 07/25/23 12:30 07/25/23 13:32 07/25/23 13:00 Temperature Pulse Rate 78 78 78 Respiratory Rate 22 H 22 H 22 H Blood Pressure Pulse Oximetry Oxygen Delivery Fraction of Inspired Oxygen 07/25/23 13:15 07/25/23 13:22 07/25/23 14:00 Temperature Pulse Rate 85 85 84 Respiratory Rate 22 H Blood Pressure Pulse Oximetry 100 Oxygen Delivery Mechanical Ventilation Fraction of Inspired Oxygen 40 07/25/23 14:00 07/25/23 13:30 07/25/23 13:45 Temperature Pulse Rate 84 84 84 Respiratory Rate 22 H 22 H 22 H Blood Pressure 130/89 Pulse Oximetry 100 Oxygen Delivery Fraction of Inspired Oxygen 07/25/23 14:00 07/25/23 14:00 07/25/23 14:00 Temperature Pulse Rate 84 84 84 Respiratory Rate 22 H 22 H 22 H Blood Pressure Pulse Oximetry Oxygen Delivery Fraction of Inspired Oxygen 07/25/23 16:05 07/25/23 16:00 07/25/23 16:00 Temperature 101.3 F H Pulse Rate 80 82 82 Respiratory Rate 22 H Blood Pressure 108/73 Pulse Oximetry 100 100 Oxygen Delivery Mechanical Ventilation Fraction of Inspired Oxygen 40 07/25/23 16:00 07/25/23 16:00 07/25/23 17:59 Temperature Pulse Rate 80 80 80 Respiratory Rate 22 H 22 H 22 H Blood Pressure Pulse Oximetry 100 Oxygen Delivery Mechanical Ventilation Fraction of Inspired Oxygen 40 07/25/23 16:00 07/25/23 18:00 07/25/23 16:00 Temperature Pulse Rate 80 80 80 Respiratory Rate 22 H 22 H 22 H Blood Pressure Pulse Oximetry Oxygen Delivery Fraction of Inspired Oxygen 07/25/23 18:01 07/25/23 18:00 07/25/23 18:00 Temperature Pulse Rate 80 82 82 Respiratory Rate 22 H 22 H Blood Pressure 117/80 Pulse Oximetry 100 Oxygen Delivery Fraction of Inspired Oxygen 07/25/23 19:57 07/25/23 19:57 07/25/23 20:06 Temperature Pulse Rate 81 81 82 Respiratory Rate 22 H 21 H Blood Pressure Pulse Oximetry 100 Oxygen Delivery Mechanical Ventilation Fraction of Inspired Oxygen 40 07/25/23 20:00 07/25/23 20:22 07/25/23 20:22 Temperature 101.2 F H Pulse Rate 81 79 79 Respiratory Rate 22 H 22 H 22 H Blood Pressure 102/70 Pulse Oximetry 100 Oxygen Delivery Fraction of Inspired Oxygen 07/25/23 20:00 07/25/23 20:00 07/25/23 21:57 Temperature Pulse Rate 76 Respiratory Rate 22 H Blood Pressure Pulse Oximetry Oxygen Delivery Mechanical Ventilation Fraction of Inspired Oxygen 40 40 07/25/23 20:00 07/25/23 22:00 07/25/23 22:00 Temperature Pulse Rate 82 74 74 Respiratory Rate 22 H Blood Pressure Pulse Oximetry Oxygen Delivery Fraction of Inspired Oxygen 07/25/23 20:00 07/25/23 22:00 07/25/23 22:00 Temperature 101.0 F H Pulse Rate 81 74 74 Respiratory Rate 22 H 22 H 22 H Blood Pressure 91/66 L Pulse Oximetry 100 Oxygen Delivery Fraction of Inspired Oxygen 07/25/23 23:22 07/26/23 00:14 07/26/23 00:52 Temperature 101.2 F H Pulse Rate 79 75 Respiratory Rate 22 H Blood Pressure Pulse Oximetry 96 Oxygen Delivery Mechanical Ventilation Fraction of Inspired Oxygen 40 07/26/23 00:00 07/26/23 00:00 07/26/23 00:00 Temperature 101.1 F H Pulse Rate 79 79 79 Respiratory Rate 22 H 22 H Blood Pressure 97/58 L Pulse Oximetry 95 Oxygen Delivery Fraction of Inspired Oxygen 07/26/23 00:00 07/26/23 00:00 07/26/23 02:24 Temperature Pulse Rate 111 H Respiratory Rate Blood Pressure Pulse Oximetry 100 Oxygen Delivery Mechanical Ventilation Mechanical Ventilation Fraction of Inspired Oxygen 40 40 40 07/26/23 02:24 07/26/23 02:29 07/26/23 01:14 Temperature 100.7 F H Pulse Rate 111 H 102 H Respiratory Rate 28 H 24 H Blood Pressure Pulse Oximetry Oxygen Delivery Fraction of Inspired Oxygen 07/26/23 04:25 07/26/23 04:25 07/26/23 02:00 Temperature Pulse Rate 75 75 78 Respiratory Rate 22 H 22 H 22 H Blood Pressure Pulse Oximetry Oxygen Delivery Fraction of Inspired Oxygen 07/26/23 02:00 07/26/23 02:00 07/26/23 04:00 Temperature 100.3 F H Pulse Rate 69 69 72 Respiratory Rate 22 H Blood Pressure 122/61 Pulse Oximetry 98 Oxygen Delivery Fraction of Inspired Oxygen 07/26/23 04:00 07/26/23 04:00 07/26/23 04:00 Temperature 99.4 F Pulse Rate 74 Respiratory Rate 22 H Blood Pressure 98/50 L Pulse Oximetry 99 Oxygen Delivery Mechanical Ventilation Fraction of Inspired Oxygen 40 40 07/26/23 05:14 07/26/23 06:00 07/26/23 06:00 Temperature 98.9 F Pulse Rate 93 73 93 Respiratory Rate 22 H Blood Pressure 99/53 L Pulse Oximetry 100 100 Oxygen Delivery Mechanical Ventilation Fraction of Inspired Oxygen 40 07/26/23 06:00 07/26/23 06:00 07/26/23 08:16 Temperature Pulse Rate 73 73 77 Respiratory Rate 22 H 22 H Blood Pressure Pulse Oximetry 100 Oxygen Delivery Mechanical Ventilation Fraction of Inspired Oxygen 40 07/26/23 08:16 07/26/23 08:00 07/26/23 08:00 Temperature Pulse Rate 77 71 77 Respiratory Rate 26 H 26 H Blood Pressure Pulse Oximetry Oxygen Delivery Fraction of Inspired Oxygen 07/26/23 08:00 07/26/23 08:00 07/26/23 08:00 Temperature 98.9 F Pulse Rate 77 71 Respiratory Rate 26 H 22 H Blood Pressure 104/48 L Pulse Oximetry 100 Oxygen Delivery Fraction of Inspired Oxygen 40 07/26/23 08:00 07/26/23 10:00 07/26/23 10:00 Temperature Pulse Rate 77 85 89 Respiratory Rate 26 H 18 Blood Pressure 96/53 L Pulse Oximetry 100 100 Oxygen Delivery Mechanical Ventilation Fraction of Inspired Oxygen 40 07/26/23 10:20 07/26/23 11:56 07/26/23 11:58 Temperature Pulse Rate 95 96 93 Respiratory Rate 22 H Blood Pressure Pulse Oximetry 99 98 Oxygen Delivery Mechanical Ventilation Mechanical Ventilation Fraction of Inspired Oxygen 30 30 07/26/23 11:58 Temperature 99.7 F H Pulse Rate 102 H Respiratory Rate 17 Blood Pressure 115/60 Pulse Oximetry 99 Oxygen Delivery Fraction of Inspired Oxygen Intake/Output Intake/Output: Intake & Output 07/23/23 07/24/23 07/25/23 07/26/23 23:59 23:59 23:59 23:59 Intake Total 2436.1 1784.2 Output Total 3300 525 Balance -863.9 1259.2 Meds/Results Medications: Active Medications Generic Name Dose Route Start Last Admin Trade Name Freq PRN Reason Stop Dose Admin Acetaminophen 650 mg 07/25/23 22:02 07/26/23 00:14 Acetaminophen Elixir 325 Mg/10.15 Ml Udc PO 650 mg Q4H PRN Administration Mild Pain (1-3) or Fever Albuterol/Ipratropium 3 ml 07/25/23 14:20 07/26/23 11:55 Ipratropium 0.5 Mg/Albuterol Sulfate 2.5 Mg Ampul.Neb 3 Ml INHALATION 3 ml Q6HRT BRENDEN Administration Aripiprazole 5 mg 07/26/23 12:00 Aripiprazole 5 Mg Tablet PO DAILY BRENDEN Aspirin 81 mg 07/26/23 09:00 07/26/23 08:52 Aspirin 81 Mg Enteric Tablet PO 81 mg QAM BRENDEN Administration Atorvastatin Calcium 80 mg 07/26/23 09:00 07/26/23 08:52 Atorvastatin 40 Mg Tablet PO 80 mg DAILY BRENDEN Administration Atorvastatin Calcium 20 mg 07/26/23 21:00 Atorvastatin 20 Mg Tablet PO QHS BRENDEN Dextrose 12.5 gm 07/25/23 10:19 Dextrose 50% 25 Gm/50 Ml Syringe IV PUSH PRN PRN Hypoglycemia Protocol Enoxaparin Sodium 80 mg 07/25/23 14:00 07/26/23 01:35 Enoxaparin 80 Mg/0.8 Ml Syringe SUB-Q 80 mg Q12H BRENDEN Administration Fenofibrate 160 mg 07/25/23 10:30 07/26/23 08:52 Fenofibrate 160 Mg Tablet PO 160 mg DAILY BRENDEN Administration Fluoxetine HCl 40 mg 07/26/23 17:00 Fluoxetine Hcl 20 Mg Capsule PO BID BRENDEN Glucagon 1 mg 07/25/23 10:19 Glucagon For Inj 1 Mg Vial IM PRN PRN Hypoglycemia Protocol Glucose 15 gm 07/25/23 10:19 Glucose Oral Gel 15 Gm Of Glucse In 37.5 Gm Tube PO PRN PRN Hypoglycemia Protocol Sodium Chloride 1,000 mls @ 75 mls/hr 07/25/23 10:20 07/26/23 06:08 Normal Saline Iv IV CONT 75 mls/hr .[id number] BRENDEN Infusion Ceftriaxone Sodium 2 gm in 100 mls @ 200 mls/hr 07/25/23 10:30 07/26/23 08:52 Rocephin 2 Gm/Ns 100 Ml IVPB 200 mls/hr Q12HR BRENDEN Administration Doxycycline Hyclate 100 mg in 100 mls @ 100 mls/hr 07/25/23 11:00 07/26/23 09:26 Vibramycin 100 Mg/Ns 100 Ml IVPB 100 mls/hr Q12HR BRENDEN Administration Dextrose 1,000 mls @ 100 mls/hr 07/25/23 10:19 Dextrose 5% 1,000 Ml IVPB PRN PRN Hypoglycemia Protocol Fentanyl Citrate 2,500 mcg in 250 mls @ 15 mls/hr 07/25/23 10:45 07/26/23 08:00 Fentanyl 2,500 Mcg/Ns 250 Ml IV CONT 150 mcg/hr .[id number] BRENDEN 15 mls/hr Titration Protocol 150 MCG/HR Vancomycin HCl 1,500 mg in 500 mls @ 250 mls/hr 07/26/23 00:00 07/26/23 01:06 Vancomycin 1,500 Mg/Ns 500 Ml IVPB Infused Q12H BRENDEN Infusion Midazolam HCl 100 mg in 100 mls @ 1 mls/hr 07/26/23 00:30 07/26/23 08:00 Versed 100 Mg/Ns 100 Ml IV CONT 5 mg/hr .Q72H BRENDEN 5 mls/hr Titration Protocol 1 MG/HR Metronidazole 500 mg in 100 mls @ 100 mls/hr 07/26/23 10:00 07/26/23 10:34 Flagyl 500 Mg/Iso Soln 100 Ml IVPB 100 mls/hr Q8H BRENDEN Administration Insulin Aspart 4 - 8 units 07/25/23 10:25 07/26/23 08:56 Insulin Aspart (*Bkc) 100 Units/Ml SUB-Q Not Given Q4HR BRENDEN Protocol Multi-Ingred Cream/Lotion/Oil/Oint 1 applic 07/25/23 21:00 07/26/23 08:52 Mineral Oil/White Petrolatum Ointment EACH EYE 1 applic Q12HR BRENDEN Administration Pantoprazole Sodium 40 mg 07/26/23 09:00 07/26/23 08:52 Pantoprazole Sodium Iv 40 Mg Vial IV PUSH 40 mg QAM BRENDEN Administration Perflutren Lipid Microsphere 0 ml 07/25/23 13:57 Perflutren Lipid Microspheres 1.5 Ml Vial Diluted To 10 Ml Total Volume IV PUSH 07/28/23 13:58 ONCE PRN adequate visualization Protocol Radiology Results: ITS Impressions Head CT 07/25/23 09:12 Impression: No significant abnormality seen. Cervical Spine CT 07/25/23 09:13 Impression: No fracture or subluxation of the cervical spine. 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 Partially imaged airspace disease the lung apices, nonspecific on this limited evaluation. Chest CTA 07/25/23 10:03 IMPRESSION: 1. No pulmonary embolism. 2. Bilateral patchy groundglass opacities and more dense dependent consolidation in both lungs consistent with pneumonia. Chest X-Ray 07/26/23 06:04 IMPRESSION: 1. Mild atelectasis at right lung base. Labs Labs: Laboratory Results - last 24 hr 07/25/23 07/25/23 07/25/23 06:50 11:55 12:50 WBC RBC Hgb Hct MCV MCH MCHC RDW Plt Count MPV Immature Gran % (Auto) Neut % (Auto) Lymph % (Auto) [place] % (Auto) Eos % (Auto) Baso % (Auto) Lymph # (Auto) [place] # (Auto) Eos # (Auto) Baso # (Auto) Abs Immat Gran (auto) Absolute Neuts (auto) Absolute Nucleated RBC Nucleated RBC % Puncture Site Right radial ABG pH 7.350 ABG pCO2 45.8 H ABG pO2 162.4 H ABG PO2/FiO2 Ratio 3.25 ABG HCO3 24.7 ABG O2 Saturation 99.0 ABG O2 Content 15.9 L ABG Base Excess -1.1 A-a Gradient 142.6 Oxyhemoglobin 97.7 Carboxyhemoglobin Methemoglobin Reduced Hemoglobin Total Hemoglobin 11.3 L O2 Delivery Device Ventilator O2 Liters/Min Not Reportable Minute Volume Not Reportable Vent Rate 24 Vent Mode Cmv FiO2 50 Tidal Volume 400 PEEP 5 Peak Inspir Pressure Not Reportable Pressure Support Not Reportable Sodium Potassium Chloride Carbon Dioxide Anion Gap BUN Creatinine Estim Creat Clear Calc Estimated GFR Glucose POC Capillary Glucose Hemoglobin A1c 6.4 H Lactic Acid Calcium Phosphorus Magnesium Total Bilirubin AST ALT Alkaline Phosphatase Total Creatine Kinase Troponin I 0.103 H* D C-Reactive Protein Total Protein Albumin Triglycerides Cholesterol LDL Cholesterol Direct HDL Direct Lipase Nasal MRSA (PCR) 07/25/23 07/25/23 07/25/23 13:00 13:10 16:36 WBC RBC Hgb Hct MCV MCH MCHC RDW Plt Count MPV Immature Gran % (Auto) Neut % (Auto) Lymph % (Auto) [place] % (Auto) Eos % (Auto) Baso % (Auto) Lymph # (Auto) [place] # (Auto) Eos # (Auto) Baso # (Auto) Abs Immat Gran (auto) Absolute Neuts (auto) Absolute Nucleated RBC Nucleated RBC % Puncture Site ABG pH ABG pCO2 ABG pO2 ABG PO2/FiO2 Ratio ABG HCO3 ABG O2 Saturation ABG O2 Content ABG Base Excess A-a Gradient Oxyhemoglobin Carboxyhemoglobin Methemoglobin Reduced Hemoglobin Total Hemoglobin O2 Delivery Device O2 Liters/Min Minute Volume Vent Rate Vent Mode FiO2 Tidal Volume PEEP Peak Inspir Pressure Pressure Support Sodium Potassium Chloride Carbon Dioxide Anion Gap BUN Creatinine Estim Creat Clear Calc Estimated GFR Glucose POC Capillary Glucose 88 99 Hemoglobin A1c Lactic Acid Calcium Phosphorus Magnesium Total Bilirubin AST ALT Alkaline Phosphatase Total Creatine Kinase Troponin I C-Reactive Protein Total Protein Albumin Triglycerides Cholesterol LDL Cholesterol Direct HDL Direct Lipase Nasal MRSA (PCR) Detected A* 07/25/23 07/25/23 07/25/23 20:00 20:00 20:01 WBC RBC Hgb Hct MCV MCH MCHC RDW Plt Count MPV Immature Gran % (Auto) Neut % (Auto) Lymph % (Auto) [place] % (Auto) Eos % (Auto) Baso % (Auto) Lymph # (Auto) [place] # (Auto) Eos # (Auto) Baso # (Auto) Abs Immat Gran (auto) Absolute Neuts (auto) Absolute Nucleated RBC Nucleated RBC % Puncture Site ABG pH ABG pCO2 ABG pO2 ABG PO2/FiO2 Ratio ABG HCO3 ABG O2 Saturation ABG O2 Content ABG Base Excess A-a Gradient Oxyhemoglobin Carboxyhemoglobin Methemoglobin Reduced Hemoglobin Total Hemoglobin O2 Delivery Device O2 Liters/Min Minute Volume Vent Rate Vent Mode FiO2 Tidal Volume PEEP Peak Inspir Pressure Pressure Support Sodium Potassium Chloride Carbon Dioxide Anion Gap BUN Creatinine Estim Creat Clear Calc Estimated GFR Glucose POC Capillary Glucose Hemoglobin A1c Lactic Acid 2.8 H Calcium Phosphorus Magnesium Total Bilirubin AST ALT Alkaline Phosphatase Total Creatine Kinase Troponin I 0.043 H* D C-Reactive Protein Total Protein Albumin Triglycerides Cancelled 654 H Cholesterol 231 H LDL Cholesterol Direct 104 HDL Direct TNP Lipase Nasal MRSA (PCR) 05/17/24 05/17/24 05/18/24 20:44 23:11 03:46 WBC RBC Hgb Hct MCV MCH MCHC RDW Plt Count MPV Immature Gran % (Auto) Neut % (Auto) Lymph % (Auto) [place] % (Auto) Eos % (Auto) Baso % (Auto) Lymph # (Auto) [place] # (Auto) Eos # (Auto) Baso # (Auto) Abs Immat Gran (auto) Absolute Neuts (auto) Absolute Nucleated RBC Nucleated RBC % Puncture Site ABG pH ABG pCO2 ABG pO2 ABG PO2/FiO2 Ratio ABG HCO3 ABG O2 Saturation ABG O2 Content ABG Base Excess A-a Gradient Oxyhemoglobin Carboxyhemoglobin Methemoglobin Reduced Hemoglobin Total Hemoglobin O2 Delivery Device O2 Liters/Min Minute Volume Vent Rate Vent Mode FiO2 Tidal Volume PEEP Peak Inspir Pressure Pressure Support Sodium Potassium Chloride Carbon Dioxide Anion Gap BUN Creatinine Estim Creat Clear Calc Estimated GFR Glucose POC Capillary Glucose 112 H 127 H 156 H Hemoglobin A1c Lactic Acid Calcium Phosphorus Magnesium Total Bilirubin AST ALT Alkaline Phosphatase Total Creatine Kinase Troponin I C-Reactive Protein Total Protein Albumin Triglycerides Cholesterol LDL Cholesterol Direct HDL Direct Lipase Nasal MRSA (PCR) 07/26/23 07/26/23 07/26/23 03:52 05:12 08:50 WBC 13.6 H RBC 3.44 L Hgb 9.3 L Hct 30.5 L MCV 88.7 MCH 27.0 MCHC 30.5 L RDW 16.2 H Plt Count 325 MPV 9.6 Immature Gran % (Auto) 0.3 Neut % (Auto) 70.0 Lymph % (Auto) 20.3 [place] % (Auto) 8.5 Eos % (Auto) 0.7 Baso % (Auto) 0.2 Lymph # (Auto) 2.76 [place] # (Auto) 1.2 H Eos # (Auto) 0.1 Baso # (Auto) 0.0 Abs Immat Gran (auto) 0.04 H Absolute Neuts (auto) 9.5 H Absolute Nucleated RBC 0.000 Nucleated RBC % 0.0 Puncture Site Right radial ABG pH 7.343 L ABG pCO2 43.0 ABG pO2 114.3 H ABG PO2/FiO2 Ratio 2.86 ABG HCO3 22.8 ABG O2 Saturation 98.0 ABG O2 Content 13.9 L ABG Base Excess -2.8 A-a Gradient 121.5 Oxyhemoglobin 97.4 Carboxyhemoglobin 0.7 Methemoglobin 0.3 Reduced Hemoglobin 1.6 Total Hemoglobin 10.0 L O2 Delivery Device Ventilator O2 Liters/Min Not Reportable Minute Volume Not Reportable Vent Rate 22 Vent Mode Cmv FiO2 40 Tidal Volume 400 PEEP 5 Peak Inspir Pressure Not Reportable Pressure Support Not Reportable Sodium 133 L Potassium 3.8 Chloride 109 H Carbon Dioxide 20 L Anion Gap 4 BUN 9 Creatinine 0.50 L Estim Creat Clear Calc 134 Estimated GFR > 60 Glucose 141 H POC Capillary Glucose 116 H Hemoglobin A1c 6.4 H Lactic Acid 1.7 Calcium 7.7 L Phosphorus 2.6 Magnesium 1.8 Total Bilirubin 0.3 AST 21 ALT 14 Alkaline Phosphatase 73 Total Creatine Kinase 206 H Troponin I C-Reactive Protein 3.4 H Total Protein 6.0 L Albumin 3.1 L Triglycerides Cholesterol LDL Cholesterol Direct HDL Direct Lipase 83 Nasal MRSA (PCR) 07/26/23 11:50 WBC RBC Hgb Hct MCV MCH MCHC RDW Plt Count MPV Immature Gran % (Auto) Neut % (Auto) Lymph % (Auto) [place] % (Auto) Eos % (Auto) Baso % (Auto) Lymph # (Auto) [place] # (Auto) Eos # (Auto) Baso # (Auto) Abs Immat Gran (auto) Absolute Neuts (auto) Absolute Nucleated RBC Nucleated RBC % Puncture Site ABG pH ABG pCO2 ABG pO2 ABG PO2/FiO2 Ratio ABG HCO3 ABG O2 Saturation ABG O2 Content ABG Base Excess A-a Gradient Oxyhemoglobin Carboxyhemoglobin Methemoglobin Reduced Hemoglobin Total Hemoglobin O2 Delivery Device O2 Liters/Min Minute Volume Vent Rate Vent Mode FiO2 Tidal Volume PEEP Peak Inspir Pressure Pressure Support Sodium Potassium Chloride Carbon Dioxide Anion Gap BUN Creatinine Estim Creat Clear Calc Estimated GFR Glucose POC Capillary Glucose 135 H Hemoglobin A1c Lactic Acid Calcium Phosphorus Magnesium Total Bilirubin AST ALT Alkaline Phosphatase Total Creatine Kinase Troponin I C-Reactive Protein Total Protein Albumin Triglycerides Cholesterol LDL Cholesterol Direct HDL Direct Lipase Nasal MRSA (PCR)
[2023-07-26] MEDS: ARIPiprazole 5 MG TABLET PO (12:22)
[2023-07-26] MEDS: VANCOMYCIN 1,500 MG/NS 500 ML 1,500 MG/500 ML BAG 250 MG IVPB (12:22)
[2023-07-26] MEDS: LORazepam INJ (*CRX) 2 MG/ML VIAL (14:15)
[2023-07-26] MEDS: LORazepam INJ (*CRX) 2 MG/ML VIAL IV PUSH (14:26)
--- NOTE | 2023-07-26 14:32 | P.PNCA_ITS ---
Progress Note: A&P Assessment and Plan (1) Elevated troponin: Code(s): R79.89 - Other specified abnormal findings of blood chemistry Status: Acute Plan Mildly elevated troponin in a setting of pneumonia acute respiratory failure likely demand ischemia with no evidence of ACS Mixed dyslipidemia Diabetes mellitus type 2 Acute respiratory failure on ventilator Hypertension control plan Consider evaluation for underlying coronary artery disease the patient recover for acute respiratory failure and current pneumonia Change Lovenox to prophylactic dose since there is no clear evidence of ACS Lisinopril 10 mg daily Aspirin 81 mg daily Statin Subjective Date/time seen: 07/26/23 14:32 Interval history: No acute events Review of Systems Review of Systems: ROS unobtainable: Yes unobtainable due to endotracheal tube Exam Narrative: Intubated and sedated Resp: Auscultation: clear to auscultation bilaterally and lung sounds not diminished Other: No chest wall tenderness Cardio: Rate: regular rate Rhythm: regular rhythm Heart sounds: no gallops, no murmurs and no rubs GI: GI Palp: Yes Soft to palpation and No Tenderness to palpation present (GI) Auscultation: normal bowel sounds Skin: General skin exam: normal color, rashes and/or lesions noted and no erythema Other: Warm Objective Data Vital Signs Vital Signs: Vital Signs - 24 hr 07/25/23 16:05 07/25/23 16:00 07/25/23 16:00 Temperature 38.5 C H Pulse Rate 80 82 82 Respiratory Rate 22 H Blood Pressure 108/73 Pulse Oximetry 100 100 Oxygen Delivery Mechanical Ventilation Fraction of Inspired Oxygen 40 07/25/23 16:00 07/25/23 16:00 07/25/23 17:59 Temperature Pulse Rate 80 80 80 Respiratory Rate 22 H 22 H 22 H Blood Pressure Pulse Oximetry 100 Oxygen Delivery Mechanical Ventilation Fraction of Inspired Oxygen 40 07/25/23 16:00 07/25/23 18:00 07/25/23 16:00 Temperature Pulse Rate 80 80 80 Respiratory Rate 22 H 22 H 22 H Blood Pressure Pulse Oximetry Oxygen Delivery Fraction of Inspired Oxygen 07/25/23 18:01 07/25/23 18:00 07/25/23 18:00 Temperature Pulse Rate 80 82 82 Respiratory Rate 22 H 22 H Blood Pressure 117/80 Pulse Oximetry 100 Oxygen Delivery Fraction of Inspired Oxygen 07/25/23 19:57 07/25/23 19:57 07/25/23 20:06 Temperature Pulse Rate 81 81 82 Respiratory Rate 22 H 21 H Blood Pressure Pulse Oximetry 100 Oxygen Delivery Mechanical Ventilation Fraction of Inspired Oxygen 40 07/25/23 20:00 07/25/23 20:22 07/25/23 20:22 Temperature 38.4 C H Pulse Rate 81 79 79 Respiratory Rate 22 H 22 H 22 H Blood Pressure 102/70 Pulse Oximetry 100 Oxygen Delivery Fraction of Inspired Oxygen 07/25/23 20:00 07/25/23 20:00 07/25/23 21:57 Temperature Pulse Rate 76 Respiratory Rate 22 H Blood Pressure Pulse Oximetry Oxygen Delivery Mechanical Ventilation Fraction of Inspired Oxygen 40 40 07/25/23 20:00 07/25/23 22:00 07/25/23 22:00 Temperature Pulse Rate 82 74 74 Respiratory Rate 22 H Blood Pressure Pulse Oximetry Oxygen Delivery Fraction of Inspired Oxygen 07/25/23 20:00 07/25/23 22:00 07/25/23 22:00 Temperature 38.3 C H Pulse Rate 81 74 74 Respiratory Rate 22 H 22 H 22 H Blood Pressure 91/66 L Pulse Oximetry 100 Oxygen Delivery Fraction of Inspired Oxygen 07/25/23 23:22 07/26/23 00:14 07/26/23 00:52 Temperature 38.4 C H Pulse Rate 79 75 Respiratory Rate 22 H Blood Pressure Pulse Oximetry 96 Oxygen Delivery Mechanical Ventilation Fraction of Inspired Oxygen 40 07/26/23 00:00 07/26/23 00:00 07/26/23 00:00 Temperature 38.4 C H Pulse Rate 79 79 79 Respiratory Rate 22 H 22 H Blood Pressure 97/58 L Pulse Oximetry 95 Oxygen Delivery Fraction of Inspired Oxygen 07/26/23 00:00 07/26/23 00:00 07/26/23 02:24 Temperature Pulse Rate 111 H Respiratory Rate Blood Pressure Pulse Oximetry 100 Oxygen Delivery Mechanical Ventilation Mechanical Ventilation Fraction of Inspired Oxygen 40 40 40 07/26/23 02:24 07/26/23 02:29 07/26/23 01:14 Temperature 38.2 C H Pulse Rate 111 H 102 H Respiratory Rate 28 H 24 H Blood Pressure Pulse Oximetry Oxygen Delivery Fraction of Inspired Oxygen 07/26/23 04:25 07/26/23 04:25 07/26/23 02:00 Temperature Pulse Rate 75 75 78 Respiratory Rate 22 H 22 H 22 H Blood Pressure Pulse Oximetry Oxygen Delivery Fraction of Inspired Oxygen 07/26/23 02:00 07/26/23 02:00 07/26/23 04:00 Temperature 37.9 C H Pulse Rate 69 69 72 Respiratory Rate 22 H Blood Pressure 122/61 Pulse Oximetry 98 Oxygen Delivery Fraction of Inspired Oxygen 07/26/23 04:00 07/26/23 04:00 07/26/23 04:00 Temperature 37.4 C Pulse Rate 74 Respiratory Rate 22 H Blood Pressure 98/50 L Pulse Oximetry 99 Oxygen Delivery Mechanical Ventilation Fraction of Inspired Oxygen 40 40 07/26/23 05:14 07/26/23 06:00 07/26/23 06:00 Temperature 37.2 C Pulse Rate 93 73 93 Respiratory Rate 22 H Blood Pressure 99/53 L Pulse Oximetry 100 100 Oxygen Delivery Mechanical Ventilation Fraction of Inspired Oxygen 40 07/26/23 06:00 07/26/23 06:00 07/26/23 08:16 Temperature Pulse Rate 73 73 77 Respiratory Rate 22 H 22 H Blood Pressure Pulse Oximetry 100 Oxygen Delivery Mechanical Ventilation Fraction of Inspired Oxygen 40 07/26/23 08:16 07/26/23 08:00 07/26/23 08:00 Temperature Pulse Rate 77 71 77 Respiratory Rate 26 H 26 H Blood Pressure Pulse Oximetry Oxygen Delivery Fraction of Inspired Oxygen 07/26/23 08:00 07/26/23 08:00 07/26/23 08:00 Temperature 37.2 C Pulse Rate 77 71 Respiratory Rate 26 H 22 H Blood Pressure 104/48 L Pulse Oximetry 100 Oxygen Delivery Fraction of Inspired Oxygen 40 07/26/23 08:00 07/26/23 10:00 07/26/23 10:00 Temperature Pulse Rate 77 85 89 Respiratory Rate 26 H 18 Blood Pressure 96/53 L Pulse Oximetry 100 100 Oxygen Delivery Mechanical Ventilation Fraction of Inspired Oxygen 40 07/26/23 10:20 07/26/23 11:56 07/26/23 11:58 Temperature Pulse Rate 95 96 93 Respiratory Rate 22 H Blood Pressure Pulse Oximetry 99 98 Oxygen Delivery Mechanical Ventilation Mechanical Ventilation Fraction of Inspired Oxygen 30 30 07/26/23 11:58 07/26/23 12:00 07/26/23 12:17 Temperature 37.6 C H Pulse Rate 102 H 90 90 Respiratory Rate 17 17 Blood Pressure 115/60 Pulse Oximetry 99 Oxygen Delivery Fraction of Inspired Oxygen 07/26/23 12:18 07/26/23 12:00 07/26/23 12:00 Temperature Pulse Rate 90 90 Respiratory Rate 17 17 Blood Pressure Pulse Oximetry 99 Oxygen Delivery Mechanical Ventilation Fraction of Inspired Oxygen 30 30 07/26/23 14:01 07/26/23 14:00 07/26/23 14:00 Temperature 38.3 C H 38.3 C H Pulse Rate 81 100 Respiratory Rate 23 H Blood Pressure 87/52 L Pulse Oximetry 100 Oxygen Delivery Fraction of Inspired Oxygen Intake/Output Intake/Output: Intake & Output 07/23/23 07/24/23 07/25/23 07/26/23 23:59 23:59 23:59 23:59 Intake Total 2436.1 1869.9 Output Total 3300 525 Balance -863.9 1344.9 Meds/Results Medications: Active Medications Generic Name Dose Route Start Last Admin Trade Name Freq PRN Reason Stop Dose Admin Acetaminophen 650 mg 07/25/23 22:02 07/26/23 14:01 Acetaminophen Elixir 325 Mg/10.15 Ml Udc PO 650 mg Q4H PRN Administration Mild Pain (1-3) or Fever Albuterol/Ipratropium 3 ml 07/25/23 14:20 07/26/23 11:55 Ipratropium 0.5 Mg/Albuterol Sulfate 2.5 Mg Ampul.Neb 3 Ml INHALATION 3 ml Q6HRT BRENDEN Administration Aripiprazole 5 mg 07/26/23 12:00 07/26/23 12:22 Aripiprazole 5 Mg Tablet PO 5 mg DAILY BRENDEN Administration Aspirin 81 mg 07/26/23 09:00 07/26/23 08:52 Aspirin 81 Mg Enteric Tablet PO 81 mg QAM BRENDEN Administration Atorvastatin Calcium 80 mg 07/26/23 09:00 07/26/23 08:52 Atorvastatin 40 Mg Tablet PO 80 mg DAILY BRENDEN Administration Atorvastatin Calcium 20 mg 07/26/23 21:00 Atorvastatin 20 Mg Tablet PO QHS BRENDEN Dextrose 12.5 gm 07/25/23 10:19 Dextrose 50% 25 Gm/50 Ml Syringe IV PUSH PRN PRN Hypoglycemia Protocol Enoxaparin Sodium 80 mg 07/25/23 14:00 07/26/23 14:01 Enoxaparin 80 Mg/0.8 Ml Syringe SUB-Q 80 mg Q12H BRENDEN Administration Fenofibrate 160 mg 07/25/23 10:30 07/26/23 08:52 Fenofibrate 160 Mg Tablet PO 160 mg DAILY BRENDEN Administration Fluoxetine HCl 40 mg 07/26/23 17:00 Fluoxetine Hcl 20 Mg Capsule PO BID BRENDEN Glucagon 1 mg 07/25/23 10:19 Glucagon For Inj 1 Mg Vial IM PRN PRN Hypoglycemia Protocol Glucose 15 gm 07/25/23 10:19 Glucose Oral Gel 15 Gm Of Glucse In 37.5 Gm Tube PO PRN PRN Hypoglycemia Protocol Sodium Chloride 1,000 mls @ 75 mls/hr 07/25/23 10:20 07/26/23 06:08 Normal Saline Iv IV CONT 75 mls/hr .[id number] BRENDEN Infusion Ceftriaxone Sodium 2 gm in 100 mls @ 200 mls/hr 07/25/23 10:30 07/26/23 08:52 Rocephin 2 Gm/Ns 100 Ml IVPB 200 mls/hr Q12HR BRENDEN Administration Doxycycline Hyclate 100 mg in 100 mls @ 100 mls/hr 07/25/23 11:00 07/26/23 09:26 Vibramycin 100 Mg/Ns 100 Ml IVPB 100 mls/hr Q12HR BRENDEN Administration Dextrose 1,000 mls @ 100 mls/hr 07/25/23 10:19 Dextrose 5% 1,000 Ml IVPB PRN PRN Hypoglycemia Protocol Fentanyl Citrate 2,500 mcg in 250 mls @ 15 mls/hr 07/25/23 10:45 07/26/23 12:17 Fentanyl 2,500 Mcg/Ns 250 Ml IV CONT 150 mcg/hr .[id number] BRENDEN 15 mls/hr Titration Protocol 150 MCG/HR Vancomycin HCl 1,500 mg in 500 mls @ 250 mls/hr 07/26/23 00:00 07/26/23 12:22 Vancomycin 1,500 Mg/Ns 500 Ml IVPB 250 mls/hr Q12H BRENDEN Administration Midazolam HCl 100 mg in 100 mls @ 1 mls/hr 07/26/23 00:30 07/26/23 12:18 Versed 100 Mg/Ns 100 Ml IV CONT 5 mg/hr .Q72H BRENDEN 5 mls/hr Titration Protocol 1 MG/HR Metronidazole 500 mg in 100 mls @ 100 mls/hr 07/26/23 10:00 07/26/23 10:34 Flagyl 500 Mg/Iso Soln 100 Ml IVPB 100 mls/hr Q8H BRENDEN Administration Insulin Aspart 4 - 8 units 07/25/23 10:25 07/26/23 12:21 Insulin Aspart (*Bkc) 100 Units/Ml SUB-Q Not Given Q4HR BRENDEN Protocol Multi-Ingred Cream/Lotion/Oil/Oint 1 applic 07/25/23 21:00 07/26/23 08:52 Mineral Oil/White Petrolatum Ointment EACH EYE 1 applic Q12HR BRENDEN Administration Pantoprazole Sodium 40 mg 07/26/23 09:00 07/26/23 08:52 Pantoprazole Sodium Iv 40 Mg Vial IV PUSH 40 mg QAM BRENDEN Administration Perflutren Lipid Microsphere 0 ml 07/25/23 13:57 Perflutren Lipid Microspheres 1.5 Ml Vial Diluted To 10 Ml Total Volume IV PUSH 07/28/23 13:58 ONCE PRN adequate visualization Protocol Radiology Results: ITS Impressions Head CT 07/25/23 09:12 Impression: No significant abnormality seen. Cervical Spine CT 07/25/23 09:13 Impression: No fracture or subluxation of the cervical spine. 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 Partially imaged airspace disease the lung apices, nonspecific on this limited evaluation. Chest CTA 07/25/23 10:03 IMPRESSION: 1. No pulmonary embolism. 2. Bilateral patchy groundglass opacities and more dense dependent consolidation in both lungs consistent with pneumonia. Chest X-Ray 07/26/23 06:04 IMPRESSION: 1. Mild atelectasis at right lung base. Labs Labs: Laboratory Results - last 24 hr 07/25/23 07/25/23 07/25/23 06:50 16:36 20:00 WBC RBC Hgb Hct MCV MCH MCHC RDW Plt Count MPV Immature Gran % (Auto) Neut % (Auto) Lymph % (Auto) [place] % (Auto) Eos % (Auto) Baso % (Auto) Lymph # (Auto) [place] # (Auto) Eos # (Auto) Baso # (Auto) Abs Immat Gran (auto) Absolute Neuts (auto) Absolute Nucleated RBC Nucleated RBC % Puncture Site ABG pH ABG pCO2 ABG pO2 ABG PO2/FiO2 Ratio ABG HCO3 ABG O2 Saturation ABG O2 Content ABG Base Excess A-a Gradient Oxyhemoglobin Carboxyhemoglobin Methemoglobin Reduced Hemoglobin Total Hemoglobin O2 Delivery Device O2 Liters/Min Minute Volume Vent Rate Vent Mode FiO2 Tidal Volume PEEP Peak Inspir Pressure Pressure Support Sodium Potassium Chloride Carbon Dioxide Anion Gap BUN Creatinine Estim Creat Clear Calc Estimated GFR Glucose POC Capillary Glucose 99 Hemoglobin A1c 6.4 H Lactic Acid Calcium Phosphorus Magnesium Total Bilirubin AST ALT Alkaline Phosphatase Total Creatine Kinase Troponin I 0.043 H* D C-Reactive Protein Total Protein Albumin Triglycerides Cancelled Cholesterol LDL Cholesterol Direct HDL Direct Lipase 07/25/23 07/25/23 07/25/23 20:00 20:01 20:44 WBC RBC Hgb Hct MCV MCH MCHC RDW Plt Count MPV Immature Gran % (Auto) Neut % (Auto) Lymph % (Auto) [place] % (Auto) Eos % (Auto) Baso % (Auto) Lymph # (Auto) [place] # (Auto) Eos # (Auto) Baso # (Auto) Abs Immat Gran (auto) Absolute Neuts (auto) Absolute Nucleated RBC Nucleated RBC % Puncture Site ABG pH ABG pCO2 ABG pO2 ABG PO2/FiO2 Ratio ABG HCO3 ABG O2 Saturation ABG O2 Content ABG Base Excess A-a Gradient Oxyhemoglobin Carboxyhemoglobin Methemoglobin Reduced Hemoglobin Total Hemoglobin O2 Delivery Device O2 Liters/Min Minute Volume Vent Rate Vent Mode FiO2 Tidal Volume PEEP Peak Inspir Pressure Pressure Support Sodium Potassium Chloride Carbon Dioxide Anion Gap BUN Creatinine Estim Creat Clear Calc Estimated GFR Glucose POC Capillary Glucose 112 H Hemoglobin A1c Lactic Acid 2.8 H Calcium Phosphorus Magnesium Total Bilirubin AST ALT Alkaline Phosphatase Total Creatine Kinase Troponin I C-Reactive Protein Total Protein Albumin Triglycerides 654 H Cholesterol 231 H LDL Cholesterol Direct 104 HDL Direct TNP Lipase 07/25/23 07/26/23 07/26/23 23:11 03:46 03:52 WBC 13.6 H RBC 3.44 L Hgb 9.3 L Hct 30.5 L MCV 88.7 MCH 27.0 MCHC 30.5 L RDW 16.2 H Plt Count 325 MPV 9.6 Immature Gran % (Auto) 0.3 Neut % (Auto) 70.0 Lymph % (Auto) 20.3 [place] % (Auto) 8.5 Eos % (Auto) 0.7 Baso % (Auto) 0.2 Lymph # (Auto) 2.76 [place] # (Auto) 1.2 H Eos # (Auto) 0.1 Baso # (Auto) 0.0 Abs Immat Gran (auto) 0.04 H Absolute Neuts (auto) 9.5 H Absolute Nucleated RBC 0.000 Nucleated RBC % 0.0 Puncture Site ABG pH ABG pCO2 ABG pO2 ABG PO2/FiO2 Ratio ABG HCO3 ABG O2 Saturation ABG O2 Content ABG Base Excess A-a Gradient Oxyhemoglobin Carboxyhemoglobin Methemoglobin Reduced Hemoglobin Total Hemoglobin O2 Delivery Device O2 Liters/Min Minute Volume Vent Rate Vent Mode FiO2 Tidal Volume PEEP Peak Inspir Pressure Pressure Support Sodium 133 L Potassium 3.8 Chloride 109 H Carbon Dioxide 20 L Anion Gap 4 BUN 9 Creatinine 0.50 L Estim Creat Clear Calc 134 Estimated GFR > 60 Glucose 141 H POC Capillary Glucose 127 H 156 H Hemoglobin A1c 6.4 H Lactic Acid 1.7 Calcium 7.7 L Phosphorus 2.6 Magnesium 1.8 Total Bilirubin 0.3 AST 21 ALT 14 Alkaline Phosphatase 73 Total Creatine Kinase 206 H Troponin I C-Reactive Protein 3.4 H Total Protein 6.0 L Albumin 3.1 L Triglycerides Cholesterol LDL Cholesterol Direct HDL Direct Lipase 83 07/26/23 07/26/23 07/26/23 05:12 08:50 11:50 WBC RBC Hgb Hct MCV MCH MCHC RDW Plt Count MPV Immature Gran % (Auto) Neut % (Auto) Lymph % (Auto) [place] % (Auto) Eos % (Auto) Baso % (Auto) Lymph # (Auto) [place] # (Auto) Eos # (Auto) Baso # (Auto) Abs Immat Gran (auto) Absolute Neuts (auto) Absolute Nucleated RBC Nucleated RBC % Puncture Site Right radial ABG pH 7.343 L ABG pCO2 43.0 ABG pO2 114.3 H ABG PO2/FiO2 Ratio 2.86 ABG HCO3 22.8 ABG O2 Saturation 98.0 ABG O2 Content 13.9 L ABG Base Excess -2.8 A-a Gradient 121.5 Oxyhemoglobin 97.4 Carboxyhemoglobin 0.7 Methemoglobin 0.3 Reduced Hemoglobin 1.6 Total Hemoglobin 10.0 L O2 Delivery Device Ventilator O2 Liters/Min Not Reportable Minute Volume Not Reportable Vent Rate 22 Vent Mode Cmv FiO2 40 Tidal Volume 400 PEEP 5 Peak Inspir Pressure Not Reportable Pressure Support Not Reportable Sodium Potassium Chloride Carbon Dioxide Anion Gap BUN Creatinine Estim Creat Clear Calc Estimated GFR Glucose POC Capillary Glucose 116 H 135 H Hemoglobin A1c Lactic Acid Calcium Phosphorus Magnesium Total Bilirubin AST ALT Alkaline Phosphatase Total Creatine Kinase Troponin I C-Reactive Protein Total Protein Albumin Triglycerides Cholesterol LDL Cholesterol Direct HDL Direct Lipase
[2023-07-26] MEDS: SODIUM CHLORIDE 0.9% IV 1,000 ML 75 ML IV CONT (14:48)
[2023-07-26] MEDS: FLUoxetine HCL 20 MG CAPSULE 40 MG PO (17:03)
[2023-07-26] MEDS: MIDAZOLAM 100MG/NS 100ML(*CRX) 100 MG/100 ML BAG 9 MG IV CONT (17:11)
[2023-07-26 17:19] LABS: Glucose Point of Care 136 mg/dl (65-105)
[2023-07-26] MEDS: FENTANYL 2,500MCG/NS250ML(*CRX 2,500 MCG/250 ML BAG 17.5 MCG IV CONT (19:34)
[2023-07-26] MEDS: ATORVASTATIN 20 MG TABLET PO (20:16)
[2023-07-26 21:02] LABS: Glucose Point of Care 131 mg/dl (65-105)
[2023-07-26 23:17] LABS: Vancomycin Trough 6.7 ug/mL (10.0-20.0)
[2023-07-27] VITALS (37 sets, daily range): BP systolic 94–134; BP diastolic 48–78; PULSE 69–128; RESP 12–29; TEMP 37.4–38.6; O2SAT 94–100
[2023-07-27] MEDS: ACETAMINOPHEN ELIXIR 325 MG/10.15 ML UDC 650 MG PO ×3 (00:17→18:21)
[2023-07-27] MEDS: VANCOMYCIN 2,000 MG/NS 500 ML 2,000 MG/500 ML BAG 250 MG IVPB ×3 (00:23→15:26)
[2023-07-27] MEDS: LORazepam INJ (*CRX) 2 MG/ML VIAL IV PUSH (01:06)
[2023-07-27] MEDS: IPRATROPIUM 0.5 MG/ALBUTEROL SULFATE 2.5 MG AMPUL.NEB 3 ML INHALATION ×4 (02:15→20:02)
[2023-07-27] MEDS: ENOXAPARIN 80 MG/0.8 ML SYRINGE SUB-Q (02:27)
[2023-07-27] MEDS: metroNIDAZOLE 500 MG/ISO 100ML 500 MG/100 ML BAG 100 MG IVPB ×3 (02:27→17:10)
[2023-07-27] MEDS: MIDAZOLAM 100MG/NS 100ML(*CRX) 100 MG/100 ML BAG 10 MG IV CONT (03:34)
[2023-07-27 03:36] LABS: Basophils Percent Auto 0.2 % (0.2-1.2); Eosinophils Absolute Auto 0.1 K/mm3 (0-0.3); Eosinophils Percent Auto 0.8 % (0-4.4); Hematocrit 27.9 % (37.0-47.0); Hemoglobin 8.3 g/dL (12.0-15.0); Immature Granulocyte Absolute 0.04 K/mm3 (0.00-0.031); Immature Granulocyte Percent A 0.3 % (0-0.5); Lymphocytes Absolute Auto 2.18 K/mm3 (0.9-3.2); Lymphocytes Percent Auto 18.7 % (18.3-44.2); Mean Corpuscular HGB Conc 29.7 g/dl (32-36); Mean Corpuscular Hemoglobin 26.5 pg (26-34); Mean Corpuscular Volume 89.1 fl (80-100); Mean Platelet Volume 9.5 fl (7.4-10.4); Monocytes Percent Auto 8.7 % (2.6-8.5); Neutrophils Absolute Auto 8.3 K/mm3 (1.3-6.7); Neutrophils Percent Auto 71.3 % (45.5-73.1); Platelet Count Result 304 k/mm3 (150-375); Red Blood Count 3.13 M/mm3 (4.2-5.4); Red Cell Distribution Width 16.4 % (11.5-14.5); White Blood Count 11.6 K/mm3 (4.5-10.0)
[2023-07-27 03:50] LABS: Alanine Aminotransferase 18 U/L (6-35); Albumin Level 3.2 g/dL (3.5-5.1); Alkaline Phosphatase 89 U/L (38-126); Anion Gap 3 mmol/L (4-12); Aspartate Amino Transferase 26 U/L (14-36); Bilirubin,Total 0.4 mg/dL (0.2-1.3); Blood Urea Nitrogen 6 mg/dL (7-17); Calcium 7.5 mg/dL (8.4-10.2); Carbon Dioxide 21 mmol/L (22-30); Chloride 109 mmol/L (98-107); Estimated CRCL calculation 167 ml/min; Estimated Glomerular Filt Rate > 60; Glucose 157 mg/dL (65-110); Magnesium 1.9 mg/dL (1.6-2.3); Phosphorus 3.1 mg/dL (2.5-4.5); Potassium 3.7 mmol/L (3.4-5.0); Sodium 133 mmol/L (137-145); Triglycerides 347 mg/dL (<150)
[2023-07-27 05:17] LABS: Alveolar/Arterial O2 Gradient 94.3 mmHg; Base Excess ABG -2.1 mEq/l (+/-2.0); Carboxyhemoglobin 0.8 % THb (0-2.0); Fractional Inspired Oxygen 30 %; HCO3 ABG 21.5 mEq/l (22.0-26.0); Methemoglobin ABG 0.3 %THb (0-1.5); Modified Allen's Test Unable to perform; Oxygen Content ABG 12.7 %vol (16.0-22.0); Oxygen Saturation ABG 96.5 % (95.0-100.0); Oxyhemoglobin 95.5 % THb (90.0-100.0); PCO2 ABG 32.3 mmHg (35.0-45.0); PO2 ABG 81.7 mmHg (80.0-100.0); PO2 FiO2 Ratio Arterial Blood 2.72 %; Reduced Hemoglobin 3.4 %THb (0-5.0); Site Drawn RIGHT RADIAL; Total Hemoglobin 9.4 g/dL (12.0-18.0); pH ABG 7.441 (7.350-7.450)
[2023-07-27 05:18] LABS: Arterial Blood Gas PEEP 5 cmH2O; Arterial Blood Gas Tidal Volume 400 ml; Arterial Blood Gas Vent Mode CMV; Arterial Blood Gas Ventilator rate 22 /MIN; Device VENTILATOR
[2023-07-27] MEDS: SODIUM CHLORIDE 0.9% IV 1,000 ML 75 ML IV CONT (08:20)
[2023-07-27] MEDS: CEFEPIME 2 GM/NS 50 ML 2 GM/50 ML BAG IVPB ×3 (08:22→21:38)
--- NOTE | 2023-07-27 08:22 | WPDINTPN ---
Progress Note: A&P Assessment and Plan (1) Acute respiratory failure with hypercapnia: Code(s): J96.02 - Acute respiratory failure with hypercapnia Status: Acute Assessment and Plan: Patient was found unresponsive at home, intubated upon EMS arrival to the house. Unknown etiology -currently on CMV mode of ventilation, peep of 5, 50% FiO2 -patient has pneumonia on CT chest -continue vancomycin, ceftriaxone and doxycycline (07/24), Flagyl (07/25) -continue bronchodilators -chest x-ray and ABGs reviewed -have asked the bedside RN to wean off fentanyl and Versed infusion, will hold tube feeds, once patient is more awake will place patient on SBT -currently placed on ASV mode of ventilation -07/24: CTA chest - 1. No pulmonary embolism. 2. Bilateral patchy groundglass opacities and more dense dependent consolidation in both lungs consistent with pneumonia (2) Pneumonia: Qualifiers: Pneumonia type: due to unspecified organism Laterality: bilateral Lung location: unspecified part of lung Qualified Code(s): J18.9 - Pneumonia, unspecified organism Code(s): J18.9 - Pneumonia, unspecified organism Status: Acute Assessment and Plan: Chest CTA as above showing bilateral consolidation likely consistent with pneumonia -likely community acquired versus aspiration since she was found unresponsive -07/24: Blood and urine cultures are negative -skin07/24: Sputum cultures could not be performed due to too in adequate specimen -antibiotics as above (3) Altered mental status: Qualifiers: Altered mental status type: unspecified Qualified Code(s): R41.82 - Altered mental status, unspecified Code(s): R41.82 - Altered mental status, unspecified Status: Acute Assessment and Plan: Unknown etiology for her altered mental status/unresponsiveness at home. -patient has been recently stressed out as per the mother and a friend, has some difficulties with the rent payment and other financial issues -the could be a drug overdose issue with benzodiazepines being positive in her urine tox screen. (caveats that patient does take Xanax at home for anxiety) -patient intubated and sedated, opens her eyes, follows simple commands in all extremities and nods to questions (4) Elevated troponin: Code(s): R79.89 - Other specified abnormal findings of blood chemistry Status: Acute Assessment and Plan: Elevated troponins -3rd set of troponin trended down down -patient has a history of hyperglycemia/diabetes, hyperlipidemia/hypertriglyceridemia, tobacco abuse, obesity -patient does have risk factors for CAD -appreciate cardiology evaluation and recommendations, -will switch therapeutic Lovenox to prophylactic Lovenox dose -continue aspirin and atorvastatin 07/25: Echocardiogram (5) Anxiety: Code(s): F41.9 - Anxiety disorder, unspecified Status: Acute Assessment and Plan: History of anxiety, patient currently on Versed and fentanyl infusion -added scheduled home Xanax and gabapentin (6) GERD (gastroesophageal reflux disease): Qualifiers: Esophagitis presence: esophagitis presence not specified Qualified Code(s): K21.9 - Gastro-esophageal reflux disease without esophagitis Code(s): K21.9 - Gastro-esophageal reflux disease without esophagitis Status: Acute Assessment and Plan: Protonix (7) Hypertension: Qualifiers: Hypertension type: primary hypertension Qualified Code(s): I10 - Essential (primary) hypertension Code(s): I10 - Essential (primary) hypertension Status: Acute Assessment and Plan: Currently blood pressures are stable, as patient is intubated and on sedation. Will continue to monitor (8) Non compliance with medical treatment: Code(s): Z91.199 - Patient's noncompliance with other medical treatment and regimen due to unspecified reason Status: Acute Assessment and Plan: According the mother patient is noncompliant with her medical treatment (9) Tobacco abuse: Code(s): Z72.0 - Tobacco use Status: Acute Assessment and Plan: Tobacco use, patient smokes 1/2 packet per day for over 25 years -will public relations counselor patient on tobacco cessation when she is extubated (10) Hyperglycemia: Code(s): R73.9 - Hyperglycemia, unspecified Status: Acute Assessment and Plan: Patient initially had a blood sugar level of 419 on admission, it has improved since then -continue Accu-Cheks and sliding scale insulin -patient's mother does state that she has elevated blood sugars but she has been following with any doctors -hemoglobin A1c is 6.4 -blood sugars have been stable, not requiring any sliding scale Plan DVT prophylaxis: Therapeutic Lovenox Stress ulcer prophylaxis: Protonix Nutrition: Continue Glucerna, currently on hold due to possibility of extubation Code Status: Full code Critical Care Time Spent: 33 minutes Discussed with patient's mother at bedside updated with patient's condition and plan of care. I answered all questions Due to a high probability of clinically significant, life threatening deterioration, the patient required my highest level of preparedness to intervene emergently and I personally spent this critical care time directly and personally managing the patient. This critical care time included obtaining a history; examining the patient; pulse oximetry; ordering and review of studies; arranging urgent treatment with development of a management plan; evaluation of patient's response to treatment; frequent reassessment; and discussions with other providers. It was exclusive of separately billable procedures and treating other patients and teaching time. Please see Assessment and Plan section and the rest of the note for further information on patient assessment and treatment This dictation may have been done utilizing a voice recognition system. Attempts have been made to correct errors. However, there may be uncorrected grammatical, spelling, and recognitions errors present. Subjective Date/time seen: 07/27/23 08:22 Interval history: Reason for consult: Altered mental status/unresponsive that is acute respiratory failure, pneumonia, possible overdose 07/27/2023: Patient seen examined this morning, remains intubated on CMV mode of ventilation, peep of 5, 30% FiO2. Sedated with fentanyl and Versed infusion, patient is awake, nods to questions, follows simple commands. T-max of 101.0?, hemodynamically stable, urine output has been good. Tolerating tube feeds Review of Systems Review of Systems: ROS unobtainable: Yes unobtainable due to endotracheal tube, unobtainable due to medical condition and unobtainable due to mental status Exam Narrative: General: Intubated and sedated in no acute distress HEENT:? Pupils equal and reactive sclera is clear, ETT in place Neck:? Supple Respiratory:? Coarse breath sounds bilaterally, adequate air entry, no wheezing Cardiac:? S1-S2 is normal, regular rate and rhythm Abdomen:? Soft, nontender, nondistended, obese, hypoactive bowel sounds Extremities:? Trace edema, palpable pedal pulses Neuro:? Patient is intubated sedated, opens her eyes, follows simple commands in all extremity, nods to questions Skin:? Warm and dry Psych:? Unable to assess Objective Data Vital Signs Vital Signs: Vital Signs - 24 hr 07/26/23 10:00 07/26/23 10:00 07/26/23 10:20 Temperature Pulse Rate 85 89 95 Respiratory Rate 18 Blood Pressure 96/53 L Pulse Oximetry 100 99 Oxygen Delivery Mechanical Ventilation Fraction of Inspired Oxygen 30 07/26/23 11:56 07/26/23 11:58 07/26/23 11:58 Temperature 99.7 F H Pulse Rate 96 93 102 H Respiratory Rate 22 H 17 Blood Pressure 115/60 Pulse Oximetry 98 99 Oxygen Delivery Mechanical Ventilation Fraction of Inspired Oxygen 30 07/26/23 12:00 07/26/23 12:17 07/26/23 12:18 Temperature Pulse Rate 90 90 90 Respiratory Rate 17 17 Blood Pressure Pulse Oximetry Oxygen Delivery Fraction of Inspired Oxygen 07/26/23 12:00 07/26/23 12:00 07/26/23 14:01 Temperature 101 F H Pulse Rate 90 Respiratory Rate 17 Blood Pressure Pulse Oximetry 99 Oxygen Delivery Mechanical Ventilation Fraction of Inspired Oxygen 30 30 07/26/23 14:00 07/26/23 14:00 07/26/23 13:35 Temperature 101 F H Pulse Rate 81 100 100 Respiratory Rate 23 H 23 H Blood Pressure 87/52 L Pulse Oximetry 100 Oxygen Delivery Fraction of Inspired Oxygen 07/26/23 14:00 07/26/23 14:31 07/26/23 13:30 Temperature Pulse Rate 100 100 100 Respiratory Rate 23 H 23 H 23 H Blood Pressure Pulse Oximetry Oxygen Delivery Fraction of Inspired Oxygen 07/26/23 14:00 07/26/23 14:33 07/26/23 14:56 Temperature Pulse Rate 100 100 96 Respiratory Rate 23 H 23 H Blood Pressure Pulse Oximetry 98 Oxygen Delivery Mechanical Ventilation Fraction of Inspired Oxygen 30 07/26/23 15:01 07/26/23 16:00 07/26/23 16:00 Temperature 100.9 F H Pulse Rate 119 H Respiratory Rate Blood Pressure Pulse Oximetry Oxygen Delivery Fraction of Inspired Oxygen 30 07/26/23 16:00 07/26/23 16:00 07/26/23 16:28 Temperature 100.7 F H Pulse Rate 119 H 119 H 119 H Respiratory Rate 29 H 29 H 29 H Blood Pressure 114/59 L Pulse Oximetry 100 Oxygen Delivery Fraction of Inspired Oxygen 07/26/23 16:00 07/26/23 17:11 07/26/23 17:11 Temperature Pulse Rate 119 H 88 119 H Respiratory Rate 29 H 22 H 29 H Blood Pressure Pulse Oximetry 100 Oxygen Delivery Mechanical Ventilation Fraction of Inspired Oxygen 30 07/26/23 17:47 07/26/23 18:00 07/26/23 18:28 Temperature Pulse Rate 95 75 75 Respiratory Rate 29 H Blood Pressure Pulse Oximetry 99 Oxygen Delivery Mechanical Ventilation Fraction of Inspired Oxygen 30 07/26/23 18:29 07/26/23 18:00 07/26/23 19:34 Temperature Pulse Rate 75 75 76 Respiratory Rate 29 H 23 H 23 H Blood Pressure 107/59 L Pulse Oximetry 100 Oxygen Delivery Fraction of Inspired Oxygen 07/26/23 19:34 07/26/23 19:49 07/26/23 19:50 Temperature Pulse Rate 76 79 79 Respiratory Rate 23 H 22 H Blood Pressure Pulse Oximetry 100 Oxygen Delivery Mechanical Ventilation Fraction of Inspired Oxygen 30 07/26/23 19:51 07/26/23 20:00 07/26/23 20:41 Temperature 100.1 F H Pulse Rate 69 78 Respiratory Rate 22 H 22 H Blood Pressure 97/49 L Pulse Oximetry 100 Oxygen Delivery Fraction of Inspired Oxygen 30 07/26/23 21:23 07/26/23 21:23 07/26/23 20:30 Temperature 100.3 F H Pulse Rate 75 74 104 H Respiratory Rate 22 H Blood Pressure 108/61 Pulse Oximetry 99 100 Oxygen Delivery Mechanical Ventilation Fraction of Inspired Oxygen 30 07/26/23 21:41 07/26/23 22:00 07/26/23 22:00 Temperature Pulse Rate 104 H 72 75 Respiratory Rate 24 H 22 H 22 H Blood Pressure Pulse Oximetry Oxygen Delivery Fraction of Inspired Oxygen 07/26/23 23:01 07/26/23 23:02 07/26/23 23:04 Temperature Pulse Rate 71 71 Respiratory Rate 22 H Blood Pressure Pulse Oximetry 99 Oxygen Delivery Mechanical Ventilation Fraction of Inspired Oxygen 30 30 07/27/23 00:00 07/27/23 00:17 07/27/23 01:06 Temperature 101 F H 101 F H 100.7 F H Pulse Rate 79 Respiratory Rate 22 H Blood Pressure 99/59 L Pulse Oximetry 100 Oxygen Delivery Fraction of Inspired Oxygen 07/26/23 23:11 07/27/23 00:00 07/27/23 00:00 Temperature Pulse Rate 78 83 83 Respiratory Rate 22 H 22 H Blood Pressure Pulse Oximetry 100 Oxygen Delivery Mechanical Ventilation Fraction of Inspired Oxygen 30 07/27/23 02:00 07/27/23 02:00 07/27/23 02:00 Temperature 99.8 F H Pulse Rate 74 72 78 Respiratory Rate 22 H 22 H Blood Pressure 98/48 L Pulse Oximetry 96 Oxygen Delivery Fraction of Inspired Oxygen 07/27/23 02:00 07/27/23 02:15 07/27/23 02:16 Temperature Pulse Rate 72 73 69 Respiratory Rate 22 H 22 H Blood Pressure Pulse Oximetry 95 Oxygen Delivery Mechanical Ventilation Fraction of Inspired Oxygen 30 07/27/23 02:21 07/27/23 03:34 07/27/23 03:34 Temperature Pulse Rate 69 82 82 Respiratory Rate 22 H 22 H 22 H Blood Pressure Pulse Oximetry Oxygen Delivery Fraction of Inspired Oxygen 07/27/23 03:41 07/27/23 03:42 07/27/23 03:45 Temperature Pulse Rate 73 73 Respiratory Rate 22 H Blood Pressure Pulse Oximetry 99 Oxygen Delivery Mechanical Ventilation Fraction of Inspired Oxygen 30 30 07/27/23 04:00 07/27/23 04:56 07/27/23 05:55 Temperature 99.6 F Pulse Rate 78 72 71 Respiratory Rate 22 H Blood Pressure 110/54 L Pulse Oximetry 100 98 Oxygen Delivery Mechanical Ventilation Fraction of Inspired Oxygen 30 07/27/23 06:00 07/27/23 07:43 07/27/23 07:43 Temperature 100.1 F H Pulse Rate 75 81 77 Respiratory Rate 22 H 16 Blood Pressure 94/48 L Pulse Oximetry 100 100 Oxygen Delivery Mechanical Ventilation Fraction of Inspired Oxygen 30 07/27/23 07:50 07/27/23 08:02 Temperature Pulse Rate 79 100 Respiratory Rate 18 Blood Pressure Pulse Oximetry 100 Oxygen Delivery Mechanical Ventilation Fraction of Inspired Oxygen 30 Intake/Output Intake/Output: Intake & Output 07/24/23 07/25/23 07/26/23 07/27/23 23:59 23:59 23:59 23:59 Intake Total 2436.1 4403.7 1516.1 Output Total 3300 1275 1000 Balance -863.9 3128.7 516.1 Meds/Results Medications: Active Medications Generic Name Dose Route Start Last Admin Trade Name Freq PRN Reason Stop Dose Admin Acetaminophen 650 mg 07/25/23 22:02 07/27/23 00:17 Acetaminophen Elixir 325 Mg/10.15 Ml Udc PO 650 mg Q4H PRN Administration Mild Pain (1-3) or Fever Albuterol/Ipratropium 3 ml 07/25/23 14:20 07/27/23 07:42 Ipratropium 0.5 Mg/Albuterol Sulfate 2.5 Mg Ampul.Neb 3 Ml INHALATION 3 ml Q6HRT BRENDEN Administration Alprazolam 1 mg 07/27/23 09:00 Alprazolam (*Crx) 0.5 Mg Tablet PO TID [facility] Aripiprazole 5 mg 07/26/23 12:00 07/26/23 12:22 Aripiprazole 5 Mg Tablet PO 5 mg DAILY BRENDEN Administration Aspirin 81 mg 07/26/23 09:00 07/26/23 08:52 Aspirin 81 Mg Enteric Tablet PO 81 mg QAM BRENDEN Administration Atorvastatin Calcium 80 mg 07/26/23 09:00 07/26/23 08:52 Atorvastatin 40 Mg Tablet PO 80 mg DAILY BRENDEN Administration Atorvastatin Calcium 20 mg 07/26/23 21:00 07/26/23 20:16 Atorvastatin 20 Mg Tablet PO 20 mg QHS BRENDEN Administration Dextrose 12.5 gm 07/25/23 10:19 Dextrose 50% 25 Gm/50 Ml Syringe IV PUSH PRN PRN Hypoglycemia Protocol Enoxaparin Sodium 80 mg 07/25/23 14:00 07/27/23 02:27 Enoxaparin 80 Mg/0.8 Ml Syringe SUB-Q 80 mg Q12H [facility] Administration Fenofibrate 160 mg 07/25/23 10:30 07/26/23 08:52 Fenofibrate 160 Mg Tablet PO 160 mg DAILY BRENDEN Administration Fluoxetine HCl 40 mg 07/26/23 17:00 07/26/23 17:03 Fluoxetine Hcl 20 Mg Capsule PO 40 mg BID [facility] Administration Gabapentin 300 mg 07/27/23 09:00 Gabapentin 300 Mg Capsule PO TID [facility] Glucagon 1 mg 07/25/23 10:19 Glucagon For Inj 1 Mg Vial IM PRN PRN Hypoglycemia Protocol Glucose 15 gm 07/25/23 10:19 Glucose Oral Gel 15 Gm Of Glucse In 37.5 Gm Tube PO PRN PRN Hypoglycemia Protocol Sodium Chloride 1,000 mls @ 75 mls/hr 07/25/23 10:20 07/26/23 14:48 Normal Saline Iv IV CONT 75 mls/hr .[id number] BRENDEN Administration Doxycycline Hyclate 100 mg in 100 mls @ 100 mls/hr 07/25/23 11:00 07/26/23 21:45 Vibramycin 100 Mg/Ns 100 Ml IVPB Infused Q12HR BRENDEN Infusion Dextrose 1,000 mls @ 100 mls/hr 07/25/23 10:19 Dextrose 5% 1,000 Ml IVPB PRN PRN Hypoglycemia Protocol Fentanyl Citrate 2,500 mcg in 250 mls @ 17.5 mls/hr 07/25/23 10:45 07/27/23 03:34 Fentanyl 2,500 Mcg/Ns 250 Ml IV CONT Not Given .[id number] BRENDEN Protocol 175 MCG/HR Midazolam HCl 100 mg in 100 mls @ 10 mls/hr 07/26/23 00:30 07/27/23 03:45 Versed 100 Mg/Ns 100 Ml IV CONT Not Given .Q10H BRENDEN Protocol 10 MG/HR Metronidazole 500 mg in 100 mls @ 100 mls/hr 07/26/23 10:00 07/27/23 03:25 Flagyl 500 Mg/Iso Soln 100 Ml IVPB Infused Q8H BRENDEN Infusion Vancomycin HCl 2,000 mg in 500 mls @ 250 mls/hr 07/27/23 00:00 07/27/23 02:30 Vancomycin 2,000 Mg/Ns 500 Ml IVPB Infused Q8H BRENDEN Infusion Cefepime HCl 2 gm in 50 mls @ 100 mls/hr 07/27/23 07:45 Maxipime 2 Gm/Ns 50 Ml IVPB Q8HR BRENDEN Insulin Aspart 4 - 8 units 07/25/23 10:25 07/27/23 05:56 Insulin Aspart (*Bkc) 100 Units/Ml SUB-Q Not Given Q4HR [facility] Protocol Lorazepam 2 mg 07/26/23 16:11 07/27/23 01:06 Lorazepam Inj (*Crx) 2 Mg/Ml Vial IV PUSH 2 mg Q2HR PRN Administration Agitation Multi-Ingred Cream/Lotion/Oil/Oint 1 applic 07/25/23 21:00 07/26/23 21:07 Mineral Oil/White Petrolatum Ointment EACH EYE 1 applic Q12HR BRENDEN Administration Pantoprazole Sodium 40 mg 07/26/23 09:00 07/26/23 08:52 Pantoprazole Sodium Iv 40 Mg Vial IV PUSH 40 mg QAM BRENDEN Administration Perflutren Lipid Microsphere 0 ml 07/25/23 13:57 Perflutren Lipid Microspheres 1.5 Ml Vial Diluted To 10 Ml Total Volume IV PUSH 07/28/23 13:58 ONCE PRN adequate visualization Protocol Radiology Results: ITS Impressions Head CT 07/25/23 09:12 Impression: No significant abnormality seen. Cervical Spine CT 07/25/23 09:13 Impression: No fracture or subluxation of the cervical spine. 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 Partially imaged airspace disease the lung apices, nonspecific on this limited evaluation. Chest CTA 07/25/23 10:03 IMPRESSION: 1. No pulmonary embolism. 2. Bilateral patchy groundglass opacities and more dense dependent consolidation in both lungs consistent with pneumonia. Chest X-Ray 07/27/23 06:14 IMPRESSION: 1. Worsening airspace opacities in right mid and lower lung zones and left lower lung zone, consistent with atelectasis versus pneumonia. Labs Labs: Laboratory Results - last 24 hr 07/26/23 07/26/23 07/26/23 08:50 11:50 17:00 WBC RBC Hgb Hct MCV MCH MCHC RDW Plt Count MPV Immature Gran % (Auto) Neut % (Auto) Lymph % (Auto) [place] % (Auto) Eos % (Auto) Baso % (Auto) Lymph # (Auto) [place] # (Auto) Eos # (Auto) Baso # (Auto) Abs Immat Gran (auto) Absolute Neuts (auto) Absolute Nucleated RBC Nucleated RBC % Puncture Site ABG pH ABG pCO2 ABG pO2 ABG PO2/FiO2 Ratio ABG HCO3 ABG O2 Saturation ABG O2 Content ABG Base Excess A-a Gradient Oxyhemoglobin Carboxyhemoglobin Methemoglobin Reduced Hemoglobin Total Hemoglobin O2 Delivery Device O2 Liters/Min Minute Volume Vent Rate Vent Mode FiO2 Tidal Volume PEEP Peak Inspir Pressure Pressure Support Sodium Potassium Chloride Carbon Dioxide Anion Gap BUN Creatinine Estim Creat Clear Calc Estimated GFR Glucose POC Capillary Glucose 116 H 135 H 136 H Calcium Phosphorus Magnesium Total Bilirubin AST ALT Alkaline Phosphatase Total Protein Albumin Triglycerides Vancomycin Trough 07/26/23 07/26/23 07/27/23 21:00 22:51 03:27 WBC 11.6 H RBC 3.13 L Hgb 8.3 L Hct 27.9 L MCV 89.1 MCH 26.5 MCHC 29.7 L RDW 16.4 H Plt Count 304 MPV 9.5 Immature Gran % (Auto) 0.3 Neut % (Auto) 71.3 Lymph % (Auto) 18.7 [place] % (Auto) 8.7 H Eos % (Auto) 0.8 Baso % (Auto) 0.2 Lymph # (Auto) 2.18 [place] # (Auto) 1.0 H Eos # (Auto) 0.1 Baso # (Auto) 0.0 Abs Immat Gran (auto) 0.04 H Absolute Neuts (auto) 8.3 H Absolute Nucleated RBC 0.000 Nucleated RBC % 0.0 Puncture Site ABG pH ABG pCO2 ABG pO2 ABG PO2/FiO2 Ratio ABG HCO3 ABG O2 Saturation ABG O2 Content ABG Base Excess A-a Gradient Oxyhemoglobin Carboxyhemoglobin Methemoglobin Reduced Hemoglobin Total Hemoglobin O2 Delivery Device O2 Liters/Min Minute Volume Vent Rate Vent Mode FiO2 Tidal Volume PEEP Peak Inspir Pressure Pressure Support Sodium 133 L Potassium 3.7 Chloride 109 H Carbon Dioxide 21 L Anion Gap 3 L BUN 6 L Creatinine 0.40 L Estim Creat Clear Calc 167 Estimated GFR > 60 Glucose 157 H POC Capillary Glucose 131 H Calcium 7.5 L Phosphorus 3.1 Magnesium 1.9 Total Bilirubin 0.4 AST 26 ALT 18 Alkaline Phosphatase 89 Total Protein 6.0 L Albumin 3.2 L Triglycerides 347 H Vancomycin Trough 6.7 L 07/27/23 05:02 WBC RBC Hgb Hct MCV MCH MCHC RDW Plt Count MPV Immature Gran % (Auto) Neut % (Auto) Lymph % (Auto) [place] % (Auto) Eos % (Auto) Baso % (Auto) Lymph # (Auto) [place] # (Auto) Eos # (Auto) Baso # (Auto) Abs Immat Gran (auto) Absolute Neuts (auto) Absolute Nucleated RBC Nucleated RBC % Puncture Site Right radial ABG pH 7.441 ABG pCO2 32.3 L ABG pO2 81.7 ABG PO2/FiO2 Ratio 2.72 ABG HCO3 21.5 L ABG O2 Saturation 96.5 ABG O2 Content 12.7 L ABG Base Excess -2.1 A-a Gradient 94.3 Oxyhemoglobin 95.5 Carboxyhemoglobin 0.8 Methemoglobin 0.3 Reduced Hemoglobin 3.4 Total Hemoglobin 9.4 L O2 Delivery Device Ventilator O2 Liters/Min Not Reportable Minute Volume Not Reportable Vent Rate 22 Vent Mode Cmv FiO2 30 Tidal Volume 400 PEEP 5 Peak Inspir Pressure Not Reportable Pressure Support Not Reportable Sodium Potassium Chloride Carbon Dioxide Anion Gap BUN Creatinine Estim Creat Clear Calc Estimated GFR Glucose POC Capillary Glucose Calcium Phosphorus Magnesium Total Bilirubin AST ALT Alkaline Phosphatase Total Protein Albumin Triglycerides Vancomycin Trough
[2023-07-27] MEDS: PANTOPRAZOLE SODIUM IV 40 MG VIAL IV PUSH (08:27)
[2023-07-27] MEDS: MINERAL OIL/WHITE PETROLATUM OINTMENT 1 APPLIC EACH EYE (08:31)
[2023-07-27] MEDS: FLUoxetine HCL 20 MG CAPSULE 40 MG PO (08:32)
[2023-07-27] MEDS: FENOFIBRATE 160 MG TABLET PO (08:32)
[2023-07-27] MEDS: GABAPENTIN 300 MG CAPSULE PO (08:32)
[2023-07-27] MEDS: ASPIRIN 81 MG ENTERIC TABLET PO (08:33)
[2023-07-27] MEDS: ARIPiprazole 5 MG TABLET PO (08:33)
[2023-07-27] MEDS: ATORVASTATIN 40 MG TABLET 80 MG PO (08:33)
[2023-07-27] MEDS: ALPRAZolam (*CRX) 0.5 MG TABLET 1 MG PO ×2 (08:33→20:34)
[2023-07-27 09:20] LABS: Glucose Point of Care 137 mg/dl (65-105)
[2023-07-27] MEDS: DOXYCYCLINE 100 MG/NS 100 ML 100 MG/100 ML BAG IVPB ×2 (10:01→20:37)
[2023-07-27] MEDS: ENOXAPARIN 40 MG/0.4 ML SYRINGE SUB-Q (10:05)
[2023-07-27 11:28] LABS: Base Excess ABG -2.4 mEq/l (+/-2.0); Fractional Inspired Oxygen 30 %; HCO3 ABG 22.7 mEq/l (22.0-26.0); Oxygen Saturation ABG 97.8 % (95.0-100.0); Oxyhemoglobin 97.1 % THb (90.0-100.0); PCO2 ABG 39.9 mmHg (35.0-45.0); Total Hemoglobin 9.4 g/dL (12.0-18.0); pH ABG 7.372 (7.350-7.450)
[2023-07-27 11:29] LABS: Device VENTILATOR; Site Drawn LEFT RADIAL
[2023-07-27 11:31] LABS: Arterial Blood Gas PEEP 5 cmH2O; Arterial Blood Gas Pressure Support 8 cmH2O; Arterial Blood Gas Vent Mode SPONTANEOUS
[2023-07-27 12:16] LABS: Glucose Point of Care 120 mg/dl (65-105)
--- NOTE | 2023-07-27 13:32 | PM.IMPN ---
Progress Note: A&P Assessment and Plan (1) Acute respiratory failure with hypercapnia: Code(s): J96.02 - Acute respiratory failure with hypercapnia Status: Acute (2) Pneumonia: Qualifiers: Pneumonia type: due to unspecified organism Laterality: bilateral Lung location: unspecified part of lung Qualified Code(s): J18.9 - Pneumonia, unspecified organism Code(s): J18.9 - Pneumonia, unspecified organism Status: Acute (3) Altered mental status: Qualifiers: Altered mental status type: unspecified Qualified Code(s): R41.82 - Altered mental status, unspecified Code(s): R41.82 - Altered mental status, unspecified Status: Acute (4) Elevated troponin: Code(s): R79.89 - Other specified abnormal findings of blood chemistry Status: Acute (5) Anxiety: Code(s): F41.9 - Anxiety disorder, unspecified Status: Acute (6) GERD (gastroesophageal reflux disease): Qualifiers: Esophagitis presence: esophagitis presence not specified Qualified Code(s): K21.9 - Gastro-esophageal reflux disease without esophagitis Code(s): K21.9 - Gastro-esophageal reflux disease without esophagitis Status: Acute (7) Hypertension: Qualifiers: Hypertension type: primary hypertension Qualified Code(s): I10 - Essential (primary) hypertension Code(s): I10 - Essential (primary) hypertension Status: Acute (8) Non compliance with medical treatment: Code(s): Z91.199 - Patient's noncompliance with other medical treatment and regimen due to unspecified reason Status: Acute (9) Tobacco abuse: Code(s): Z72.0 - Tobacco use Status: Acute (10) Hyperglycemia: Code(s): R73.9 - Hyperglycemia, unspecified Status: Acute Plan This is a 40-year-old female presents to the ER with altered mental status. Patient was last seen well at 1:00 a.m. and earlier this morning patient was found to be lying on the bed unresponsive. Patient has history of diabetes. She has not been feeling well for the past few days. EMS was called and was intubated in route. Upon arrival to the ER patient was noted to have mild tachycardia blood pressure adequate. Oxygen saturation was adequate. Suspected accidental or intentional overdose. Laboratory evaluation showed WBC of 11.9 hemoglobin of 11 no metabolic abnormality noted hyperglycemia 419. Lactate was mildly elevated at 3.6. Troponin was mildly elevated at 0.047 UDS positive for benzodiazepines otherwise negative. Alcohol was less than 10 acetaminophen less than 10 salicylate less than 1 influenza RSV COVID was negative. UA was negative. ABG with 7.18/61/249/23. Chest x-ray negative. CT brain was negative. CT cervical spine negative for any fracture. CT chest was done which showed bilateral ground are patchy ground-glass opacities and more dense dependent consultation both lungs consistent with pneumonia. Started with IV antibiotics for treatment for pneumonia panculture Possible drug overdose does take Xanax at home. Unclear/unproven Hypoxic respiratory failure ventilator. Vent management per ICU team planned extubation today. Mild troponin elevation with subsequent elevation cardiology consulted med management likely demand ischemia Type 2 diabetes Anxiety disorder GERD Hypertension DVT prophylaxis Lovenox Code status full code Subjective Date/time seen: 07/27/23 13:32 Interval history: Patient on spontaneous trial this a.m.. Plan for extubation later no other overnight events reported. Review of Systems Review of Systems: ROS unobtainable: Yes unobtainable due to mental status Exam Narrative: General: Intubated and sedated in no acute distress HEENT:? Pupils equal and reactive sclera is clear, ETT in place Neck:? Supple Respiratory:? Coarse breath sounds bilaterally, adequate air entry, no wheezing Cardiac:? S1-S2 is normal, regular rate and rhythm Abdomen:? Soft, nontender, nondistended, obese, hypoactive bowel sounds Extremities:? Trace edema, palpable pedal pulses Neuro:? Patient is intubated sedated, opens her eyes, follows simple commands in all extremity, nods to questions Skin:? Warm and dry Psych:? Unable to assess Objective Data Vital Signs Vital Signs: Vital Signs - 24 hr 07/26/23 14:01 07/26/23 14:00 07/26/23 14:00 Temperature 101 F H 101 F H Pulse Rate 81 100 Respiratory Rate 23 H Blood Pressure 87/52 L Pulse Oximetry 100 Oxygen Delivery Oxygen Flow Rate Fraction of Inspired Oxygen 07/26/23 13:35 07/26/23 14:00 07/26/23 14:31 Temperature Pulse Rate 100 100 100 Respiratory Rate 23 H 23 H 23 H Blood Pressure Pulse Oximetry Oxygen Delivery Oxygen Flow Rate Fraction of Inspired Oxygen 07/26/23 14:00 07/26/23 14:33 07/26/23 14:56 Temperature Pulse Rate 100 100 96 Respiratory Rate 23 H 23 H Blood Pressure Pulse Oximetry 98 Oxygen Delivery Mechanical Ventilation Oxygen Flow Rate Fraction of Inspired Oxygen 30 07/26/23 15:01 07/26/23 16:00 07/26/23 16:00 Temperature 100.9 F H Pulse Rate 119 H Respiratory Rate Blood Pressure Pulse Oximetry Oxygen Delivery Oxygen Flow Rate Fraction of Inspired Oxygen 30 07/26/23 16:00 07/26/23 16:00 07/26/23 16:28 Temperature 100.7 F H Pulse Rate 119 H 119 H 119 H Respiratory Rate 29 H 29 H 29 H Blood Pressure 114/59 L Pulse Oximetry 100 Oxygen Delivery Oxygen Flow Rate Fraction of Inspired Oxygen 07/26/23 16:00 07/26/23 17:11 07/26/23 17:11 Temperature Pulse Rate 119 H 88 119 H Respiratory Rate 29 H 22 H 29 H Blood Pressure Pulse Oximetry 100 Oxygen Delivery Mechanical Ventilation Oxygen Flow Rate Fraction of Inspired Oxygen 30 07/26/23 17:47 07/26/23 18:00 07/26/23 18:28 Temperature Pulse Rate 95 75 75 Respiratory Rate 29 H Blood Pressure Pulse Oximetry 99 Oxygen Delivery Mechanical Ventilation Oxygen Flow Rate Fraction of Inspired Oxygen 30 07/26/23 18:29 07/26/23 18:00 07/26/23 19:34 Temperature Pulse Rate 75 75 76 Respiratory Rate 29 H 23 H 23 H Blood Pressure 107/59 L Pulse Oximetry 100 Oxygen Delivery Oxygen Flow Rate Fraction of Inspired Oxygen 07/26/23 19:34 07/26/23 19:49 07/26/23 19:50 Temperature Pulse Rate 76 79 79 Respiratory Rate 23 H 22 H Blood Pressure Pulse Oximetry 100 Oxygen Delivery Mechanical Ventilation Oxygen Flow Rate Fraction of Inspired Oxygen 30 07/26/23 19:51 07/26/23 20:00 07/26/23 20:41 Temperature 100.1 F H Pulse Rate 69 78 Respiratory Rate 22 H 22 H Blood Pressure 97/49 L Pulse Oximetry 100 Oxygen Delivery Oxygen Flow Rate Fraction of Inspired Oxygen 30 07/26/23 21:23 07/26/23 21:23 07/26/23 20:30 Temperature 100.3 F H Pulse Rate 75 74 104 H Respiratory Rate 22 H Blood Pressure 108/61 Pulse Oximetry 99 100 Oxygen Delivery Mechanical Ventilation Oxygen Flow Rate Fraction of Inspired Oxygen 30 05/18/24 21:41 07/26/23 22:00 07/26/23 22:00 Temperature Pulse Rate 104 H 72 75 Respiratory Rate 24 H 22 H 22 H Blood Pressure Pulse Oximetry Oxygen Delivery Oxygen Flow Rate Fraction of Inspired Oxygen 07/26/23 23:01 07/26/23 23:02 07/26/23 23:04 Temperature Pulse Rate 71 71 Respiratory Rate 22 H Blood Pressure Pulse Oximetry 99 Oxygen Delivery Mechanical Ventilation Oxygen Flow Rate Fraction of Inspired Oxygen 30 30 07/27/23 00:00 07/27/23 00:17 07/27/23 01:06 Temperature 101 F H 101 F H 100.7 F H Pulse Rate 79 Respiratory Rate 22 H Blood Pressure 99/59 L Pulse Oximetry 100 Oxygen Delivery Oxygen Flow Rate Fraction of Inspired Oxygen 07/26/23 23:11 07/27/23 00:00 07/27/23 00:00 Temperature Pulse Rate 78 83 83 Respiratory Rate 22 H 22 H Blood Pressure Pulse Oximetry 100 Oxygen Delivery Mechanical Ventilation Oxygen Flow Rate Fraction of Inspired Oxygen 30 07/27/23 02:00 07/27/23 02:00 07/27/23 02:00 Temperature 99.8 F H Pulse Rate 74 72 78 Respiratory Rate 22 H 22 H Blood Pressure 98/48 L Pulse Oximetry 96 Oxygen Delivery Oxygen Flow Rate Fraction of Inspired Oxygen 07/27/23 02:00 07/27/23 02:15 07/27/23 02:16 Temperature Pulse Rate 72 73 69 Respiratory Rate 22 H 22 H Blood Pressure Pulse Oximetry 95 Oxygen Delivery Mechanical Ventilation Oxygen Flow Rate Fraction of Inspired Oxygen 30 07/27/23 02:21 07/27/23 03:34 07/27/23 03:34 Temperature Pulse Rate 69 82 82 Respiratory Rate 22 H 22 H 22 H Blood Pressure Pulse Oximetry Oxygen Delivery Oxygen Flow Rate Fraction of Inspired Oxygen 07/27/23 03:41 07/27/23 03:42 07/27/23 03:45 Temperature Pulse Rate 73 73 Respiratory Rate 22 H Blood Pressure Pulse Oximetry 99 Oxygen Delivery Mechanical Ventilation Oxygen Flow Rate Fraction of Inspired Oxygen 30 30 07/27/23 04:00 07/27/23 04:56 07/27/23 05:55 Temperature 99.6 F Pulse Rate 78 72 71 Respiratory Rate 22 H Blood Pressure 110/54 L Pulse Oximetry 100 98 Oxygen Delivery Mechanical Ventilation Oxygen Flow Rate Fraction of Inspired Oxygen 30 05/19/24 06:00 07/27/23 07:43 07/27/23 07:43 Temperature 100.1 F H Pulse Rate 75 81 77 Respiratory Rate 22 H 16 Blood Pressure 94/48 L Pulse Oximetry 100 100 Oxygen Delivery Mechanical Ventilation Oxygen Flow Rate Fraction of Inspired Oxygen 30 07/27/23 07:50 07/27/23 08:02 07/27/23 08:33 Temperature 101.4 F H Pulse Rate 79 100 Respiratory Rate 18 Blood Pressure Pulse Oximetry 100 Oxygen Delivery Mechanical Ventilation Oxygen Flow Rate Fraction of Inspired Oxygen 30 07/27/23 08:00 07/27/23 08:00 07/27/23 08:00 Temperature Pulse Rate 111 H 128 H Respiratory Rate 12 14 Blood Pressure Pulse Oximetry 100 Oxygen Delivery Mechanical Ventilation Oxygen Flow Rate Fraction of Inspired Oxygen 30 30 07/27/23 08:00 07/27/23 10:00 07/27/23 10:00 Temperature Pulse Rate 128 H 77 77 Respiratory Rate 14 13 13 Blood Pressure Pulse Oximetry Oxygen Delivery Oxygen Flow Rate Fraction of Inspired Oxygen 07/27/23 10:15 07/27/23 10:15 07/27/23 09:33 Temperature 100.8 F H Pulse Rate 111 H 111 H Respiratory Rate 12 12 Blood Pressure Pulse Oximetry Oxygen Delivery Oxygen Flow Rate Fraction of Inspired Oxygen 07/27/23 08:00 07/27/23 10:00 07/27/23 10:10 Temperature 101.2 F H 100.1 F H Pulse Rate 128 H 77 82 Respiratory Rate 14 13 Blood Pressure 134/72 111/58 L Pulse Oximetry 100 100 98 Oxygen Delivery Mechanical Ventilation Oxygen Flow Rate Fraction of Inspired Oxygen 30 07/27/23 08:00 07/27/23 07:55 07/27/23 10:00 Temperature Pulse Rate 106 H 77 Respiratory Rate Blood Pressure Pulse Oximetry Oxygen Delivery Mechanical Ventilation Oxygen Flow Rate Fraction of Inspired Oxygen 30 07/27/23 11:38 07/27/23 12:00 07/27/23 12:00 Temperature Pulse Rate 85 Respiratory Rate Blood Pressure Pulse Oximetry 97 97 Oxygen Delivery Room Air Nasal Cannula Oxygen Flow Rate 2 Fraction of Inspired Oxygen 07/27/23 12:00 07/27/23 13:29 07/27/23 13:31 Temperature 99.3 F Pulse Rate 98 92 Respiratory Rate 13 14 Blood Pressure 125/78 Pulse Oximetry 100 96 Oxygen Delivery Nasal Cannula Oxygen Flow Rate 2 Fraction of Inspired Oxygen Intake/Output Intake/Output: Intake & Output 07/24/23 07/25/23 07/26/23 07/27/23 23:59 23:59 23:59 23:59 Intake Total 2436.1 4403.7 3367.8 Output Total 3300 1275 1000 Balance -863.9 3128.7 2367.8 Meds/Results Medications: Active Medications Generic Name Dose Route Start Last Admin Trade Name Freq PRN Reason Stop Dose Admin Acetaminophen 650 mg 07/25/23 22:02 07/27/23 08:33 Acetaminophen Elixir 325 Mg/10.15 Ml Udc PO 650 mg Q4H PRN Administration Mild Pain (1-3) or Fever Albuterol/Ipratropium 3 ml 07/25/23 14:20 07/27/23 13:28 Ipratropium 0.5 Mg/Albuterol Sulfate 2.5 Mg Ampul.Neb 3 Ml INHALATION 3 ml Q6HRT BRENDEN Administration Alprazolam 1 mg 07/27/23 09:00 07/27/23 12:49 Alprazolam (*Crx) 0.5 Mg Tablet PO Not Given TID BRENDEN Aripiprazole 5 mg 07/26/23 12:00 07/27/23 08:33 Aripiprazole 5 Mg Tablet PO 5 mg DAILY BRENDEN Administration Aspirin 81 mg 07/26/23 09:00 07/27/23 08:33 Aspirin 81 Mg Enteric Tablet PO 81 mg QAM BRENDEN Administration Atorvastatin Calcium 80 mg 07/26/23 09:00 07/27/23 08:33 Atorvastatin 40 Mg Tablet PO 80 mg DAILY BRENDEN Administration Atorvastatin Calcium 20 mg 07/26/23 21:00 07/26/23 20:16 Atorvastatin 20 Mg Tablet PO 20 mg QHS BRENDEN Administration Dextrose 12.5 gm 07/25/23 10:19 Dextrose 50% 25 Gm/50 Ml Syringe IV PUSH PRN PRN Hypoglycemia Protocol Enoxaparin Sodium 40 mg 07/27/23 09:00 07/27/23 10:05 Enoxaparin 40 Mg/0.4 Ml Syringe SUB-Q 40 mg DAILY BRENDEN Administration Fenofibrate 160 mg 07/25/23 10:30 07/27/23 08:32 Fenofibrate 160 Mg Tablet PO 160 mg DAILY BRENDEN Administration Fluoxetine HCl 40 mg 07/26/23 17:00 07/27/23 08:32 Fluoxetine Hcl 20 Mg Capsule PO 40 mg BID BRENDEN Administration Gabapentin 300 mg 07/27/23 09:00 07/27/23 12:50 Gabapentin 300 Mg Capsule PO Not Given TID BRENDEN Glucagon 1 mg 07/25/23 10:19 Glucagon For Inj 1 Mg Vial IM PRN PRN Hypoglycemia Protocol Glucose 15 gm 07/25/23 10:19 Glucose Oral Gel 15 Gm Of Glucse In 37.5 Gm Tube PO PRN PRN Hypoglycemia Protocol Doxycycline Hyclate 100 mg in 100 mls @ 100 mls/hr 07/25/23 11:00 07/27/23 11:10 Vibramycin 100 Mg/Ns 100 Ml IVPB Infused Q12HR BRENDEN Infusion Dextrose 1,000 mls @ 100 mls/hr 07/25/23 10:19 Dextrose 5% 1,000 Ml IVPB PRN PRN Hypoglycemia Protocol Metronidazole 500 mg in 100 mls @ 100 mls/hr 07/26/23 10:00 07/27/23 11:06 Flagyl 500 Mg/Iso Soln 100 Ml IVPB 100 mls/hr Q8H BRENDEN Administration Vancomycin HCl 2,000 mg in 500 mls @ 250 mls/hr 07/27/23 00:00 07/27/23 13:05 Vancomycin 2,000 Mg/Ns 500 Ml IVPB Infused Q8H BRENDEN Infusion Cefepime HCl 2 gm in 50 mls @ 100 mls/hr 07/27/23 07:45 07/27/23 08:55 Maxipime 2 Gm/Ns 50 Ml IVPB Infused Q8HR BRENDEN Infusion Insulin Aspart 4 - 8 units 07/27/23 12:00 07/27/23 12:22 Insulin Aspart (*Bkc) 100 Units/Ml SUB-Q Not Given Q6HR BRENDEN Protocol Lorazepam 2 mg 07/26/23 16:11 07/27/23 01:06 Lorazepam Inj (*Crx) 2 Mg/Ml Vial IV PUSH 2 mg Q2HR PRN Administration Agitation Pantoprazole Sodium 40 mg 07/26/23 09:00 07/27/23 08:27 Pantoprazole Sodium Iv 40 Mg Vial IV PUSH 40 mg QAM BRENDEN Administration Perflutren Lipid Microsphere 0 ml 07/25/23 13:57 Perflutren Lipid Microspheres 1.5 Ml Vial Diluted To 10 Ml Total Volume IV PUSH 07/28/23 13:58 ONCE PRN adequate visualization Protocol Radiology Results: ITS Impressions Head CT 07/25/23 09:12 Impression: No significant abnormality seen. Cervical Spine CT 07/25/23 09:13 Impression: No fracture or subluxation of the cervical spine. 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 Partially imaged airspace disease the lung apices, nonspecific on this limited evaluation. Chest CTA 07/25/23 10:03 IMPRESSION: 1. No pulmonary embolism. 2. Bilateral patchy groundglass opacities and more dense dependent consolidation in both lungs consistent with pneumonia. Chest X-Ray 07/27/23 06:14 IMPRESSION: 1. Worsening airspace opacities in right mid and lower lung zones and left lower lung zone, consistent with atelectasis versus pneumonia. Labs Labs: Laboratory Results - last 24 hr 07/26/23 07/26/23 07/26/23 17:00 21:00 22:51 WBC RBC Hgb Hct MCV MCH MCHC RDW Plt Count MPV Immature Gran % (Auto) Neut % (Auto) Lymph % (Auto) [place] % (Auto) Eos % (Auto) Baso % (Auto) Lymph # (Auto) [place] # (Auto) Eos # (Auto) Baso # (Auto) Abs Immat Gran (auto) Absolute Neuts (auto) Absolute Nucleated RBC Nucleated RBC % Puncture Site ABG pH ABG pCO2 ABG pO2 ABG PO2/FiO2 Ratio ABG HCO3 ABG O2 Saturation ABG O2 Content ABG Base Excess A-a Gradient Oxyhemoglobin Carboxyhemoglobin Methemoglobin Reduced Hemoglobin Total Hemoglobin O2 Delivery Device O2 Liters/Min Minute Volume Vent Rate Vent Mode FiO2 Tidal Volume PEEP Peak Inspir Pressure Pressure Support Sodium Potassium Chloride Carbon Dioxide Anion Gap BUN Creatinine Estim Creat Clear Calc Estimated GFR Glucose POC Capillary Glucose 136 H 131 H Calcium Phosphorus Magnesium Total Bilirubin AST ALT Alkaline Phosphatase Total Protein Albumin Triglycerides Vancomycin Trough 6.7 L 07/27/23 07/27/23 07/27/23 03:27 05:02 08:48 WBC 11.6 H RBC 3.13 L Hgb 8.3 L Hct 27.9 L MCV 89.1 MCH 26.5 MCHC 29.7 L RDW 16.4 H Plt Count 304 MPV 9.5 Immature Gran % (Auto) 0.3 Neut % (Auto) 71.3 Lymph % (Auto) 18.7 [place] % (Auto) 8.7 H Eos % (Auto) 0.8 Baso % (Auto) 0.2 Lymph # (Auto) 2.18 [place] # (Auto) 1.0 H Eos # (Auto) 0.1 Baso # (Auto) 0.0 Abs Immat Gran (auto) 0.04 H Absolute Neuts (auto) 8.3 H Absolute Nucleated RBC 0.000 Nucleated RBC % 0.0 Puncture Site Right radial ABG pH 7.441 ABG pCO2 32.3 L ABG pO2 81.7 ABG PO2/FiO2 Ratio 2.72 ABG HCO3 21.5 L ABG O2 Saturation 96.5 ABG O2 Content 12.7 L ABG Base Excess -2.1 A-a Gradient 94.3 Oxyhemoglobin 95.5 Carboxyhemoglobin 0.8 Methemoglobin 0.3 Reduced Hemoglobin 3.4 Total Hemoglobin 9.4 L O2 Delivery Device Ventilator O2 Liters/Min Not Reportable Minute Volume Not Reportable Vent Rate 22 Vent Mode Cmv FiO2 30 Tidal Volume 400 PEEP 5 Peak Inspir Pressure Not Reportable Pressure Support Not Reportable Sodium 133 L Potassium 3.7 Chloride 109 H Carbon Dioxide 21 L Anion Gap 3 L BUN 6 L Creatinine 0.40 L Estim Creat Clear Calc 167 Estimated GFR > 60 Glucose 157 H POC Capillary Glucose 137 H Calcium 7.5 L Phosphorus 3.1 Magnesium 1.9 Total Bilirubin 0.4 AST 26 ALT 18 Alkaline Phosphatase 89 Total Protein 6.0 L Albumin 3.2 L Triglycerides 347 H Vancomycin Trough 07/27/23 07/27/23 11:24 12:14 WBC RBC Hgb Hct MCV MCH MCHC RDW Plt Count MPV Immature Gran % (Auto) Neut % (Auto) Lymph % (Auto) [place] % (Auto) Eos % (Auto) Baso % (Auto) Lymph # (Auto) [place] # (Auto) Eos # (Auto) Baso # (Auto) Abs Immat Gran (auto) Absolute Neuts (auto) Absolute Nucleated RBC Nucleated RBC % Puncture Site Left radial ABG pH 7.372 ABG pCO2 39.9 ABG pO2 108.0 H ABG PO2/FiO2 Ratio 3.60 ABG HCO3 22.7 ABG O2 Saturation 97.8 ABG O2 Content 13.0 L ABG Base Excess -2.4 A-a Gradient 59.0 Oxyhemoglobin 97.1 Carboxyhemoglobin Methemoglobin Reduced Hemoglobin Total Hemoglobin 9.4 L O2 Delivery Device Ventilator O2 Liters/Min Not Reportable Minute Volume Not Reportable Vent Rate Not Reportable Vent Mode Spontaneous FiO2 30 Tidal Volume Not Reportable PEEP 5 Peak Inspir Pressure Not Reportable Pressure Support 8 Sodium Potassium Chloride Carbon Dioxide Anion Gap BUN Creatinine Estim Creat Clear Calc Estimated GFR Glucose POC Capillary Glucose 120 H Calcium Phosphorus Magnesium Total Bilirubin AST ALT Alkaline Phosphatase Total Protein Albumin Triglycerides Vancomycin Trough
[2023-07-27 17:18] LABS: Glucose Point of Care 118 mg/dl (65-105)
[2023-07-27] MEDS: ATORVASTATIN 20 MG TABLET PO (20:35)
[2023-07-27 23:06] LABS: Glucose Point of Care 129 mg/dl (65-105)
[2023-07-27 23:51] LABS: Vancomycin Trough 16.4 ug/mL (10.0-20.0)
[2023-07-28] VITALS (19 sets, daily range): BP systolic 99–156; BP diastolic 51–81; PULSE 80–135; RESP 13–28; TEMP 36.2–38; O2SAT 91–99
[2023-07-28] MEDS: VANCOMYCIN 2,000 MG/NS 500 ML 2,000 MG/500 ML BAG 250 MG IVPB ×4 (00:27→23:50)
[2023-07-28] MEDS: IPRATROPIUM 0.5 MG/ALBUTEROL SULFATE 2.5 MG AMPUL.NEB 3 ML INHALATION ×4 (02:15→20:59)
[2023-07-28] MEDS: metroNIDAZOLE 500 MG/ISO 100ML 500 MG/100 ML BAG 100 MG IVPB ×3 (02:28→18:21)
[2023-07-28 04:40] LABS: Basophils Absolute Auto 0.1 K/mm3 (0.0-0.1); Basophils Percent Auto 0.4 % (0.2-1.2); Eosinophils Absolute Auto 0.2 K/mm3 (0-0.3); Eosinophils Percent Auto 1.1 % (0-4.4); Hematocrit 30.1 % (37.0-47.0); Hemoglobin 8.8 g/dL (12.0-15.0); Immature Granulocyte Absolute 0.06 K/mm3 (0.00-0.031); Immature Granulocyte Percent A 0.4 % (0-0.5); Lymphocytes Absolute Auto 1.74 K/mm3 (0.9-3.2); Lymphocytes Percent Auto 11.5 % (18.3-44.2); Mean Corpuscular HGB Conc 29.2 g/dl (32-36); Mean Corpuscular Hemoglobin 26.7 pg (26-34); Mean Corpuscular Volume 91.2 fl (80-100); Mean Platelet Volume 9.4 fl (7.4-10.4); Monocytes Absolute Auto 1.1 K/mm3 (0.1-0.6); Monocytes Percent Auto 7.2 % (2.6-8.5); Neutrophils Absolute Auto 12.1 K/mm3 (1.3-6.7); Neutrophils Percent Auto 79.4 % (45.5-73.1); Platelet Count Result 340 k/mm3 (150-375); Red Cell Distribution Width 16.4 % (11.5-14.5); White Blood Count 15.2 K/mm3 (4.5-10.0)
[2023-07-28 04:59] LABS: Alanine Aminotransferase 23 U/L (6-35); Albumin Level 3.5 g/dL (3.5-5.1); Alkaline Phosphatase 111 U/L (38-126); Anion Gap 2 mmol/L (4-12); Aspartate Amino Transferase 28 U/L (14-36); Bilirubin,Total 0.5 mg/dL (0.2-1.3); Blood Urea Nitrogen 4 mg/dL (7-17); Calcium 8.5 mg/dL (8.4-10.2); Carbon Dioxide 26 mmol/L (22-30); Chloride 108 mmol/L (98-107); Estimated CRCL calculation 168 ml/min; Estimated Glomerular Filt Rate > 60; Glucose 135 mg/dL (65-110); Phosphorus 2.9 mg/dL (2.5-4.5); Sodium 136 mmol/L (137-145)
[2023-07-28] MEDS: CEFEPIME 2 GM/NS 50 ML 2 GM/50 ML BAG IVPB ×3 (05:08→21:49)
[2023-07-28 05:16] LABS: Glucose Point of Care 148 mg/dl (65-105)
[2023-07-28 05:31] LABS: Platelet Estimate Adequate (Adequate)
[2023-07-28 05:33] LABS: Anisocytosis 1+; Hypochromasia 1+; Large Platelets Present
[2023-07-28 05:34] LABS: Schistocytes None Seen
[2023-07-28] MEDS: DOXYCYCLINE 100 MG/NS 100 ML 100 MG/100 ML BAG IVPB ×2 (08:38→19:58)
[2023-07-28] MEDS: FLUoxetine HCL 20 MG CAPSULE 40 MG PO ×2 (08:39→18:21)
[2023-07-28] MEDS: ALPRAZolam (*CRX) 0.5 MG TABLET 1 MG PO ×3 (08:39→18:20)
[2023-07-28] MEDS: ASPIRIN 81 MG ENTERIC TABLET PO (08:39)
[2023-07-28] MEDS: FENOFIBRATE 160 MG TABLET PO (08:39)
[2023-07-28] MEDS: PANTOPRAZOLE SODIUM IV 40 MG VIAL IV PUSH (08:39)
[2023-07-28] MEDS: ARIPiprazole 5 MG TABLET PO (08:39)
[2023-07-28] MEDS: ATORVASTATIN 40 MG TABLET 80 MG PO (08:39)
[2023-07-28] MEDS: GABAPENTIN 300 MG CAPSULE PO ×3 (08:39→18:20)
[2023-07-28] MEDS: ENOXAPARIN 40 MG/0.4 ML SYRINGE SUB-Q (08:39)
--- NOTE | 2023-07-28 09:41 | P.PNINT_ITS ---
Progress Note: A&P Assessment and Plan (1) Acute respiratory failure with hypercapnia: Code(s): J96.02 - Acute respiratory failure with hypercapnia Status: Acute Assessment and Plan: Patient was found unresponsive at home, intubated (07/24) upon EMS arrival to the house. Unknown etiology -currently on CMV mode of ventilation, peep of 5, 50% FiO2 -patient has pneumonia on CT chest -continue vancomycin, ceftriaxone and doxycycline (07/24), Flagyl (07/25) -continue bronchodilators -07/26: S will be extubated the patient, currently on room air -will have PT/OT follow the patient -07/24: CTA chest - 1. No pulmonary embolism. 2. Bilateral patchy groundglass opacities and more dense dependent consolidation in both lungs consistent with pneumonia (2) Pneumonia: Qualifiers: Pneumonia type: due to unspecified organism Laterality: bilateral Lung location: unspecified part of lung Qualified Code(s): J18.9 - Pneumonia, unspecified organism Code(s): J18.9 - Pneumonia, unspecified organism Status: Acute Assessment and Plan: Chest CTA as above showing bilateral consolidation likely consistent with pneumonia -likely community acquired versus aspiration since she was found unresponsive -07/24: Blood and urine cultures are negative -07/24: Sputum cultures could not be performed due to too in adequate specimen -antibiotics as above 07/26: Repeat sputum cultures are pending (3) Altered mental status: Qualifiers: Altered mental status type: unspecified Qualified Code(s): R41.82 - Altered mental status, unspecified Code(s): R41.82 - Altered mental status, unspecified Status: Acute Assessment and Plan: RESOLVED Unknown etiology for her altered mental status/unresponsiveness at home. -patient has been recently stressed out as per the mother and a friend, has some difficulties with the rent payment and other financial issues -the could be a drug overdose issue with benzodiazepines being positive in her urine tox screen. (caveats that patient does take Xanax at home for anxiety) (4) Elevated troponin: Code(s): R79.89 - Other specified abnormal findings of blood chemistry Status: Acute Assessment and Plan: Elevated troponins -3rd set of troponin trended down down -patient has a history of hyperglycemia/diabetes, hyperlipidemia/hypertriglyceridemia, tobacco abuse, obesity -patient does have risk factors for CAD -appreciate cardiology evaluation and recommendations, -will switch therapeutic Lovenox to prophylactic Lovenox dose -continue aspirin and atorvastatin -started patient on lisinopril 07/25: Echocardiogram (5) Anxiety: Code(s): F41.9 - Anxiety disorder, unspecified Status: Acute Assessment and Plan: History of anxiety, -continue home Xanax, Abilify, fluoxetine and gabapentin (6) GERD (gastroesophageal reflux disease): Qualifiers: Esophagitis presence: esophagitis presence not specified Qualified Code(s): K21.9 - Gastro-esophageal reflux disease without esophagitis Code(s): K21.9 - Gastro-esophageal reflux disease without esophagitis Status: Acute Assessment and Plan: Protonix (7) Hypertension: Qualifiers: Hypertension type: primary hypertension Qualified Code(s): I10 - Essential (primary) hypertension Code(s): I10 - Essential (primary) hypertension Status: Acute Assessment and Plan: Started patient on lisinopril (8) Non compliance with medical treatment: Code(s): Z91.199 - Patient's noncompliance with other medical treatment and regimen due to unspecified reason Status: Acute Assessment and Plan: According the mother patient is noncompliant with her medical treatment (9) Tobacco abuse: Code(s): Z72.0 - Tobacco use Status: Acute Assessment and Plan: Tobacco use, patient smokes 1/2 packet per day for over 25 years -counseled patient on cessation of smoking (10) Hyperglycemia: Code(s): R73.9 - Hyperglycemia, unspecified Status: Acute Assessment and Plan: Patient initially had a blood sugar level of 419 on admission, it has improved since then -continue Accu-Cheks and sliding scale insulin -patient's mother does state that she has elevated blood sugars but she has been following with any doctors -hemoglobin A1c is 6.4 -blood sugars have been stable, not requiring any sliding scale Plan DVT prophylaxis: Prophylactic Lovenox Stress ulcer prophylaxis: Protonix Nutrition: Diabetic and heart healthy diet Code Status: Full code Critical Care Time Spent: 31 minutes Patient may move out of the ICU of hood with hospitalist Discussed with patient's mother at bedside updated with patient's condition and plan of care. I answered all questions Due to a high probability of clinically significant, life threatening deterioration, the patient required my highest level of preparedness to intervene emergently and I personally spent this critical care time directly and personally managing the patient. This critical care time included obtaining a history; examining the patient; pulse oximetry; ordering and review of studies; arranging urgent treatment with development of a management plan; evaluation of patient's response to treatment; frequent reassessment; and discussions with other providers. It was exclusive of separately billable procedures and treating other patients and teaching time. Please see Assessment and Plan section and the rest of the note for further information on patient assessment and treatment This dictation may have been done utilizing a voice recognition system. Attempts have been made to correct errors. However, there may be uncorrected grammatical, spelling, and recognitions errors present. Subjective Date/time seen: 07/28/23 09:41 Interval history: Reason for consult: Altered mental status/unresponsive that is acute respiratory failure, pneumonia, possible overdose 07/26: Extubated 07/28/2023: Patient seen examined this morning, extubated yesterday, on room air, with adequate O2 sats. Complains of cough, and pain in his throat. Denies any chest pain, shortness are with, abdominal pain, nausea, vomiting. T-max of 101.1?, significant urine output, hemodynamically stable Patient is awake, alert, able to answer questions appropriately and follows simple commands in all extremities Review of Systems Review of Systems: All systems reviewed & are unremarkable except as noted in HPI and below Exam Narrative: General: Pleasant female, talking, in no acute distress HEENT:? Pupils equal and reactive sclera is clear, Neck:? Supple Respiratory:? Coarse breath sounds bilaterally, adequate air entry, no wheezing Cardiac:? S1-S2 is normal, regular rate and rhythm Abdomen:? Soft, nontender, nondistended, obese, hypoactive bowel sounds Extremities:? Trace edema, palpable pedal pulses Neuro:? Patient was extubated on 07/26, is awake, alert, answers to questions appropriately and follows simple commands in all extremities Skin:? Warm and dry Psych:? Depressed affect normal mentation Objective Data Vital Signs Vital Signs: Vital Signs - 24 hr 07/27/23 10:00 07/27/23 10:00 07/27/23 10:15 Temperature Pulse Rate 77 77 111 H Respiratory Rate 13 13 12 Blood Pressure Pulse Oximetry Oxygen Delivery Oxygen Flow Rate Fraction of Inspired Oxygen 07/27/23 10:15 07/27/23 10:00 07/27/23 10:10 Temperature 100.1 F H Pulse Rate 111 H 77 82 Respiratory Rate 12 13 Blood Pressure 111/58 L Pulse Oximetry 100 98 Oxygen Delivery Mechanical Ventilation Oxygen Flow Rate Fraction of Inspired Oxygen 30 07/27/23 10:00 07/27/23 11:38 07/27/23 12:00 Temperature Pulse Rate 77 85 Respiratory Rate Blood Pressure Pulse Oximetry 97 Oxygen Delivery Room Air Oxygen Flow Rate Fraction of Inspired Oxygen 07/27/23 12:00 07/27/23 12:00 07/27/23 13:29 Temperature 99.3 F Pulse Rate 98 Respiratory Rate 13 Blood Pressure 125/78 Pulse Oximetry 97 100 96 Oxygen Delivery Nasal Cannula Nasal Cannula Oxygen Flow Rate 2 2 Fraction of Inspired Oxygen 07/27/23 13:31 07/27/23 13:42 07/27/23 14:00 Temperature Pulse Rate 92 107 H 93 Respiratory Rate 14 14 Blood Pressure Pulse Oximetry Oxygen Delivery Oxygen Flow Rate Fraction of Inspired Oxygen 07/27/23 14:00 07/27/23 10:15 07/27/23 16:00 Temperature 99.8 F H Pulse Rate 93 111 H Respiratory Rate 17 12 Blood Pressure 115/75 Pulse Oximetry 99 98 Oxygen Delivery Nasal Cannula Oxygen Flow Rate 2 Fraction of Inspired Oxygen 07/27/23 16:00 07/27/23 16:00 07/27/23 18:00 Temperature 100.4 F H Pulse Rate 95 118 H 105 H Respiratory Rate 17 Blood Pressure 126/72 Pulse Oximetry 99 Oxygen Delivery Oxygen Flow Rate Fraction of Inspired Oxygen 07/27/23 18:00 07/27/23 18:21 07/27/23 19:21 Temperature 101.1 F H 101.1 F H 100.8 F H Pulse Rate 105 H Respiratory Rate 22 H Blood Pressure 129/68 Pulse Oximetry 97 Oxygen Delivery Oxygen Flow Rate Fraction of Inspired Oxygen 07/27/23 20:00 07/27/23 20:00 07/27/23 20:00 Temperature 100.1 F H Pulse Rate 92 92 Respiratory Rate 16 Blood Pressure 100/50 L Pulse Oximetry 98 100 Oxygen Delivery Nasal Cannula Oxygen Flow Rate 2 Fraction of Inspired Oxygen 07/27/23 20:03 07/27/23 20:03 07/27/23 20:13 Temperature Pulse Rate 98 95 103 H Respiratory Rate 15 15 16 Blood Pressure Pulse Oximetry 98 Oxygen Delivery Nasal Cannula Oxygen Flow Rate 2 Fraction of Inspired Oxygen 07/27/23 22:00 07/27/23 22:00 07/28/23 00:00 Temperature 99.5 F 99.8 F H Pulse Rate 93 93 116 H Respiratory Rate 29 H 26 H Blood Pressure 115/61 156/61 H Pulse Oximetry 94 94 Oxygen Delivery Oxygen Flow Rate Fraction of Inspired Oxygen 07/28/23 00:00 07/28/23 00:00 07/28/23 02:15 Temperature Pulse Rate 135 H 110 H Respiratory Rate 19 Blood Pressure Pulse Oximetry 93 Oxygen Delivery Room Air Oxygen Flow Rate Fraction of Inspired Oxygen 07/28/23 02:20 07/28/23 02:00 07/28/23 02:00 Temperature 100.2 F H Pulse Rate 107 H 104 H 104 H Respiratory Rate 13 22 H Blood Pressure 149/81 H Pulse Oximetry 93 Oxygen Delivery Oxygen Flow Rate Fraction of Inspired Oxygen 07/28/23 04:00 07/28/23 04:00 07/28/23 04:00 Temperature 100.4 F H Pulse Rate 109 H 102 H Respiratory Rate 16 Blood Pressure 135/74 Pulse Oximetry 99 99 Oxygen Delivery Nasal Cannula Oxygen Flow Rate 2 Fraction of Inspired Oxygen 07/28/23 06:00 07/28/23 06:00 07/28/23 08:29 Temperature 100.1 F H Pulse Rate 105 H 105 H 105 H Respiratory Rate 15 24 H Blood Pressure 134/69 Pulse Oximetry 94 Oxygen Delivery Oxygen Flow Rate Fraction of Inspired Oxygen 07/28/23 08:29 07/28/23 08:40 07/28/23 08:00 Temperature Pulse Rate 102 H Respiratory Rate 20 Blood Pressure Pulse Oximetry 94 94 Oxygen Delivery Room Air Room Air Oxygen Flow Rate Fraction of Inspired Oxygen 07/28/23 08:00 Temperature 99.8 F H Pulse Rate 101 H Respiratory Rate 20 Blood Pressure 124/76 Pulse Oximetry 93 Oxygen Delivery Oxygen Flow Rate Fraction of Inspired Oxygen Intake/Output Intake/Output: Intake & Output 07/25/23 07/26/23 07/27/23 07/28/23 23:59 23:59 23:59 23:59 Intake Total 2436.1 4403.7 4715.5 1040 Output Total 3300 1275 4300 4050 Balance -863.9 3128.7 415.5 -3010 Meds/Results Medications: Active Medications Generic Name Dose Route Start Last Admin Trade Name Freq PRN Reason Stop Dose Admin Acetaminophen 650 mg 07/25/23 22:02 07/27/23 18:21 Acetaminophen Elixir 325 Mg/10.15 Ml Udc PO 650 mg Q4H PRN Administration Mild Pain (1-3) or Fever Albuterol/Ipratropium 3 ml 07/25/23 14:20 07/28/23 08:28 Ipratropium 0.5 Mg/Albuterol Sulfate 2.5 Mg Ampul.Neb 3 Ml INHALATION 3 ml Q6HRT BRENDEN Administration Alprazolam 1 mg 07/27/23 09:00 07/28/23 08:39 Alprazolam (*Crx) 0.5 Mg Tablet PO 1 mg TID BRENDEN Administration Aripiprazole 5 mg 07/26/23 12:00 07/28/23 08:39 Aripiprazole 5 Mg Tablet PO 5 mg DAILY BRENDEN Administration Aspirin 81 mg 07/26/23 09:00 07/28/23 08:39 Aspirin 81 Mg Enteric Tablet PO 81 mg QAM BRENDEN Administration Atorvastatin Calcium 80 mg 07/26/23 09:00 07/28/23 08:39 Atorvastatin 40 Mg Tablet PO 80 mg DAILY BRENDEN Administration Atorvastatin Calcium 20 mg 07/26/23 21:00 07/27/23 20:35 Atorvastatin 20 Mg Tablet PO 20 mg QHS BRENDEN Administration Dextrose 12.5 gm 07/25/23 10:19 Dextrose 50% 25 Gm/50 Ml Syringe IV PUSH PRN PRN Hypoglycemia Protocol Enoxaparin Sodium 40 mg 07/27/23 09:00 07/28/23 08:39 Enoxaparin 40 Mg/0.4 Ml Syringe SUB-Q 40 mg DAILY BRENDEN Administration Fenofibrate 160 mg 07/25/23 10:30 07/28/23 08:39 Fenofibrate 160 Mg Tablet PO 160 mg DAILY BRENDEN Administration Fluoxetine HCl 40 mg 07/26/23 17:00 07/28/23 08:39 Fluoxetine Hcl 20 Mg Capsule PO 40 mg BID BRENDEN Administration Gabapentin 300 mg 07/27/23 09:00 07/28/23 08:39 Gabapentin 300 Mg Capsule PO 300 mg TID BRENDEN Administration Glucagon 1 mg 07/25/23 10:19 Glucagon For Inj 1 Mg Vial IM PRN PRN Hypoglycemia Protocol Glucose 15 gm 07/25/23 10:19 Glucose Oral Gel 15 Gm Of Glucse In 37.5 Gm Tube PO PRN PRN Hypoglycemia Protocol Guaifenesin/Dextromethorphan 5 ml 07/28/23 08:32 Guaifenesin/Dextromethorphan 10 Ml Udc PO Q4H PRN Cough Doxycycline Hyclate 100 mg in 100 mls @ 100 mls/hr 07/25/23 11:00 07/28/23 09:40 Vibramycin 100 Mg/Ns 100 Ml IVPB Infused Q12HR BRENDEN Infusion Dextrose 1,000 mls @ 100 mls/hr 07/25/23 10:19 Dextrose 5% 1,000 Ml IVPB PRN PRN Hypoglycemia Protocol Metronidazole 500 mg in 100 mls @ 100 mls/hr 07/26/23 10:00 07/28/23 09:40 Flagyl 500 Mg/Iso Soln 100 Ml IVPB 100 mls/hr Q8H BRENDEN Administration Vancomycin HCl 2,000 mg in 500 mls @ 250 mls/hr 07/27/23 00:00 07/28/23 08:38 Vancomycin 2,000 Mg/Ns 500 Ml IVPB 250 mls/hr Q8H BRENDEN Administration Cefepime HCl 2 gm in 50 mls @ 100 mls/hr 07/27/23 07:45 07/28/23 05:45 Maxipime 2 Gm/Ns 50 Ml IVPB Infused Q8HR BRENDEN Infusion Insulin Aspart 4 - 8 units 07/28/23 12:00 Insulin Aspart (*Bkc) 100 Units/Ml SUB-Q TIDWM BRENDEN Protocol Lorazepam 2 mg 07/26/23 16:11 07/27/23 01:06 Lorazepam Inj (*Crx) 2 Mg/Ml Vial IV PUSH 2 mg Q2HR PRN Administration Agitation Pantoprazole Sodium 40 mg 07/26/23 09:00 07/28/23 08:39 Pantoprazole Sodium Iv 40 Mg Vial IV PUSH 40 mg QAM BRENDEN Administration Perflutren Lipid Microsphere 0 ml 07/25/23 13:57 Perflutren Lipid Microspheres 1.5 Ml Vial Diluted To 10 Ml Total Volume IV PUSH 07/28/23 13:58 ONCE PRN adequate visualization Protocol Radiology Results: ITS Impressions Head CT 07/25/23 09:12 Impression: No significant abnormality seen. Cervical Spine CT 07/25/23 09:13 Impression: No fracture or subluxation of the cervical spine. 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 Partially imaged airspace disease the lung apices, nonspecific on this limited evaluation. Chest CTA 07/25/23 10:03 IMPRESSION: 1. No pulmonary embolism. 2. Bilateral patchy groundglass opacities and more dense dependent consolidation in both lungs consistent with pneumonia. Chest X-Ray 07/28/23 06:38 Impression: Central hazy airspace disease bilaterally suggests central pulmonary edema pattern, however pneumonia would be an alternative consideration. Correlate clinically. Labs Labs: Laboratory Results - last 24 hr 07/27/23 07/27/23 07/27/23 11:24 12:14 17:09 WBC RBC Hgb Hct MCV MCH MCHC RDW Plt Count MPV Immature Gran % (Auto) Neut % (Auto) Lymph % (Auto) [place] % (Auto) Eos % (Auto) Baso % (Auto) Lymph # (Auto) [place] # (Auto) Eos # (Auto) Baso # (Auto) Abs Immat Gran (auto) Absolute Neuts (auto) Absolute Nucleated RBC Nucleated RBC % Platelet Estimate Large Platelets Hypochromasia Anisocytosis Schistocytes Puncture Site Left radial ABG pH 7.372 ABG pCO2 39.9 ABG pO2 108.0 H ABG PO2/FiO2 Ratio 3.60 ABG HCO3 22.7 ABG O2 Saturation 97.8 ABG O2 Content 13.0 L ABG Base Excess -2.4 A-a Gradient 59.0 Oxyhemoglobin 97.1 Total Hemoglobin 9.4 L O2 Delivery Device Ventilator O2 Liters/Min Not Reportable Minute Volume Not Reportable Vent Rate Not Reportable Vent Mode Spontaneous FiO2 30 Tidal Volume Not Reportable PEEP 5 Peak Inspir Pressure Not Reportable Pressure Support 8 Sodium Potassium Chloride Carbon Dioxide Anion Gap BUN Creatinine Estim Creat Clear Calc Estimated GFR Glucose POC Capillary Glucose 120 H 118 H Calcium Phosphorus Magnesium Total Bilirubin AST ALT Alkaline Phosphatase Total Protein Albumin Vancomycin Trough 07/27/23 07/27/23 07/28/23 22:57 23:01 04:09 WBC 15.2 H RBC 3.30 L Hgb 8.8 L Hct 30.1 L MCV 91.2 MCH 26.7 MCHC 29.2 L RDW 16.4 H Plt Count 340 MPV 9.4 Immature Gran % (Auto) 0.4 Neut % (Auto) 79.4 H Lymph % (Auto) 11.5 L [place] % (Auto) 7.2 Eos % (Auto) 1.1 Baso % (Auto) 0.4 Lymph # (Auto) 1.74 [place] # (Auto) 1.1 H Eos # (Auto) 0.2 Baso # (Auto) 0.1 Abs Immat Gran (auto) 0.06 H Absolute Neuts (auto) 12.1 H Absolute Nucleated RBC 0.000 Nucleated RBC % 0.0 Platelet Estimate Adequate Large Platelets Present Hypochromasia 1+ Anisocytosis 1+ Schistocytes None seen Puncture Site ABG pH ABG pCO2 ABG pO2 ABG PO2/FiO2 Ratio ABG HCO3 ABG O2 Saturation ABG O2 Content ABG Base Excess A-a Gradient Oxyhemoglobin Total Hemoglobin O2 Delivery Device O2 Liters/Min Minute Volume Vent Rate Vent Mode FiO2 Tidal Volume PEEP Peak Inspir Pressure Pressure Support Sodium 136 L Potassium 4.0 Chloride 108 H Carbon Dioxide 26 Anion Gap 2 L BUN 4 L Creatinine 0.40 L Estim Creat Clear Calc 168 Estimated GFR > 60 Glucose 135 H POC Capillary Glucose 129 H Calcium 8.5 Phosphorus 2.9 Magnesium 2.0 Total Bilirubin 0.5 AST 28 ALT 23 Alkaline Phosphatase 111 Total Protein 7.0 Albumin 3.5 Vancomycin Trough 16.4 07/28/23 05:02 WBC RBC Hgb Hct MCV MCH MCHC RDW Plt Count MPV Immature Gran % (Auto) Neut % (Auto) Lymph % (Auto) [place] % (Auto) Eos % (Auto) Baso % (Auto) Lymph # (Auto) [place] # (Auto) Eos # (Auto) Baso # (Auto) Abs Immat Gran (auto) Absolute Neuts (auto) Absolute Nucleated RBC Nucleated RBC % Platelet Estimate Large Platelets Hypochromasia Anisocytosis Schistocytes Puncture Site ABG pH ABG pCO2 ABG pO2 ABG PO2/FiO2 Ratio ABG HCO3 ABG O2 Saturation ABG O2 Content ABG Base Excess A-a Gradient Oxyhemoglobin Total Hemoglobin O2 Delivery Device O2 Liters/Min Minute Volume Vent Rate Vent Mode FiO2 Tidal Volume PEEP Peak Inspir Pressure Pressure Support Sodium Potassium Chloride Carbon Dioxide Anion Gap BUN Creatinine Estim Creat Clear Calc Estimated GFR Glucose POC Capillary Glucose 148 H Calcium Phosphorus Magnesium Total Bilirubin AST ALT Alkaline Phosphatase Total Protein Albumin Vancomycin Trough
[2023-07-28] MEDS: guaiFENesin/DEXTROMETHORPHAN 10 ML UDC 5 ML PO ×2 (10:49→18:20)
[2023-07-28] MEDS: lisinopriL 10 MG TABLET PO (10:49)
--- NOTE | 2023-07-28 11:27 | PCFNICU ---
ICU Rounding Note: Pt current nutrition is Diabetic, heart healthy diet. Just advanced, no intakes yet. Nutrition recommendation: Ensure Compact TID with meals for additional nutrition (220 kcal, 9 g protein each) Last recorded weight is 80.5 kg. Bowel Motility: BM not charted Labs Reviewed: Hgb 8.8, Hct 30.1, Na 136, BUN 4, Cre 0.4, Glu 135, TRIG 347 (down from 885) Meds Noted: Novolog, Xanax, Atican, protonix Skin: WNL Additional Notes: Extubated today, clear liquids for breakfast. Downgraded to med status. FOLLOW EVERY 5 DAYS
[2023-07-28 12:04] LABS: Glucose Point of Care 161 mg/dl (65-105)
[2023-07-28 16:03] LABS: Glucose Point of Care 147 mg/dl (65-105)
--- NOTE | 2023-07-28 16:32 | P.PNIM_ITS ---
Progress Note: A&P Assessment and Plan (1) Acute respiratory failure with hypercapnia: Code(s): J96.02 - Acute respiratory failure with hypercapnia Status: Acute (2) Pneumonia: Qualifiers: Pneumonia type: due to unspecified organism Laterality: bilateral Lung location: unspecified part of lung Qualified Code(s): J18.9 - Pneumonia, unspecified organism Code(s): J18.9 - Pneumonia, unspecified organism Status: Acute (3) Altered mental status: Qualifiers: Altered mental status type: unspecified Qualified Code(s): R41.82 - Altered mental status, unspecified Code(s): R41.82 - Altered mental status, unspecified Status: Acute (4) Elevated troponin: Code(s): R79.89 - Other specified abnormal findings of blood chemistry Status: Acute (5) Anxiety: Code(s): F41.9 - Anxiety disorder, unspecified Status: Acute (6) GERD (gastroesophageal reflux disease): Qualifiers: Esophagitis presence: esophagitis presence not specified Qualified Code(s): K21.9 - Gastro-esophageal reflux disease without esophagitis Code(s): K21.9 - Gastro-esophageal reflux disease without esophagitis Status: Acute (7) Hypertension: Qualifiers: Hypertension type: primary hypertension Qualified Code(s): I10 - Essential (primary) hypertension Code(s): I10 - Essential (primary) hypertension Status: Acute (8) Non compliance with medical treatment: Code(s): Z91.199 - Patient's noncompliance with other medical treatment and regimen due to unspecified reason Status: Acute (9) Tobacco abuse: Code(s): Z72.0 - Tobacco use Status: Acute (10) Hyperglycemia: Code(s): R73.9 - Hyperglycemia, unspecified Status: Acute Plan This is a 40-year-old female presents to the ER with altered mental status. Patient was last seen well at 1:00 a.m. and earlier this morning patient was found to be lying on the bed unresponsive. Patient has history of diabetes. She has not been feeling well for the past few days. EMS was called and was intubated in route. Upon arrival to the ER patient was noted to have mild tachycardia blood pressure adequate. Oxygen saturation was adequate. Suspected accidental or intentional overdose however patient denies so. Laboratory evaluation showed WBC of 11.9 hemoglobin of 11 no metabolic abnormality noted hyperglycemia 419. Lactate was mildly elevated at 3.6. Troponin was mildly elevated at 0.047 UDS positive for benzodiazepines otherwise negative. Alcohol was less than 10 acetaminophen less than 10 salicylate less than 1 influenza RSV COVID was negative. UA was negative. ABG with 7.18/61/249/23. Chest x-ray negative. CT brain was negative. CT cervical spine negative for any fracture. CT chest was done which showed bilateral ground are patchy ground-glass opacities and more dense dependent consultation both lungs consistent with pneumonia. Started with IV antibiotics for treatment for pneumonia panculture . Continue current antibiotics. patient is still hasintermittent fever Possible drug overdose does take Xanax at home. patient denies medication overdose Hypoxic respiratory failure ventilator. Vent management per ICU team Status post extubation on 07/27/2023. Currently on room air Mild troponin elevation with subsequent elevation cardiology consulted med management likely demand ischemia Type 2 diabetes Anxiety disorder GERD Hypertension DVT prophylaxis Lovenox Code status full code Subjective Date/time seen: 07/28/23 16:32 Interval history: patient extubated yesterday. Awake and alert on room air. Weak voice. Still has some cough. Review of Systems Review of Systems: All systems reviewed & are unremarkable except as noted in HPI and below Exam Narrative: General: Pleasant female, talking, in no acute distress HEENT:? Pupils equal and reactive sclera is clear, Neck:? Supple Respiratory:? Coarse breath sounds bilaterally, adequate air entry, no wheezing Cardiac:? S1-S2 is normal, regular rate and rhythm Abdomen:? Soft, nontender, nondistended, obese, hypoactive bowel sounds Extremities:? Trace edema, palpable pedal pulses Neuro:? awake, alert, answers to questions appropriately and follows simple commands in all extremities Skin:? Warm and dry Psych:? Flat affect normal mentation Objective Data Vital Signs Vital Signs: Vital Signs - 24 hr 07/27/23 18:00 07/27/23 18:00 07/27/23 18:21 Temperature 101.1 F H 101.1 F H Pulse Rate 105 H 105 H Respiratory Rate 22 H Blood Pressure 129/68 Pulse Oximetry 97 Oxygen Delivery Oxygen Flow Rate 07/27/23 19:21 07/27/23 20:00 07/27/23 20:00 Temperature 100.8 F H Pulse Rate 92 Respiratory Rate Blood Pressure Pulse Oximetry 98 Oxygen Delivery Nasal Cannula Oxygen Flow Rate 2 07/27/23 20:00 07/27/23 20:03 07/27/23 20:03 Temperature 100.1 F H Pulse Rate 92 98 95 Respiratory Rate 16 15 15 Blood Pressure 100/50 L Pulse Oximetry 100 98 Oxygen Delivery Nasal Cannula Oxygen Flow Rate 2 07/27/23 20:13 07/27/23 22:00 07/27/23 22:00 Temperature 99.5 F Pulse Rate 103 H 93 93 Respiratory Rate 16 29 H Blood Pressure 115/61 Pulse Oximetry 94 Oxygen Delivery Oxygen Flow Rate 07/28/23 00:00 07/28/23 00:00 07/28/23 00:00 Temperature 99.8 F H Pulse Rate 116 H 135 H Respiratory Rate 26 H Blood Pressure 156/61 H Pulse Oximetry 94 93 Oxygen Delivery Room Air Oxygen Flow Rate 07/28/23 02:15 07/28/23 02:20 07/28/23 02:00 Temperature Pulse Rate 110 H 107 H 104 H Respiratory Rate 19 13 Blood Pressure Pulse Oximetry Oxygen Delivery Oxygen Flow Rate 07/28/23 02:00 07/28/23 04:00 07/28/23 04:00 Temperature 100.2 F H 100.4 F H Pulse Rate 104 H 109 H 102 H Respiratory Rate 22 H 16 Blood Pressure 149/81 H 135/74 Pulse Oximetry 93 99 Oxygen Delivery Oxygen Flow Rate 07/28/23 04:00 07/28/23 06:00 07/28/23 06:00 Temperature 100.1 F H Pulse Rate 105 H 105 H Respiratory Rate 15 Blood Pressure 134/69 Pulse Oximetry 99 94 Oxygen Delivery Nasal Cannula Oxygen Flow Rate 2 07/28/23 08:29 07/28/23 08:29 07/28/23 08:40 Temperature Pulse Rate 105 H 102 H Respiratory Rate 24 H 20 Blood Pressure Pulse Oximetry 94 Oxygen Delivery Room Air Oxygen Flow Rate 07/28/23 08:00 07/28/23 08:00 07/28/23 08:00 Temperature 99.8 F H Pulse Rate 95 101 H Respiratory Rate 20 Blood Pressure 124/76 Pulse Oximetry 94 93 Oxygen Delivery Room Air Oxygen Flow Rate 07/28/23 10:16 07/28/23 10:00 07/28/23 11:13 Temperature 100.1 F H Pulse Rate 105 H 104 H Respiratory Rate 17 Blood Pressure 131/67 Pulse Oximetry 93 Oxygen Delivery Room Air Oxygen Flow Rate 07/28/23 11:27 07/28/23 12:00 07/28/23 13:28 Temperature Pulse Rate 97 81 Respiratory Rate 24 H Blood Pressure Pulse Oximetry Oxygen Delivery Room Air Oxygen Flow Rate 07/28/23 13:35 Temperature Pulse Rate 86 Respiratory Rate 22 H Blood Pressure Pulse Oximetry Oxygen Delivery Oxygen Flow Rate Intake/Output Intake/Output: Intake & Output 07/25/23 07/26/23 07/27/23 07/28/23 23:59 23:59 23:59 23:59 Intake Total 2436.1 4403.7 4715.5 1760 Output Total 3300 1275 4300 6300 Balance -863.9 3128.7 415.5 -4540 Meds/Results Medications: Active Medications Generic Name Dose Route Start Last Admin Trade Name Freq PRN Reason Stop Dose Admin Acetaminophen 650 mg 07/25/23 22:02 07/27/23 18:21 Acetaminophen Elixir 325 Mg/10.15 Ml Udc PO 650 mg Q4H PRN Administration Mild Pain (1-3) or Fever Albuterol/Ipratropium 3 ml 07/25/23 14:20 07/28/23 13:28 Ipratropium 0.5 Mg/Albuterol Sulfate 2.5 Mg Ampul.Neb 3 Ml INHALATION 3 ml Q6HRT BRENDEN Administration Alprazolam 1 mg 07/27/23 09:00 07/28/23 12:52 Alprazolam (*Crx) 0.5 Mg Tablet PO 1 mg TID BRENDEN Administration Aripiprazole 5 mg 07/26/23 12:00 07/28/23 08:39 Aripiprazole 5 Mg Tablet PO 5 mg DAILY [facility] Administration Aspirin 81 mg 07/26/23 09:00 07/28/23 08:39 Aspirin 81 Mg Enteric Tablet PO 81 mg QAM [facility] Administration Atorvastatin Calcium 80 mg 07/26/23 09:00 07/28/23 08:39 Atorvastatin 40 Mg Tablet PO 80 mg DAILY [facility] Administration Atorvastatin Calcium 20 mg 07/26/23 21:00 07/27/23 20:35 Atorvastatin 20 Mg Tablet PO 20 mg QHS [facility] Administration Dextrose 12.5 gm 07/25/23 10:19 Dextrose 50% 25 Gm/50 Ml Syringe IV PUSH PRN PRN Hypoglycemia Protocol Enoxaparin Sodium 40 mg 07/27/23 09:00 07/28/23 08:39 Enoxaparin 40 Mg/0.4 Ml Syringe SUB-Q 40 mg DAILY [facility] Administration Fenofibrate 160 mg 07/25/23 10:30 07/28/23 08:39 Fenofibrate 160 Mg Tablet PO 160 mg DAILY [facility] Administration Fluoxetine HCl 40 mg 07/26/23 17:00 07/28/23 08:39 Fluoxetine Hcl 20 Mg Capsule PO 40 mg BID BREND[facility] Administration Gabapentin 300 mg 07/27/23 09:00 07/28/23 12:52 Gabapentin 300 Mg Capsule PO 300 mg TID BRENDEN Administration Glucagon 1 mg 07/25/23 10:19 Glucagon For Inj 1 Mg Vial IM PRN PRN Hypoglycemia Protocol Glucose 15 gm 07/25/23 10:19 Glucose Oral Gel 15 Gm Of Glucse In 37.5 Gm Tube PO PRN PRN Hypoglycemia Protocol Guaifenesin/Dextromethorphan 5 ml 07/28/23 08:32 07/28/23 10:49 Guaifenesin/Dextromethorphan 10 Ml Udc PO 5 ml Q4H PRN Administration Cough Doxycycline Hyclate 100 mg in 100 mls @ 100 mls/hr 07/25/23 11:00 07/28/23 09:40 Vibramycin 100 Mg/Ns 100 Ml IVPB Infused Q12HR [facility]ENDEN Infusion Dextrose 1,000 mls @ 100 mls/hr 07/25/23 10:19 Dextrose 5% 1,000 Ml IVPB PRN PRN Hypoglycemia Protocol Metronidazole 500 mg in 100 mls @ 100 mls/hr 07/26/23 10:00 07/28/23 10:51 Flagyl 500 Mg/Iso Soln 100 Ml IVPB Infused Q8H [facility] Infusion Vancomycin HCl 2,000 mg in 500 mls @ 250 mls/hr 07/27/23 00:00 07/28/23 10:51 Vancomycin 2,000 Mg/Ns 500 Ml IVPB Infused Q8H [facility]END[facility] Infusion Cefepime HCl 2 gm in 50 mls @ 100 mls/hr 07/27/23 07:45 07/28/23 12:52 Maxipime 2 Gm/Ns 50 Ml IVPB 100 mls/hr Q8HR BRENDEN Administration Insulin Aspart 4 - 8 units 07/28/23 12:00 07/28/23 12:29 Insulin Aspart (*Bkc) 100 Units/Ml SUB-Q Not Given TIDWM [facility] Protocol Lisinopril 10 mg 07/28/23 09:45 07/28/23 10:49 Lisinopril 10 Mg Tablet PO 10 mg DAILY BRENDEN Administration Pantoprazole Sodium 40 mg 07/26/23 09:00 07/28/23 08:39 Pantoprazole Sodium Iv 40 Mg Vial IV PUSH 40 mg QAM BRENDEN Administration Radiology Results: ITS Impressions Head CT 07/25/23 09:12 Impression: No significant abnormality seen. Cervical Spine CT 07/25/23 09:13 Impression: No fracture or subluxation of the cervical spine. 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 Partially imaged airspace disease the lung apices, nonspecific on this limited evaluation. Chest CTA 07/25/23 10:03 IMPRESSION: 1. No pulmonary embolism. 2. Bilateral patchy groundglass opacities and more dense dependent consolidation in both lungs consistent with pneumonia. Chest X-Ray 07/28/23 06:38 Impression: Central hazy airspace disease bilaterally suggests central pulmonary edema pattern, however pneumonia would be an alternative consideration. Correlate clinically. Labs Labs: Laboratory Results - last 24 hr 07/27/23 07/27/23 07/27/23 17:09 22:57 23:01 WBC RBC Hgb Hct MCV MCH MCHC RDW Plt Count MPV Immature Gran % (Auto) Neut % (Auto) Lymph % (Auto) [place] % (Auto) Eos % (Auto) Baso % (Auto) Lymph # (Auto) [place] # (Auto) Eos # (Auto) Baso # (Auto) Abs Immat Gran (auto) Absolute Neuts (auto) Absolute Nucleated RBC Nucleated RBC % Platelet Estimate Large Platelets Hypochromasia Anisocytosis Schistocytes Sodium Potassium Chloride Carbon Dioxide Anion Gap BUN Creatinine Estim Creat Clear Calc Estimated GFR Glucose POC Capillary Glucose 118 H 129 H Calcium Phosphorus Magnesium Total Bilirubin AST ALT Alkaline Phosphatase Total Protein Albumin Vancomycin Trough 16.4 07/28/23 07/28/23 07/28/23 04:09 05:02 11:48 WBC 15.2 H RBC 3.30 L Hgb 8.8 L Hct 30.1 L MCV 91.2 MCH 26.7 MCHC 29.2 L RDW 16.4 H Plt Count 340 MPV 9.4 Immature Gran % (Auto) 0.4 Neut % (Auto) 79.4 H Lymph % (Auto) 11.5 L [place] % (Auto) 7.2 Eos % (Auto) 1.1 Baso % (Auto) 0.4 Lymph # (Auto) 1.74 [place] # (Auto) 1.1 H Eos # (Auto) 0.2 Baso # (Auto) 0.1 Abs Immat Gran (auto) 0.06 H Absolute Neuts (auto) 12.1 H Absolute Nucleated RBC 0.000 Nucleated RBC % 0.0 Platelet Estimate Adequate Large Platelets Present Hypochromasia 1+ Anisocytosis 1+ Schistocytes None seen Sodium 136 L Potassium 4.0 Chloride 108 H Carbon Dioxide 26 Anion Gap 2 L BUN 4 L Creatinine 0.40 L Estim Creat Clear Calc 168 Estimated GFR > 60 Glucose 135 H POC Capillary Glucose 148 H 161 H Calcium 8.5 Phosphorus 2.9 Magnesium 2.0 Total Bilirubin 0.5 AST 28 ALT 23 Alkaline Phosphatase 111 Total Protein 7.0 Albumin 3.5 Vancomycin Trough 07/28/23 15:59 WBC RBC Hgb Hct MCV MCH MCHC RDW Plt Count MPV Immature Gran % (Auto) Neut % (Auto) Lymph % (Auto) [place] % (Auto) Eos % (Auto) Baso % (Auto) Lymph # (Auto) [place] # (Auto) Eos # (Auto) Baso # (Auto) Abs Immat Gran (auto) Absolute Neuts (auto) Absolute Nucleated RBC Nucleated RBC % Platelet Estimate Large Platelets Hypochromasia Anisocytosis Schistocytes Sodium Potassium Chloride Carbon Dioxide Anion Gap BUN Creatinine Estim Creat Clear Calc Estimated GFR Glucose POC Capillary Glucose 147 H Calcium Phosphorus Magnesium Total Bilirubin AST ALT Alkaline Phosphatase Total Protein Albumin Vancomycin Trough
[2023-07-28] MEDS: ATORVASTATIN 20 MG TABLET PO (19:57)
[2023-07-28] MEDS: ACETAMINOPHEN ELIXIR 325 MG/10.15 ML UDC 650 MG PO (19:57)
[2023-07-28 20:32] LABS: Glucose Point of Care 151 mg/dl (65-105)
--- NOTE | 2023-07-28 23:09 | PC.NURSE ---
This patient, Xiomara Olson, was transferred to [facility] on 07/28/23 at 2255. Personal belongings sent with patient. Appropriate documentation sent with patient.
[2023-07-28] MEDS: SODIUM CHLORIDE 0.9% IV 250 ML 10 ML (23:50)
[2023-07-29] VITALS (14 sets, daily range): BP systolic 98–125; BP diastolic 44–67; PULSE 83–116; RESP 17–20; TEMP 36.5–36.6; O2SAT 92–96
[2023-07-29] MEDS: guaiFENesin/DEXTROMETHORPHAN 10 ML UDC 5 ML PO ×3 (01:36→20:26)
[2023-07-29] MEDS: IPRATROPIUM 0.5 MG/ALBUTEROL SULFATE 2.5 MG AMPUL.NEB 3 ML INHALATION ×4 (03:17→19:42)
[2023-07-29] MEDS: metroNIDAZOLE 500 MG/ISO 100ML 500 MG/100 ML BAG 100 MG IVPB ×2 (05:49→12:30)
[2023-07-29 06:43] LABS: Basophils Percent Auto 0.3 % (0.2-1.2); Eosinophils Absolute Auto 0.3 K/mm3 (0-0.3); Eosinophils Percent Auto 2.7 % (0-4.4); Hematocrit 31.4 % (37.0-47.0); Hemoglobin 9.7 g/dL (12.0-15.0); Immature Granulocyte Absolute 0.04 K/mm3 (0.00-0.031); Immature Granulocyte Percent A 0.3 % (0-0.5); Lymphocytes Absolute Auto 1.96 K/mm3 (0.9-3.2); Lymphocytes Percent Auto 16.6 % (18.3-44.2); Mean Corpuscular HGB Conc 30.9 g/dl (32-36); Mean Corpuscular Hemoglobin 26.7 pg (26-34); Mean Corpuscular Volume 86.5 fl (80-100); Mean Platelet Volume 9.6 fl (7.4-10.4); Monocytes Absolute Auto 1.1 K/mm3 (0.1-0.6); Monocytes Percent Auto 9.6 % (2.6-8.5); Neutrophils Absolute Auto 8.3 K/mm3 (1.3-6.7); Neutrophils Percent Auto 70.5 % (45.5-73.1); Platelet Count Result 387 k/mm3 (150-375); Red Blood Count 3.63 M/mm3 (4.2-5.4); Red Cell Distribution Width 16.1 % (11.5-14.5); White Blood Count 11.8 K/mm3 (4.5-10.0)
[2023-07-29 06:55] LABS: Alanine Aminotransferase 21 U/L (6-35); Alkaline Phosphatase 113 U/L (38-126); Anion Gap 5 mmol/L (4-12); Aspartate Amino Transferase 23 U/L (14-36); Bilirubin,Total 0.6 mg/dL (0.2-1.3); Blood Urea Nitrogen 8 mg/dL (7-17); Calcium 8.9 mg/dL (8.4-10.2); Carbon Dioxide 26 mmol/L (22-30); Chloride 105 mmol/L (98-107); Estimated CRCL calculation 119 ml/min; Estimated Glomerular Filt Rate > 60; Glucose 162 mg/dL (65-110); Magnesium 2.1 mg/dL (1.6-2.3); Phosphorus 3.2 mg/dL (2.5-4.5); Potassium 3.6 mmol/L (3.4-5.0); Sodium 136 mmol/L (137-145); Triglycerides 193 mg/dL (<150)
[2023-07-29] MEDS: CEFEPIME 2 GM/NS 50 ML 2 GM/50 ML BAG IVPB (07:20)
[2023-07-29 07:37] LABS: Glucose Point of Care 150 mg/dl (65-105)
[2023-07-29] MEDS: VANCOMYCIN 2,000 MG/NS 500 ML 2,000 MG/500 ML BAG 250 MG IVPB (08:30)
[2023-07-29] MEDS: ALPRAZolam (*CRX) 0.5 MG TABLET 1 MG PO ×3 (08:32→16:32)
[2023-07-29] MEDS: ARIPiprazole 5 MG TABLET PO (08:32)
[2023-07-29] MEDS: GABAPENTIN 300 MG CAPSULE PO ×3 (08:32→16:32)
[2023-07-29] MEDS: FENOFIBRATE 160 MG TABLET PO (08:33)
[2023-07-29] MEDS: ASPIRIN 81 MG ENTERIC TABLET PO (08:33)
[2023-07-29] MEDS: FLUoxetine HCL 20 MG CAPSULE 40 MG PO ×2 (08:33→16:32)
[2023-07-29] MEDS: ATORVASTATIN 40 MG TABLET 80 MG PO (08:33)
[2023-07-29] MEDS: lisinopriL 10 MG TABLET PO (08:33)
[2023-07-29] MEDS: DOXYCYCLINE 100 MG/NS 100 ML 100 MG/100 ML BAG IVPB (08:33)
[2023-07-29] MEDS: PANTOPRAZOLE SODIUM IV 40 MG VIAL IV PUSH (08:34)
[2023-07-29] MEDS: ENOXAPARIN 40 MG/0.4 ML SYRINGE SUB-Q (08:34)
[2023-07-29 11:30] LABS: Glucose Point of Care 168 mg/dl (65-105)
[2023-07-29] MEDS: CEFDINIR 300 MG CAPSULE PO ×2 (13:37→20:27)
[2023-07-29] MEDS: ACETAMINOPHEN ELIXIR 325 MG/10.15 ML UDC 650 MG PO ×2 (14:36→22:00)
--- NOTE | 2023-07-29 14:47 | PM.IMPN ---
Progress Note: A&P Assessment and Plan (1) Acute respiratory failure with hypercapnia: Code(s): J96.02 - Acute respiratory failure with hypercapnia Status: Acute (2) Pneumonia: Qualifiers: Pneumonia type: due to unspecified organism Laterality: bilateral Lung location: unspecified part of lung Qualified Code(s): J18.9 - Pneumonia, unspecified organism Code(s): J18.9 - Pneumonia, unspecified organism Status: Acute (3) Altered mental status: Qualifiers: Altered mental status type: unspecified Qualified Code(s): R41.82 - Altered mental status, unspecified Code(s): R41.82 - Altered mental status, unspecified Status: Acute (4) Elevated troponin: Code(s): R79.89 - Other specified abnormal findings of blood chemistry Status: Acute (5) Anxiety: Code(s): F41.9 - Anxiety disorder, unspecified Status: Acute (6) GERD (gastroesophageal reflux disease): Qualifiers: Esophagitis presence: esophagitis presence not specified Qualified Code(s): K21.9 - Gastro-esophageal reflux disease without esophagitis Code(s): K21.9 - Gastro-esophageal reflux disease without esophagitis Status: Acute (7) Hypertension: Qualifiers: Hypertension type: primary hypertension Qualified Code(s): I10 - Essential (primary) hypertension Code(s): I10 - Essential (primary) hypertension Status: Acute (8) Non compliance with medical treatment: Code(s): Z91.199 - Patient's noncompliance with other medical treatment and regimen due to unspecified reason Status: Acute (9) Tobacco abuse: Code(s): Z72.0 - Tobacco use Status: Acute (10) Hyperglycemia: Code(s): R73.9 - Hyperglycemia, unspecified Status: Acute Plan This is a 40-year-old female presents to the ER with altered mental status. Patient was last seen well at 1:00 a.m. and earlier this morning patient was found to be lying on the bed unresponsive. Patient has history of diabetes. She has not been feeling well for the past few days. EMS was called and was intubated in route. Upon arrival to the ER patient was noted to have mild tachycardia blood pressure adequate. Oxygen saturation was adequate. Suspected accidental or intentional overdose however patient denies so. Laboratory evaluation showed WBC of 11.9 hemoglobin of 11 no metabolic abnormality noted hyperglycemia 419. Lactate was mildly elevated at 3.6. Troponin was mildly elevated at 0.047 UDS positive for benzodiazepines otherwise negative. Alcohol was less than 10 acetaminophen less than 10 salicylate less than 1 influenza RSV COVID was negative. UA was negative. ABG with 7.18/61/249/23. Chest x-ray negative. CT brain was negative. CT cervical spine negative for any fracture. CT chest was done which showed bilateral ground are patchy ground-glass opacities and more dense dependent consultation both lungs consistent with pneumonia. Started with IV antibiotics for treatment for pneumonia panculture . Continue current antibiotics. patient is still has intermittent fever which has improved over the past 24 hours. Nasal MRSA is positive. Sputum cultures also positive with staphylococci aureus. Await identification and sensitivity. Will taper down antibiotics with discontinuation of Flagyl and cefepime along with vancomycin and switched to doxycycline and cefdinir. Possible drug overdose does take Xanax at home. patient denies medication overdose Hypoxic respiratory failure ventilator. Vent management per ICU team Status post extubation on 07/27/2023. Currently on room air Mild troponin elevation with subsequent elevation cardiology consulted med management likely demand ischemia Type 2 diabetes Anxiety disorder GERD Hypertension DVT prophylaxis Lovenox Code status full code Subjective Date/time seen: 07/29/23 14:47 Interval history: no overnight events, patient is doing better, still cough. no sob. Review of Systems Review of Systems: All systems reviewed & are unremarkable except as noted in HPI and below Exam Narrative: General: Pleasant female, talking, in no acute distress HEENT:? Pupils equal and reactive sclera is clear Neck:? Supple Respiratory:? Coarse breath sounds bilaterally, adequate air entry, no wheezing Cardiac:? S1-S2 is normal, regular rate and rhythm Abdomen:? Soft, nontender, nondistended, obese, hypoactive bowel sounds Extremities:? Trace edema, palpable pedal pulses Neuro:? awake, alert, answers to questions appropriately and follows simple commands in all extremities Skin:? Warm and dry Psych:? Flat affect normal mentation Objective Data Vital Signs Vital Signs: Vital Signs - 24 hr 07/28/23 16:00 07/28/23 16:00 07/28/23 20:00 Temperature 99.1 F Pulse Rate 90 88 91 Respiratory Rate 28 H Blood Pressure 107/57 L Pulse Oximetry Oxygen Delivery 07/28/23 20:00 07/28/23 21:00 07/28/23 21:10 Temperature Pulse Rate 93 96 Respiratory Rate 22 H 17 Blood Pressure Pulse Oximetry 95 Oxygen Delivery Room Air 07/28/23 23:04 07/29/23 03:18 07/29/23 05:27 Temperature 97.1 F L 97.8 F Pulse Rate 80 92 89 Respiratory Rate 17 20 17 Blood Pressure 99/51 L 125/67 Pulse Oximetry 91 93 Oxygen Delivery 07/29/23 07:47 07/29/23 07:47 07/29/23 07:59 Temperature Pulse Rate 94 95 Respiratory Rate 20 20 Blood Pressure Pulse Oximetry 92 Oxygen Delivery Room Air 07/29/23 08:00 07/29/23 08:00 07/29/23 10:44 Temperature Pulse Rate 91 Respiratory Rate Blood Pressure Pulse Oximetry 92 Oxygen Delivery Room Air Room Air 07/29/23 12:00 Temperature Pulse Rate 83 Respiratory Rate Blood Pressure Pulse Oximetry Oxygen Delivery Intake/Output Intake/Output: Intake & Output 07/26/23 07/27/23 07/28/23 07/29/23 23:59 23:59 23:59 23:59 Intake Total 4403.7 4715.5 3612.5 1794 Output Total 1275 4300 6800 Balance 3128.7 415.5 -3187.5 1794 Meds/Results Medications: Active Medications Generic Name Dose Route Start Last Admin Trade Name Freq PRN Reason Stop Dose Admin Acetaminophen 650 mg 07/25/23 22:02 07/29/23 14:36 Acetaminophen Elixir 325 Mg/10.15 Ml Udc PO 650 mg Q4H PRN Administration Mild Pain (1-3) or Fever Albuterol/Ipratropium 3 ml 07/25/23 14:20 07/29/23 07:47 Ipratropium 0.5 Mg/Albuterol Sulfate 2.5 Mg Ampul.Neb 3 Ml INHALATION 3 ml Q6HRT BRENDEN Administration Alprazolam 1 mg 07/27/23 09:00 07/29/23 12:31 Alprazolam (*Crx) 0.5 Mg Tablet PO 1 mg TID BRENDEN Administration Aripiprazole 5 mg 07/26/23 12:00 07/29/23 08:32 Aripiprazole 5 Mg Tablet PO 5 mg DAILY BRENDEN Administration Aspirin 81 mg 07/26/23 09:00 07/29/23 08:33 Aspirin 81 Mg Enteric Tablet PO 81 mg QAM BRENDEN Administration Atorvastatin Calcium 80 mg 07/26/23 09:00 07/29/23 08:33 Atorvastatin 40 Mg Tablet PO 80 mg DAILY BRENDEN Administration Atorvastatin Calcium 20 mg 07/26/23 21:00 07/28/23 19:57 Atorvastatin 20 Mg Tablet PO 20 mg QHS BRENDEN Administration Cefdinir 300 mg 07/29/23 14:00 07/29/23 13:37 Cefdinir 300 Mg Capsule PO 300 mg Q12HR BRENDEN Administration Dextrose 12.5 gm 07/25/23 10:19 Dextrose 50% 25 Gm/50 Ml Syringe IV PUSH PRN PRN Hypoglycemia Protocol Doxycycline Hyclate 100 mg 07/29/23 21:00 Doxycycline Hyclate 100 Mg Tablet PO Q12HR BRENDEN Enoxaparin Sodium 40 mg 07/27/23 09:00 07/29/23 08:34 Enoxaparin 40 Mg/0.4 Ml Syringe SUB-Q 40 mg DAILY BRENDEN Administration Fenofibrate 160 mg 07/25/23 10:30 07/29/23 08:33 Fenofibrate 160 Mg Tablet PO 160 mg DAILY BRENDEN Administration Fluoxetine HCl 40 mg 07/26/23 17:00 07/29/23 08:33 Fluoxetine Hcl 20 Mg Capsule PO 40 mg BID BRENDEN Administration Gabapentin 300 mg 07/27/23 09:00 07/29/23 12:31 Gabapentin 300 Mg Capsule PO 300 mg TID BRENDEN Administration Glucagon 1 mg 07/25/23 10:19 Glucagon For Inj 1 Mg Vial IM PRN PRN Hypoglycemia Protocol Glucose 15 gm 07/25/23 10:19 Glucose Oral Gel 15 Gm Of Glucse In 37.5 Gm Tube PO PRN PRN Hypoglycemia Protocol Guaifenesin/Dextromethorphan 5 ml 07/28/23 08:32 07/29/23 13:06 Guaifenesin/Dextromethorphan 10 Ml Udc PO 5 ml Q4H PRN Administration Cough Dextrose 1,000 mls @ 100 mls/hr 07/25/23 10:19 Dextrose 5% 1,000 Ml IVPB PRN PRN Hypoglycemia Protocol Insulin Aspart 4 - 8 units 07/28/23 12:00 07/29/23 12:03 Insulin Aspart (*Bkc) 100 Units/Ml SUB-Q Not Given TIDWM BREND[facility] Protocol Lisinopril 10 mg 07/28/23 09:45 07/29/23 08:33 Lisinopril 10 Mg Tablet PO 10 mg DAILY [facility] Administration Pantoprazole Sodium 40 mg 07/26/23 09:00 07/29/23 08:34 Pantoprazole Sodium Iv 40 Mg Vial IV PUSH 40 mg QAM BRENDEN Administration Radiology Results: ITS Impressions Head CT 07/25/23 09:12 Impression: No significant abnormality seen. Cervical Spine CT 07/25/23 09:13 Impression: No fracture or subluxation of the cervical spine. 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 Partially imaged airspace disease the lung apices, nonspecific on this limited evaluation. Chest CTA 07/25/23 10:03 IMPRESSION: 1. No pulmonary embolism. 2. Bilateral patchy groundglass opacities and more dense dependent consolidation in both lungs consistent with pneumonia. Chest X-Ray 07/29/23 06:05 Impression: Possible minimal residual pulmonary edema. Labs Labs: Laboratory Results - last 24 hr 07/28/23 07/28/23 07/29/23 15:59 20:29 06:02 WBC 11.8 H RBC 3.63 L Hgb 9.7 L Hct 31.4 L MCV 86.5 D MCH 26.7 MCHC 30.9 L RDW 16.1 H Plt Count 387 H MPV 9.6 Immature Gran % (Auto) 0.3 Neut % (Auto) 70.5 Lymph % (Auto) 16.6 L [place] % (Auto) 9.6 H Eos % (Auto) 2.7 Baso % (Auto) 0.3 Lymph # (Auto) 1.96 [place] # (Auto) 1.1 H Eos # (Auto) 0.3 Baso # (Auto) 0.0 Abs Immat Gran (auto) 0.04 H Absolute Neuts (auto) 8.3 H Absolute Nucleated RBC 0.000 Nucleated RBC % 0.0 Sodium 136 L Potassium 3.6 Chloride 105 Carbon Dioxide 26 Anion Gap 5 BUN 8 Creatinine 0.50 L Estim Creat Clear Calc 119 Estimated GFR > 60 Glucose 162 H POC Capillary Glucose 147 H 151 H Calcium 8.9 Phosphorus 3.2 Magnesium 2.1 Total Bilirubin 0.6 AST 23 ALT 21 Alkaline Phosphatase 113 Total Protein 7.0 Albumin 4.0 Triglycerides 193 H 05/21/24 05/21/24 07:14 11:18 WBC RBC Hgb Hct MCV MCH MCHC RDW Plt Count MPV Immature Gran % (Auto) Neut % (Auto) Lymph % (Auto) [place] % (Auto) Eos % (Auto) Baso % (Auto) Lymph # (Auto) [place] # (Auto) Eos # (Auto) Baso # (Auto) Abs Immat Gran (auto) Absolute Neuts (auto) Absolute Nucleated RBC Nucleated RBC % Sodium Potassium Chloride Carbon Dioxide Anion Gap BUN Creatinine Estim Creat Clear Calc Estimated GFR Glucose POC Capillary Glucose 150 H 168 H Calcium Phosphorus Magnesium Total Bilirubin AST ALT Alkaline Phosphatase Total Protein Albumin Triglycerides
[2023-07-29] MEDS: FUROSEMIDE INJ 40 MG/4 ML VIAL 20 MG IV PUSH (15:09)
[2023-07-29 16:34] LABS: Glucose Point of Care 157 mg/dl (65-105)
[2023-07-29] MEDS: DOXYCYCLINE HYCLATE 100 MG TABLET PO (20:27)
[2023-07-29] MEDS: ATORVASTATIN 20 MG TABLET PO (20:27)
[2023-07-29 22:05] LABS: Glucose Point of Care 162 mg/dl (65-105)
[2023-07-30] VITALS (13 sets, daily range): BP systolic 113–132; BP diastolic 57–80; PULSE 77–89; RESP 18–22; TEMP 36.2–36.4; O2SAT 94–100
[2023-07-30] MEDS: IPRATROPIUM 0.5 MG/ALBUTEROL SULFATE 2.5 MG AMPUL.NEB 3 ML INHALATION ×2 (01:02→20:10)
[2023-07-30 06:06] LABS: Basophils Percent Auto 0.5 % (0.2-1.2); Eosinophils Absolute Auto 0.4 K/mm3 (0-0.3); Eosinophils Percent Auto 4.2 % (0-4.4); Hematocrit 31.7 % (37.0-47.0); Hemoglobin 9.7 g/dL (12.0-15.0); Immature Granulocyte Absolute 0.03 K/mm3 (0.00-0.031); Immature Granulocyte Percent A 0.4 % (0-0.5); Lymphocytes Absolute Auto 2.57 K/mm3 (0.9-3.2); Lymphocytes Percent Auto 30.1 % (18.3-44.2); Mean Corpuscular HGB Conc 30.6 g/dl (32-36); Mean Corpuscular Hemoglobin 26.1 pg (26-34); Mean Corpuscular Volume 85.4 fl (80-100); Mean Platelet Volume 9.3 fl (7.4-10.4); Monocytes Absolute Auto 0.9 K/mm3 (0.1-0.6); Monocytes Percent Auto 10.5 % (2.6-8.5); Neutrophils Absolute Auto 4.6 K/mm3 (1.3-6.7); Neutrophils Percent Auto 54.3 % (45.5-73.1); Platelet Count Result 450 k/mm3 (150-375); Red Blood Count 3.71 M/mm3 (4.2-5.4); Red Cell Distribution Width 15.9 % (11.5-14.5); White Blood Count 8.5 K/mm3 (4.5-10.0)
[2023-07-30 06:16] LABS: Alanine Aminotransferase 19 U/L (6-35); Alkaline Phosphatase 99 U/L (38-126); Anion Gap 5 mmol/L (4-12); Aspartate Amino Transferase 20 U/L (14-36); Bilirubin,Total 0.6 mg/dL (0.2-1.3); Blood Urea Nitrogen 9 mg/dL (7-17); Calcium 9.3 mg/dL (8.4-10.2); Carbon Dioxide 28 mmol/L (22-30); Chloride 106 mmol/L (98-107); Estimated CRCL calculation 119 ml/min; Estimated Glomerular Filt Rate > 60; Glucose 136 mg/dL (65-110); Phosphorus 3.8 mg/dL (2.5-4.5); Potassium 3.9 mmol/L (3.4-5.0); Sodium 139 mmol/L (137-145)
[2023-07-30] MEDS: ACETAMINOPHEN ELIXIR 325 MG/10.15 ML UDC 650 MG PO ×2 (07:08→21:53)
[2023-07-30 07:52] LABS: Glucose Point of Care 183 mg/dl (65-105)
[2023-07-30] MEDS: ARIPiprazole 5 MG TABLET PO (08:07)
[2023-07-30] MEDS: GABAPENTIN 300 MG CAPSULE PO ×3 (08:07→16:37)
[2023-07-30] MEDS: FLUoxetine HCL 20 MG CAPSULE 40 MG PO ×2 (08:07→16:37)
[2023-07-30] MEDS: FENOFIBRATE 160 MG TABLET PO (08:07)
[2023-07-30] MEDS: ASPIRIN 81 MG ENTERIC TABLET PO (08:07)
[2023-07-30] MEDS: ATORVASTATIN 40 MG TABLET 80 MG PO (08:07)
[2023-07-30] MEDS: CEFDINIR 300 MG CAPSULE PO ×2 (08:07→20:17)
[2023-07-30] MEDS: ALPRAZolam (*CRX) 0.5 MG TABLET 1 MG PO ×3 (08:07→16:37)
[2023-07-30] MEDS: lisinopriL 10 MG TABLET PO (08:07)
[2023-07-30] MEDS: DOXYCYCLINE HYCLATE 100 MG TABLET PO ×2 (08:07→20:17)
[2023-07-30] MEDS: ENOXAPARIN 40 MG/0.4 ML SYRINGE SUB-Q (08:08)
[2023-07-30] MEDS: PANTOPRAZOLE SODIUM IV 40 MG VIAL IV PUSH (08:08)
[2023-07-30 11:23] LABS: Glucose Point of Care 137 mg/dl (65-105)
[2023-07-30] MEDS: guaiFENesin/DEXTROMETHORPHAN 10 ML UDC 5 ML PO ×2 (11:32→20:20)
[2023-07-30 16:36] LABS: Glucose Point of Care 174 mg/dl (65-105)
[2023-07-30] MEDS: guaiFENesin/DEXTROMETHORPHAN 10 ML UDC PO (16:38)
--- NOTE | 2023-07-30 16:38 | PM.IMPN ---
Progress Note: A&P Assessment and Plan (1) Acute respiratory failure with hypercapnia: Code(s): J96.02 - Acute respiratory failure with hypercapnia Status: Acute (2) Pneumonia: Qualifiers: Pneumonia type: due to unspecified organism Laterality: bilateral Lung location: unspecified part of lung Qualified Code(s): J18.9 - Pneumonia, unspecified organism Code(s): J18.9 - Pneumonia, unspecified organism Status: Acute (3) Altered mental status: Qualifiers: Altered mental status type: unspecified Qualified Code(s): R41.82 - Altered mental status, unspecified Code(s): R41.82 - Altered mental status, unspecified Status: Acute (4) Elevated troponin: Code(s): R79.89 - Other specified abnormal findings of blood chemistry Status: Acute (5) Anxiety: Code(s): F41.9 - Anxiety disorder, unspecified Status: Acute (6) GERD (gastroesophageal reflux disease): Qualifiers: Esophagitis presence: esophagitis presence not specified Qualified Code(s): K21.9 - Gastro-esophageal reflux disease without esophagitis Code(s): K21.9 - Gastro-esophageal reflux disease without esophagitis Status: Acute (7) Hypertension: Qualifiers: Hypertension type: primary hypertension Qualified Code(s): I10 - Essential (primary) hypertension Code(s): I10 - Essential (primary) hypertension Status: Acute (8) Non compliance with medical treatment: Code(s): Z91.199 - Patient's noncompliance with other medical treatment and regimen due to unspecified reason Status: Acute (9) Tobacco abuse: Code(s): Z72.0 - Tobacco use Status: Acute (10) Hyperglycemia: Code(s): R73.9 - Hyperglycemia, unspecified Status: Acute Plan This is a 40-year-old female presents to the ER with altered mental status. Patient was last seen well at 1:00 a.m. and earlier this morning patient was found to be lying on the bed unresponsive. Patient has history of diabetes. She has not been feeling well for the past few days. EMS was called and was intubated in route. Upon arrival to the ER patient was noted to have mild tachycardia blood pressure adequate. Oxygen saturation was adequate. Suspected accidental or intentional overdose however patient denies so. Investigations performed WBC of 11.9 hemoglobin of 11 no metabolic abnormality noted hyperglycemia 419. Lactate was mildly elevated at 3.6. Troponin was mildly elevated at 0.047 UDS positive for benzodiazepines otherwise negative. Alcohol was less than 10 Acetaminophen less than 10 salicylate less than 1 Influenza RSV COVID was negative. UA was negative. ABG with 7.18/61/249/23. Chest x-ray negative. CT brain was negative. CT cervical spine negative for any fracture. CT chest was done which showed bilateral ground are patchy ground-glass opacities and more dense dependent consultation both lungs consistent with pneumonia. Treatment rendered Started with IV antibiotics for treatment for pneumonia panculture . Nasal MRSA is positive. Sputum cultures also positive with staphylococci aureus. Await identification and sensitivity. Will taper down antibiotics with discontinuation of Flagyl and cefepime along with vancomycin and switched to doxycycline and cefdinir. Possible drug overdose does take Xanax at home. patient denies medication overdose Hypoxic respiratory failure ventilator. Vent management per ICU team Status post extubation on 07/27/2023. Currently on room air NSTEMi; Mild troponin elevation with subsequent elevation cardiology consulted med management likely demand ischemia Rx: On Omnicef, Doxycycline, Supplemental oxygen Type 2 diabetes Anxiety disorder GERD Hypertension DVT prophylaxis Lovenox Code status full code Time Spent With Patient Time with patient: 25 - 35 minutes Subjective Date/time seen: 07/30/23 16:38 Interval history: no overnight events, patient is doing better, still cough. no sob. 07/30/23: Seen and examined; flat affect with poor drive; not in painful/respiratory distress Review of Systems Review of Systems: All systems reviewed & are unremarkable except as noted in HPI and below ROS unobtainable: Yes unobtainable due to endotracheal tube, unobtainable due to medical condition and unobtainable due to mental status Exam Narrative: General: Pleasant female, talking, in no acute distress HEENT:? Pupils equal and reactive sclera is clear Neck:? Supple Respiratory:? Coarse breath sounds bilaterally, adequate air entry, no wheezing Cardiac:? S1-S2 is normal, regular rate and rhythm Abdomen:? Soft, nontender, nondistended, obese, hypoactive bowel sounds Extremities:? Trace edema, palpable pedal pulses Neuro:? awake, alert, answers to questions appropriately and follows simple commands in all extremities Skin:? Warm and dry Psych:? Flat affect normal mentation Const: General: no acute distress Objective Data Vital Signs Vital Signs: Vital Signs - 24 hr 07/29/23 19:42 07/29/23 20:55 07/29/23 20:01 Temperature 97.8 F Pulse Rate 91 88 93 Respiratory Rate 20 18 20 Blood Pressure 109/44 L Pulse Oximetry 96 Oxygen Delivery 07/30/23 01:03 07/30/23 01:11 07/29/23 20:00 Temperature Pulse Rate 85 88 96 Respiratory Rate 18 18 Blood Pressure Pulse Oximetry Oxygen Delivery 07/30/23 00:00 07/30/23 05:20 07/30/23 04:00 Temperature 97.5 F L Pulse Rate 88 88 85 Respiratory Rate 22 H Blood Pressure 113/57 L Pulse Oximetry 94 Oxygen Delivery 07/30/23 08:00 07/30/23 08:00 07/30/23 13:32 Temperature Pulse Rate 87 87 Respiratory Rate 20 22 H Blood Pressure Pulse Oximetry 94 Oxygen Delivery Room Air Room Air 07/30/23 15:52 Temperature 97.6 F Pulse Rate 89 Respiratory Rate 21 H Blood Pressure 117/60 Pulse Oximetry 98 Oxygen Delivery Intake/Output Intake/Output: Intake & Output 07/27/23 07/28/23 07/29/23 07/30/23 23:59 23:59 23:59 23:59 Intake Total 4715.5 3612.5 4 672 Output Total 4300 6800 Balance 415.5 -3187.5 4 672 Meds/Results Medications: Active Medications Generic Name Dose Route Start Last Admin Trade Name Freq PRN Reason Stop Dose Admin Acetaminophen 650 mg 07/25/23 22:02 07/30/23 07:08 Acetaminophen Elixir 325 Mg/10.15 Ml Udc PO 650 mg Q4H PRN Administration Mild Pain (1-3) or Fever Albuterol 2.5 mg 07/30/23 09:03 Albuterol Sulfate Neb 2.5 Mg/3 Ml Inh INHALATION Q4HRT PRN Shortness Of Breath Albuterol/Ipratropium 3 ml 07/25/23 14:20 07/30/23 08:17 Ipratropium 0.5 Mg/Albuterol Sulfate 2.5 Mg Ampul.Neb 3 Ml INHALATION Not Given Q6HRT BRENDEN Alprazolam 1 mg 07/27/23 09:00 07/30/23 12:05 Alprazolam (*Crx) 0.5 Mg Tablet PO 1 mg TID BRENDEN Administration Aripiprazole 5 mg 07/26/23 12:00 07/30/23 08:07 Aripiprazole 5 Mg Tablet PO 5 mg DAILY BRENDEN Administration Aspirin 81 mg 07/26/23 09:00 07/30/23 08:07 Aspirin 81 Mg Enteric Tablet PO 81 mg QAM BRENDEN Administration Atorvastatin Calcium 80 mg 07/26/23 09:00 07/30/23 08:07 Atorvastatin 40 Mg Tablet PO 80 mg DAILY BRENDEN Administration Atorvastatin Calcium 20 mg 07/26/23 21:00 07/29/23 20:27 Atorvastatin 20 Mg Tablet PO 20 mg QHS BRENDEN Administration Cefdinir 300 mg 07/29/23 14:00 07/30/23 08:07 Cefdinir 300 Mg Capsule PO 300 mg Q12HR BRENDEN Administration Dextrose 12.5 gm 07/25/23 10:19 Dextrose 50% 25 Gm/50 Ml Syringe IV PUSH PRN PRN Hypoglycemia Protocol Doxycycline Hyclate 100 mg 07/29/23 21:00 07/30/23 08:07 Doxycycline Hyclate 100 Mg Tablet PO 100 mg Q12HR BRENDEN Administration Enoxaparin Sodium 40 mg 07/27/23 09:00 07/30/23 08:08 Enoxaparin 40 Mg/0.4 Ml Syringe SUB-Q 40 mg DAILY BRENDEN Administration Fenofibrate 160 mg 07/25/23 10:30 07/30/23 08:07 Fenofibrate 160 Mg Tablet PO 160 mg DAILY BRENDEN Administration Fluoxetine HCl 40 mg 07/26/23 17:00 07/30/23 08:07 Fluoxetine Hcl 20 Mg Capsule PO 40 mg BID BRENDEN Administration Gabapentin 300 mg 07/27/23 09:00 07/30/23 12:05 Gabapentin 300 Mg Capsule PO 300 mg TID BRENDEN Administration Glucagon 1 mg 07/25/23 10:19 Glucagon For Inj 1 Mg Vial IM PRN PRN Hypoglycemia Protocol Glucose 15 gm 07/25/23 10:19 Glucose Oral Gel 15 Gm Of Glucse In 37.5 Gm Tube PO PRN PRN Hypoglycemia Protocol Guaifenesin/Dextromethorphan 5 ml 07/28/23 08:32 07/30/23 11:32 Guaifenesin/Dextromethorphan 10 Ml Udc PO 5 ml Q4H PRN Administration Cough Guaifenesin/Dextromethorphan 10 ml 07/30/23 18:00 Guaifenesin/Dextromethorphan 10 Ml Udc PO Q6HR [facility] Dextrose 1,000 mls @ 100 mls/hr 07/25/23 10:19 Dextrose 5% 1,000 Ml IVPB PRN PRN Hypoglycemia Protocol Insulin Aspart 4 - 8 units 07/28/23 12:00 07/30/23 12:06 Insulin Aspart (*Bkc) 100 Units/Ml SUB-Q Not Given TIDWM [facility] Protocol Lisinopril 10 mg 07/28/23 09:45 07/30/23 08:07 Lisinopril 10 Mg Tablet PO 10 mg DAILY BRENDEN Administration Pantoprazole Sodium 40 mg 07/26/23 09:00 07/30/23 08:08 Pantoprazole Sodium Iv 40 Mg Vial IV PUSH 40 mg QAM BRENDEN Administration Radiology Results: ITS Impressions Head CT 07/25/23 09:12 Impression: No significant abnormality seen. Cervical Spine CT 07/25/23 09:13 Impression: No fracture or subluxation of the cervical spine. 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 Partially imaged airspace disease the lung apices, nonspecific on this limited evaluation. Chest CTA 07/25/23 10:03 IMPRESSION: 1. No pulmonary embolism. 2. Bilateral patchy groundglass opacities and more dense dependent consolidation in both lungs consistent with pneumonia. Chest X-Ray 07/30/23 05:53 Impression: Clear lungs. Labs Labs: Laboratory Results - last 24 hr 07/29/23 07/30/23 07/30/23 20:57 05:31 07:49 WBC 8.5 RBC 3.71 L Hgb 9.7 L Hct 31.7 L MCV 85.4 MCH 26.1 MCHC 30.6 L RDW 15.9 H Plt Count 450 H MPV 9.3 Immature Gran % (Auto) 0.4 Neut % (Auto) 54.3 Lymph % (Auto) 30.1 [place] % (Auto) 10.5 H Eos % (Auto) 4.2 Baso % (Auto) 0.5 Lymph # (Auto) 2.57 [place] # (Auto) 0.9 H Eos # (Auto) 0.4 H Baso # (Auto) 0.0 Abs Immat Gran (auto) 0.03 Absolute Neuts (auto) 4.6 Absolute Nucleated RBC 0.000 Nucleated RBC % 0.0 Sodium 139 Potassium 3.9 Chloride 106 Carbon Dioxide 28 Anion Gap 5 BUN 9 Creatinine 0.50 L Estim Creat Clear Calc 119 Estimated GFR > 60 Glucose 136 H POC Capillary Glucose 162 H 183 H Calcium 9.3 Phosphorus 3.8 Magnesium 2.0 Total Bilirubin 0.6 AST 20 ALT 19 Alkaline Phosphatase 99 Total Protein 7.0 Albumin 4.0 07/30/23 07/30/23 11:17 16:33 WBC RBC Hgb Hct MCV MCH MCHC RDW Plt Count MPV Immature Gran % (Auto) Neut % (Auto) Lymph % (Auto) [place] % (Auto) Eos % (Auto) Baso % (Auto) Lymph # (Auto) [place] # (Auto) Eos # (Auto) Baso # (Auto) Abs Immat Gran (auto) Absolute Neuts (auto) Absolute Nucleated RBC Nucleated RBC % Sodium Potassium Chloride Carbon Dioxide Anion Gap BUN Creatinine Estim Creat Clear Calc Estimated GFR Glucose POC Capillary Glucose 137 H 174 H Calcium Phosphorus Magnesium Total Bilirubin AST ALT Alkaline Phosphatase Total Protein Albumin
[2023-07-30] MEDS: ATORVASTATIN 20 MG TABLET PO (20:17)
[2023-07-30 20:20] LABS: Glucose Point of Care 177 mg/dl (65-105)
[2023-07-31] VITALS: PULSE 74
[2023-07-31] MEDS: guaiFENesin/DEXTROMETHORPHAN 10 ML UDC PO ×3 (00:38→12:01)
[2023-07-31 03:10] VITALS: PULSE 79; RESP 19
[2023-07-31] MEDS: IPRATROPIUM 0.5 MG/ALBUTEROL SULFATE 2.5 MG AMPUL.NEB 3 ML INHALATION ×2 (03:10→07:30)
[2023-07-31 04:00] VITALS: PULSE 81
[2023-07-31] MEDS: ACETAMINOPHEN ELIXIR 325 MG/10.15 ML UDC 650 MG PO ×2 (04:31→08:11)
[2023-07-31] MEDS: guaiFENesin/DEXTROMETHORPHAN 10 ML UDC 5 ML PO (04:31)
[2023-07-31 06:00] VITALS: BP 120/53; PULSE 87; RESP 14; TEMP 36.3; O2SAT 97
[2023-07-31 06:13] LABS: Basophils Percent Auto 0.4 % (0.2-1.2); Eosinophils Absolute Auto 0.3 K/mm3 (0-0.3); Eosinophils Percent Auto 3.3 % (0-4.4); Hematocrit 29.7 % (37.0-47.0); Hemoglobin 9.3 g/dL (12.0-15.0); Immature Granulocyte Absolute 0.06 K/mm3 (0.00-0.031); Immature Granulocyte Percent A 0.6 % (0-0.5); Lymphocytes Absolute Auto 2.53 K/mm3 (0.9-3.2); Lymphocytes Percent Auto 27.2 % (18.3-44.2); Mean Corpuscular HGB Conc 31.3 g/dl (32-36); Mean Corpuscular Hemoglobin 26.8 pg (26-34); Mean Corpuscular Volume 85.6 fl (80-100); Mean Platelet Volume 9.2 fl (7.4-10.4); Monocytes Absolute Auto 0.9 K/mm3 (0.1-0.6); Monocytes Percent Auto 9.6 % (2.6-8.5); Neutrophils Absolute Auto 5.5 K/mm3 (1.3-6.7); Neutrophils Percent Auto 58.9 % (45.5-73.1); Platelet Count Result 439 k/mm3 (150-375); Red Blood Count 3.47 M/mm3 (4.2-5.4); Red Cell Distribution Width 15.8 % (11.5-14.5); White Blood Count 9.3 K/mm3 (4.5-10.0)
[2023-07-31 06:28] LABS: Alanine Aminotransferase 18 U/L (6-35); Albumin Level 3.6 g/dL (3.5-5.1); Alkaline Phosphatase 91 U/L (38-126); Anion Gap 5 mmol/L (4-12); Aspartate Amino Transferase 20 U/L (14-36); Bilirubin,Total 0.4 mg/dL (0.2-1.3); Blood Urea Nitrogen 10 mg/dL (7-17); Calcium 9.2 mg/dL (8.4-10.2); Carbon Dioxide 27 mmol/L (22-30); Chloride 105 mmol/L (98-107); Estimated CRCL calculation 119 ml/min; Estimated Glomerular Filt Rate > 60; Glucose 224 mg/dL (65-110); Potassium 3.6 mmol/L (3.4-5.0); Sodium 137 mmol/L (137-145); Triglycerides 170 mg/dL (<150)
[2023-07-31 07:30] VITALS: PULSE 98; RESP 20
[2023-07-31 07:31] LABS: Glucose Point of Care 198 mg/dl (65-105)
[2023-07-31 07:40] VITALS: PULSE 80; RESP 20
[2023-07-31] MEDS: PANTOPRAZOLE SODIUM IV 40 MG VIAL IV PUSH (08:12)
[2023-07-31] MEDS: GABAPENTIN 300 MG CAPSULE PO ×2 (08:14→12:01)
[2023-07-31] MEDS: ENOXAPARIN 40 MG/0.4 ML SYRINGE SUB-Q (08:14)
[2023-07-31] MEDS: FENOFIBRATE 160 MG TABLET PO (08:14)
[2023-07-31] MEDS: ASPIRIN 81 MG ENTERIC TABLET PO (08:15)
[2023-07-31] MEDS: DOXYCYCLINE HYCLATE 100 MG TABLET PO (08:15)
[2023-07-31] MEDS: ARIPiprazole 5 MG TABLET PO (08:15)
[2023-07-31] MEDS: FLUoxetine HCL 20 MG CAPSULE 40 MG PO (08:15)
[2023-07-31] MEDS: lisinopriL 10 MG TABLET PO (08:15)
[2023-07-31] MEDS: CEFDINIR 300 MG CAPSULE PO (08:15)
[2023-07-31] MEDS: ATORVASTATIN 40 MG TABLET 80 MG PO (08:17)
[2023-07-31 11:44] LABS: Glucose Point of Care 158 mg/dl (65-105)
[2023-07-31] MEDS: ALPRAZolam (*CRX) 0.5 MG TABLET 1 MG PO (12:02)
--- NOTE | 2023-07-31 12:34 | PM.DS ---
DS: Admitting Diagnosis Discharge Date 07/31/23 Admitting Diagnosis Possible drug overdose?does take Xanax at home. ? patient denies medication overdose Hypoxic respiratory failure?ventilator.? Vent management per ICU team? Status post extubation on 07/27/2023.? Currently on room air NSTEMi; Mild troponin elevation?with subsequent elevation cardiology consulted med management likely demand ischemia DS: Discharge Diagnosis Discharge Diagnosis (1) Acute respiratory failure with hypercapnia: Code(s): J96.02 - Acute respiratory failure with hypercapnia Status: Acute (2) Pneumonia: Qualifiers: Laterality: bilateral Lung location: unspecified part of lung Pneumonia type: due to unspecified organism Qualified Code(s): J18.9 - Pneumonia, unspecified organism Code(s): J18.9 - Pneumonia, unspecified organism Status: Acute (3) Altered mental status: Qualifiers: Altered mental status type: unspecified Qualified Code(s): R41.82 - Altered mental status, unspecified Code(s): R41.82 - Altered mental status, unspecified Status: Acute (4) Elevated troponin: Code(s): R79.89 - Other specified abnormal findings of blood chemistry Status: Acute (5) Anxiety: Code(s): F41.9 - Anxiety disorder, unspecified Status: Acute (6) GERD (gastroesophageal reflux disease): Qualifiers: Esophagitis presence: esophagitis presence not specified Qualified Code(s): K21.9 - Gastro-esophageal reflux disease without esophagitis Code(s): K21.9 - Gastro-esophageal reflux disease without esophagitis Status: Acute (7) Hypertension: Qualifiers: Hypertension type: primary hypertension Qualified Code(s): I10 - Essential (primary) hypertension Code(s): I10 - Essential (primary) hypertension Status: Acute (8) Non compliance with medical treatment: Code(s): Z91.199 - Patient's noncompliance with other medical treatment and regimen due to unspecified reason Status: Acute (9) Tobacco abuse: Code(s): Z72.0 - Tobacco use Status: Acute (10) Hyperglycemia: Code(s): R73.9 - Hyperglycemia, unspecified Status: Acute Plan This is a 40-year-old female presents to the ER with altered mental status. Patient was last seen well at 1:00 a.m. and earlier this morning patient was found to be lying on the bed unresponsive. Patient has history of diabetes. She has not been feeling well for the past few days. EMS was called and was intubated in route. Upon arrival to the ER patient was noted to have mild tachycardia blood pressure adequate. Oxygen saturation was adequate. Suspected accidental or intentional overdose however patient denies so. Investigations performed WBC of 11.9 hemoglobin of 11 no metabolic abnormality noted hyperglycemia 419. Lactate was mildly elevated at 3.6. Troponin was mildly elevated at 0.047 UDS positive for benzodiazepines otherwise negative. Alcohol was less than 10 Acetaminophen less than 10 salicylate less than 1 Influenza RSV COVID was negative. UA was negative. ABG with 7.18/61/249/23. Chest x-ray negative. CT brain was negative. CT cervical spine negative for any fracture. CT chest was done which showed bilateral ground are patchy ground-glass opacities and more dense dependent consultation both lungs consistent with pneumonia. Treatment rendered Started with IV antibiotics for treatment for pneumonia panculture . Nasal MRSA is positive. Sputum cultures also positive with staphylococci aureus. Await identification and sensitivity. Will taper down antibiotics with discontinuation of Flagyl and cefepime along with vancomycin and switched to doxycycline and cefdinir. Possible drug overdose does take Xanax at home. patient denies medication overdose Hypoxic respiratory failure ventilator. Vent management per ICU team Status post extubation on 07/27/2023. Currently on room air NSTEMi; Mild troponin elevation with subsequent elevation cardiology consulted med management likely demand ischemia Rx: On Omnicef, Doxycycline, Supplemental oxygen Type 2 diabetes Anxiety disorder GERD Hypertension DVT prophylaxis Lovenox Code status full code DS: Summary Hospital Course Reason for hospitalization: 1. Loss of consciousness 2. Acute metabolic encephalopathy 3. Probable unintentional drug overdose Hospital Course: Chief Complaint: Altered mental status Narrative: This is a 40-year-old female presents to the ER with altered mental status.? Patient was last seen well at 1:00 a.m. and earlier this morning patient was found to be lying on the bed unresponsive.? Patient has history of diabetes.? She has not been feeling well for the past few days.? EMS was called and was intubated in route.? Upon arrival to the ER patient was noted to have mild tachycardia blood pressure adequate.? Oxygen saturation was adequate.? Suspected accidental or intentional overdose.? Laboratory evaluation showed WBC of 11.9 hemoglobin of 11 no metabolic abnormality noted hyperglycemia 419.? Lactate was mildly elevated at 3.6.? Troponin was mildly elevated at 0.047 UDS positive for benzodiazepines otherwise negative.? Alcohol was less than 10 acetaminophen less than 10 salicylate less than 1 influenza RSV COVID was negative.? UA was negative.? ABG with 7..? She is admitted to the ICU in the setting. Patient was found unresponsive at home, intubated (07/24) upon EMS arrival to the house.? Unknown etiology -currently on CMV mode of ventilation, peep of 5, 50% FiO2 -patient has pneumonia on CT chest -continue vancomycin, ceftriaxone and doxycycline (07/24), Flagyl (07/25) -continue bronchodilators -07/26:? extubated the patient, currently on room air -will have PT/OT follow the patient Significant findings: WBC of 11.9 hemoglobin of 11 no metabolic abnormality noted hyperglycemia 419.? Lactate was mildly elevated at 3.6.? Troponin was mildly elevated at 0.047 UDS positive for benzodiazepines otherwise negative.? Alcohol was less than 10 acetaminophen less than 10 salicylate less than 1 influenza RSV COVID was negative.? UA was negative.? ABG with 7.. Procedure performed: Intubated, 07/24; Extubated 07/26 Treatment rendered: vancomycin, ceftriaxone and doxycycline (07/24), Flagyl (07/25); Discharged on doxycycline and cefdin Status at Discharge Functional status at discharge: independent ambulation Overall status at discharge: patient is progressing back to baseline Time Spent with Patient Time attestation: Total time spent providing and/or coordinating discharge services: Exam Narrative: General: Pleasant female, talking, in no acute distress HEENT:? Pupils equal and reactive sclera is clear Neck:? Supple Respiratory:? Coarse breath sounds bilaterally, adequate air entry, no wheezing Cardiac:? S1-S2 is normal, regular rate and rhythm Abdomen:? Soft, nontender, nondistended, obese, hypoactive bowel sounds Extremities:? Trace edema, palpable pedal pulses Neuro:? awake, alert, answers to questions appropriately and follows simple commands in all extremities Skin:? Warm and dry Psych:? Flat affect normal mentation Const: General: no acute distress DS: Data Data Completed and Pending Labs on day of discharge: Labs from last 24 hours 07/31/23 07/31/23 07/31/23 11:37 07:18 05:36 WBC 9.3 RBC 3.47 L Hgb 9.3 L Hct 29.7 L MCV 85.6 MCH 26.8 MCHC 31.3 L RDW 15.8 H Plt Count 439 H MPV 9.2 Immature Gran % (Auto) 0.6 H Neut % (Auto) 58.9 Lymph % (Auto) 27.2 [place] % (Auto) 9.6 H Eos % (Auto) 3.3 Baso % (Auto) 0.4 Lymph # (Auto) 2.53 [place] # (Auto) 0.9 H Eos # (Auto) 0.3 Baso # (Auto) 0.0 Abs Immat Gran (auto) 0.06 H Absolute Neuts (auto) 5.5 Absolute Nucleated RBC 0.000 Nucleated RBC % 0.0 Sodium 137 Potassium 3.6 Chloride 105 Carbon Dioxide 27 Anion Gap 5 BUN 10 Creatinine 0.50 L Estim Creat Clear Calc 119 Estimated GFR > 60 Glucose 224 H POC Capillary Glucose 158 H 198 H Calcium 9.2 Total Bilirubin 0.4 AST 20 ALT 18 Alkaline Phosphatase 91 Total Protein 7.0 Albumin 3.6 Triglycerides 170 H 07/30/23 07/30/23 20:15 16:33 WBC RBC Hgb Hct MCV MCH MCHC RDW Plt Count MPV Immature Gran % (Auto) Neut % (Auto) Lymph % (Auto) [place] % (Auto) Eos % (Auto) Baso % (Auto) Lymph # (Auto) [place] # (Auto) Eos # (Auto) Baso # (Auto) Abs Immat Gran (auto) Absolute Neuts (auto) Absolute Nucleated RBC Nucleated RBC % Sodium Potassium Chloride Carbon Dioxide Anion Gap BUN Creatinine Estim Creat Clear Calc Estimated GFR Glucose POC Capillary Glucose 177 H 174 H Calcium Total Bilirubin AST ALT Alkaline Phosphatase Total Protein Albumin Triglycerides Discharge Plan Discharge Attending physician on discharge: Juni Grant Consulting providers: Bradley Grover; Jay Hall Discharging Clinician: Juni Grant Anticipated Discharge Date/Time: 07/31/23 12:29 Patient Disposition: Home, Self-Care Activity: may shower Diet: heart healthy Patient Instructions: Antibiotic Form, Bacterial Pneumonia (DC) Stand Alone Forms: General Discharge Information Follow-up/Referrals: Yablonsky,Devin B., DO [Primary Care Provider] - 1 Week Discharge Medications: New atorvastatin 40 mg Tablet 80 mg PO DAILY Qty: 30 0RF aspirin 81 mg Tablet,Delayed Release (Dr/Ec) 81 mg PO QAM Qty: 30 0RF cefdinir 300 mg Capsule 300 mg PO Q12HR Qty: 10 0RF doxycycline hyclate 100 mg Tablet 100 mg PO Q12HR Qty: 10 0RF fenofibrate 160 mg Tablet 160 mg PO DAILY Qty: 30 0RF Continued alprazolam 1 mg tablet 1 mg PO TID fluoxetine 20 mg capsule 40 mg PO BID aripiprazole 5 mg tablet 5 mg PO DAILY trazodone 100 mg tablet 100 mg PO DAILY gabapentin 300 mg capsule 300 mg PO TID Qty: 90 0RF cyclobenzaprine 5 mg tablet 5 mg PO TID PRN (Reason: muscle spasm) Qty: 30 0RF Rx Instructions: May cause drowsiness. insulin glargine [Lantus Solostar U-100 Insulin] 100 unit/mL (3 mL) insulin pen 15 unit subcut QPM Qty: 15 0RF Rx Instructions: Please monitor glucose closely and keep a log. Eat a healthy snack at bedtime. lisinopril 10 mg tablet 10 mg PO DAILY Qty: 30 0RF fluticasone propionate [Flonase Allergy Relief] 50 mcg/actuation spray,suspension 2 spray intranasal DAILY Qty: 16 0RF Rx Instructions: administer into each nostril azelastine 137 mcg (0.1 %) aerosol,spray 137 mcg intranasal Q12H PRN (Reason: Allergy Symptoms) Rx Instructions: administer into each nostril (DME) pen needle, diabetic [True Comfort Pen Needle] 31 gauge x 5/16 needle See Rx Instructions .Route Qty: 1200 3RF Rx Instructions: Used to check BS TID atorvastatin 20 mg tablet 20 mg PO QHS Qty: 90 1RF ondansetron HCl 4 mg tablet 8 mg PO Q6H PRN (Reason: nausea and vomiting) Qty: 60 0RF (DME) blood-glucose meter [OneTouch Verio Flex meter] Misc See Rx Instructions .Route Qty: 1 0RF Rx Instructions: USE TO CHECK BLOOD SUGARS 3 TIMES A DAY (DME) lancets 31 gauge misc See Rx Instructions .Route Qty: 100 2RF Rx Instructions: Use to check BS TID No Action albuterol sulfate 90 mcg/actuation HFA aerosol inhaler 1 puff inhalation Q4H PRN (Reason: shortness of breath or wheezing) Qty: 8.5 0RF Date of admission: 07/25/23 08:56 Primary Care Provider: Devin Patel Admitting Provider: Higinio Murdock Attending physician on admission: Higinio Murdock Condition: Critical
== END 2023-07-31 14:05 | disposition home or self-care (01) | DRG 812 ==
LOC: ANHED 06:59 → ANHICU 09:40 → ANH3MEDSUR 07-31 12:34 → ANHICU 08-01 07:41
PROVIDERS: Emergency Medicine; Internal Medicine; Admitting Provider Internal Medicine; Emergency Provider Emergency Medicine; PCP Internal Medicine; Visit Provider Internal Medicine
DX: T42.4X1A Poisoning by benzodiazepines, accidental (unintentional), initial encounter (principal); J96.02 Acute respiratory failure with hypercapnia; J18.9 Pneumonia, unspecified organism; I24.89 Other forms of acute ischemic heart disease; I10 Essential (primary) hypertension; J45.909 Unspecified asthma, uncomplicated; E11.9 Type 2 diabetes mellitus without complications; K21.9 Gastro-esophageal reflux disease without esophagitis; M47.22 Other spondylosis with radiculopathy, cervical region; M54.30 Sciatica, unspecified side; F43.10 Post-traumatic stress disorder, unspecified; F50.89 Other specified eating disorder; F41.9 Anxiety disorder, unspecified; F32.A Depression, unspecified; F17.210 Nicotine dependence, cigarettes, uncomplicated; Z20.822 Contact with and (suspected) exposure to COVID-19; Z79.4 Long term (current) use of insulin; Z91.199 Patient's noncompliance with other medical treatment and regimen due to unspecified reason; Z22.322 Carrier or suspected carrier of Methicillin resistant Staphylococcus aureus; Y92.009 Unspecified place in unspecified non-institutional (private) residence as the place of occurrence of the external cause
CPT/HCPCS: 36415; 36600; 70450; 71045; 71275; 72125; 80053; 80061; 80202; 80307; 81003; 81025; 82010; 82375; 82550; 82805; 82948; 83036; 83050; 83605; 83690; 83735; 84100; 84443; 84478; 84484; 85025; 85610; 85730; 86140; 87040; 87070; 87077; 87086; 87181; 87205; 87637; 87641; 93005; 93306; 94002; 94003; 94640; 94667; 96361; 96365; 96375; 97110; 97116; 97161; 97165; 97530; 97535; 99285; A9270; C9113; J0692; J0696; J1650; J1836; J1940; J2060; J2250; J2704; J3010; J3370; J7030; J7050; Q9967

== ENCOUNTER 2023-08-03 23:30 | Inpatient (IN) | payer OTHER, SELFPAY ==
--- NOTE | ~2023-08-03 | CT_ITS ---
EXAMINATION: CTA chest PE protocol DATE: 08/04/2023 12:27 INDICATION: Respiratory failure. TECHNIQUE: Computed tomography angiography (CTA) of the chest was performed with 100 mL Omnipaque-350 intravenous contrast timed to evaluate the pulmonary arteries. Coronal maximum intensity projection 3D-reconstructions were created by the technologist. Automated exposure control and iterative reconst ruction technique were employed. The dose-length product was 827.71 mGy-cm. COMPARISON: Chest CT 07/25/23 FINDINGS: There is mild dependent atelectasis in the lungs. No pleural effusion. The heart size is no rmal. No pericardial effusion. The endotracheal tube tip is at the jennifer. A right upper extremity pe ripherally inserted central venous catheter (PICC) is seen with tip at the superior cavoatrial juncti on. The nasogastric tube tip is in the stomach. There is no pulmonary embolus. There is mild thoracic spondylosis. There is mild chronic anterior wedging of T11 and T12 vertebral bodies. IMPRESSION: 1. No pulmonary embolus. 2. Mild dependent atelectasis bilaterally. 3. Endotracheal tube tip at the jennifer. Retraction is recommended. Reviewed, dictated and finalized at location E.
--- NOTE | ~2023-08-03 | XR_ITS ---
EXAMINATION: XR barium swallow modified DATE: 08/05/2023 13:59 INDICATION: Recent extubation. Cough. TECHNIQUE: The patient was given barium-containing material of multiple consistencies to swallow by t dev speech pathologist while I performed fluoroscopy. Fluoroscopy exposure time was 2.8 minutes. The n umber of fluoroscopy images saved to the PACS was 1. Dose-area product was 2.161 Gy-cm^2. FINDINGS: There is reduced laryngeal elevation, reduced tongue base retraction, and laryngeal penetration. IMPRESSION: 1. Laryngeal penetration. 2. Please refer to the speech therapy report for recommendations. Reviewed, dictated and finalized at location A.
--- NOTE | ~2023-08-03 | XR_ITS ---
EXAMINATION: XR chest PICC line DATE: 08/04/2023 10:39 INDICATION: Central line placement. TECHNIQUE: A single frontal view of the chest was obtained. COMPARISON: Chest single view 08/04/2023 FINDINGS: There are airspace opacities at left lung base. No pleural effusion or pneumothorax. The he art size is normal. The endotracheal tube tip is 5 mm above the jennifer. The nasogastric tube tip is b eyond the inferior margin of the radiograph, but at least to the stomach. A right upper extremity per ipherally inserted central venous catheter (PICC) is seen with tip at the superior cavoatrial junctio n. IMPRESSION: 1. PICC tip at the superior cavoatrial junction. 2. Stable airspace opacities at left lung base, consistent with atelectasis versus pneumonia. 3. Endotracheal tube tip 5 mm above the jennifer. Reviewed, dictated and finalized at location E. IMPRESSION: 1. PICC tip at the superior cavoatrial junction. 2. Stable airspace opacities at left lung base, consistent with atelectasis anna ellen pneumonia. 3. Endotracheal tube tip 5 mm above the jennifer.
--- NOTE | ~2023-08-03 | CT_ITS ---
EXAMINATION: CT soft tissue neck wo con DATE: 08/04/2023 12:28 INDICATION: Respiratory failure. TECHNIQUE: Computed tomography (CT) of the neck was performed without intravenous contrast. Automated exposure control and iterative reconstruction technique were employed. The dose-length product was 5 26.32 mGy-cm. COMPARISON: CT cervical spine 07/25/23 FINDINGS: The endotracheal tube tip is at the jennifer. A right upper extremity peripherally inserted c entral venous catheter (PICC) is seen with tip at the superior cavoatrial junction. The nasogastric t ube tip is in the stomach. There are no pathologically enlarged lymph nodes. The pharynx and larynx a re unremarkable. No abscess. There is moderate cervical spondylosis. IMPRESSION: 1. Endotracheal tube tip at the jennifer. Retraction is recommended. Reviewed, dictated and finalized at location E.
--- NOTE | ~2023-08-03 | XR_ITS ---
Portable chest x-ray Comparison: 08/05/2023 Clinical History: Respiratory failure Findings: Right-sided PICC line in place. Lungs are clear, without focal consolidation or pleural ef fusion. Cardiomediastinal silhouette is stable. Bones and soft tissues are unremarkable. Impression: Clear lungs. Right-sided PICC line in place. Reviewed, dictated and finalized at location . Impression: Clear lungs. Right-sided PICC line in place.
--- NOTE | ~2023-08-03 | XR_ITS ---
EXAMINATION: XR chest ET placement DATE: 08/04/2023 05:45 INDICATION: Intubation. TECHNIQUE: A single frontal view of the chest was obtained. COMPARISON: Chest single view 08/03/2023 FINDINGS: There are airspace opacities at left lung base. No pleural effusion or pneumothorax. The he art size is normal. The endotracheal tube tip is 1.1 cm above the jennifer. The nasogastric tube tip is in the distal stomach. IMPRESSION: 1. New airspace opacities at left lung base, consistent with atelectasis versus pneumonia. Reviewed, dictated and finalized at location E.
--- NOTE | ~2023-08-03 | XR_ITS ---
EXAMINATION: XR abdomen gastric tube insert DATE: 08/04/2023 05:45 INDICATION: Nasogastric tube placement. TECHNIQUE: An upright view of the abdomen was obtained. COMPARISON: None. FINDINGS: The lower abdomen is excluded. The nasogastric tube tip is in the distal stomach. The endot gunjan tube tip is 2.6 cm above the jennifer. There are airspace opacities at left lung base. IMPRESSION: 1. Nasogastric tube tip in the distal stomach. 2. Airspace opacities at left lung base, consistent with atelectasis versus pneumonia. Reviewed, dictated and finalized at location E. IMPRESSION: 1. Nasogastric tube tip in the distal stomach. 2. Airspace opacities at left lung base, consistent with atelectasis versus pne umonia.
--- NOTE | ~2023-08-03 | XR_ITS ---
Portable chest x-ray Comparison: 08/04/2023 Clinical History: Respiratory failure Findings: Endotracheal tube, NG tube, and right-sided PICC line are in place. Lungs are clear, witho ut focal consolidation or pleural effusion. Cardiomediastinal silhouette is stable. Bones and soft t issues are unremarkable. Impression: Clear lungs. Support tubes, as above. Reviewed, dictated and finalized at location M. Impression: Clear lungs. Support tubes, as above.
--- NOTE | ~2023-08-03 | XR_ITS ---
EXAMINATION: XR chest 1V DATE: 08/03/2023 23:50 INDICATION: Shortness of breath. TECHNIQUE: A single frontal view of the chest was obtained. COMPARISON: Chest view 07/30/2023 FINDINGS: There is no pneumonia, pleural effusion, or pneumothorax. The heart size is normal. IMPRESSION: 1. No acute cardiopulmonary disease. Reviewed, dictated and finalized at location E.
[2023-08-03 23:29] VITALS: BP 229/164; PULSE 138; RESP 18; TEMP 36.4; O2SAT 100
--- NOTE | 2023-08-03 23:42 | ECG_ITS ---
SEE SCANNED COPY FOR CONFIRMED REPORT MTDD
[2023-08-03] MEDS: MAGNESIUM SULF 2 GM/WATER 50ML 2 GM/50 ML BAG 999 GM (23:51)
--- NOTE | 2023-08-03 23:51 | PC.NURSE ---
VERBAL ORDER PER EDP DR. WILCOX PATIENT TO RECIEVE 2G MAGNESIUM VIA IV AT A BOLUS RATE OF 999MLS/ HOUR. THIS RN USED CLOSED LOOP COMMUNICATION TO CONFIRM DOSE/ RATE/ TIME/ PATIENT/ MEDICATION. EDP DR. WILCOX CONFIRMED. VERBAL ORDER PER EDP DR. WILCOX PATIENT TO RECIEVE 1MG OF ATIVAN IV PUSH. THIS RN USED CLOSED LOOP COMMUNICATION TO CONFIRM DOSE/ RATE/ TIME/ PATIENT/ MEDICATION. EDP DR. WILCOX CONFIRMED.
[2023-08-03 23:56] LABS: Basophils Absolute Auto 0.1 K/mm3 (0.0-0.1); Basophils Percent Auto 0.5 % (0.2-1.2); Eosinophils Absolute Auto 0.7 K/mm3 (0-0.3); Eosinophils Percent Auto 3.1 % (0-4.4); Hematocrit 34.5 % (37.0-47.0); Hemoglobin 10.6 g/dL (12.0-15.0); Immature Granulocyte Absolute 0.11 K/mm3 (0.00-0.031); Immature Granulocyte Percent A 0.5 % (0-0.5); Lymphocytes Percent Auto 55.9 % (18.3-44.2); Mean Corpuscular HGB Conc 30.7 g/dl (32-36); Mean Corpuscular Hemoglobin 26.6 pg (26-34); Mean Corpuscular Volume 86.7 fl (80-100); Mean Platelet Volume 8.6 fl (7.4-10.4); Monocytes Absolute Auto 1.8 K/mm3 (0.1-0.6); Monocytes Percent Auto 7.8 % (2.6-8.5); Neutrophils Absolute Auto 7.3 K/mm3 (1.3-6.7); Neutrophils Percent Auto 32.2 % (45.5-73.1); Platelet Count Result 729 k/mm3 (150-375); Red Blood Count 3.98 M/mm3 (4.2-5.4); Red Cell Distribution Width 15.8 % (11.5-14.5); White Blood Count 22.6 K/mm3 (4.5-10.0)
[2023-08-03] MEDS: SODIUM CHLORIDE 0.9% IV 1,000 ML 999 ML IV CONT (23:57)
[2023-08-03] MEDS: LORazepam INJ (*CRX) 2 MG/ML VIAL 1 MG IV PUSH (23:57)
[2023-08-04] VITALS (60 sets, daily range): BP systolic 100–209; BP diastolic 53–187; PULSE 69–124; RESP 8–30; TEMP 36.8–37.2; O2SAT 97–100; BMI 30.3
[2023-08-04 00:07] LABS: Fractional Inspired Oxygen 100 %; HCO3 VBG 19.6 mEq/l (24.0-30.0); PCO2 VBG 46.7 mmHg (42.0-48.0); PO2 VBG 76.5 mmHg (35.0-45.0)
[2023-08-04 00:07] LABS: Lactic Acid Reflex 1.3 mmol/L (0.7-2.0)
[2023-08-04 00:07] LABS: Alanine Aminotransferase 23 U/L (6-35); Albumin Level 4.4 g/dL (3.5-5.1); Alkaline Phosphatase 89 U/L (38-126); Anion Gap 6 mmol/L (4-12); Aspartate Amino Transferase 24 U/L (14-36); Bilirubin,Total 0.4 mg/dL (0.2-1.3); Blood Urea Nitrogen 8 mg/dL (7-17); Calcium 9.3 mg/dL (8.4-10.2); Carbon Dioxide 28 mmol/L (22-30); Chloride 104 mmol/L (98-107); Estimated CRCL calculation 94 ml/min; Estimated Glomerular Filt Rate > 60; Glucose 244 mg/dL (65-110); Potassium 3.7 mmol/L (3.4-5.0); Sodium 138 mmol/L (137-145)
--- NOTE | 2023-08-04 00:10 | PC.NURSE ---
edp dr. muse verbal ordered normal saline at rate of 99mls/ hour iv push. this rn used closed loop communication to confirm route/ dose/ medication/ person/ time. edp dr. muse confirmed 1L normal saline at a rate of 999mls/ hour via IV.
[2023-08-04 00:12] LABS: INR 1.1; Prothrombin Time 14.8 Seconds (11.1-14.7)
--- NOTE | 2023-08-04 00:12 | ED.SOB ---
HPI - SOB/Dyspnea General Chief Complaint: Shortness of Breath/Dyspnea Stated Complaint: shortness of breath Source: patient and EMS Limitations: clinical condition History of Present Illness HPI Narrative: Patient brought in by EMS for difficulty breathing, patient admits to going on for the past couple days getting worse. History limited secondary to patient's clinical condition. EMS administered steroids, IO in the right tibia, epinephrine and breathing treatments and CPAP. Patient was notably recently discharged from the hospital after being intubated. Related Data Home Medications Medication Instructions Recorded Confirmed alprazolam 1 mg tablet 1 mg PO TID 11/19/19 08/04/23 azelastine 137 mcg (0.1 %) nasal 137 mcg intranasal Q12H PRN 11/14/22 08/04/23 spray aerosol Allergy Symptoms aripiprazole 5 mg tablet 5 mg PO DAILY 07/23/23 08/04/23 fluoxetine 20 mg capsule 40 mg PO BID 07/23/23 08/04/23 trazodone 100 mg tablet 100 mg PO DAILY 07/23/23 08/04/23 Allergies Allergy/AdvReac Type Severity Reaction Status Date / Time latex Allergy Intermediate Itching Verified 07/23/23 11:28 morphine Allergy Intermediate Swelling Verified 07/23/23 11:28 amoxicillin [From Augmentin] AdvReac Mild Nausea and Verified 07/23/23 11:28 Vomiting clavulanic acid AdvReac Mild Nausea and Verified 07/23/23 11:28 [From Augmentin] Vomiting naproxen AdvReac Mild Other Verified 07/23/23 11:28 Review of Systems Review of Systems: ROS unobtainable: Yes unobtainable due to medical condition [facility] Past Medical History Medical History (Updated 08/04/23 @ 09:40 by Vinod Veloz DO) Anxiety Asthma Cervical radiculopathy Cervical radiculopathy due to degenerative joint disease of spine Degenerated intervertebral disc Depression Environmental and seasonal allergies GERD (gastroesophageal reflux disease) Gestational diabetes Hidradenitis suppurativa Hyperlipidemia Hypertension Non compliance with medical treatment Otalgia of left ear Pica in adults Proteinuria PTSD (post-traumatic stress disorder) Sciatica Tobacco abuse Type 2 diabetes mellitus Vitamin D deficiency Surgical History Surgical History History of facial surgery Previous section Family History Family History Mother Hypertension Alcoholism Asthma Diabetes mellitus Depression Anxiety Heart problem Father Hypertension Alcoholism Thyroid disorder Sibling Alcoholism Asthma Anxiety Depression Thyroid disorder Grandparent Asthma Cancer brain Diabetes mellitus Hypertension Depression Anxiety Heart problem Cerebrovascular accident Other Breast cancer Heart disease Malignant neoplasm of prostate Social History Social History (Updated 08/04/23 @ 05:49 by Amanda Paul DO) Social History: The patient lives at home with her 6-year-old and 8-year-old child. She is unemployed and . She has smoked at least a half a pack of cigarettes per day since she was 15. She denies any alcohol or illicit substance use. Code status: Full code Surrogate decision maker: Phoebe Kennedy (mother) Smoking packs per day: 0.5 Smoking cigarettes per day: 10.0 Years smoked: 25 Smoking pack-years: 12.50 Smoking status: Former smoker Tobacco type: cigarettes Second hand tobacco smoke exposure: Yes Alcohol intake: never Substance use: never Do You Feel Safe in your Home?: Yes Lack of Transportation: No Lack of Food: Never True Current Housing: I Have Housing Concerned About Future Housing: No Difficulty Paying Gas/Electric Bills: No Difficulty Paying for Meds: No Currently Unemployed: No Education: High School Diploma/GED Difficulty w/ Childcare or Family Care: YES Living arrangements: with family Additional living arrangements comments: Lives alone with 2 childr
[2023-08-04 00:14] LABS: Partial Thromboplastin Time 28.9 Seconds (22.3-36.8)
[2023-08-04] MEDS: ALBUTEROL SULFATE NEB 2.5 MG/3 ML INH 15 MG (00:14)
[2023-08-04] MEDS: IPRATROPIUM BR 0.02% INH SOLN 0.5 MG/2.5 ML VIAL 1 MG (00:15)
[2023-08-04 00:17] LABS: Troponin I < 0.012 ng/mL (0.000-0.034)
--- NOTE | 2023-08-04 00:37 | PC.NURSE ---
this rn assumed care of patient. this rn took patient report from GURWINDER Wheeler
--- NOTE | 2023-08-04 00:46 | ECG_ITS ---
SEE SCANNED COPY FOR CONFIRMED REPORT MTDD
[2023-08-04] MEDS: ALBUTEROL SULFATE NEB 2.5 MG/3 ML INH 15 MG INHALATION (00:53)
[2023-08-04] MEDS: IPRATROPIUM BR 0.02% INH SOLN 0.5 MG/2.5 ML VIAL 1 MG INHALATION (00:56)
[2023-08-04] MEDS: LORazepam INJ (*CRX) 2 MG/ML VIAL 1 MG IV PUSH (01:32)
[2023-08-04] MEDS: AZITHROMYCIN 500 MG/NS 250 ML 500 MG/250 ML BAG 250 MG IVPB (01:38)
[2023-08-04] MEDS: SODIUM CHLORIDE 0.9% IV 1,000 ML 999 ML IV CONT ×2 (02:12)
--- NOTE | 2023-08-04 02:29 | PC.NURSE ---
per household chores and hospitalist dr. conrad, cta can wait until patient is in icu. this rn attempted multiple times to obtain urine. pt is unable to urinate at this time. ed dry pan charger made aware along with edp dr. muse.
--- NOTE | 2023-08-04 02:36 | PC.NURSE ---
0221- Per Dr. Paul, patient may go up to ICU without CTA already being done. May do once admitted to ICU.
--- NOTE | 2023-08-04 03:30 | ADMGEN ---
This patient, Xiomara Olson, was admitted to Intensive Care Unit-6at 0250. Patient/family oriented to hospital policies and general routines including ID bracelet, bed and alarms, visiting hours, pain management, procedures, bathroom and other care routines, personal items, smoking policy, room service/diet, and visiting hours. Information on how to activate the Rapid Response Team has been discussed. Patient/Family are encouraged to report perceived risks to care and to ask questions if they do not understand what they are told or what they should do.
[2023-08-04 03:37] LABS: Glucose Point of Care 341 mg/dl (65-105)
[2023-08-04] MEDS: LEVALBUTEROL NEB 1.25 MG/3 ML 5 MG INHALATION (03:44)
[2023-08-04] MEDS: IPRATROPIUM BR 0.02% INH SOLN 0.5 MG/2.5 ML VIAL 2 MG INHALATION (03:45)
--- NOTE | 2023-08-04 03:45 | ADMGEN ---
This patient, Xiomara Olson, was admitted to Intensive Care Unit-6. Patient/family oriented to hospital policies and general routines including ID bracelet, bed and alarms, visiting hours, pain management, procedures, bathroom and other care routines, personal items, smoking policy, room service/diet, and visiting hours. Information on how to activate the Rapid Response Team has been discussed. Patient/Family are encouraged to report perceived risks to care and to ask questions if they do not understand what they are told or what they should do.
--- NOTE | 2023-08-04 03:48 | PM.IMHP ---
H&P: HPI History of Present Illness Date/Time: 08/04/23 03:35 Chief Complaint: Respiratory distress Narrative: 42-year-old female with a past medical history of asthma, chronic tobacco use, insulin-dependent diabetes mellitus and anxiety and depression who presented to the ER with respiratory distress. Patient was found in extremis and an IO was placed in the right tibia during transport. Patient received 40 mg of IV lidocaine, Decadron and 2 albuterol treatments and placed on CPAP EN route. Despite these measures patient was still in obvious distress on arrival to the ER. She received Ativan, 1 hour continuous albuterol nebulizer, 1 L of IV fluids and 2 mg of magnesium. She also received 2 doses of 1 mg Ativan. Patient reports that ever since she has been discharged from the hospital she felt like her breathing was not any better. It acutely worsened this evening. She is noted to be having end-expiratory wheezing on evaluation. She is actually only breathing about 8-10 times a minute but has accessory muscle use. She denies any significant cough. She has not smoked since she was discharged from the hospital. Prior to admission she had been smoking 0.5-1 pack of cigarettes per day since she was 15 years old. She was treated with Rocephin and doxycycline during her last hospitalization when she was intubated. She was intubated from the through the . On arrival to the ICU the patient had marked air leak from her BiPAP. I went and adjusted the BiPAP in the patient was briefly pulling adequate tidal volumes. But while I was obtaining history from patient her tidal volumes precipitously dropped. The patient did not tolerate adjusting of settings. Subsequently patient was switched to AVAPS. On AVAPS man pressure of 5 max pressure of 30 peep of 6 rate of 16 50% FiO2. Patient was pulling good tidal volumes in seemed more comfortable. Patient was given an hour long nebulizer treatment. Almost immediately after nebulizer treatment was completed the patient did have improved air movement but then developed stridor. She became acutely distressed. We tried calming measures and and another dose of Ativan. Because the patient was trying to pull off the BiPAP and was not able to cooperate with obtaining labs. ABG was obtained immediately after Ativan dosing which demonstrated pH of 7.1 and pCO2 of 63 in PO2 of 193 With within 10 minutes of Ativan dosing the patient was minimally responsive. Patient was diaphoretic with persistent labored respirations. The Decision was made to intubate patient. Patient maintained oxygenation throughout. The patient was initially given etomidate 25 mg and succinylcholine 100 mg however on placement of the glide scope the patient was and gagging and biting the blade and subsequently the ET tube. Hence, another 10 mg of etomidate and 50 succinylcholine was administered. Patient had marked amount of thick clear secretions the posterior oropharynx. Even with initial sedation the patient was difficult to ventilate with the [id number]. But the patient was easy to ventilate after ET tube placement. Review of Systems Review of Systems: 12 systems were reviewed with pertinent positives and negatives per HPI. Except as documented in the HPI, all other systems were reviewed and are negative. [facility] Past Medical History Medical History (Updated 08/04/23 @ 06:19 by Amanda Paul DO) Anxiety Asthma Cervical radiculopathy Cervical radiculopathy due to degenerative joint disease of spine Degenerated intervertebral disc Depression Environmental and seasonal allergies GERD (gastroesophageal reflux disease) Gestational diabetes Hidradenitis suppurativa Hyperlipidemia Hypertension Non compliance with medical treatment Otalgia of left ear Pica in adults Proteinuria PTSD (post-traumatic stress disorder) Sciatica Tobacco abuse Type 2 diabetes mellitus Vitamin D deficiency Surgical History Surgic
[2023-08-04] MEDS: methylPREDNISolone SOD SUCC 125 MG VIAL 60 MG IV PUSH ×3 (04:28→21:35)
[2023-08-04] MEDS: LORazepam INJ (*CRX) 2 MG/ML VIAL 0.5 MG IV PUSH ×2 (04:30)
[2023-08-04] MEDS: INSULIN ASPART (*BKC) 100 UNITS/ML SUB-Q ×2 (04:33→13:02)
[2023-08-04] MEDS: ENOXAPARIN 80 MG/0.8 ML SYRINGE 77 MG SUB-Q (04:35)
[2023-08-04 04:37] LABS: Alveolar/Arterial O2 Gradient 91.5 mmHg; Base Excess ABG -9.7 mEq/l (+/-2.0); Carboxyhemoglobin 0.1 % THb (0-2.0); Fractional Inspired Oxygen 50 %; Methemoglobin ABG 0.1 %THb (0-1.5); Oxygen Saturation ABG 98.9 % (95.0-100.0); PO2 ABG 193.8 mmHg (80.0-100.0); PO2 FiO2 Ratio Arterial Blood 3.88 %; Reduced Hemoglobin 0.8 %THb (0-5.0); Total Hemoglobin 11.2 g/dL (12.0-18.0)
[2023-08-04 04:38] LABS: Modified Allen's Test Pass; PCO2 ABG 63.3 mmHg (35.0-45.0); Site Drawn LEFT RADIAL; pH ABG 7.118 (7.350-7.450)
[2023-08-04 04:39] LABS: Device BIPAP
[2023-08-04] MEDS: racEPINEPHrine 2.25% NEBU SOLN 0.5 ML VIAL.NEB INHALATION (04:45)
[2023-08-04] MEDS: ETOMIDATE 20 MG/10 ML AMPUL 24 MG IV PUSH (04:54)
[2023-08-04] MEDS: SUCCINYLCHOLINE CHLORIDE 20 MG/ML 10 ML VIAL 100 MG IV PUSH ×2 (04:55→04:57)
[2023-08-04] MEDS: ETOMIDATE 40 MG/20 ML VIAL 10 MG IV PUSH (04:56)
[2023-08-04] MEDS: MIDAZOLAM 100MG/NS 100ML(*CRX) 100 MG/100 ML BAG IV CONT (05:00)
[2023-08-04] MEDS: FENTANYL 2,500MCG/NS250ML(*CRX 2,500 MCG/250 ML BAG 10 MCG IV CONT (05:00)
--- NOTE | 2023-08-04 05:07 | WPDPROCEDUR ---
Procedures Intubation Intubation Date: 08/04/23 Intubation Time: 05:00 Consent: Performed emergently Sedative: etomidate Mg given: 35 Paralytic: succinylcholine Mg given: 150 Laryngoscope: fiber optic video scope ET tube size: 7 Tube secured depth (cm): 22 Tube secured location: lips Tube placement confirmation: visualized tube passing through cords, equal breath sounds bilaterally, no breath sounds over epigastrium and confirmation by capnometry Patient tolerated procedure: well Intubation complications: none
[2023-08-04] MEDS: MIDAZOLAM HCL (*CRX) 2 MG/2 ML VIAL 4 MG IV PUSH (05:13)
[2023-08-04] MEDS: ROCURONIUM BROMIDE 50 MG/5 ML VIAL 24 MG IV PUSH (05:24)
[2023-08-04] MEDS: fentaNYL CITRATE INJ (*CRX) 100 MCG/2 ML VIAL 50 MCG IV PUSH (05:24)
[2023-08-04] MEDS: SODIUM CHLORIDE 0.9% IV 1,000 ML 125 ML IV CONT (05:25)
[2023-08-04] MEDS: CEFEPIME 2 GM/NS 50 ML 2 GM/50 ML BAG IVPB ×3 (06:18→21:35)
[2023-08-04] MEDS: MINERAL OIL/WHITE PETROLATUM OINTMENT 1 APPLIC EACH EYE ×2 (06:22→21:35)
[2023-08-04 06:24] LABS: Device BIPAP; pH VBG 7.241 (7.300-7.400)
[2023-08-04 06:25] LABS: Expiratory Pressure 6 cmH2O; Inspiratory Pressure 18 cmH2O
[2023-08-04 06:40] LABS: Alveolar/Arterial O2 Gradient 413.4 mmHg; Base Excess ABG -3.1 mEq/l (+/-2.0); Fractional Inspired Oxygen 100 %; HCO3 ABG 22.5 mEq/l (22.0-26.0); Methemoglobin ABG 0.1 %THb (0-1.5); Oxygen Content ABG 17.1 %vol (16.0-22.0); Oxygen Saturation ABG 99.6 % (95.0-100.0); Oxyhemoglobin 99.6 % THb (90.0-100.0); PCO2 ABG 42.6 mmHg (35.0-45.0); PO2 FiO2 Ratio Arterial Blood 2.57 %; Reduced Hemoglobin 0.3 %THb (0-5.0); Total Hemoglobin 11.8 g/dL (12.0-18.0); pH ABG 7.341 (7.350-7.450)
[2023-08-04] MEDS: VANCOMYCIN 2,000 MG/NS 500 ML 2,000 MG/500 ML BAG 250 MG IVPB (06:40)
[2023-08-04 06:41] LABS: Device VENTILATOR; Modified Allen's Test Pass; Site Drawn RIGHT RADIAL
[2023-08-04 06:42] LABS: Arterial Blood Gas PEEP 5 cmH2O; Arterial Blood Gas Tidal Volume 380 ml; Arterial Blood Gas Vent Mode CMV; Arterial Blood Gas Ventilator rate 22 /MIN
[2023-08-04 07:09] LABS: MRSA (PCR) NOT DETECTED (NOT DETECTE)
[2023-08-04 07:13] LABS: Basophils Percent Auto 0.1 % (0.2-1.2); Hematocrit 30.3 % (37.0-47.0); Hemoglobin 9.2 g/dL (12.0-15.0); Immature Granulocyte Absolute 0.09 K/mm3 (0.00-0.031); Immature Granulocyte Percent A 0.6 % (0-0.5); Lymphocytes Absolute Auto 1.01 K/mm3 (0.9-3.2); Lymphocytes Percent Auto 6.9 % (18.3-44.2); Mean Corpuscular HGB Conc 30.4 g/dl (32-36); Mean Corpuscular Hemoglobin 26.6 pg (26-34); Mean Corpuscular Volume 87.6 fl (80-100); Monocytes Absolute Auto 0.2 K/mm3 (0.1-0.6); Monocytes Percent Auto 1.2 % (2.6-8.5); Neutrophils Absolute Auto 13.3 K/mm3 (1.3-6.7); Neutrophils Percent Auto 91.2 % (45.5-73.1); Platelet Count Result 496 k/mm3 (150-375); Red Blood Count 3.46 M/mm3 (4.2-5.4); Red Cell Distribution Width 15.8 % (11.5-14.5); White Blood Count 14.6 K/mm3 (4.5-10.0)
[2023-08-04 07:23] LABS: Lactic Acid Reflex 3.2 mmol/L (0.7-2.0)
[2023-08-04 07:47] LABS: Troponin I 0.592 ng/mL (0.000-0.034)
[2023-08-04 08:20] LABS: Alanine Aminotransferase 21 U/L (6-35); Albumin Level 3.6 g/dL (3.5-5.1); Alkaline Phosphatase 82 U/L (38-126); Anion Gap 9 mmol/L (4-12); Aspartate Amino Transferase 23 U/L (14-36); Bilirubin,Total 0.3 mg/dL (0.2-1.3); Blood Urea Nitrogen 7 mg/dL (7-17); Calcium 8.1 mg/dL (8.4-10.2); Carbon Dioxide 19 mmol/L (22-30); Chloride 114 mmol/L (98-107); Estimated CRCL calculation 121 ml/min; Estimated Glomerular Filt Rate > 60; Glucose 285 mg/dL (65-110); Potassium 3.9 mmol/L (3.4-5.0); Sodium 142 mmol/L (137-145)
[2023-08-04] MEDS: IPRATROPIUM BR 0.02% INH SOLN 0.5 MG/2.5 ML VIAL INHALATION ×3 (08:23→20:29)
[2023-08-04] MEDS: LEVALBUTEROL NEB 1.25 MG/3 ML INHALATION ×3 (08:23→20:29)
[2023-08-04 08:39] LABS: Anisocytosis 1+; Hypochromasia 1+; Large Platelets Present; Platelet Estimate Increased (Adequate); Schistocytes Rare
[2023-08-04] MEDS: ATORVASTATIN 40 MG TABLET 80 MG PO (09:00)
[2023-08-04] MEDS: ASPIRIN 81 MG ENTERIC TABLET PO (09:00)
[2023-08-04] MEDS: GABAPENTIN 300 MG CAPSULE PO (09:00)
[2023-08-04] MEDS: FENOFIBRATE 160 MG TABLET PO (09:01)
[2023-08-04] MEDS: ARIPiprazole 5 MG TABLET PO (09:02)
[2023-08-04] MEDS: FLUoxetine HCL 20 MG CAPSULE 40 MG PO ×2 (09:02→18:23)
[2023-08-04] MEDS: PANTOPRAZOLE SODIUM IV 40 MG VIAL IV PUSH (09:02)
[2023-08-04 09:30] LABS: Procalcitonin 0.1 ng/mL
--- NOTE | 2023-08-04 09:36 | WPDCNINT ---
Assessment and Plan Assessment and plan (1) Acute respiratory failure: Code(s): J96.00 - Acute respiratory failure, unspecified whether with hypoxia or hypercapnia Status: Acute Assessment and Plan: Acute on chronic hypoxic and hypercarbic respiratory failures secondary to COPD Patient now intubated and sedated. Continue full mechanical ventilation support to prevent hypoxemia/hypercarbia and end organ damage. ABG and ventilator settings reviewed PCXR reviewed and shows no acute cardiopulmonary process on this morning's chest x-ray although chest x-ray on admission showed new airspace opacity in left lung base. Will check CT chest to better evaluate for any pneumonia Check BNP although recent echo was unremarkable Her procalcitonin level was low Blood cultures have been sent Continue vancomycin and cefepime Continue steroids and Bronchodilators Echo 07/25 Summary ? 1. Complete two-dimensional, color flow and Doppler transthoracic echocardiogram is performed. ? 2. Left ventricular chamber dimension is normal. ? 3. Left ventricular systolic function is normal, estimated at 65-70%. ? 4. Right ventricular chamber dimension is normal. ? 5. Right ventricular systolic function is normal. ? 6. No significant valvular abnormalities. (2) Type 2 diabetes mellitus with hyperglycemia, with long-term current use of insulin: Code(s): E11.65 - Type 2 diabetes mellitus with hyperglycemia; Z79.4 - [facility] (current) use of insulin Status: Acute Assessment and Plan: Continue sliding scale insulin (3) Elevated troponin: Code(s): R79.89 - Other specified abnormal findings of blood chemistry Status: Acute Assessment and Plan: Slightly elevated troponin likely secondary to respiratory failure and racemic epinephrine EKG shows sinus tachycardia with right bundle branch block Continue aspirin statin Recent Echo 07/25 Summary ? 1. Complete two-dimensional, color flow and Doppler transthoracic echocardiogram is performed. ? 2. Left ventricular chamber dimension is normal. ? 3. Left ventricular systolic function is normal, estimated at 65-70%. ? 4. Right ventricular chamber dimension is normal. ? 5. Right ventricular systolic function is normal. ? 6. No significant valvular abnormalities. Serial troponin (4) Stridor: Code(s): R06.1 - Stridor Status: Acute Assessment and Plan: Patient had some stridor prior to intubation as per physician sign-out Patient did receive racemic epinephrine without any significant improvement Currently on steroid Will check soft tissue CT neck (5) Abnormal thyroid function test: Code(s): R94.6 - Abnormal results of thyroid function studies Status: Acute Assessment and Plan: TSH elevated at 7.6. It was normal when checked 1 week ago Check T3 and T4 Plan DVT prophylaxis -Lovenox Stress ulcer prophylaxis -PPI Nutrition -start Tube Feeds Code Status - Full Code Total Critical Care Time - 40 minutes Due to a high probability of clinically significant, life threatening deterioration, the patient required my highest level of preparedness to intervene emergently and I personally spent this critical care time directly and personally managing the patient. This critical care time included obtaining a history; examining the patient; pulse oximetry; ordering and review of studies; arranging urgent treatment with development of a management plan; evaluation of patient's response to treatment; frequent reassessment; and discussions with other providers. It was exclusive of separately billable procedures and treating other patients and teaching time. Please see Assessment and Plan section and the rest of the note for further information on patient assessment and treatment Claims Correspondence Clerk Consult Note Consult date: 08/04/23 Reason for consult: Acute respiratory HPI: Xiomara Mayte Olson is a 42 year old female with a past medical history of asthma, c
[2023-08-04 10:11] LABS: Reflex Lactic Acid Yes or No Add Lactic
[2023-08-04 10:37] LABS: Free T4 Free Thyroxine 1.23 ng/mL (0.78-2.19)
[2023-08-04 10:53] LABS: Appearance Urine Clear (Clear); Bilirubin Urine Negative (Negative); Blood Urine Negative (Negative); Color Urine Yellow (Yellow); Glucose Urine UA 2+ mg/dL (Negative); Ketones Urine Negative (Negative); Leukocyte Esterase Ur Negative LEU/UL (Negative); Nitrate Urine Negative (Negative); Protein Urine Negative (Negative); Specific Grav Ur 1.015 (1.001-1.035); Urobilinogen Urine 0.2 mg/dL (<2.0); pH Urine 5.5 (5.0-9.0)
[2023-08-04 10:57] LABS: Pregnancy On Board Control Positive; Urine Pregnancy Test Negative
[2023-08-04 11:05] LABS: Lactic Acid 1.4 mmol/L (0.7-2.0)
[2023-08-04 11:07] LABS: Add Urine Microscopic? NO
[2023-08-04 11:51] LABS: Troponin I 0.493 ng/mL (0.000-0.034)
[2023-08-04 13:03] LABS: Glucose Point of Care 227 mg/dl (65-105)
[2023-08-04] MEDS: CENTRAL LINE FLUSH 10 ML IV PUSH ×2 (15:23→21:35)
[2023-08-04 17:45] LABS: Glucose Point of Care 169 mg/dl (65-105)
--- NOTE | 2023-08-04 18:22 | PM.IMPN ---
Progress Note: A&P Assessment and Plan (1) Abnormal thyroid function test: Code(s): R94.6 - Abnormal results of thyroid function studies Status: Acute (2) Stridor: Code(s): R06.1 - Stridor Status: Acute (3) Acute respiratory failure: Code(s): J96.00 - Acute respiratory failure, unspecified whether with hypoxia or hypercapnia Status: Acute (4) Acute hypercapnic respiratory failure: Code(s): J96.02 - Acute respiratory failure with hypercapnia Status: Acute (5) Leukocytosis: Qualifiers: Leukocytosis type: unspecified Qualified Code(s): D72.829 - Elevated white blood cell count, unspecified Code(s): D72.829 - Elevated white blood cell count, unspecified Status: Acute (6) Type 2 diabetes mellitus with hyperglycemia, with long-term current use of insulin: Code(s): E11.65 - Type 2 diabetes mellitus with hyperglycemia; Z79.4 - shelter (current) use of insulin Status: Acute (7) Type 2 diabetes mellitus: Qualifiers: Diabetes mellitus termite control servicer insulin use: without termite control servicer use Diabetes mellitus complication status: with hyperglycemia Qualified Code(s): E11.65 - Type 2 diabetes mellitus with hyperglycemia Code(s): E11.9 - Type 2 diabetes mellitus without complications Status: Acute (8) Leukocytosis: Qualifiers: Leukocytosis type: lymphocytosis Qualified Code(s): D72.820 - Lymphocytosis (symptomatic) Code(s): D72.829 - Elevated white blood cell count, unspecified Status: Acute (9) Non compliance with medical treatment: Code(s): Z91.199 - Patient's noncompliance with other medical treatment and regimen due to unspecified reason Status: Acute (10) Acute hypoxic on chronic hypercapnic respiratory failure: Code(s): J96.01 - Acute respiratory failure with hypoxia; J96.12 - Chronic respiratory failure with hypercapnia Status: Acute (11) Pneumonia: Qualifiers: Pneumonia type: due to unspecified organism Laterality: bilateral Lung location: unspecified part of lung Qualified Code(s): J18.9 - Pneumonia, unspecified organism Code(s): J18.9 - Pneumonia, unspecified organism Status: Acute (12) Elevated troponin: Code(s): R79.89 - Other specified abnormal findings of blood chemistry Status: Acute (13) Hyperglycemia: Code(s): R73.9 - Hyperglycemia, unspecified Status: Acute (14) Altered mental status: Qualifiers: Altered mental status type: unspecified Qualified Code(s): R41.82 - Altered mental status, unspecified Code(s): R41.82 - Altered mental status, unspecified Status: Acute (15) Acute respiratory failure with hypercapnia: Code(s): J96.02 - Acute respiratory failure with hypercapnia Status: Acute (16) PTSD (post-traumatic stress disorder): Code(s): F43.10 - Post-traumatic stress disorder, unspecified Status: Acute (17) Bronchitis: Code(s): J40 - Bronchitis, not specified as acute or chronic Status: Acute (18) Cough: Qualifiers: Cough type: subacute Qualified Code(s): R05.2 - Subacute cough Code(s): R05.9 - Cough, unspecified Status: Acute (19) Iron deficiency anemia: Qualifiers: Iron deficiency anemia type: unspecified iron deficiency Qualified Code(s): D50.9 - Iron deficiency anemia, unspecified Code(s): D50.9 - Iron deficiency anemia, unspecified Status: Acute (20) Tobacco abuse: Code(s): Z72.0 - Tobacco use Status: Acute (21) GERD (gastroesophageal reflux disease): Qualifiers: Esophagitis presence: esophagitis presence not specified Qualified Code(s): K21.9 - Gastro-esophageal reflux disease without esophagitis Code(s): K21.9 - Gastro-esophageal reflux disease without esophagitis Status: Acute (22) Back Pain: Code(s): M54.9 - Dorsalgia, unspec
[2023-08-04] MEDS: INSULIN GLARGINE (*BKC) 100 UNITS/ML 15 UNITS SUB-Q (18:24)
[2023-08-04] MEDS: VANCOMYCIN 1,500 MG/NS 500 ML 1,500 MG/500 ML BAG 250 MG IVPB (18:27)
[2023-08-04] MEDS: dexmedeTOMIDine 400 MCG/100 ML 400 MCG/100 ML BAG 7.8 MCG IV CONT (20:05)
[2023-08-04] MEDS: FENTANYL 2,500MCG/NS250ML(*CRX 2,500 MCG/250 ML BAG 15 MCG IV CONT (22:22)
[2023-08-05] VITALS (50 sets, daily range): BP systolic 123–149; BP diastolic 62–84; PULSE 57–107; RESP 13–30; TEMP 35.7–37.3; O2SAT 96–100; BMI 31.4
[2023-08-05] MEDS: MIDAZOLAM 100MG/NS 100ML(*CRX) 100 MG/100 ML BAG IV CONT (00:05)
[2023-08-05] MEDS: INSULIN ASPART (*BKC) 100 UNITS/ML SUB-Q ×4 (00:12→23:25)
[2023-08-05 00:14] LABS: Glucose Point of Care 241 mg/dl (65-105)
[2023-08-05] MEDS: LEVALBUTEROL NEB 1.25 MG/3 ML INHALATION ×4 (02:32→20:08)
[2023-08-05] MEDS: IPRATROPIUM BR 0.02% INH SOLN 0.5 MG/2.5 ML VIAL INHALATION ×4 (02:33→20:08)
[2023-08-05] MEDS: dexmedeTOMIDine 400 MCG/100 ML 400 MCG/100 ML BAG 13.65 MCG IV CONT (03:01)
[2023-08-05] MEDS: diphenhydrAMINE HCl INJ 50 MG/ML VIAL IV PUSH (05:02)
[2023-08-05] MEDS: CEFEPIME 2 GM/NS 50 ML 2 GM/50 ML BAG IVPB ×3 (05:25→21:09)
[2023-08-05 05:31] LABS: Hematocrit 30.7 % (37.0-47.0); Hemoglobin 9.2 g/dL (12.0-15.0); Mean Corpuscular Volume 86.7 fl (80-100); Mean Platelet Volume 9.1 fl (7.4-10.4); Platelet Count Result 525 k/mm3 (150-375); Red Blood Count 3.54 M/mm3 (4.2-5.4); Red Cell Distribution Width 15.9 % (11.5-14.5); White Blood Count 18.7 K/mm3 (4.5-10.0)
[2023-08-05 05:41] LABS: Alanine Aminotransferase 18 U/L (6-35); Albumin Level 3.6 g/dL (3.5-5.1); Alkaline Phosphatase 77 U/L (38-126); Anion Gap 3 mmol/L (4-12); Aspartate Amino Transferase 22 U/L (14-36); Bilirubin,Total 0.3 mg/dL (0.2-1.3); Blood Urea Nitrogen 12 mg/dL (7-17); Carbon Dioxide 26 mmol/L (22-30); Chloride 108 mmol/L (98-107); Estimated CRCL calculation 123 ml/min; Estimated Glomerular Filt Rate > 60; Glucose 226 mg/dL (65-110); Magnesium 2.2 mg/dL (1.6-2.3); Potassium 3.8 mmol/L (3.4-5.0); Sodium 137 mmol/L (137-145)
[2023-08-05] MEDS: CENTRAL LINE FLUSH 10 ML IV PUSH ×3 (05:49→21:09)
[2023-08-05] MEDS: methylPREDNISolone SOD SUCC 125 MG VIAL 60 MG IV PUSH ×3 (05:49→21:09)
[2023-08-05] MEDS: VANCOMYCIN 1,500 MG/NS 500 ML 1,500 MG/500 ML BAG 250 MG IVPB (05:53)
[2023-08-05 06:03] LABS: Alveolar/Arterial O2 Gradient 149.8 mmHg; Base Excess ABG 0.7 mEq/l (+/-2.0); Fractional Inspired Oxygen 40 %; HCO3 ABG 23.8 mEq/l (22.0-26.0); Methemoglobin ABG 0.3 %THb (0-1.5); Oxygen Saturation ABG 97.9 % (95.0-100.0); Oxyhemoglobin 97.2 % THb (90.0-100.0); PCO2 ABG 32.4 mmHg (35.0-45.0); PO2 ABG 98.1 mmHg (80.0-100.0); PO2 FiO2 Ratio Arterial Blood 2.45 %; Reduced Hemoglobin 1.5 %THb (0-5.0); Total Hemoglobin 10.9 g/dL (12.0-18.0); pH ABG 7.483 (7.350-7.450)
[2023-08-05 06:04] LABS: Modified Allen's Test Pass; Site Drawn RIGHT RADIAL
[2023-08-05 06:05] LABS: Arterial Blood Gas PEEP 5 cmH2O; Arterial Blood Gas Tidal Volume 380 ml; Arterial Blood Gas Vent Mode CMV; Arterial Blood Gas Ventilator rate 22 /MIN; Device VENTILATOR
[2023-08-05] MEDS: FENOFIBRATE 160 MG TABLET PO (08:34)
[2023-08-05] MEDS: ARIPiprazole 5 MG TABLET PO (08:34)
[2023-08-05] MEDS: ASPIRIN 81 MG ENTERIC TABLET PO (08:34)
[2023-08-05] MEDS: ATORVASTATIN 40 MG TABLET 80 MG PO (08:34)
[2023-08-05] MEDS: PANTOPRAZOLE SODIUM IV 40 MG VIAL IV PUSH (08:34)
[2023-08-05] MEDS: FLUoxetine HCL 20 MG CAPSULE 40 MG PO (08:34)
[2023-08-05] MEDS: FLUTICASONE PROPIONATE 0.05% NA SPR 16 GM BTL (*BKC) 2 SPRAY NASAL (08:35)
[2023-08-05] MEDS: MINERAL OIL/WHITE PETROLATUM OINTMENT 1 APPLIC EACH EYE (08:35)
[2023-08-05] MEDS: ENOXAPARIN 40 MG/0.4 ML SYRINGE SUB-Q (08:35)
[2023-08-05 09:32] LABS: Troponin I 0.205 ng/mL (0.000-0.034)
[2023-08-05 09:52] LABS: Base Excess ABG 1.6 mEq/l (+/-2.0); Fractional Inspired Oxygen 30 %; HCO3 ABG 25.7 mEq/l (22.0-26.0); Oxygen Content ABG 15.1 %vol (16.0-22.0); Oxygen Saturation ABG 98.6 % (95.0-100.0); Oxyhemoglobin 98.2 % THb (90.0-100.0); PCO2 ABG 38.4 mmHg (35.0-45.0); PO2 ABG 126.8 mmHg (80.0-100.0); PO2 FiO2 Ratio Arterial Blood 4.23 %; Total Hemoglobin 10.8 g/dL (12.0-18.0); pH ABG 7.443 (7.350-7.450)
[2023-08-05 09:53] LABS: Arterial Blood Gas PEEP 5 cmH2O; Arterial Blood Gas Pressure Support 8 cmH2O; Arterial Blood Gas Vent Mode SPONTANEOUS; Device VENTILATOR; Modified Allen's Test Pass; Site Drawn LEFT RADIAL
--- NOTE | 2023-08-05 11:15 | PCFNICU ---
ICU Rounding Note: Pt current nutrition is NPO. Last recorded weight is 80.3 kg. Bowel Motility: No BM reported. Labs Reviewed:Glu 226, Cr 0.5,Hct 30.7,Hgb 9.2 Meds Noted: Lovenox, Protonix Skin: WNL Additional Notes:Patient is NPO at this time. Extubated 08/04. Plans for swallow study. Recommend advancing diet as tolerated per MD pending swallow study. Following daily in ICU rounds.
--- NOTE | 2023-08-05 11:24 | WPDINTPN ---
Progress Note: A&P Assessment and Plan (1) Acute respiratory failure: Code(s): J96.00 - Acute respiratory failure, unspecified whether with hypoxia or hypercapnia Status: Acute Assessment and Plan: Acute on chronic hypoxic and hypercarbic respiratory failures secondary to COPD Patient now intubated and sedated. Continue full mechanical ventilation support to prevent hypoxemia/hypercarbia and end organ damage. ABG and ventilator settings reviewed -chest x-ray this morning shows clear lungs -08/03: CTA chest showed no pulmonary embolism, mild dependent atelectasis bilaterally -07/26/2023: Echocardiogram was unremarkable Her procalcitonin level was low 08/03: Blood cultures, preliminary report, no growth to date 08/03: Sputum cultures are negative so far, no organisms, Gram stain indicated above lower respiratory tract specimen Continue vancomycin and cefepime (08/03) -MRSA screen was negative, will discontinue vancomycin -elevated WBC count could be related to steroids, will monitor - Continue steroids and Bronchodilators -have asked bedside RN to discontinue sedation, keep her on Precedex infusion. Patient was placed on and metal leaf layer SBT, patient was extubated on 08/04. May use BiPAP or high-flow therapy if required Echo 07/25 Summary ? 1. Complete two-dimensional, color flow and Doppler transthoracic echocardiogram is performed. ? 2. Left ventricular chamber dimension is normal. ? 3. Left ventricular systolic function is normal, estimated at 65-70%. ? 4. Right ventricular chamber dimension is normal. ? 5. Right ventricular systolic function is normal. ? 6. No significant valvular abnormalities. (2) Type 2 diabetes mellitus with hyperglycemia, with long-term current use of insulin: Code(s): E11.65 - Type 2 diabetes mellitus with hyperglycemia; Z79.4 - watermaster (current) use of insulin Status: Acute Assessment and Plan: Continue sliding scale insulin and Accu-Chek -continue Lantus (3) Elevated troponin: Code(s): R79.89 - Other specified abnormal findings of blood chemistry Status: Acute Assessment and Plan: Slightly elevated troponin likely secondary to respiratory failure and racemic epinephrine EKG shows sinus tachycardia with right bundle branch block Continue aspirin, statin -troponin trending down Recent Echo 07/25 Summary ? 1. Complete two-dimensional, color flow and Doppler transthoracic echocardiogram is performed. ? 2. Left ventricular chamber dimension is normal. ? 3. Left ventricular systolic function is normal, estimated at 65-70%. ? 4. Right ventricular chamber dimension is normal. ? 5. Right ventricular systolic function is normal. ? 6. No significant valvular abnormalities. (4) Stridor: Code(s): R06.1 - Stridor Status: Acute Assessment and Plan: Patient had some stridor prior to intubation as per physician sign-out Patient did receive racemic epinephrine without any significant improvement Currently on steroid 08/03: Soft tissue neck CT scan: No pathologically enlarged lymph nodes, the pharynx and the larynx unremarkable, no abscess, there is moderate cervical spondylosis, endotracheal tube at the tip of jennifer, retraction is recommended (5) Abnormal thyroid function test: Code(s): R94.6 - Abnormal results of thyroid function studies Status: Acute Assessment and Plan: TSH elevated at 7.6. It was normal when checked 1 week ago -Normal T4 level -T3 levels pending Plan DVT prophylaxis -Lovenox Stress ulcer prophylaxis -PPI Nutrition -tolerating tube feeds, currently on hold for possible extubation Code Status - Full Code Total Critical Care Time - 34 minutes Due to a high probability of clinically significant, life threatening deterioration, the patient required my highest level of preparedness to intervene emergently and I personally spent this critical care time directly and personally managing the patient. This
[2023-08-05 11:44] LABS: Glucose Point of Care 220 mg/dl (65-105)
[2023-08-05] MEDS: dexmedeTOMIDine 400 MCG/100 ML 400 MCG/100 ML BAG 15.6 MCG IV CONT (11:47)
--- NOTE | 2023-08-05 15:14 | PCSTNOTE ---
Please refer to the Bedside Swallow Evaluation in the EMR. The above pleasant and cooperative pt was seen for a swallow evaluation at bedside. The pt was positioned upright in the bed for the evaluation. She was alert & able to follow commands. She is currently NPO; recently extubated. Oral mucosa is normal but lips are dry and cracked; natural dentition is in good condition; oral peripheral exam revealed lingual and labial structures to be within functional limits. She was able to dry swallow on command; vocal quality was soft. She was tested with pudding, applesauce and thin liquids in controlled amounts. The oral stages appeared WNL. No oral leakage or pocketing was noted. During the pharyngeal stage, swallow reflex appeared prompt & laryngeal elevation adequate but subtle and intermittent throat clearing was exhibited. Due to the subtle signs of aspiration (or possibly residual), a modified barium swallow is recommended. Impression: overt but subtle signs of dysphagia. Recommendation: MBS to further assess ability to determine a safe diet and potential accurate POC. Thank you for this referral.
[2023-08-05 17:15] LABS: Glucose Point of Care 176 mg/dl (65-105)
--- NOTE | 2023-08-05 18:27 | PM.IMPN ---
Progress Note: A&P Assessment and Plan (1) Abnormal thyroid function test: Code(s): R94.6 - Abnormal results of thyroid function studies Status: Acute (2) Stridor: Code(s): R06.1 - Stridor Status: Acute (3) Acute respiratory failure: Code(s): J96.00 - Acute respiratory failure, unspecified whether with hypoxia or hypercapnia Status: Acute (4) Acute hypercapnic respiratory failure: Code(s): J96.02 - Acute respiratory failure with hypercapnia Status: Acute (5) Leukocytosis: Qualifiers: Leukocytosis type: unspecified Qualified Code(s): D72.829 - Elevated white blood cell count, unspecified Code(s): D72.829 - Elevated white blood cell count, unspecified Status: Acute (6) Type 2 diabetes mellitus with hyperglycemia, with long-term current use of insulin: Code(s): E11.65 - Type 2 diabetes mellitus with hyperglycemia; Z79.4 - [facility] (current) use of insulin Status: Acute (7) Type 2 diabetes mellitus: Qualifiers: 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: without radiation protection engineer use Diabetes mellitus complication status: with hyperglycemia Qualified Code(s): E11.65 - Type 2 diabetes mellitus with hyperglycemia Code(s): E11.9 - Type 2 diabetes mellitus without complications Status: Acute (8) Non compliance with medical treatment: Code(s): Z91.199 - Patient's noncompliance with other medical treatment and regimen due to unspecified reason Status: Acute (9) Acute hypoxic on chronic hypercapnic respiratory failure: Code(s): J96.01 - Acute respiratory failure with hypoxia; J96.12 - Chronic respiratory failure with hypercapnia Status: Acute (10) Pneumonia: Qualifiers: Pneumonia type: due to unspecified organism Laterality: bilateral Lung location: unspecified part of lung Qualified Code(s): J18.9 - Pneumonia, unspecified organism Code(s): J18.9 - Pneumonia, unspecified organism Status: Acute (11) Elevated troponin: Code(s): R79.89 - Other specified abnormal findings of blood chemistry Status: Acute (12) Hyperglycemia: Code(s): R73.9 - Hyperglycemia, unspecified Status: Acute (13) Altered mental status: Qualifiers: Altered mental status type: unspecified Qualified Code(s): R41.82 - Altered mental status, unspecified Code(s): R41.82 - Altered mental status, unspecified Status: Acute (14) PTSD (post-traumatic stress disorder): Code(s): F43.10 - Post-traumatic stress disorder, unspecified Status: Acute (15) Bronchitis: Code(s): J40 - Bronchitis, not specified as acute or chronic Status: Acute (16) Cough: Qualifiers: Cough type: subacute Qualified Code(s): R05.2 - Subacute cough Code(s): R05.9 - Cough, unspecified Status: Acute (17) Iron deficiency anemia: Qualifiers: Iron deficiency anemia type: unspecified iron deficiency Qualified Code(s): D50.9 - Iron deficiency anemia, unspecified Code(s): D50.9 - Iron deficiency anemia, unspecified Status: Acute (18) Tobacco abuse: Code(s): Z72.0 - Tobacco use Status: Acute (19) GERD (gastroesophageal reflux disease): Qualifiers: Esophagitis presence: esophagitis presence not specified Qualified Code(s): K21.9 - Gastro-esophageal reflux disease without esophagitis Code(s): K21.9 - Gastro-esophageal reflux disease without esophagitis Status: Acute (20) Back Pain: Code(s): M54.9 - Dorsalgia, unspecified Status: Acute (21) Cervical radiculopathy due to degenerative joint disease of spine: Code(s): M47.22 - Other spondylosis with radiculopathy, cervical region Status: Acute (22) Dyslipidemia: Code(s): E78.5 - Hyperlipidemia, unspecified Status: Acute (23) Nausea: Code(s): R11.0 - Nausea Status: Acute (24) Anx
[2023-08-05] MEDS: ALPRAZolam (*CRX) 0.5 MG TABLET 1 MG PO (20:03)
[2023-08-05] MEDS: ACETAMINOPHEN ELIXIR 325 MG/10.15 ML UDC 650 MG PO (23:25)
[2023-08-05 23:26] LABS: Glucose Point of Care 203 mg/dl (65-105)
[2023-08-06] VITALS (17 sets, daily range): BP systolic 124–164; BP diastolic 54–90; PULSE 67–798; RESP 12–20; TEMP 36.7–37.2; O2SAT 96–100
[2023-08-06] MEDS: IPRATROPIUM BR 0.02% INH SOLN 0.5 MG/2.5 ML VIAL INHALATION ×4 (01:10→20:14)
[2023-08-06] MEDS: LEVALBUTEROL NEB 1.25 MG/3 ML INHALATION ×4 (01:10→20:14)
[2023-08-06] MEDS: traZODone HCL 50 MG TABLET PO (02:05)
[2023-08-06] MEDS: methylPREDNISolone SOD SUCC 125 MG VIAL 60 MG IV PUSH (05:35)
[2023-08-06] MEDS: CEFEPIME 2 GM/NS 50 ML 2 GM/50 ML BAG IVPB ×3 (05:35→23:42)
[2023-08-06] MEDS: ACETAMINOPHEN ELIXIR 325 MG/10.15 ML UDC 650 MG PO ×2 (05:35→21:50)
[2023-08-06] MEDS: CENTRAL LINE FLUSH 10 ML IV PUSH ×3 (05:36→22:43)
[2023-08-06 05:41] LABS: Hematocrit 30.7 % (37.0-47.0); Hemoglobin 9.6 g/dL (12.0-15.0); Mean Corpuscular HGB Conc 31.3 g/dl (32-36); Mean Corpuscular Hemoglobin 26.5 pg (26-34); Mean Corpuscular Volume 84.8 fl (80-100); Mean Platelet Volume 9.3 fl (7.4-10.4); Platelet Count Result 549 k/mm3 (150-375); Red Blood Count 3.62 M/mm3 (4.2-5.4); Red Cell Distribution Width 15.8 % (11.5-14.5)
[2023-08-06 05:46] LABS: Alanine Aminotransferase 19 U/L (6-35); Albumin Level 3.8 g/dL (3.5-5.1); Alkaline Phosphatase 82 U/L (38-126); Anion Gap 4 mmol/L (4-12); Aspartate Amino Transferase 25 U/L (14-36); Bilirubin,Total 0.4 mg/dL (0.2-1.3); Blood Urea Nitrogen 12 mg/dL (7-17); Calcium 9.2 mg/dL (8.4-10.2); Carbon Dioxide 31 mmol/L (22-30); Chloride 104 mmol/L (98-107); Estimated CRCL calculation 149 ml/min; Estimated Glomerular Filt Rate > 60; Glucose 191 mg/dL (65-110); Phosphorus 2.7 mg/dL (2.5-4.5); Potassium 3.7 mmol/L (3.4-5.0); Sodium 139 mmol/L (137-145)
[2023-08-06] MEDS: ALPRAZolam (*CRX) 0.5 MG TABLET 1 MG PO ×3 (08:15→17:02)
[2023-08-06] MEDS: FLUoxetine HCL 20 MG CAPSULE 40 MG PO ×2 (08:15→17:02)
[2023-08-06] MEDS: ENOXAPARIN 40 MG/0.4 ML SYRINGE SUB-Q (08:16)
[2023-08-06] MEDS: FENOFIBRATE 160 MG TABLET PO (08:16)
[2023-08-06] MEDS: ARIPiprazole 5 MG TABLET PO (08:16)
[2023-08-06] MEDS: ATORVASTATIN 40 MG TABLET 80 MG PO (08:16)
[2023-08-06] MEDS: ASPIRIN 81 MG ENTERIC TABLET PO (08:16)
[2023-08-06] MEDS: FLUTICASONE PROPIONATE 0.05% NA SPR 16 GM BTL (*BKC) 2 SPRAY NASAL (08:18)
[2023-08-06] MEDS: PANTOPRAZOLE SODIUM IV 40 MG VIAL IV PUSH (08:19)
[2023-08-06] MEDS: lisinopriL 10 MG TABLET PO (08:19)
--- NOTE | 2023-08-06 09:24 | WPDINTPN ---
Progress Note: A&P Assessment and Plan (1) Acute respiratory failure: Code(s): J96.00 - Acute respiratory failure, unspecified whether with hypoxia or hypercapnia Status: Acute Assessment and Plan: Acute on chronic hypoxic and hypercarbic respiratory failures secondary to COPD Patient now intubated and sedated. Continue full mechanical ventilation support to prevent hypoxemia/hypercarbia and end organ damage. ABG and ventilator settings reviewed -chest x-ray this morning shows clear lungs -08/03: CTA chest showed no pulmonary embolism, mild dependent atelectasis bilaterally -07/26/2023: Echocardiogram was unremarkable Her procalcitonin level was low 08/03: Blood cultures, preliminary report, no growth to date 08/03: Sputum cultures are negative so far, no organisms, Gram stain indicated above lower respiratory tract specimen Continue vancomycin and cefepime (08/03) -MRSA screen was negative, will discontinue vancomycin -elevated WBC count could be related to steroids, will monitor -wean steroids -continue bronchodilators Patient successfully extubated on 08/05/2023 -PT/OT to follow patient Echo 07/25 Summary ? 1. Complete two-dimensional, color flow and Doppler transthoracic echocardiogram is performed. ? 2. Left ventricular chamber dimension is normal. ? 3. Left ventricular systolic function is normal, estimated at 65-70%. ? 4. Right ventricular chamber dimension is normal. ? 5. Right ventricular systolic function is normal. ? 6. No significant valvular abnormalities. (2) Type 2 diabetes mellitus with hyperglycemia, with long-term current use of insulin: Code(s): E11.65 - Type 2 diabetes mellitus with hyperglycemia; Z79.4 - senior care (current) use of insulin Status: Acute Assessment and Plan: Continue sliding scale insulin and Accu-Chek -continue Lantus (3) Elevated troponin: Code(s): R79.89 - Other specified abnormal findings of blood chemistry Status: Acute Assessment and Plan: Slightly elevated troponin likely secondary to respiratory failure and racemic epinephrine EKG shows sinus tachycardia with right bundle branch block Continue aspirin, statin -troponin trending down Recent Echo 07/25 Summary ? 1. Complete two-dimensional, color flow and Doppler transthoracic echocardiogram is performed. ? 2. Left ventricular chamber dimension is normal. ? 3. Left ventricular systolic function is normal, estimated at 65-70%. ? 4. Right ventricular chamber dimension is normal. ? 5. Right ventricular systolic function is normal. ? 6. No significant valvular abnormalities. (4) Stridor: Code(s): R06.1 - Stridor Status: Acute Assessment and Plan: RESOLVED Patient had some stridor prior to intubation as per physician sign-out Patient did receive racemic epinephrine without any significant improvement Currently on steroid 08/03: Soft tissue neck CT scan: No pathologically enlarged lymph nodes, the pharynx and the larynx unremarkable, no abscess, there is moderate cervical spondylosis, endotracheal tube at the tip of jennifer, retraction is recommended (5) Abnormal thyroid function test: Code(s): R94.6 - Abnormal results of thyroid function studies Status: Acute Assessment and Plan: TSH elevated at 7.6. It was normal when checked 1 week ago -Normal T4 level -T3 levels pending Plan DVT prophylaxis -Lovenox Stress ulcer prophylaxis -PPI Nutrition -on minced and moist diabetic diet Code Status - Full Code Total Critical Care Time - 31 minutes Discussed with hospitalist, okay to transfer the patient out of the ICU Due to a high probability of clinically significant, life threatening deterioration, the patient required my highest level of preparedness to intervene emergently and I personally spent this critical care time directly and personally managing the patient. This critical care time included obtaining a history; examining the patient;
[2023-08-06 11:24] LABS: Glucose Point of Care 233 mg/dl (65-105)
[2023-08-06] MEDS: INSULIN ASPART (*BKC) 100 UNITS/ML SUB-Q (11:51)
[2023-08-06] MEDS: GABAPENTIN 300 MG CAPSULE PO ×2 (12:49→17:02)
[2023-08-06 16:34] LABS: Glucose Point of Care 176 mg/dl (65-105)
--- NOTE | 2023-08-06 16:53 | PC.NURSE ---
Urinary catheter dc'd at 11:15 today, since then pt had 3 voids with no complications
--- NOTE | 2023-08-06 18:47 | P.PNIM_ITS ---
Progress Note: A&P Assessment and Plan (1) Abnormal thyroid function test: Code(s): R94.6 - Abnormal results of thyroid function studies Status: Acute (2) Stridor: Code(s): R06.1 - Stridor Status: Acute (3) Acute respiratory failure: Code(s): J96.00 - Acute respiratory failure, unspecified whether with hypoxia or hypercapnia Status: Acute (4) Acute hypercapnic respiratory failure: Code(s): J96.02 - Acute respiratory failure with hypercapnia Status: Acute (5) Leukocytosis: Qualifiers: Leukocytosis type: unspecified Qualified Code(s): D72.829 - Elevated white blood cell count, unspecified Code(s): D72.829 - Elevated white blood cell count, unspecified Status: Acute (6) Type 2 diabetes mellitus with hyperglycemia, with long-term current use of insulin: Code(s): E11.65 - Type 2 diabetes mellitus with hyperglycemia; Z79.4 - prison (current) use of insulin Status: Acute (7) Type 2 diabetes mellitus: Qualifiers: 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: without packing room inspector use Diabetes mellitus complication status: with hyperglycemia Qualified Code(s): E11.65 - Type 2 diabetes mellitus with hyperglycemia Code(s): E11.9 - Type 2 diabetes mellitus without complications Status: Acute (8) Non compliance with medical treatment: Code(s): Z91.199 - Patient's noncompliance with other medical treatment and regimen due to unspecified reason Status: Acute (9) Acute hypoxic on chronic hypercapnic respiratory failure: Code(s): J96.01 - Acute respiratory failure with hypoxia; J96.12 - Chronic respiratory failure with hypercapnia Status: Acute (10) Pneumonia: Qualifiers: Pneumonia type: due to unspecified organism Laterality: bilateral Lung location: unspecified part of lung Qualified Code(s): J18.9 - Pneumonia, unspecified organism Code(s): J18.9 - Pneumonia, unspecified organism Status: Acute (11) Elevated troponin: Code(s): R79.89 - Other specified abnormal findings of blood chemistry Status: Acute (12) Hyperglycemia: Code(s): R73.9 - Hyperglycemia, unspecified Status: Acute (13) Altered mental status: Qualifiers: Altered mental status type: unspecified Qualified Code(s): R41.82 - Altered mental status, unspecified Code(s): R41.82 - Altered mental status, unspecified Status: Acute (14) PTSD (post-traumatic stress disorder): Code(s): F43.10 - Post-traumatic stress disorder, unspecified Status: Acute (15) Bronchitis: Code(s): J40 - Bronchitis, not specified as acute or chronic Status: Acute (16) Cough: Qualifiers: Cough type: subacute Qualified Code(s): R05.2 - Subacute cough Code(s): R05.9 - Cough, unspecified Status: Acute (17) Iron deficiency anemia: Qualifiers: Iron deficiency anemia type: unspecified iron deficiency Qualified Code(s): D50.9 - Iron deficiency anemia, unspecified Code(s): D50.9 - Iron deficiency anemia, unspecified Status: Acute (18) Tobacco abuse: Code(s): Z72.0 - Tobacco use Status: Acute (19) GERD (gastroesophageal reflux disease): Qualifiers: Esophagitis presence: esophagitis presence not specified Qualified Code(s): K21.9 - Gastro-esophageal reflux disease without esophagitis Code(s): K21.9 - Gastro-esophageal reflux disease without esophagitis Status: Acute (20) Back Pain:
[2023-08-06 20:12] LABS: Glucose Point of Care 188 mg/dl (65-105)
--- NOTE | 2023-08-06 20:13 | PC.NURSE ---
Discharge Disposition entered in error. Undone by admitting.
--- NOTE | 2023-08-06 20:38 | PC.NURSE ---
pt transfered to rm [id number] on [facility] via wheel chair
[2023-08-07] VITALS (9 sets, daily range): BP systolic 127–133; BP diastolic 72–73; PULSE 63–90; RESP 16–20; TEMP 36.3–36.4; O2SAT 98–99
[2023-08-07] MEDS: LEVALBUTEROL NEB 1.25 MG/3 ML INHALATION ×2 (02:45→07:57)
[2023-08-07] MEDS: IPRATROPIUM BR 0.02% INH SOLN 0.5 MG/2.5 ML VIAL INHALATION ×2 (02:46→07:57)
[2023-08-07] MEDS: CENTRAL LINE FLUSH 10 ML IV PUSH ×2 (06:24→13:54)
[2023-08-07] MEDS: CEFEPIME 2 GM/NS 50 ML 2 GM/50 ML BAG IVPB ×2 (06:24→13:53)
[2023-08-07 06:44] LABS: Glucose Point of Care 155 mg/dl (65-105)
[2023-08-07] MEDS: ACETAMINOPHEN ELIXIR 325 MG/10.15 ML UDC 650 MG PO (07:30)
[2023-08-07] MEDS: FLUoxetine HCL 20 MG CAPSULE 40 MG PO (08:27)
[2023-08-07] MEDS: ATORVASTATIN 40 MG TABLET 80 MG PO (08:27)
[2023-08-07] MEDS: ALPRAZolam (*CRX) 0.5 MG TABLET 1 MG PO ×2 (08:28→12:16)
[2023-08-07] MEDS: ASPIRIN 81 MG ENTERIC TABLET PO (08:28)
[2023-08-07] MEDS: GABAPENTIN 300 MG CAPSULE PO ×2 (08:28→12:16)
[2023-08-07] MEDS: ARIPiprazole 5 MG TABLET PO (08:28)
[2023-08-07] MEDS: lisinopriL 10 MG TABLET PO (08:28)
[2023-08-07] MEDS: FENOFIBRATE 160 MG TABLET PO (08:28)
[2023-08-07] MEDS: ENOXAPARIN 40 MG/0.4 ML SYRINGE SUB-Q (08:30)
[2023-08-07] MEDS: PANTOPRAZOLE SODIUM IV 40 MG VIAL IV PUSH (08:30)
[2023-08-07] MEDS: methylPREDNISolone SOD SUCC 125 MG VIAL 60 MG IV PUSH (08:30)
[2023-08-07] MEDS: FLUTICASONE PROPIONATE 0.05% NA SPR 16 GM BTL (*BKC) 2 SPRAY NASAL (08:31)
[2023-08-07 09:35] LABS: Basophils Percent Auto 0.2 % (0.2-1.2); Eosinophils Percent Auto 0.1 % (0-4.4); Hematocrit 35.1 % (37.0-47.0); Immature Granulocyte Absolute 0.12 K/mm3 (0.00-0.031); Immature Granulocyte Percent A 0.9 % (0-0.5); Lymphocytes Percent Auto 31.1 % (18.3-44.2); Mean Corpuscular HGB Conc 31.3 g/dl (32-36); Mean Corpuscular Hemoglobin 26.6 pg (26-34); Mean Corpuscular Volume 84.8 fl (80-100); Mean Platelet Volume 9.1 fl (7.4-10.4); Monocytes Absolute Auto 0.9 K/mm3 (0.1-0.6); Monocytes Percent Auto 6.4 % (2.6-8.5); Neutrophils Absolute Auto 8.1 K/mm3 (1.3-6.7); Neutrophils Percent Auto 61.3 % (45.5-73.1); Nucleated Red Blood Cells Perc 0.2 % (0.0-0.2); Platelet Count Result 609 k/mm3 (150-375); Red Blood Count 4.14 M/mm3 (4.2-5.4); Red Cell Distribution Width 15.9 % (11.5-14.5); White Blood Count 13.2 K/mm3 (4.5-10.0)
[2023-08-07 09:53] LABS: Anion Gap 6 mmol/L (4-12); Blood Urea Nitrogen 16 mg/dL (7-17); Calcium 8.9 mg/dL (8.4-10.2); Carbon Dioxide 26 mmol/L (22-30); Chloride 101 mmol/L (98-107); Estimated CRCL calculation 87 ml/min; Estimated Glomerular Filt Rate > 60; Glucose 283 mg/dL (65-110); Potassium 3.5 mmol/L (3.4-5.0); Sodium 133 mmol/L (137-145)
[2023-08-07 11:34] LABS: Glucose Point of Care 251 mg/dl (65-105)
[2023-08-07] MEDS: INSULIN ASPART (*BKC) 100 UNITS/ML SUB-Q (12:16)
--- NOTE | 2023-08-07 13:46 | PM.DS ---
DS: Admitting Diagnosis Discharge Date 08/07/2023: Admitting Diagnosis (1) Acute hypoxic on chronic hypercapnic respiratory failure: ?Code(s): J96.01 - Acute respiratory failure with hypoxia; J96.12 - Chronic respiratory failure with hypercapnia ?Status:?Acute (2) Hypertension: ?Qualifiers: ?Hypertension type:?primary hypertension? Qualified Code(s):?I10 - Essential (primary) hypertension ?Code(s): I10 - Essential (primary) hypertension ?Status:?Acute (3) Type 2 diabetes mellitus with hyperglycemia, with long-term current use of insulin: ?Code(s): E11.65 - Type 2 diabetes mellitus with hyperglycemia; Z79.4 - residential (current) use of insulin ?Status:?Acute (4) Leukocytosis: ?Qualifiers: ?Leukocytosis type:?lymphocytosis? Qualified Code(s):?D72.820 - Lymphocytosis (symptomatic) ?Code(s): D72.829 - Elevated white blood cell count, unspecified ?Status:?Acute DS: Discharge Diagnosis Discharge Diagnosis (1) Stridor: Code(s): R06.1 - Stridor Status: Acute (2) Acute hypercapnic respiratory failure: Code(s): J96.02 - Acute respiratory failure with hypercapnia Status: Acute (3) Leukocytosis: Qualifiers: Leukocytosis type: unspecified Qualified Code(s): D72.829 - Elevated white blood cell count, unspecified Code(s): D72.829 - Elevated white blood cell count, unspecified Status: Acute (4) Type 2 diabetes mellitus with hyperglycemia, with long-term current use of insulin: Code(s): E11.65 - Type 2 diabetes mellitus with hyperglycemia; Z79.4 - 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 Status: Acute (5) Non compliance with medical treatment: Code(s): Z91.199 - Patient's noncompliance with other medical treatment and regimen due to unspecified reason Status: Acute (6) Pneumonia: Qualifiers: Pneumonia type: due to unspecified organism Laterality: bilateral Lung location: unspecified part of lung Qualified Code(s): J18.9 - Pneumonia, unspecified organism Code(s): J18.9 - Pneumonia, unspecified organism Status: Acute (7) Elevated troponin: Code(s): R79.89 - Other specified abnormal findings of blood chemistry Status: Acute (8) Hyperglycemia: Code(s): R73.9 - Hyperglycemia, unspecified Status: Acute (9) Altered mental status: Qualifiers: Altered mental status type: unspecified Qualified Code(s): R41.82 - Altered mental status, unspecified Code(s): R41.82 - Altered mental status, unspecified Status: Acute (10) PTSD (post-traumatic stress disorder): Code(s): F43.10 - Post-traumatic stress disorder, unspecified Status: Acute (11) Iron deficiency anemia: Qualifiers: Iron deficiency anemia type: unspecified iron deficiency Qualified Code(s): D50.9 - Iron deficiency anemia, unspecified Code(s): D50.9 - Iron deficiency anemia, unspecified Status: Acute (12) Tobacco abuse: Code(s): Z72.0 - Tobacco use Status: Acute (13) GERD (gastroesophageal reflux disease): Qualifiers: Esophagitis presence: esophagitis presence not specified Qualified Code(s): K21.9 - Gastro-esophageal reflux disease without esophagitis Code(s): K21.9 - Gastro-esophageal reflux disease without esophagitis Status: Acute (14) Back Pain: Code(s): M54.9 - Dorsalgia, unspecified Status: Acute (15) Cervical radiculopathy due to degenerative joint disease of spine: Code(s): M47.22 - Other spondylosis with radiculopathy, cervical region Status: Acute (16) Dyslipidemia: Code(s): E78.5 - Hyperlipidemia, unspecified Status: Acute (17) Anxiety: Code(s): F41.9 - Anxiety disorder, unspecified Status: Acute (18) Hypertension: Qualifiers: Hypertension type: primary hypertension Qualified Code(s): I10 - Essential (primary) hyperte
[2023-08-11 19:16] LABS: T3 Free 3.8
== END 2023-08-07 16:35 | disposition home or self-care (01) | DRG 133 ==
LOC: ANHED 23:45 → ANHICU 08-04 02:23 → ANH3MEDSUR 08-06 20:28
PROVIDERS: Internal Medicine; Admitting Provider Internal Medicine; Emergency Provider Student in an Organized Health Care Education/Training Program; PCP Internal Medicine; Visit Provider Family Medicine
DX: J96.22 Acute and chronic respiratory failure with hypercapnia (principal); J96.21 Acute and chronic respiratory failure with hypoxia; E11.65 Type 2 diabetes mellitus with hyperglycemia; D72.829 Elevated white blood cell count, unspecified; D50.9 Iron deficiency anemia, unspecified; F17.210 Nicotine dependence, cigarettes, uncomplicated; F41.9 Anxiety disorder, unspecified; F32.A Depression, unspecified; I10 Essential (primary) hypertension; J18.9 Pneumonia, unspecified organism; J44.0 Chronic obstructive pulmonary disease with (acute) lower respiratory infection; K21.9 Gastro-esophageal reflux disease without esophagitis; R79.89 Other specified abnormal findings of blood chemistry; Z86.14 Personal history of Methicillin resistant Staphylococcus aureus infection; Z79.4 Long term (current) use of insulin; Z79.82 Long term (current) use of aspirin; Z91.199 Patient's noncompliance with other medical treatment and regimen due to unspecified reason
CPT/HCPCS: 36415; 36569; 36600; 70490; 71045; 71275; 80048; 80053; 81003; 81025; 82375; 82803; 82805; 82948; 83050; 83605; 83735; 84100; 84145; 84439; 84443; 84480; 84484; 85025; 85027; 85380; 85610; 85730; 87040; 87070; 87205; 87641; 92526; 92610; 92611; 93005; 94002; 94003; 94640; 96374; 96375; 97161; 97165; 99291; A9270; C1751; C9113; J0330; J0456; J0692; J0696; J1200; J1650; J1815; J2060; J2250; J2919; J3010; J3370; J3475; J7030; Q9967

== ENCOUNTER 2023-08-14 08:34 | Outpatient (CLI) | payer OTHER, SELFPAY ==
[2023-08-14 09:11] LABS: Basophils Percent Auto 0.3 % (0.2-1.2); Eosinophils Absolute Auto 0.1 K/mm3 (0-0.3); Eosinophils Percent Auto 0.7 % (0-4.4); Hematocrit 36.7 % (37.0-47.0); Hemoglobin 11.2 g/dL (12.0-15.0); Immature Granulocyte Absolute 0.05 K/mm3 (0.00-0.031); Immature Granulocyte Percent A 0.4 % (0-0.5); Lymphocytes Absolute Auto 6.09 K/mm3 (0.9-3.2); Lymphocytes Percent Auto 51.1 % (18.3-44.2); Mean Corpuscular HGB Conc 30.5 g/dl (32-36); Mean Corpuscular Hemoglobin 26.4 pg (26-34); Mean Corpuscular Volume 86.4 fl (80-100); Mean Platelet Volume 9.1 fl (7.4-10.4); Monocytes Absolute Auto 0.9 K/mm3 (0.1-0.6); Monocytes Percent Auto 7.6 % (2.6-8.5); Neutrophils Absolute Auto 4.8 K/mm3 (1.3-6.7); Neutrophils Percent Auto 39.9 % (45.5-73.1); Platelet Count Result 628 k/mm3 (150-375); Red Blood Count 4.25 M/mm3 (4.2-5.4); Red Cell Distribution Width 15.9 % (11.5-14.5); White Blood Count 11.9 K/mm3 (4.5-10.0)
[2023-08-14 09:23] LABS: Cholesterol 181 mg/dL (0-200); HDL Direct 54 mg/dL; Triglycerides 319 mg/dL (<150)
[2023-08-14 09:34] LABS: LDL Cholesterol Direct 99 mg/dL
[2023-08-14 10:41] LABS: Anisocytosis 1+; Hypochromasia 1+; Platelet Estimate Increased (Adequate); Schistocytes None Seen
[2023-08-14 10:42] LABS: Stomatocytes 1+
[2023-08-14 13:08] LABS: Vitamin D 25 Hydroxy 17.7 ng/mL
== END 2023-08-14 08:35 | disposition home or self-care (01) ==
LOC: ANHLAB 08:35
PROVIDERS: PCP Internal Medicine; Visit Provider Clinical Nurse Specialist
DX: I10 Essential (primary) hypertension (principal); E55.9 Vitamin D deficiency, unspecified; D50.9 Iron deficiency anemia, unspecified
CPT/HCPCS: 36415; 80061; 82306; 84443; 85025

== ENCOUNTER 2023-08-22 10:10 | Outpatient (CLI) | payer OTHER, SELFPAY ==
[2023-08-22 13:35] LABS: Alanine Aminotransferase 38 U/L (6-35); Albumin Level 4.3 g/dL (3.5-5.1); Alkaline Phosphatase 65 U/L (38-126); Anion Gap 7 mmol/L (4-12); Aspartate Amino Transferase 50 U/L (14-36); Bilirubin,Total 0.4 mg/dL (0.2-1.3); Blood Urea Nitrogen 9 mg/dL (7-17); Calcium 9.4 mg/dL (8.4-10.2); Carbon Dioxide 28 mmol/L (22-30); Chloride 103 mmol/L (98-107); Estimated Glomerular Filt Rate > 60; Glucose 160 mg/dL (65-110); Potassium 4.3 mmol/L (3.4-5.0); Sodium 138 mmol/L (137-145)
[2023-08-22 14:29] LABS: Iron 23 ug/dL (37-170)
[2023-08-22 14:38] LABS: Hemoglobin A1C 7.1 % (<5.7)
[2023-08-22 14:39] LABS: Percent Iron Saturation 4 % (20-50)
[2023-08-22 14:49] LABS: Creatinine Urine 13.4 mg/dL
[2023-08-22 15:04] LABS: Microalbumin Urine Random < 6.0 mg/L (0-16.7)
== END 2023-08-22 10:11 | disposition home or self-care (01) ==
LOC: ANHGOSHLAB 10:12
PROVIDERS: PCP Internal Medicine; Visit Provider Clinical Nurse Specialist
DX: D50.9 Iron deficiency anemia, unspecified (principal); E11.69 Type 2 diabetes mellitus with other specified complication
CPT/HCPCS: 36415; 80053; 82043; 82728; 83036; 83540; 83550

== ENCOUNTER 2023-11-06 09:33 | Emergency (ER) | payer OTHER, SELFPAY ==
[2023-11-06 09:53] VITALS: BP 133/74; PULSE 88; RESP 16; TEMP 36.3; O2SAT 98
--- NOTE | 2023-11-06 10:20 | ED.URI ---
HPI - URI/Sore Throat General Chief Complaint: Upper Respiratory Infection Stated Complaint: throat sore,IBRAHIM, rundown Time Seen by Provider: 11/06/23 10:21 Source: patient, RN notes reviewed and old records reviewed Mode of arrival: ambulatory Limitations: no limitations History of Present Illness HPI Narrative: Patient presents accompanied by her 2 children. She reports that herself and her children have had a runny nose and have been sneezing for a couple of days. She denies any fever, chills, sweats. She reports she is more tired than usual. She has been taking Zyrtec for her symptoms. She reports poor relief. Related Data Home Medications Medication Instructions Recorded Confirmed aripiprazole 5 mg tablet 5 mg PO DAILY 07/23/23 11/06/23 fluoxetine 20 mg capsule 40 mg PO BID 07/23/23 11/06/23 trazodone 100 mg tablet 50 mg PO DAILY PRN Insomnia 07/23/23 11/06/23 Allergies Allergy/AdvReac Type Severity Reaction Status Date / Time latex Allergy Intermediate Itching Verified 11/06/23 10:13 morphine Allergy Intermediate Swelling Verified 11/06/23 10:13 amoxicillin [From Augmentin] AdvReac Mild Nausea and Verified 11/06/23 10:13 Vomiting clavulanic acid AdvReac Mild Nausea and Verified 11/06/23 10:13 [From Augmentin] Vomiting naproxen AdvReac Mild Other Verified 11/06/23 10:13 Review of Systems Review of Systems: All systems reviewed & are unremarkable except as noted in HPI and below Constitutional: Constitutional: Reports as per HPI and Reports no additional constitutional complaints ENT: Reports system reviewed and no additional complaints, except as documented, Reports as per HPI, Reports nasal congestion, Reports nasal discharge and Reports post nasal drip Cardiovascular: Cardiovascular: Reports no additional cardiovascular complaints Respiratory: Respiratory: Reports no additional respiratory complaints Gastrointestinal: Gastrointestinal: Reports no additional gastrointestinal complaints PMFSH Past Medical History Medical History Anxiety Asthma Cervical radiculopathy Cervical radiculopathy due to degenerative joint disease of spine Degenerated intervertebral disc Depression Environmental and seasonal allergies GERD (gastroesophageal reflux disease) Gestational diabetes Hidradenitis suppurativa Hyperlipidemia Hypertension Non compliance with medical treatment Otalgia of left ear Pica in adults Proteinuria PTSD (post-traumatic stress disorder) Sciatica Tobacco abuse Type 2 diabetes mellitus Vitamin D deficiency Surgical History Surgical History History of facial surgery Previous section Family History Family History Mother Hypertension Alcoholism Asthma Diabetes mellitus Depression Anxiety Heart problem Father Hypertension Alcoholism Thyroid disorder Sibling Alcoholism Asthma Anxiety Depression Thyroid disorder Grandparent Asthma Cancer brain Diabetes mellitus Hypertension Depression Anxiety Heart problem Cerebrovascular accident Other Breast cancer Heart disease Malignant neoplasm of prostate Social History Social History Social History: The patient lives at home with her 6-year-old and 8-year-old child. She is unemployed and . She has smoked at least a half a pack of cigarettes per day since she was 15. She denies any alcohol or illicit substance use. Code status: Full code Surrogate decision maker: Phoebe Kennedy (mother) Smoking packs per day: 0.5 Smoking cigarettes per day: 10.0 Years smoked: 25 Smoking pack-years: 12.50 Smoking status: Former smoker Tobacco type: cigarettes Second hand tobacco smoke exposure: Yes Alcohol intake: never Substance use: never Do Y
== END 2023-11-06 11:00 | disposition home or self-care (01) ==
PROVIDERS: Emergency Provider Nurse Practitioner Family; PCP Clinical Nurse Specialist
DX: J06.9 Acute upper respiratory infection, unspecified (principal); F17.210 Nicotine dependence, cigarettes, uncomplicated; J45.909 Unspecified asthma, uncomplicated; K21.9 Gastro-esophageal reflux disease without esophagitis; E78.5 Hyperlipidemia, unspecified; I10 Essential (primary) hypertension; E11.9 Type 2 diabetes mellitus without complications; M47.22 Other spondylosis with radiculopathy, cervical region; F41.9 Anxiety disorder, unspecified; F32.A Depression, unspecified
CPT/HCPCS: 99211; G0463

== ENCOUNTER 2024-01-26 09:33 | Outpatient (CLI) | payer OTHER, SELFPAY ==
[2024-01-26 09:56] LABS: Basophils Percent Auto 0.6 % (0.2-1.2); Eosinophils Absolute Auto 0.1 K/mm3 (0-0.3); Eosinophils Percent Auto 1.5 % (0-4.4); Hematocrit 36.3 % (37.0-47.0); Hemoglobin 11.5 g/dL (12.0-15.0); Immature Granulocyte Absolute 0.02 K/mm3 (0.00-0.031); Immature Granulocyte Percent A 0.3 % (0-0.5); Lymphocytes Percent Auto 31.8 % (18.3-44.2); Mean Corpuscular HGB Conc 31.7 g/dl (32-36); Mean Corpuscular Volume 82.1 fl (80-100); Mean Platelet Volume 9.3 fl (7.4-10.4); Monocytes Absolute Auto 0.4 K/mm3 (0.1-0.6); Monocytes Percent Auto 6.5 % (2.6-8.5); Neutrophils Absolute Auto 3.9 K/mm3 (1.3-6.7); Neutrophils Percent Auto 59.3 % (45.5-73.1); Platelet Count Result 455 k/mm3 (150-375); Red Blood Count 4.42 M/mm3 (4.2-5.4); Red Cell Distribution Width 16.2 % (11.5-14.5); White Blood Count 6.6 K/mm3 (4.5-10.0)
[2024-01-26 12:52] LABS: Iron 34 ug/dL (37-170)
[2024-01-26 13:01] LABS: Percent Iron Saturation 8 % (20-50)
[2024-01-26 13:27] LABS: Ferritin 6.16 ng/mL (6.24-137)
[2024-01-26 13:29] LABS: Vitamin D 25 Hydroxy 22.3 ng/mL
[2024-01-26 14:57] LABS: Creatinine Urine 72.9 mg/dL
[2024-01-26 15:02] LABS: MALB Creatinine Ratio < 8.2 mg/g (0-30); Microalbumin Urine Random < 6.0 mg/L (0-16.7)
[2024-01-26 16:05] LABS: Alanine Aminotransferase 16 U/L (6-35); Albumin Level 4.2 g/dL (3.5-5.1); Alkaline Phosphatase 72 U/L (38-126); Anion Gap 6 mmol/L (4-12); Aspartate Amino Transferase 23 U/L (14-36); Bilirubin,Total 0.3 mg/dL (0.2-1.3); Blood Urea Nitrogen 6 mg/dL (7-17); Calcium 9.3 mg/dL (8.4-10.2); Carbon Dioxide 25 mmol/L (22-30); Chloride 107 mmol/L (98-107); Estimated Glomerular Filt Rate > 60; Glucose 143 mg/dL (65-110); Sodium 138 mmol/L (137-145)
[2024-01-26 19:21] LABS: Hemoglobin A1C 7.4 % (<5.7)
== END 2024-01-26 09:34 | disposition home or self-care (01) ==
LOC: ANHLAB 09:34
PROVIDERS: PCP Clinical Nurse Specialist; Visit Provider Clinical Nurse Specialist
DX: D72.829 Elevated white blood cell count, unspecified (principal); E11.65 Type 2 diabetes mellitus with hyperglycemia; D50.9 Iron deficiency anemia, unspecified; F41.9 Anxiety disorder, unspecified; I10 Essential (primary) hypertension; R53.82 Chronic fatigue, unspecified; E78.5 Hyperlipidemia, unspecified; E55.9 Vitamin D deficiency, unspecified; Z79.4 Long term (current) use of insulin
CPT/HCPCS: 36415; 80053; 82043; 82306; 82728; 83036; 83540; 83550; 84443; 85025

== ENCOUNTER 2024-02-13 12:27 | Emergency (ER) | payer OTHER, SELFPAY ==
--- NOTE | ~2024-02-13 | XR_ITS ---
EXAMINATION: XR chest 2V 02/13/2024 13:24 INDICATION: Cough PROCEDURE: 2 view chest COMPARISON: 08/04/2023 FINDINGS: The lungs are clear. The cardiomediastinal silhouette is within normal limits. There are no pleural effusions. There is no pneumothorax suspected. IMPRESSION: 1: NO ACUTE CARDIOPULMONARY DISEASE. Reviewed, dictated and finalized at location B. INERY RIGGER
[2024-02-13 12:51] VITALS: BP 137/83; PULSE 98; RESP 20; TEMP 36.8; O2SAT 99
--- NOTE | 2024-02-13 13:07 | ED.URI ---
HPI - URI/Sore Throat General Chief Complaint: Upper Respiratory Infection Stated Complaint: Sinus Time Seen by Provider: 02/13/24 13:08 Source: patient, RN notes reviewed and old records reviewed Mode of arrival: ambulatory Limitations: no limitations History of Present Illness HPI Narrative: Patient presents with 3 days of runny nose and cough. She reports that she has had fever, feels ?run down?. She has been taking [id number]-[id number] medications for her symptoms intermittently with moderate relief. She does have a sick child at home, she is concerned that he has either strep or pneumonia because of his contacts at school. She is therefore worried that she has 1 or the other of these things as well. She is not in any distress at this time voices no other concerns or complaints. Related Data Home Medications Medication Instructions Recorded Confirmed aripiprazole 5 mg tablet 5 mg PO DAILY 07/23/23 01/27/24 fluoxetine 20 mg capsule 40 mg PO BID 07/23/23 01/27/24 trazodone 100 mg tablet 50 mg PO DAILY PRN Insomnia 07/23/23 01/27/24 alprazolam 1 mg tablet 1 mg PO TID 11/25/23 01/27/24 Allergies Allergy/AdvReac Type Severity Reaction Status Date / Time latex Allergy Intermediate Itching Verified 02/13/24 12:37 morphine Allergy Intermediate Swelling Verified 02/13/24 12:37 amoxicillin [From Augmentin] AdvReac Mild Nausea and Verified 02/13/24 12:37 Vomiting clavulanic acid AdvReac Mild Nausea and Verified 02/13/24 12:37 [From Augmentin] Vomiting naproxen AdvReac Mild Other Verified 02/13/24 12:37 Review of Systems Review of Systems: All systems reviewed & are unremarkable except as noted in HPI and below Constitutional: Constitutional: Reports no additional constitutional complaints ENT: Reports system reviewed and no additional complaints, except as documented, Reports nasal congestion, Reports nasal discharge and Reports sore throat Cardiovascular: Cardiovascular: Reports no additional cardiovascular complaints Respiratory: Respiratory: Reports no additional respiratory complaints, Reports chest congestion, Reports cough and Reports excessive phlegm production Gastrointestinal: Gastrointestinal: Reports no additional gastrointestinal complaints PMFSH Past Medical History Medical History Acute hypercapnic respiratory failure Acute hypoxic on chronic hypercapnic respiratory failure Acute respiratory failure Acute respiratory failure with hypercapnia Altered mental status Anxiety Asthma Cervical radiculopathy Cervical radiculopathy due to degenerative joint disease of spine Degenerated intervertebral disc Depression Elevated troponin Environmental and seasonal allergies GERD (gastroesophageal reflux disease) Gestational diabetes Hidradenitis suppurativa Hyperglycemia Hyperlipidemia Hypertension Non compliance with medical treatment Otalgia of left ear Pica in adults Pneumonia Proteinuria PTSD (post-traumatic stress disorder) Sciatica Stridor Tobacco abuse Type 2 diabetes mellitus Vitamin D deficiency Surgical History Surgical History History of facial surgery Previous section Family History Family History Mother Hypertension Alcoholism Asthma Diabetes mellitus Depression Anxiety Heart problem Father Hypertension Alcoholism Thyroid disorder Sibling Alcoholism Asthma Anxiety Depression Thyroid disorder Grandparent Asthma Cancer brain Diabetes mellitus Hypertension Depression Anxiety Heart problem Cerebrovascular accident Other Breast cancer Heart disease Malignant neoplasm of prostate Social History Social History Social History: The patient lives at home with her 6-year-old and 8-year-old child. She is unemployed and . She has smoked at least a half a pack of cigarettes per day since she was 15. She denies any alcohol or illicit substance use. Code status: Full code Surrogate decision maker: Phoebe Kennedy (mother) Smoking packs per day: 0.5 Smoking cigarettes per day: 10.0 Years smoked: 25 Smoking pack-years: 12.50 Smoking status: Current some day smoker Tobacco type: cigarettes Second hand tobacco smoke exposure: Yes Alcohol intake: never Substance use: never Do You Feel Safe in your Home?: Yes Lack of Transportation: No Lack of Food: Never True Current Housing: I Have Housing Concerned About Future Housing: No Difficulty Paying Gas/Electric Bills: No Difficulty Paying for Meds: No Currently Unemployed: No Education: High School Diploma/GED Difficulty w/ Childcare or Family Care: YES Living arrangements: with family Additional living arrangements comments: Lives alone with 2 children Occupation/Education: unemployed Gender identity (if verbalized by the patient): Female Spiritual care concerns: No Comments At the time of my signature, I reviewed and agree with the nursing past medical, surgical, social, and family history. There is no relevant family history pertinent to the patient complaint. Exam Const: General: cooperative, no acute distress, alert and awake Orientation/consciousness: oriented to person, oriented to place and oriented to time HENMT: Head: normal to inspection Resp: Effort & Inspection: normal respiratory effort and able to speak in complete sentences Auscultation: clear to auscultation bilaterally, no crackles, no rales, no rhonchi and no wheezes Cardio: Palpation: normal PMI Rate: regular rate Rhythm: regular rhythm Heart sounds: S1 normal heart sound present and S2 normal heart sound present Neuro: General: oriented to person, oriented to place and oriented to time Cranial nerves: Yes CN's II-XII intact bilaterally Psych: Appearance: grossly normal Thought process: Normal thought process present Insight: Good insight present (Psych) Judgement: Good judgement present (Psych) Course Course Level of Care: Express Care Visit Vital Signs Vital signs: Vital Signs Temperature 98.2 F 02/13/24 12:51 Pulse Rate 98 02/13/24 12:51 Respiratory Rate 20 02/13/24 12:51 Blood Pressure 137/83 02/13/24 12:51 Pulse Oximetry 99 02/13/24 12:51 Oxygen Delivery Room Air 02/13/24 12:51 Temperature 98.2 F 02/13/24 12:51 Pulse Rate 98 02/13/24 12:51 Respiratory Rate 20 02/13/24 12:51 Blood Pressure 137/83 02/13/24 12:51 Pulse Oximetry 99 02/13/24 12:51 Oxygen Delivery Room Air 02/13/24 12:51 Reviewed MDM - URI/Sore Throat MDM Narrative Medical decision making narrative: Diabetic patient with multiple sick contacts, bronchitis symptoms. Will treat with a Zithromax sent for anti-inflammatory effect, start albuterol. Follow with primary care provider. Emergency department for new or worse symptoms. Discharge instructions reviewed with patient, as well as provided in writing per nursing staff. The instructions also include specific and strict return/GO TO THE ER as well as f/u information. All questions have been answered, and the patient deny any further questions with discharge and discharge plan. Some parts of this dictation were generated by voice recognition software and may contain typographical and/or grammatical inaccuracies. Differential Diagnosis Differential diagnosis: Likely upper respiratory infection, otitis media, viral infection, bronchitis and pharyngitis Medical Records Attestation: I reviewed the patient's medical records. Lab Data Attestation: I reviewed the patient's lab results. Imaging Data My impression: Negative Radiologist's impression: [facility] (Former[facility]) [address] [place] [address] XRay Report Signed Patient: Xiomara Olson : 1980 MR#: [id number] Age: 43 Acct:[id number] Loc: [facility] ADM Date: 02/13/24Attending Dr: Ordering Physician: Nataly Kidd FNP Date of Service: 02/13/24 Procedure(s): XR chest 2V Accession Number(s): [id number] cc: Nataly Kidd FNP; Mary Villegas APRN~ EXAMINATION: XR chest 2V 02/13/2024 13:24 INDICATION: Cough PROCEDURE: 2 view chest COMPARISON: 08/04/2023 FINDINGS: The lungs are clear. The cardiomediastinal silhouette is within normal limits. There are no pleural effusions. There is no pneumothorax suspected. IMPRESSION: 1: NO ACUTE CARDIOPULMONARY DISEASE. Reviewed, dictated and finalized at location B. [facility] SPECIALIST Dictated By: Joseph Montaño MD 02/13/24 1329 Signed By: <Electronically signed by Joseph Montaño MD in OV> 02/13/24 1331 Discharge Plan Discharge Clinical Impression: Bronchitis Patient Disposition: Home, Self-Care Condition: Stable Instructions: Antibiotic Form, Acute Bronchitis (ED) Additional Instructions: Take medications as prescribed. Follow with primary care provider. Emergency department for new or worse symptoms Prescriptions: New azithromycin 250 mg tablet See Rx Instructions .ROUTE .COMPLEX Qty: 6 0RF Rx Instructions: For 250 mg dose pack: take 500 mg today (day 1), then 250 mg for 4 days (days 2-5) albuterol sulfate [Ventolin HFA] 90 mcg/actuation HFA aerosol inhaler 2 puff inhalation QID PRN (Reason: shortness of breath or wheezing) Qty: 8.5 0RF No Action fluoxetine 20 mg capsule 40 mg PO BID aripiprazole 5 mg tablet 5 mg PO DAILY trazodone 100 mg tablet 50 mg PO DAILY PRN (Reason: Insomnia) gabapentin 300 mg capsule 300 mg PO TID Qty: 90 1RF (DME) OneTouch Verio test strips Strip See Rx Instructions .Route Qty: 100 2RF Rx Instructions: USE TO CHECK BLOOD SUGARS 3 TIMES A DAY cholecalciferol (vitamin D3) 1,250 mcg (50,000 unit) tablet 1,250 mcg PO WEEKLY Qty: 8 0RF fluticasone propionate [Flonase Allergy Relief] 50 mcg/actuation spray,suspension 2 spray intranasal DAILY Qty: 16 0RF Rx Instructions: administer into each nostril alprazolam 1 mg tablet 1 mg PO TID aspirin 81 mg Tablet,Delayed Release (Dr/Ec) 81 mg PO QAM Qty: 30 0RF (DME) blood-glucose meter [OneTouch Verio Flex meter] Misc See Rx Instructions .Route Qty: 1 0RF Rx Instructions: USE TO CHECK BLOOD SUGARS 3 TIMES A DAY (DME) lancets 31 gauge misc See Rx Instructions .Route Qty: 100 2RF Rx Instructions: Use to check BS TID (DME) Nebulizer See Rx Instructions .Route .MEDSUPPLY Qty: 1 0RF Rx Instructions: As directed albuterol sulfate 90 mcg/actuation HFA aerosol inhaler 1 puff inhalation Q4H PRN (Reason: shortness of breath or wheezing) Qty: 8.5 0RF albuterol sulfate 2.5 mg /3 mL (0.083 %) solution for nebulization 2.5 mg inhalation Q4-6H PRN (Reason: shortness of breath or wheezing) Qty: 90 0RF fluticasone propion-salmeterol [Advair Diskus] 250-50 mcg/dose blister with device 1 inh inhalation BID Qty: 60 1RF atorvastatin 80 mg tablet 80 mg PO QHS Qty: 90 0RF fenofibrate 160 mg tablet 160 mg PO DAILY Qty: 90 0RF insulin glargine [Lantus Solostar U-100 Insulin] 100 unit/mL (3 mL) insulin pen 15 unit subcut QPM Qty: 15 0RF Rx Instructions: Please monitor glucose closely and keep a log. Eat a healthy snack at bedtime. (DME) pen needle, diabetic [Comfort EZ Pen [place]] 32 gauge x 5/16 needle See Rx Instructions .Route Qty: 100 3RF Rx Instructions: use to inject insulin lisinopril 10 mg tablet 10 mg PO DAILY Qty: 30 5RF cyclobenzaprine 5 mg tablet 5 mg PO TID PRN (Reason: muscle spasm) Qty: 30 0RF Rx Instructions: May cause drowsiness. Follow-up/Referrals: Mary Villegas, [facility] [Primary Care Provider] - 1 Week Time of Disposition: 13:39
== END 2024-02-13 13:46 | disposition home or self-care (01) ==
PROVIDERS: Emergency Provider Nurse Practitioner Family; PCP Clinical Nurse Specialist
DX: J40 Bronchitis, not specified as acute or chronic (principal); F17.210 Nicotine dependence, cigarettes, uncomplicated; K21.9 Gastro-esophageal reflux disease without esophagitis; I10 Essential (primary) hypertension; E78.5 Hyperlipidemia, unspecified; E11.9 Type 2 diabetes mellitus without complications; F41.9 Anxiety disorder, unspecified; F32.A Depression, unspecified
CPT/HCPCS: 71046; 87081; 99213; G0463

== ENCOUNTER 2024-04-16 13:49 | Emergency (ER) | payer OTHER, SELFPAY ==
[2024-04-16 14:19] VITALS: BP 111/67; PULSE 71; RESP 16; TEMP 36; O2SAT 98
--- NOTE | 2024-04-16 15:27 | ED_ITS ---
HPI - URI/Sore Throat General Chief Complaint: Upper Respiratory Infection Stated Complaint: cough,throat hurts,chills Source: patient, RN notes reviewed and old records reviewed Mode of arrival: ambulatory Limitations: no limitations History of Present Illness HPI Narrative: Patient presents accompanied by her 2 children who are also ill. She is reporting flu like symptoms for the past couple of days. Multiple sick contacts, including her children. She reports fever, chills, sweats, body aches, headache, cough. She has been taking [id number] medications for her symptoms with moderate relief Related Data Home Medications ?Medication ?Instructions ?Recorded ?Confirmed ?Last Taken ?Type aripiprazole 5 mg tablet 5 mg PO DAILY 07/23/23 04/16/24 Unknown History fluoxetine 20 mg capsule 40 mg PO BID 07/23/23 04/16/24 Unknown History trazodone 100 mg tablet 50 mg PO DAILY PRN Insomnia 07/23/23 04/16/24 Unknown History alprazolam 1 mg tablet 1 mg PO TID 11/25/23 04/16/24 Unknown History Allergies Allergy/AdvReac Type Severity Reaction Status Date / Time latex Allergy Intermediate Itching Verified 04/16/24 15:50 morphine Allergy Intermediate Swelling Verified 04/16/24 15:50 amoxicillin (From Augmentin) AdvReac Mild Nausea and Verified 04/16/24 15:50 Vomiting clavulanic acid (From AdvReac Mild Nausea and Verified 04/16/24 15:50 Augmentin) Vomiting naproxen AdvReac Mild Other Verified 04/16/24 15:50 Review of Systems Review of Systems: All systems reviewed & are unremarkable except as noted in HPI and below Constitutional: Constitutional: Reports no additional constitutional complaints, Reports body ache(s), Reports fever(s), Reports headache(s) and Reports lethargy ENT: Reports system reviewed and no additional complaints, except as documented, Reports nasal congestion, Reports nasal discharge and Reports sore throat Cardiovascular: Cardiovascular: Reports no additional cardiovascular complaints Respiratory: Respiratory: Reports no additional respiratory complaints and Reports cough Gastrointestinal: Gastrointestinal: Reports no additional gastrointestinal complaints PMFSH Past Medical History Medical History Stridor Acute respiratory failure Acute hypercapnic respiratory failure Acute hypoxic on chronic hypercapnic respiratory failure Environmental and seasonal allergies Hyperlipidemia Pneumonia Elevated troponin Hyperglycemia Altered mental status Acute respiratory failure with hypercapnia Cervical radiculopathy Tobacco abuse Non compliance with medical treatment Proteinuria Pica in adults Otalgia of left ear Hidradenitis suppurativa Type 2 diabetes mellitus Vitamin D deficiency Cervical radiculopathy due to degenerative joint disease of spine Degenerated intervertebral disc Gestational diabetes Asthma Sciatica GERD (gastroesophageal reflux disease) PTSD (post-traumatic stress disorder) Depression Hypertension Anxiety Surgical History Surgical History Previous section History of facial surgery Family History Family History Mother Hypertension Alcoholism Asthma Diabetes mellitus Depression Anxiety Heart problem Father Hypertension Alcoholism Thyroid disorder Sibling Alcoholism Asthma Anxiety Depression Thyroid disorder Grandparent Asthma Cancer brain Diabetes mellitus Hypertension Depression Anxiety Heart problem Cerebrovascular accident Other Breast cancer Heart disease Malignant neoplasm of prostate Social History Social History Social History: The patient lives at home with her 6-year-old and 8-year-old child. She is unemployed and . She has smoked at least a half a pack of cigarettes per day since she was 15. She denies any alcohol or illicit substance use. Code status: Full code Surrogate decision maker: Phoebe Kennedy (mother) Smoking packs per day: 0.5 Smoking cigarettes per day: 10.0 Years smoked: 25 Smoking pack-years: 12.50 Smoking status: Current some day smoker Tobacco type: cigarettes Second hand tobacco smoke exposure: Yes Alcohol intake: never Substance use: never Do You Feel Safe in your Home?: Yes Lack of Transportation: No Lack of Food: Never True Current Housing: I Have Housing Concerned About Future Housing: No Difficulty Paying Gas/Electric Bills: No Difficulty Paying for Meds: No Currently Unemployed: No Education: High School Diploma/GED Difficulty w/ Childcare or Family Care: YES Living arrangements: with family Additional living arrangements comments: Lives alone with 2 children Occupation/Education: unemployed Gender identity (if verbalized by the patient): Female Spiritual care concerns: No Comments At the time of my signature, I reviewed and agree with the nursing past medical, surgical, social, and family history. There is no relevant family history pertinent to the patient complaint. Exam Const: General: cooperative, no acute distress, alert and awake Orientation/consciousness: oriented to person, oriented to place and oriented to time HENMT: Head: normal to inspection Ears: TM's normal bilaterally Mouth: Yes moist mucous membranes Throat: posterior oropharynx normal Resp: Effort & Inspection: normal respiratory effort and able to speak in complete sentences Auscultation: clear to auscultation bilaterally, no crackles, no rales, no rhonchi and no wheezes Cardio: Palpation: normal PMI Rate: regular rate Rhythm: regular rhythm Heart sounds: S1 normal heart sound present and S2 normal heart sound present Neuro: General: oriented to person, oriented to place and oriented to time Cranial nerves: Yes CN's II-XII intact bilaterally Psych: Appearance: grossly normal Thought process: Normal thought process present Insight: Good insight present (Psych) Judgement: Good judgement present (Psych) Course Course Level of Care: Express Care Visit Vital Signs Vital signs: Vital Signs Temperature 96.8 F L 04/16/24 14:19 Pulse Rate 71 04/16/24 14:19 Respiratory Rate 16 04/16/24 14:19 Blood Pressure 111/67 04/16/24 14:19 Pulse Oximetry 98 04/16/24 14:19 Oxygen Delivery Room Air 04/16/24 14:19 Temperature 96.8 F L 04/16/24 14:19 Pulse Rate 71 04/16/24 14:19 Respiratory Rate 16 04/16/24 14:19 Blood Pressure 111/67 04/16/24 14:19 Pulse Oximetry 98 04/16/24 14:19 Oxygen Delivery Room Air 04/16/24 14:19 Reviewed MDM - URI/Sore Throat MDM Narrative Medical decision making narrative: Negative flu, negative COVID, negative strep. Culture pending. Supportive care measures discussed. Patient is nontoxic appearing, stable for discharge home. Discharge instructions reviewed with patient, as well as provided in writing per nursing staff. The instructions also include specific and strict return/GO TO THE ER as well as f/u information. All questions have been answered, and the patient deny any further questions with discharge and discharge plan. Some parts of this dictation were generated by voice recognition software and may contain typographical and/or grammatical inaccuracies. Differential Diagnosis Differential diagnosis: Likely upper respiratory infection, otitis media, viral infection, influenza and pharyngitis Medical Records Attestation: I reviewed the patient's medical records. Lab Data Attestation: I reviewed the patient's lab results. Discharge Plan Discharge Clinical Impression: Viral infection Patient Disposition: Home, Self-Care Condition: Stable Instructions: Antibiotic Form, Viral Syndrome (ED) Patient Language: Turkish Prescriptions: No Action fluoxetine 20 mg capsule 40 mg PO BID azithromycin 250 mg tablet See Rx Instructions .ROUTE .COMPLEX Qty: 6 0RF Rx Instructions: For 250 mg dose pack: take 500 mg today (day 1), then 250 mg for 4 days (days 2-5) albuterol sulfate [Ventolin HFA] 90 mcg/actuation HFA aerosol inhaler 2 puff inhalation QID PRN (Reason: shortness of breath or wheezing) Qty: 8.5 0RF aripiprazole 5 mg tablet 5 mg PO DAILY trazodone 100 mg tablet 50 mg PO DAILY PRN (Reason: Insomnia) (DME) OneTouch Verio test strips Strip See Rx Instructions .Route Qty: 100 2RF Rx Instructions: USE TO CHECK BLOOD SUGARS 3 TIMES A DAY cholecalciferol (vitamin D3) 1,250 mcg (50,000 unit) tablet 1,250 mcg PO WEEKLY Qty: 8 0RF fluticasone propionate [Flonase Allergy Relief] 50 mcg/actuation spray,suspens ion 2 spray intranasal DAILY Qty: 16 0RF Rx Instructions: administer into each nostril alprazolam 1 mg tablet 1 mg PO TID aspirin 81 mg Tablet,Delayed Release (Dr/Ec) 81 mg PO QAM Qty: 30 0RF (DME) blood-glucose meter [OneTouch Verio Flex meter] Misc See Rx Instructions .Route Qty: 1 0RF Rx Instructions: USE TO CHECK BLOOD SUGARS 3 TIMES A DAY (DME) lancets 31 gauge misc See Rx Instructions .Route Qty: 100 2RF Rx Instructions: Use to check BS TID (DME) Nebulizer See Rx Instructions .Route .MEDSUPPLY Qty: 1 0RF Rx Instructions: As directed albuterol sulfate 90 mcg/actuation HFA aerosol inhaler 1 puff inhalation Q4H PRN (Reason: shortness of breath or wheezing) Qty: 8.5 0RF albuterol sulfate 2.5 mg /3 mL (0.083 %) solution for nebulization 2.5 mg inhalation Q4-6H PRN (Reason: shortness of breath or wheezing) Qty: 90 0RF fluticasone propion-salmeterol [Advair Diskus] 250-50 mcg/dose blister with device 1 inh inhalation BID Qty: 60 1RF atorvastatin 80 mg tablet 80 mg PO QHS Qty: 90 0RF fenofibrate 160 mg tablet 160 mg PO DAILY Qty: 90 0RF insulin glargine [Lantus Solostar U-100 Insulin] 100 unit/mL (3 mL) insulin pen 15 unit subcut QPM Qty: 15 0RF Rx Instructions: Please monitor glucose closely and keep a log. Eat a healthy snack at bedtime. (DME) pen needle, diabetic [Comfort EZ Pen [place]] 32 gauge x 5/16 needle See Rx Instructions .Route Qty: 100 3RF Rx Instructions: use to inject insulin lisinopril 10 mg tablet 10 mg PO DAILY Qty: 30 5RF cyclobenzaprine 5 mg tablet 5 mg PO TID PRN (Reason: muscle spasm) Qty: 30 0RF Rx Instructions: May cause drowsiness. gabapentin 300 mg capsule 300 mg PO TID Qty: 90 3RF Follow-up/Referrals: Mary Villegas, [facility] [Primary Care Provider] - 2 Weeks Stand Alone Forms: Work/School Release IP Time of Disposition: 16:02
[2024-04-16 16:01] LABS: EDCOVIDSCREEN Negative (Negative); EDINFLUASCREEN Negative (Negative); EDINFLUBSCREEN Negative (Negative); EDSTREPNEGPOS1 Negative (Negative)
== END 2024-04-16 16:05 | disposition home or self-care (01) ==
PROVIDERS: Emergency Provider Nurse Practitioner Family; PCP Clinical Nurse Specialist
DX: B34.9 Viral infection, unspecified (principal); Z20.822 Contact with and (suspected) exposure to COVID-19; F17.210 Nicotine dependence, cigarettes, uncomplicated; E78.5 Hyperlipidemia, unspecified; I10 Essential (primary) hypertension; E11.9 Type 2 diabetes mellitus without complications; J45.909 Unspecified asthma, uncomplicated; K21.9 Gastro-esophageal reflux disease without esophagitis; F41.9 Anxiety disorder, unspecified; F32.A Depression, unspecified
CPT/HCPCS: 87081; 87426; 87804; 87880; 99213; G0463

== ENCOUNTER 2024-12-23 17:12 | Emergency (ER) | payer OTHER, SELFPAY ==
[2024-12-23 17:48] VITALS: BP 168/98; PULSE 120; RESP 16; TEMP 36.6; O2SAT 99
--- OUTSIDE RECORDS SUMMARY | 2024-12-23 18:02 | XMS_ITS | Data Portability ---
Author Organization [facility] Address [address] [place] [address] Care Team Providers Care Vice Principal Name Role Phone RICHSUSANNE Primary Care Provider Assessment No assessment recorded. Plan of Treatment Reminders Order Date Submit Date Provider Last Modified By Organization Details Last Modified Time Details Appointments None recorded. Lab None recorded. Referral gastroente rologist referral 2020 021 [email or web address] 1 Marnie Leahy MD, [address], [place], [address], 12:41:[address] referral - missed last call... happy holidays.. . 2020 LAUREANO Navarrete MD, [address] [place], [address], 09:57:[address] referral 2020 ORESTES Navarrete MD, [address] [place], [address], 09:29:26 neurologis t referral 2020 [facility], [address] [place] [address], [place], [address], 15:36:36 Procedures None recorded. Surgeries None recorded. Imaging XR, lumbar spine, 2 view 2020 [facility] (Imaging), [address] [facility] [address] [facility], [place], [address], 15:26:52 US, duplex, venous, lower extremity, complete [email or web address] [place] [address] (Imaging), [facility] [address] [facility], [place], [address], 12:29:18 XR, knee, 4 or more view 2020 [facility] (Imaging), [facility], [place], [address], 12:52:52 Medication Orders alprazolam 1 mg tablet 2020 [facility] #36476, [address], [place], [id number], 16:41:32 esomeprazo le magnesium 40 mg capsule,de layed release 2020 021 [facility], [address] [place] [address], [address], 14:44:02 amlodipine 5 mg tablet 2020 021 [facility] #04106, [address], [place], [id number], 14:44:13 nicotine 14 mg/24 hr daily transderma l patch 2020 [facility] #90518, [address], [place], [id number], 15:17:09 esomeprazo le magnesium 40 mg capsule,de layed release 2020 [facility], [facility], [place], [address], 17:19:34 metoprolol succinate ER 50 mg tablet,ext ended release 24 hr 2020 021 LAUREANO [facility] #92300, [address], [place], [place], [id number], 15:17:10 alprazolam 1 mg tablet 2020 021 [facility] #21153, [address], [place], [place], [id number], 15:30:46 trazodone 100 mg tablet 2020 [facility], [address], [place], [place], [id number], 16:06:21 Patient TargetsNo targets recorded. Patient Instructions Encounter Date Encounter Id Patient Instructions Last Modified By Organization Details Last Modified Time 07/03/2020 [id number] cervical disc disease: care instructions [id number] Not available 07/03/2020 12:17:39 11/27/2020 [id number] Quitting Tobacco : Care Instructions Not available 11/27/2020 15:17:00 gastroesophageal reflux disease (GERD): care instructions Not available 11/27/2020 15:17:00 learning about h igh blood pressure Not available 11/27/2020 15:17:00 02/12/2021 [id number] Quitting Tobacco : Care Instructions Not available 02/12/2021 14:43:56 gastroesophageal reflux disease (GERD): care instructions Not available 02/12/2021 14:43:56 learning about h igh blood pressure Not available 02/12/2021 14:43:56 Reason for Referral Neurologist Referral for Chr onic low back pain Referring Physician: Susanne Messer, Family Medicine, Encounter Date: 07/03/2020 Psychiatrist Referral for An xiety Referring Physician: Phillip Frazier [facility], Encounter Date: 11/27/2020 Meter Maker Referral for Gastroesophageal reflux disease Referring Physician: Phillip Frazier [facility], Encounter Date: 02/12/2021 Psychiatrist Referral for An xiety missed last call... happy holidays... Referring Physician: Phillip Frazier [facility], Encounter Date: 02/12/2021 Results Created Date Observation Date Name Description Value Unit Range Abnormal Flag Note LastModifiedBy Organization Detail LastModifiedTime 07/04/19 21 07/05/2020 cultu re, urine urine culture, routine FINAL REPORT abnormal Not Available [facility] ([facility]) [address] [facility], [place], [address], 07/05/2020 07:10:28 07/04/19 21 07/05/2020 cultu re, urine result 1 COMMEN T abnormal Beta hemol ytic Strep tococ cus, group B Great er than 100,0 00 colon y formi ng units per mL Penic illin and ampic illin are drugs of choic e for treat ment of beta- hemol ytic strep tococ yuni infec tions . Susce ptibi lity testi ng of penic illin s and other beta- lacta m agent s appro kathy by the FDA for treat ment of beta- hemol ytic strep tococ yuni infec tions need not be perfo rmed routi cathie becau se nonsu scept ible isola angela are extre jessica rare in any beta- hemol ytic strep tococ cus and have not been repor maxi for Strep tococ cus pyoge nic (grou p A). (CLSI ) Not Available [facility] ([facility]) [address] [facility], [place], [address], 07/05/2020 07:10:28 07/04/19 21 07/03/2020 urina lysis , dipst ick Leukocytes Trace Not Available In-Offi ce Order Internal Use Only DO Not Attach Compendium DO Not Attach Compendium, Do Not Delete/merge, On license of [facility] 07/03/2020 12:17:39 07/04/19 21 07/03/2020 urina lysis , dipst ick Nitrite negati ve Not Available In-Office Order Internal Use Only DO Not Attach Compendium DO Not Attach Compendium, Do Not Delete/merge, On license of [facility] 07/03/2020 12:17:39 07/04/19 21 07/03/2020 urina lysis , dipst ick Urobilinogen .2 Not Available In-Of fice Order Internal Use Only DO Not Attach Compendium DO Not Attach Compendium, Do Not Delete/merge, On license of [facility] 07/03/2020 12:17:39 07/04/19 21 07/03/2020 urina lysis , dipst ick Protein Negati ve Not Available In-Office Order Internal Use Only DO Not Attach Compendium DO Not Attach Compendium, Do Not Delete/merge, On license of [facility] 07/03/2020 12:17:39 07/04/19 21 07/03/2020 urina lysis , dipst ick pH 7.0 Not Available In-Office Order Internal Use Only DO Not Attach Compendium DO Not Attach Compendium, Do Not Delete/merge, On license of [facility] 07/03/2020 12:17:39 07/04/19 21 07/03/2020 urina lysis , dipst ick Blood Negati ve Not Available In-Office Order Internal Use Only DO Not Attach Compendium DO Not Attach Compendium, Do Not Delete/merge, On license of [facility] 07/03/2020 12:17:39 07/04/19 21 07/03/2020 urina lysis , dipst ick Specific [place] 1.015 Not Available In-Off ice Order Internal Use Only DO Not Attach Compendium DO Not Attach Compendium, Do Not Delete/merge, On license of [facility] 07/03/2020 12:17:39 07/04/19 21 07/03/2020 urina lysis , dipst ick Ketone Negati ve Not Available In-Office Order Internal Use Only DO Not Attach Compendium DO Not Attach Compendium, Do Not Delete/merge, On license of [facility] 07/03/2020 12:17:39 07/04/19 21 07/03/2020 urina lysis , dipst ick Bilirubin Negati ve Not Available In-Office Order Internal Use Only DO Not Attach Compendium DO Not Attach Compendium, Do Not Delete/merge, On license of [facility] 07/03/2020 12:17:39 07/04/19 21 07/03/2020 urina lysis , dipst ick Glucose Negati ve Not Available In-Office Order Internal Use Only DO Not Attach Compendium DO Not Attach Compendium, Do Not Delete/merge, On license of [facility] 07/03/2020 12:17:39 07/04/19 21 07/03/2020 urina lysis , dipst ick Appearance Clear Not Available In-Offi ce Order Internal Use Only DO Not Attach Compendium DO Not Attach Compendium, Do Not Delete/merge, On license of [facility] 07/03/2020 12:17:39 07/04/19 21 07/03/2020 urina lysis , dipst ick Color Yellow Not Available In-Office Order Internal Use Only DO Not Attach Compendium DO Not Attach Compendium, Do Not Delete/merge, On license of [facility] 07/03/2020 12:17:39 09/15/19 21 09/14/2020 urina lysis , dipst ick Leukocytes Negati ve Not Available In-Office Order Internal Use Only DO Not Attach Compendium DO Not Attach Compendium, Do Not Delete/merge, On license of [facility] 09/14/2020 15:50:38 09/15/19 21 09/14/2020 urina lysis , dipst ick Nitrite positi ve Not Available In-Office Order Internal Use Only DO Not Attach Compendium DO Not Attach Compendium, Do Not Delete/merge, On license of [facility] 09/14/2020 15:50:38 09/15/19 21 09/14/2020 urina lysis , dipst ick Urobilinogen .2 Not Available In-Of fice Order Internal Use Only DO Not Attach Compendium DO Not Attach Compendium, Do Not Delete/merge, On license of [facility] 09/14/2020 15:50:38 09/15/19 21 09/14/2020 urina lysis , dipst ick Protein Negati ve Not Available In-Office Order Internal Use Only DO Not Attach Compendium DO Not Attach Compendium, Do Not Delete/merge, [id number] 09/14/2020 15:50:38 09/15/1909/14/2020 urina lysis , dipst ick pH 6.0 Not Available In-Office Order Internal Use Only DO Not Attach Compendium DO Not Attach Compendium, Do Not Delete/merge, On license of [facility] 09/14/2020 15:50:38 09/15/1909/14/2020 urina lysis , dipst ick Blood Negati ve Not Available In-Office Order Internal Use Only DO Not Attach Compendium DO Not Attach Compendium, Do Not Delete/merge, [id number] 09/14/2020 15:50:38 09/15/19 21 09/14/2020 urina lysis , dipst ick Specific [place] 1.020 Not Available In-Off ice Order Internal Use Only DO Not Attach Compendium DO Not Attach Compendium, Do Not Delete/merge, On license of [facility] 09/14/2020 15:50:38 09/15/1909/14/2020 urina lysis , dipst ick Ketone Negati ve Not Available In-Office Order Internal Use Only DO Not Attach Compendium DO Not Attach Compendium, Do Not Delete/merge, [id number] 09/14/2020 15:50:38 09/15/19 21 09/14/2020 urina lysis , dipst ick Bilirubin Negati ve Not Available In-Office Order Internal Use Only DO Not Attach Compendium DO Not Attach Compendium, Do Not Delete/merge, 09/14/2020 15:50:38 09/15/19 21 09/14/2020 urina lysis , dipst ick Glucose Negati ve Not Available In-Office Order Internal Use Only DO Not Attach Compendium DO Not Attach Compendium, Do Not Delete/merge, 09/14/2020 15:50:38 09/15/19 21 09/14/2020 urina lysis , dipst ick Appearance Clear Not Available In-Offi ce Order Internal Use Only DO Not Attach Compendium DO Not Attach Compendium, Do Not Delete/merge, [id number] 09/14/2020 15:50:38 09/15/19 21 09/14/2020 urina lysis , dipst ick Color [place] Not Available In-Office Order Internal Use Only DO Not Attach Compendium DO Not Attach Compendium, Do Not Delete/merge, [id number] 09/14/2020 15:50:38 12/05/19 21 12/13/2020 TOXAS SURE SELEC T 13 (MW) summary report (summary) FINAL ===== ===== ===== ===== ===== ===== ===== ===== ===== ===== ===== ===== ===== === TOXAS SURE SELEC T 13 (MW) ===== ===== ===== ===== ===== ===== ===== ===== ===== ===== ===== ===== ===== === Test Resul t Flag Units Drug Prese nt Alpra zolam 602 ng/mg creat Alpha -hydr oxyal prazo toro 494 ng/mg creat Sourc e of alpra zolam is a sched uled presc ripti on medic ation . Alpha -hydr oxyal prazo toro is an expec maxi metab olite of alpra zolam . ===== ===== ===== ===== ===== ===== ===== ===== ===== ===== ===== ===== ===== === Test Resul t Flag Units Ref Range Creat inine 54 mg/dL >=20 ===== ===== ===== ===== ===== ===== ===== ===== ===== ===== ===== ===== ===== === Decla red Medic ation s: Medic ation list was not provi ded. ===== ===== ===== ===== ===== ===== ===== ===== ===== ===== ===== ===== ===== === For beltran morrissey consu ltati on, pleas e call [phone]. ===== ===== ===== ===== ===== ===== ===== ===== ===== ===== ===== ===== ===== === Not Available [facility] [employer] [address] [facility] [facility] [address], [place], [address], 12/13/2020 14:11:52 12/05/19 21 12/13/2020 TOXAS SURE SELEC T 13 (MW) pdf . Not Available [employer] [address] [facility] [address], [place], [address], 12/13/2020 14:11:52 08/15/19 21 08/14/2020 XR, knee, 4 or more view No observ ation record ed. [address], [address], 08/23/2020 12:27:37 08/15/19 21 08/14/2020 XR, knee, 4 or more view No observ ation record ed. [address], [address], 08/23/2020 12:27:37 08/15/19 21 08/14/2020 XR, lumba r spine , 2 view No observ ation record ed. [address], [address], 08/23/2020 12:27:38 Result Notes None recorded. 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 Teresa Alvarez MD Attn: Accountin g,[address] [facility] [address], [place], [address], [place] - [facility] 6 13:08:19 Pain in left arm 964098499 Active Teresa Alvarez MD Attn: Accountin g,[address], [place], [address], [place] [facility] 6 13:08:19 Bilateral tinnitus 8175446218469 Active Teresa Alvarez MD Attn: Accountin g,[address] [address], [place], [address], [place] [facility] 6 13:08:19 Hearing loss 92518413 Active Phyllis Elizabeth LPN null, [place] - [facility] 6 15:03:05 Neck pain 83916229 Active Teresa Alvarez MD Attn: Accountin g,[address] [facility] [address], [place], [address], [place] [facility] 6 18:10:09 Malaise and fatigue 547664649 Active Teresa Alvarez MD Attn: Accountin g,[address] [facility] [address], [place], [address], [place] [facility] 6 18:10:09 Sleep disorder 48533706 Active Teresa Alvarez MD Attn: Accountin g,[address] [facility], [place], [address], [place] [facility] 6 18:10:09 Heartburn 59397775 Active Teresa Alvarez MD Attn: Accountin g,[address] [facility] [address], [place], [address], [place] [facility] 6 18:10:09 Spasmodic movement 186645717 Active Teresa Alvarez MD Attn: Accountin g,[address] [facility], [place], [address], [place] [facility] 6 18:10:09 Nocturnal muscle spasm 89706699 Active Teresa Alvarez MD Attn: Accountin g,[address] [place], [address], [place] [facility] 6 18:10:09 Cervical radiculopat hy 40585260 Active 2019 Kate Weeks MA null, [place] - [facility] 0 12:02:14 Anxiety disorder 369252469 Active 2020 Teresa Alvarez MD Attn: Abimbola pacheco,[address] [place], [address], [facility] - SI 1 16:39:35 Problem Notes None recorded. Procedures Surgical History Date Name Laterality Status Provider Name and Address Organization Details Recorded Time 8 Date of Last Pap Smear completed Kate Weeks MA [place] - [place] 09/14/2019 14:19:21 5 LEEP completed Perla Brar MA [place] 05/29/2015 12:35:49 1 Caesarean Section completed Perla Brar [place] 05/29/2015 12:35:49 6 procedure on facial bone completed Freya Lopez LPN [place] - [place] 01/11/2020 11:51:14 Imaging Results None recorded. Procedure Notes None recorded. Medical Equipment None Reported. Allergies Allergen ID Allergen Name Allergen Category Reaction Reaction Severity Criticality Documentation Date Start Date Code Code System Note Provider Name and Address Organization Details Recorded Time 711995 morphine medicatio n itching Not available Not available 01/11/2020 7052 RxNorm Swell ing and itchi cristobal ALEX NP [address] [place], [address], [facility] - [facility] 0 12:14:43 348496 doxycycli ne Not available abdominal pain diarrhea nausea severe severe severe Not available 06/20/2020 3640 RxNorm Susanne Messer MD Attn: Abimbola pacheco,[address] [place], [address], [facility] - [facility] 1 15:43:06 62168 latex environme nt,medica tion rash Not available Not available 05/29/2015 10233 91 RxNorm Perla Brar MA null, [place] - [facility] 6 12:35:49 46066 Augmentin medicatio n vomiting Not available Not available 05/29/2015 93318 2 RxNorm Perla Brar MA [facility], [place] - [facility] 6 12:35:49 Medications Name Sig Start Date Stop Date Status Note LastModified by Organization Details LastModified Time fluoxetine 40 mg capsule 05/11 completed Not Available Not Available Not Available cyclobenzap rine 10 mg tablet TAKE 1 TABLET BY MOUTH THREE TIMES DAILY NEEDED active Not Available Not Available No t Available amoxicillin 500 mg capsule 07/25 completed Not Available Not Available Not Available buspirone 5 mg tablet 05/11 completed Not Available Not Available Not Available venlafaxine ER 37.5 mg capsule,ext ended release 24 hr 05/11 completed Not Available Not Available Not Available prednisone 10 mg tablet 09/13 completed Not Available Not Available Not Available gabapentin 600 mg tablet 05/11 completed Not Available Not Available Not Available venlafaxine 75 mg tablet 05/11 completed Not Available Not Available Not Available nicotine 14 mg/24 hr daily transdermal patch APPLY 1 PATCH TOPICALLY TO THE SKIN EVERY DAY active Not Available Not Available No t Available labetalol 200 mg tablet 05/11 completed Not Available Not Available Not Available clindamycin HCl 300 mg capsule Take 1 capsule 3 times a day by oral route. 09/13 completed Not Available Not Available Not Available azithromyci n 250 mg tablet TAKE 2 TABLETS (500 MG) BY ORAL ROUTE ONCE DAILY FOR 1 DAY THEN 1 TABLET (250 MG) BY ORAL ROUTE ONCE DAILY FOR 4 DAYS 02/23 completed Not Available Not Available Not Available ibuprofen 800 mg tablet TAKE 1 TABLET BY MOUTH THREE TIMES DAILY 05/11 completed Not Available Not Available Not Available alprazolam 1 mg tablet TAKE 1 TABLET BY MOUTH TWICE DAILY active Not Available Not Available No t Available fluconazole 150 mg tablet 05/11 completed Not Available Not Available Not Available metoprolol succinate ER 50 mg tablet,exte nded release 24 hr TAKE 1 TABLET BY MOUTH EVERY NIGHT AT BEDTIME 2020 active Not Available Not Available Not Avai lable ranitidine 300 mg tablet TAKE ONE TABLET BY MOUTH TWICE DAILY 05/11 completed Not Available Not Available Not Available clarithromy duglas 500 mg tablet TAKE 1 TABLET BY MOUTH EVERY 12 HOURS 04/07 completed Not Available Not Available Not Available hydrocodone 5 mg-acetamin ophen 325 mg tablet 04/28 completed Not Available Not Available Not Available promethazin e 6.25 mg/5 mL oral syrup 05/11 completed Not Available Not Available Not Available prazosin 1 mg capsule 05/11 completed Not Available Not Available Not Available meloxicam 15 mg tablet TAKE 1 TABLET BY MOUTH EVERY DAY WITH MEALS active Not Available Not Available No t Available ondansetron HCl 4 mg tablet TAKE 1 TABLET BY MOUTH EVERY 8 HOURS NEEDED FOR NAUSEA AND VOMITING active Not Available Not Available No t Available prednisone 20 mg tablet 01/10 completed Not Available Not Available Not Available sertraline 100 mg tablet TAKE 1 AND 1/2 TABLETS BY MOUTH EVERY DAY AT BEDTIME active Not Available Not Available No t Available venlafaxine ER 150 mg capsule,ext ended release 24 hr 05/27 completed Not Available Not Available Not Available amlodipine 5 mg tablet TAKE 1 TABLET BY MOUTH EVERY DAY 2021 active Not Available Not Available Not Avai lable prochlorper azine maleate 10 mg tablet 05/11 completed Not Available Not Available Not Available sulfamethox azole 800 mg-trimetho prim 160 mg tablet Take 1 tablet twice a day by oral route for 10 days. active Not Available Not Available No t Available peg-electro lyte solution 420 gram oral solution 04/07 completed Not Available Not Available Not Available bupropion HCl SR 100 mg tablet,12 hr sustained-r elease 05/11 completed Not Available Not Available Not Available butalbital- acetaminoph en-caffeine 50 mg-325 mg-40 mg tablet 05/11 completed Not Available Not Available Not Available ketorolac 10 mg tablet 05/11 completed Not Available Not Available Not Available pantoprazol e 20 mg tablet,jessica yed release TAKE 1 TABLET BY MOUTH EVERY DAY 04/07 completed Not Available Not Available Not Available cyproheptad ine 4 mg tablet 05/11 completed Not Available Not Available Not Available alprazolam 0.5 mg tablet TAKE 1 TABLET BY MOUTH THREE TIMES DAILY 01/10 completed Not Available Not Available Not Available propranolol 10 mg tablet 05/11 completed Not Available Not Available Not Available amoxicillin 875 mg tablet 05/11 completed Not Available Not Available Not Available citalopram 20 mg tablet Take 2 tablets every day by oral route. 09/13 completed Not Available Not Available Not Available lorazepam 0.5 mg tablet Take 2 tablets 3 times a day by oral route as needed. 06/07 completed Not Available Not Available Not Available trazodone 100 mg tablet Take 1 tablet(s) every day by oral route. 02/23 completed Not Available Not Available Not Available ranitidine 75 mg tablet 05/11 completed Not Available Not Available Not Available meclizine 25 mg tablet Take 1 three times a day for nausea and spinning sensation . active Not Available Not Available No t Available baclofen 10 mg tablet TAKE 1 TABLET BY MOUTH TWICE DAILY 05/11 completed Not Available Not Available Not Available doxycycline monohydrate 100 mg capsule TAKE 1 CAPSULE BY MOUTH TWICE DAILY 02/23 completed Not Available Not Available Not Available cephalexin 500 mg capsule TAKE 1 CAPSULE BY MOUTH THREE TIMES DAILY active Not Available Not Available No t Available pantoprazol e 40 mg tablet,jessica yed release TAKE 1 TABLET BY MOUTH EVERY DAY active Not Available Not Available No t Available naproxen sodium 550 mg tablet 05/11 completed Not Available Not Available Not Available buspirone 30 mg tablet 05/11 completed Not Available Not Available Not Available esomeprazol e magnesium 40 mg capsule,del ayed release Take 1 capsule every day by oral route for 90 days. 2020 active Not Available Not Available Not Avai lable tobramycin 0.3 % eye drops 05/11 completed Not Available Not Available Not Available nystatin 100,000 unit/gram topical cream 05/11 completed Not Available Not Available Not Available buspirone 10 mg tablet 09/13 completed Not Available Not Available Not Available ranitidine 300 mg capsule Take 1 capsule twice a day by oral route. 05/11 completed Not Available Not Available Not Available misoprostol 200 mcg tablet 05/11 completed Not Available Not Available Not Available nicotine 21 mg/24 hr daily transdermal patch ANABEL 1 PA EXT TO THE SKIN QD 02/23 completed Not Available Not Available Not Available gabapentin 300 mg capsule 05/11 completed Not Available Not Available Not Available omeprazole 20 mg capsule,del ayed release active Not Available Not Available Not Available hydrocortis one 2.5 % topical cream Apply very thin layer to poison lucero rash twice a day. 09/13 completed Not Available Not Available Not Available hydroxyzine HCl 25 mg tablet 05/11 completed Not Available Not Available Not Available mupirocin 2 % topical ointment APPLY A SMALL AMOUNT TO THE AFFECTED AREA (abdomen) BY TOPICAL ROUTE 2-3 TIMES PER DAY 05/11 completed Not Available Not Available Not Available gabapentin 100 mg capsule TAKE 1 CAPSULE BY MOUTH THREE TIMES DAILY active Not Available Not Available No t Available ibuprofen 600 mg tablet 05/11 completed Not Available Not Available Not Available methylpredn isolone 4 mg tablets in a dose pack 05/11 completed Not Available Not Available Not Available propranolol 20 mg tablet 05/11 completed Not Available Not Available Not Available clomipramin e 25 mg capsule 05/11 completed Not Available Not Available Not Available hydroxyzine HCl 10 mg tablet 05/11 completed Not Available Not Available Not Available fluoxetine 20 mg capsule 05/27 completed Not Available Not Available Not Available sertraline 50 mg tablet 05/11 completed Not Available Not Available Not Available prazosin 2 mg capsule active Not Available Not Available N ot Available metoclopram linda 10 mg tablet 05/11 completed Not Available Not Available Not Available buspirone 15 mg tablet 05/11 completed Not Available Not Available Not Available esomeprazol e magnesium 20 mg capsule,del ayed release TAKE 1 CAPSULE BY MOUTH EVERY DAY active Not Available Not Available No t Available hydroxyzine pamoate 25 mg capsule 05/11 completed Not Available Not Available Not Available escitalopra m 10 mg tablet 05/11 completed Not Available Not Available Not Available escitalopra m 20 mg tablet 05/11 completed Not Available Not Available Not Available aripiprazol e 10 mg tablet 04/28 completed Not Available Not Available Not Available Vitamin D3 25 mcg (1,000 unit) tablet 05/11 completed Not Available Not Available Not Available Mononessa (28) 0.25 mg-35 mcg tablet 05/11 completed Not Available Not Available Not Available cyclobenzap rine 5 mg tablet 09/13 completed Not Available Not Available Not Available duloxetine 20 mg capsule,del ayed release active Not Available Not Available Not Available duloxetine 30 mg capsule,del ayed release 04/28 completed Not Available Not Available Not Available duloxetine 60 mg capsule,del ayed release 04/28 completed Not Available Not Available Not Available peg 3350 240 gram-electr olytes 22.72 gram-6.72 g-5.84 g powdr for soln Beginning at 5:00 PM the night before the colonosco py, drink 8 ounces every 15 minutes until gone. 04/07 completed Not Available Not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 20 1 CLOSED Fetus Data First Name Last Name Admitted to NICU Weight (g) Sex Living Outcome Pediatric Complications Fetus ID Race Codes Race Delivery Type [id number] Joseph Calculation Initial Joseph Date Initial Exam Date Initial Exam Provider Initial Ultrasound Date Last Menstrual Period Date Ultra Sound Weeks Gestation 0 Eighteen To Twenty Week Joseph Update Ultra Sound Date Fundal Height At Umbil Quickening Date Ultra Sound Latest Weeks Gestation Final Joseph Confirmed By Final Joseph Confirmed Date Final Joseph Date Ultra Sound Latest Days Gestation 0 0 Menstrual History Last Menstrual Date Menses Monthly On Bcp Conception Prior Menses Frequency Hcg Plus Date Menarche Onset Age Delivery Information Delivery Date Delivery Type Labor Anesthesia Weeks Gestation Incision Type Labor Labor Length Hrs Delivered By Post Complications Tubal Sterilization Discharge Date Comments 4 Discharge Information Feeding Method Contraceptive Method Maternal HG B and HCT Levels Ob Episode Information Episode Created Date Number of Fetuses Patient Bloodtype Patient rh Status Prepregnancy Weight lbs Domestic Partner Domestic Partner Phone Father Name 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 Status 05/12/19 20 1 CLOSED Fetus Data First Name Last Name Admitted to NICU Weight (g) Sex Living Outcome Pediatric Complications Fetus ID Race Codes Race Delivery Type [id number] Joseph Calculation Initial Joseph Date Initial Exam Date Initial Exam Provider Initial Ultrasound Date Last Menstrual Period Date Ultra Sound Weeks Gestation 0 Eighteen To Twenty Week Joseph Update Ultra Sound Date Fundal Height At Umbil Quickening Date Ultra Sound Latest Weeks Gestation Final Joseph Confirmed By Final Joseph Confirmed Date Final Joseph Date Ultra Sound Latest Days Gestation 0 0 Menstrual History Last Menstrual Date Menses Monthly On Bcp Conception Prior Menses Frequency Hcg Plus Date Menarche Onset Age Delivery Information Delivery Date Delivery Type Labor Anesthesia Weeks Gestation Incision Type Labor Labor Length Hrs Delivered By Post Complications Tubal Sterilization Discharge Date Comments 7 Discharge Information Feeding Method Contraceptive Method Maternal HG B and HCT Levels
--- OUTSIDE RECORDS SUMMARY | 2024-12-23 18:02 | XMS_ITS | Clinical Summary ---
Author Organization 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 Name Role Phone Unavailable Primary Care Provider Unavailabl e Social History Tobacco Use Types Packs/Day Years Used Date Smoking Tobacco: Never Assessed Comments Unknown Sex and Gender Information Value Date Recorded Sex Assigned at Not on file Legal Sex Female 8:25 PM CDT Gender Identity Not on file Sexual Orientation Not on file Plan of Treatment Health Maintenance Due Date Last Done Comments Hepatitis C Virus (HCV) Screening 1980 TdaP Immunization 1980 Hepatitis B Immunization (1 of 3 - 19+ 3-dose series) 12/10/1999 Pap Smear 2001 Human Papillomavirus (HPV) Immunization (1 - 3-dose SCDM series) 12/10/2007 Cervical Cancer Screening (CCS) 2010 HPV/Cotest 2010 Influenza Immunization (#1) 2024 12/17/2019 SARS-COV-2 Immunization ( season) 2024 11/06/2020, 10/16/2020 Respiratory Syncytial Virus (RSV) Immunization (Adult) (1 - 1-dose 75+ series) 12/10/2055 Meningococcal Immunization (ACWY) Aged Out No longer eligible b ased on patient's age to complete this topic Pneumococcal Immunization Combined Aged Out No longer eligible b ased on patient's age to complete this topic Rotavirus Immunization Aged Out No lo nger eligible based on patient's age to complete this topic Insurance [employer] on file
--- OUTSIDE RECORDS SUMMARY | 2024-12-23 18:02 | XMS_ITS | Data Portability ---
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 Complications Fetus ID Race Codes Race Delivery Type F Full Term [id number] Joseph Calculation Initial Joesph Date Initial Exam Date Initial Exam Provider [...] Domestic Partner Domestic Partner Phone Father Name [employer] Photographer Status 08/28/19 24 1 CLOSED Fetus Data First Name Last Name Admitted to NICU Weight (g) Sex Living Outcome Pediatric Complications Fetus ID Race Codes Race Delivery Type F Full Term [id number] Joseph Calculation Initial Joseph Date Initial Exam [...] Domestic Partner Domestic Partner Phone Father Name [employer]ed [employer] Photographer Status 08/28/19 24 1 CLOSED Fetus Data First Name Last Name Admitted to NICU Weight (g) Sex Living Outcome Pediatric Complications Fetus ID Race Codes Race Delivery Type M Full Term [id number] Joseph Calculation Initial Joseph Date Initial Exam [...] Domestic Partner Domestic Partner Phone Father Name [employer]ed [employer] Photographer Status 08/28/19 24 1 CLOSED Fetus Data First Name Last Name Admitted to NICU Weight (g) Sex Living Outcome Pediatric Complications Fetus ID Race Codes Race Delivery Type , Spontane ous [id number] Joseph Calculation Initial Joseph Date Initial Exam [...] Complications Tubal Sterilization Discharge Date Comments 6 10 given cytotec Discharge Information Feeding Method Contraceptive Method Maternal HG B and HCT Levels Ob Episode Information Episode Created Date Number of Fetuses Patient Bloodtype Patient rh Status Prepregnancy Weight lbs Domestic Partner Domestic Partner Phone Father Name [employer] Photographer Status 08/28/19 24 1 CLOSED Fetus Data First Name Last Name Admitted to NICU Weight (g) Sex Living Outcome Pediatric Complications Fetus ID Race Codes Race Delivery Type M Full Term Primary Joseph Calculation Initial Joseph Date Initial Exam [...] Domestic Partner Domestic Partner Phone Father Name [employer]ed [employer] Photographer Status 08/28/19 24 1 CLOSED Fetus Data First Name Last Name Admitted to NICU Weight (g) Sex Living Outcome Pediatric Complications Fetus ID Race Codes Race Delivery Type M Full Term [id number] Joseph Calculation Initial Joseph Date Initial Exam [...] Post Complications Tubal Sterilization Discharge Date Comments 8 Discharge Information Feeding Method Contraceptive Method Maternal HG B and HCT Levels Ob Episode Information Episode Created Date Number of Fetuses Patient Bloodtype Patient rh Status Prepregnancy Weight lbs Domestic Partner Domestic Partner Phone Father Name Print[employer] Photographer Status 08/28/19 24 1 CLOSED Fetus Data First Name Last Name Admitted to NICU Weight (g) Sex Living Outcome Pediatric Complications Fetus ID Race Codes Race Delivery Type M Full Term [id number] Joseph Calculation Initial Joseph Date Initial Exam [...] Domestic Partner Domestic Partner Phone Father Name [employer]ed [employer] Photographer Status 08/28/19 24 1 CLOSED Fetus Data First Name Last Name Admitted to NICU Weight (g) Sex Living Outcome Pediatric Complications Fetus ID Race Codes Race Delivery Type M Full Term [id number] Joseph Calculation Initial Joseph Date Initial Exam [...] Domestic Partner Domestic Partner Phone Father Name Printed [employer] Photographer Status 08/28/19 24 1 CLOSED Fetus Data First Name Last Name Admitted to NICU Weight (g) Sex Living Outcome Pediatric Complications Fetus ID Race Codes Race Delivery Type F Full Term [id number] Joseph Calculation Initial Joseph Date Initial Exam [...]
--- NOTE | 2024-12-23 18:26 | ED.ANXIETY ---
HPI - Anxiety General Chief Complaint: Anxiety Stated Complaint: anxiety Time Seen by Provider: 12/23/24 18:26 Focused HPI: This is a 44 year old female that presents to the ER for panic attacks. Reports she is out of her anxiety medication. Reports she takes Alprazolam and Buspar. Reports she is having difficulty sleeping which is chronic. GENERAL: Mildly anxious, well-nourished, and in no acute distress. HEAD: Normocephalic, atraumatic. CHEST: Clear to auscultation. ?No respiratory distress. HEART: Regular rate and rhythm.? NEURO: ?Alert and oriented x3. Patient screened in triage and initial orders placed.? ?Additional care and disposition to be based upon?diagnostic testing and treatment. Related Data Home Medications ?Medication ?Instructions ?Recorded ?Confirmed ?Last Taken ?Type aripiprazole 5 mg tablet 5 mg PO DAILY 07/23/23 04/16/24 Unknown History fluoxetine 20 mg capsule 40 mg PO BID 07/23/23 04/16/24 Unknown History trazodone 100 mg tablet 50 mg PO DAILY PRN Insomnia 07/23/23 04/16/24 Unknown History alprazolam 1 mg tablet 1 mg PO TID 11/25/23 04/16/24 Unknown History Allergies Allergy/AdvReac Type Severity Reaction Status Date / Time latex Allergy Intermediate Itching Verified 12/23/24 17:13 morphine Allergy Intermediate Swelling Verified 12/23/24 17:13 amoxicillin (From Augmentin) AdvReac Mild Nausea and Verified 12/23/24 17:13 Vomiting clavulanic acid (From AdvReac Mild Nausea and Verified 12/23/24 17:13 Augmentin) Vomiting naproxen AdvReac Mild Other Verified 12/23/24 17:13 Review of Systems Review of Systems: All systems reviewed & are unremarkable except as noted in HPI and below PMFSH Past Medical History Medical History (Updated 12/23/24 @ 18:31 by Erica Coffman PA-C) Stridor Acute respiratory failure Acute hypercapnic respiratory failure Acute hypoxic on chronic hypercapnic respiratory failure Environmental and seasonal allergies Hyperlipidemia Pneumonia Elevated troponin Hyperglycemia Altered mental status Acute respiratory failure with hypercapnia Cervical radiculopathy Tobacco abuse Non compliance with medical treatment Proteinuria Pica in adults Otalgia of left ear Hidradenitis suppurativa Type 2 diabetes mellitus Vitamin D deficiency Cervical radiculopathy due to degenerative joint disease of spine Degenerated intervertebral disc Gestational diabetes Asthma Sciatica GERD (gastroesophageal reflux disease) PTSD (post-traumatic stress disorder) Depression Hypertension Anxiety Surgical History Surgical History Previous section History of facial surgery Family History Family History Mother Hypertension Alcoholism Asthma Diabetes mellitus Depression Anxiety Heart problem Father Hypertension Alcoholism Thyroid disorder Sibling Alcoholism Asthma Anxiety Depression Thyroid disorder Grandparent Asthma Cancer brain Diabetes mellitus Hypertension Depression Anxiety Heart problem Cerebrovascular accident Other Breast cancer Heart disease Malignant neoplasm of prostate Social History Social History Social History: The patient lives at home with her 6-year-old and 8-year-old child. She is unemployed and . She has smoked at least a half a pack of cigarettes per day since she was 15. She denies any alcohol or illicit substance use. Code status: Full code Surrogate decision maker: Phoebe Kennedy (mother) Smoking packs per day: 0.5 Smoking cigarettes per day: 10.0 Years smoked: 25 Smoking pack-years: 12.50 Smoking status: Current some day smoker Tobacco type: cigarettes Second hand tobacco smoke exposure: Yes Alcohol intake: never Substance use: never Do You Feel Safe in your Home?: Yes Lack of Transportation: No Lack of Food: Never True Current Housing: I Have Housing Concerned About Future Housing: No Difficulty Paying Gas/Electric Bills: No Difficulty Paying for Meds: No Currently Unemployed: No Education: High School Diploma/GED Difficulty w/ Childcare or Family Care: YES Living arrangements: with family Additional living arrangements comments: Lives alone with 2 children Occupation/Education: unemployed Gender identity (if verbalized by the patient): Female Spiritual care concerns: No Exam Narrative: GENERAL: Well-appearing, well-nourished, and in no acute distress. HEAD: Normocephalic, atraumatic. EYES: EOMI. CHEST: Clear to auscultation. No respiratory distress. No wheezes rales or rhonchi HEART: Regular rate and rhythm. No murmur heard. Normal peripheral pulses. ABDOMEN: Soft, nontender, nondistended, normal active bowel sounds. EXTREMITIES: Normal range of motion. No edema. SKIN: Warm, dry, no rash. NEURO: No focal deficits. Alert and oriented x3. PSYCH: Mildly anxious Course Vital Signs Vital signs: Vital Signs Temperature 97.9 F 12/23/24 17:48 Pulse Rate 120 H 12/23/24 17:48 Respiratory Rate 16 12/23/24 17:48 Blood Pressure 168/98 H 12/23/24 17:48 Pulse Oximetry 99 12/23/24 17:48 Oxygen Delivery Room Air 12/23/24 17:48 Temperature 97.9 F 12/23/24 17:48 Pulse Rate 120 H 12/23/24 17:48 Respiratory Rate 16 12/23/24 17:48 Blood Pressure 168/98 H 12/23/24 17:48 Pulse Oximetry 99 12/23/24 17:48 Oxygen Delivery Room Air 12/23/24 17:48 MDM - Anxiety MDM Narrative Medical decision making narrative: Patient presents to the ER for acute anxiety, worsening due to her being out of her anxiety medication. Will refill her medications until she is able to follow up with her provider Differential Diagnosis Differential diagnosis: Likely panic disorder and acute anxiety Critical Care Time Critical Care Time Critical Care Time: No Discharge Plan Discharge Clinical Impression: Anxiety Patient Disposition: Home Condition: Stable Instructions: Anxiety (ED) Additional Instructions: Return to the emergency department if you experience fever, chest pain, shortness of breath, abdominal pain with nausea and vomiting, weakness, numbness, or any other symptoms that are concerning to you. Follow up with your primary care doctor Patient Language: Georgian Prescriptions: New methocarbamol 750 mg tablet 1,500 mg PO TID Qty: 14 0RF alprazolam 1 mg tablet 1 mg PO TID PRN (Reason: anxiety) Qty: 7 0RF buspirone 15 mg tablet 15 mg PO TID 7 Days Qty: 21 0RF No Action fluoxetine 20 mg capsule 40 mg PO BID albuterol sulfate [Ventolin HFA] 90 mcg/actuation HFA aerosol inhaler 2 puff inhalation QID PRN (Reason: shortness of breath or wheezing) Qty: 8.5 0RF aripiprazole 5 mg tablet 5 mg PO DAILY trazodone 100 mg tablet 50 mg PO DAILY PRN (Reason: Insomnia) (DME) OneTouch Verio test strips Strip See Rx Instructions .Route Qty: 100 2RF Rx Instructions: USE TO CHECK BLOOD SUGARS 3 TIMES A DAY cholecalciferol (vitamin D3) 1,250 mcg (50,000 unit) tablet 1,250 mcg PO WEEKLY Qty: 8 0RF fluticasone propionate [Flonase Allergy Relief] 50 mcg/actuation spray,suspension 2 spray intranasal DAILY Qty: 16 0RF Rx Instructions: administer into each nostril alprazolam 1 mg tablet 1 mg PO TID aspirin 81 mg Tablet,Delayed Release (Dr/Ec) 81 mg PO QAM Qty: 30 0RF (DME) blood-glucose meter [OneTouch Verio Flex meter] Misc See Rx Instructions .Route Qty: 1 0RF Rx Instructions: USE TO CHECK BLOOD SUGARS 3 TIMES A DAY (DME) lancets 31 gauge misc See Rx Instructions .Route Qty: 100 2RF Rx Instructions: Use to check BS TID (DME) Nebulizer See Rx Instructions .Route .MEDSUPPLY Qty: 1 0RF Rx Instructions: As directed albuterol sulfate 2.5 mg /3 mL (0.083 %) solution for nebulization 2.5 mg inhalation Q4-6H PRN (Reason: shortness of breath or wheezing) Qty: 90 0RF atorvastatin 80 mg tablet 80 mg PO QHS Qty: 90 0RF fenofibrate 160 mg tablet 160 mg PO DAILY Qty: 90 0RF (DME) pen needle, diabetic [Comfort EZ Pen [place]] 32 gauge x 5/16 needle See Rx Instructions .Route Qty: 100 3RF Rx Instructions: use to inject insulin lisinopril 10 mg tablet 10 mg PO DAILY Qty: 30 5RF fluticasone propion-salmeterol [Advair Diskus] 250-50 mcg/dose blister with device 1 inh inhalation BID Qty: 60 1RF cyclobenzaprine 5 mg tablet 5 mg PO TID PRN (Reason: muscle spasm) Qty: 30 0RF Rx Instructions: May cause drowsiness. insulin glargine [Lantus Solostar U-100 Insulin] 100 unit/mL (3 mL) insulin pen 15 unit subcut QPM Qty: 15 0RF Rx Instructions: Please monitor glucose closely and keep a log. Eat a healthy snack at bedtime. PLEASE HAVE LABS DONE FOR FURTHER REFILLS gabapentin 300 mg capsule 300 mg PO TID Qty: 90 0RF albuterol sulfate 90 mcg/actuation HFA aerosol inhaler 1 puff inhalation Q4H PRN (Reason: shortness of breath or wheezing) Qty: 8.5 0RF Follow-up/Referrals: Stevie Castaneda MD [Primary Care Provider, [facility]]
[2024-12-23] MEDS: ALPRAZolam (*CRX) 0.5 MG TABLET PO (19:14)
== END 2024-12-23 19:18 | disposition home or self-care (01) ==
LOC: ANHED 19:14
PROVIDERS: Emergency Provider Physician Assistant; PCP Family Medicine
DX: F41.9 Anxiety disorder, unspecified (principal); I10 Essential (primary) hypertension; E78.5 Hyperlipidemia, unspecified; E11.9 Type 2 diabetes mellitus without complications; E55.9 Vitamin D deficiency, unspecified; J45.909 Unspecified asthma, uncomplicated; K21.9 Gastro-esophageal reflux disease without esophagitis; F32.A Depression, unspecified; F43.10 Post-traumatic stress disorder, unspecified; F17.210 Nicotine dependence, cigarettes, uncomplicated; Z87.01 Personal history of pneumonia (recurrent); Z79.4 Long term (current) use of insulin; Z79.899 Other long term (current) drug therapy
CPT/HCPCS: 99283; A9270